=== PATIENT | female | born 1985 | race Caucasian/White ===

== ENCOUNTER → 2017-12-22 09:17 | Outpatient (CLI) | payer OTHER, SELFPAY ==
[2017-12-22 10:10] LABS: Absolute Lymphocyte Count 3.33 X10^3/ul (0.83-4.51); Absolute Neutrophil Count 8.1 X10^3/uL (2.0-7.7); Basophil# 0.04 X10^3/uL; Basophil% 0.3 % (0-1); Eosinophil# 0.37 X10^3/uL; Eosinophils% 2.9 % (0-5); Hematocrit 42.5 % (37-47); Hemoglobin 14.2 g/dl (12.0-15.0); Lymphocyte # 3.33 X10^3/ul (4.0); Lymphocyte % 26.5 % (19-41); Mean Corp Hgb Conc 33.4 g/gl (32-36); Mean Corpuscular Hgb 32.2 pg (27.0-32.0); Mean Corpuscular Volume 96.4 fL (81-99); Mean Platelet Vol. 9.7 fl (6.2-12.0); Monocyte% 5.6 % (0-10); Neutrophil # 8.09 X10^3/uL (2.7-7.7); Neutrophil % 64.5 % (47-70); Platelet Count 380 K/mm3 (150-450); RBC Distribution Width CV 13.1 % (11.6-14.6); RBC Distribution Width SD 45.1 fl (35.1-43.9); Red Blood Count 4.41 M/mm3 (4.2-5.4); White Blood Count 12.6 K/mm3 (4.4-11.0)
[2017-12-22 10:11] LABS: Color, Urine Yellow (Yellow); Glucose, Dipstick Normal (Normal); Ketone-Dipstick 5 mg/dl (Negative); Leukocyte Esterase-Dipstick 25 /ul (Negative); Nitrite-Dipstick Negative (Negative); Occult Blood-Urine Negative /ul (Negative); Protein-Dipstick 30 mg/dl (Negative); Specific Gravity, Urine 1.025 (1.002-1.030); Urine Bilirubin Dipstick Negative (Negative); Urine Clarity Clear (Clear); Urine Urobilinogen Normal (Normal)
[2017-12-22 10:13] LABS: POSITIVE COUNT NO; POSITIVE DIFFERENTIAL NO; POSITIVE MORPHOLOGY NO
[2017-12-22 10:22] LABS: White Blood Cells 5-10 SEEN /hpf (0-5)
[2017-12-22 10:23] LABS: Red Blood Cells-Urine 0-5 SEEN /hpf (0-5); Squamous Epithelial Cells - UA 0-5 SEEN /hpf (5-10)
[2017-12-22 10:24] LABS: Bacteria 1+ /hpf (None Seen); Mucous, Urine 1+ /hpf (<or=2+)
[2017-12-22 11:09] LABS: ALB/GLOB Ratio 0.8 RATIO (0.9-2.4); AST(SGOT) 23 U/L (15-37); Alanine Aminotransfer ALT/SGPT 55 U/L (13-56); Albumin, Serum 3.4 g/dL (3.2-5.0); Alkaline Phosphatase 69 U/L (45-117); Anion Gap 12 (5-15); BUN 10 mg/dL (7-18); BUN/Creat Ratio 16.9 RATIO (10-20); Calcium,Total 8.4 mg/dL (8.5-10.1); Chloride 104 mmol/L (98-107); Cholesterol 207 mg/dL (200); Creatinine, Serum 0.59 mg/dL (0.55-1.02); EST Glomerular Filtration Rate 126 mL/min (>60); Est Glom Filt Rate - Afr Amer 153 mL/min (>60); Globulin 4.3 g/dL (2.2-4.2); Glucose 82 mg/dL (74-106); High Density Lipoprotein 39 mg/dL; Potassium 3.8 mmol/L (3.5-5.1); Protein, Total 7.7 g/dL (6.4-8.2); Sodium Level 140 mmol/L (136-145); Thyroid Stim Hormone (TSH) 1.77 uIU/mL (0.358-3.74); Triglycerides 192 mg/dL; Very Low Density Lipoprotein 38 mg/dL (5-40)
== END ==
PROVIDERS: Family Provider Family Medicine; PCP Family Medicine; Visit Provider Family Medicine
DX: E66.01 Morbid (severe) obesity due to excess calories (principal); Z72.0 Tobacco use
CPT/HCPCS: 36415; 80053; 80061; 81001; 84443; 85025

== ENCOUNTER → 2018-01-25 08:33 | Outpatient (CLI) | payer OTHER, SELFPAY ==
[2018-01-26 08:56] LABS: Vitamin B12 436 pg/mL (211-911); Vitamin D,25 Hydroxy 15.2 ng/mL (29.95-100.01)
== END ==
PROVIDERS: Family Provider Family Medicine; PCP Family Medicine; Visit Provider Family Medicine
DX: R53.83 Other fatigue (principal)
CPT/HCPCS: 36415; 82306; 82607

== ENCOUNTER 2019-01-23 19:36 | Emergency (ER) | payer SELFPAY ==
[2019-01-23 19:37] VITALS: BP 152/90; PULSE 96; RESP 15; TEMP 36.4; O2SAT 98; BMI 47.9
--- NOTE | 2019-01-23 19:39 | RAD_ITS ---
STUDY: X-RAY - LEFT FOOT CLINICAL: Female, 33 years old. Pain TECHNIQUE: 3 view(s) of the foot. COMPARISON: None. FINDINGS: There is no evidence of fracture or dislocation. There are no significant degenerative changes. There are no radiodense foreign bodies. RAD/Foot min 3 Views IMPRESSION: No fracture or dislocation. Electronically Signed: Carson Quan, at 19:55 EDT Tel , Service support ,
--- NOTE | 2019-01-23 20:50 | ED.VISSUMM ---
- ER Visit Summary Date of Service: 01/23/19 Chief Complaint: Left foot pain History of Present Illness: The patient is a 33 F who presents emergency department with 4 days of atraumatic left foot pain. Described as being on the top of the foot and worse with walking especially the toe off. She states initially started as a cramp and follow her mother's advice took some extra potassium using potassium pills and bananas. Doing any better. She wears [employer] is at work. She states that she worked a 10-hour shift today and seems to be getting worse. She states there is some swelling but no erythema. No fevers or rashes. No known breaks in the skin. Physical Examination: Afebrile vital signs stable Gen: Well-nourished well-developed Head: Normocephalic atraumatic Eyes: Perrl EOMI ENT: TMs clear no rhinorrhea moist mucous membranes Neck: Supple no lymphadenopathy no JVD nontender CVS: Regular rate rhythm no murmurs normal S1-S2 Respiratory: No distress clear to auscultation bilaterally chest nontender Abdomen: Soft nontender nondistended normal bowel sounds no masses Back: Nontender Extremity: Mild swelling over the dorsum of the left foot. With plantar flexion and dorsiflexion against resistance she points to a prong-like distribution over the dorsum of the foot traveling up near the syndesmosis of the lower leg. Skin: Normal color no rash Neuro: alert orientated ?3 CN II-XII intact normal strength sensation reflexes gait cerebellar Psych: Normal affect normal mood Test Results: Foot films negative. Emergency Department Course and Treatment: In her description of the pain certainly seems more like a tendinitis-like picture. I recommend Los wrap at the ankle joint anti-inflammatories ice and rest. I will refer her to podiatry. Impression: 1. Left foot tendinitis This note was generated with [employer] dictation software. It may contain incorrect words, spelling, and punctuation that were not noted in review of the chart prior to signing ED Disposition - Plan for ED Patient: Disposition: Home or Assisted Living Instructions: Treating Tendonitis of the Foot Prescriptions: Ibuprofen [Motrin] 600 mg PO Q6H PRN #30 tab PRN Reason: Pain Prescription Printed Referrals: Kris Canchola DPM [STAFF PHYSICIAN] - As soon as possible
[2019-01-23 20:58] VITALS: BP 132/84; PULSE 72; RESP 17; O2SAT 96
== END 2019-01-23 21:03 | disposition home or self-care (01) ==
PROVIDERS: Emergency Provider Emergency Medicine; Family Provider Family Medicine; PCP Family Medicine
DX: M77.52 Other enthesopathy of left foot and ankle (principal); E66.9 Obesity, unspecified; Z72.0 Tobacco use
CPT/HCPCS: 73630; 99282

== ENCOUNTER → 2020-10-17 | Outpatient (CLI) | payer OTHER, SELFPAY ==
[2020-04-02 11:40] VITALS: BMI 38.7
[2020-10-22 16:40] LABS: HPV Reflexed? NOT INDICATED
== END | disposition home or self-care (01) ==
LOC: LABSPEC 17:08
PROVIDERS: PCP Family Medicine; Visit Provider Obstetrics & Gynecology
DX: Z12.4 Encounter for screening for malignant neoplasm of cervix (principal)
CPT/HCPCS: 88175; G0145

== ENCOUNTER → 2020-10-21 15:52 | Outpatient (CLI) | payer OTHER, SELFPAY ==
[2020-04-02 11:40] VITALS: BMI 38.7
[2020-10-21 17:56] LABS: Absolute Lymphocyte Count 3.97 X10^3/uL (0.83-4.51); Absolute Neutrophil Count 8.8 X10^3/uL (2.0-7.7); Basophil# 0.04 X10^3/uL; Basophil% 0.3 % (0-1); Eosinophil# 0.14 X10^3/uL; Hematocrit 41.3 % (37-47); Hemoglobin 13.1 g/dL (12.0-15.0); Lymphocyte # 3.97 X10^3/ul (0.83-4.51); Lymphocyte % 28.8 % (19-41); Mean Corp Hgb Conc 31.7 g/dL (32-36); Mean Corpuscular Hgb 30.8 pg (27.0-32.0); Mean Corpuscular Volume 97.2 fL (81-99); Mean Platelet Vol. 9.4 fl (6.2-12.0); Monocyte# 0.81 X10^3/uL; Monocyte% 5.9 % (0-10); NRBC Flagged by Analyzer 0 % (0-5); Neutrophil # 8.78 X10^3/uL (2.7-7.7); Neutrophil % 63.6 % (47-70); Platelet Count 436 K/mm3 (150-450); RBC Distribution Width CV 13.2 % (11.6-14.6); RBC Distribution Width SD 46.6 fl (35.1-43.9); Red Blood Count 4.25 M/mm3 (4.2-5.4); White Blood Count 13.8 K/mm3 (4.4-11.0)
[2020-10-21 17:57] LABS: ALB/GLOB Ratio 0.9 RATIO (0.9-2.4); AST(SGOT) 14 U/L (15-37); Alanine Aminotransfer ALT/SGPT 23 U/L (13-56); Albumin, Serum 3.9 g/dL (3.2-5.0); Alkaline Phosphatase 75 U/L (45-117); Anion Gap 7 (5-15); BUN 11 mg/dL (7-18); BUN/Creat Ratio 16.3 RATIO (10-20); Calcium,Total 8.7 mg/dL (8.5-10.1); Chloride 102 mmol/L (98-107); Cholesterol 237 mg/dL (200); Creatinine, Serum 0.67 mg/dL (0.55-1.02); EST Glomerular Filtration Rate 106 mL/min (>60); Est Glom Filt Rate - Afr Amer 129 mL/min (>60); Globulin 4.3 g/dL (2.2-4.2); Glucose 81 mg/dL (74-106); High Density Lipoprotein 70 mg/dL; Potassium 3.9 mmol/L (3.5-5.1); Protein, Total 8.2 g/dL (6.4-8.2); Sodium Level 135 mmol/L (136-145); Triglycerides 100 mg/dL; Very Low Density Lipoprotein 20 mg/dL (5-40)
[2020-10-21 18:00] LABS: Vitamin D,25 Hydroxy 21.1 ng/mL
== END ==
PROVIDERS: PCP Family Medicine; Visit Provider Family Medicine
DX: E55.9 Vitamin D deficiency, unspecified (principal); E66.9 Obesity, unspecified
CPT/HCPCS: 36415; 80053; 80061; 82306; 85025

== ENCOUNTER 2021-01-15 10:52 | Observation (INO) | payer OTHER, SELFPAY ==
[2020-11-13 15:34] VITALS: BMI 38.7
[2020-12-09 11:50] VITALS: BMI 38.7
[2021-01-14 10:07] LABS: Absolute Lymphocyte Count 3.02 X10^3/uL (0.83-4.51); Absolute Neutrophil Count 6.4 X10^3/uL (2.0-7.7); Basophil# 0.05 X10^3/uL; Basophil% 0.5 % (0-1); Eosinophil# 0.16 X10^3/uL; Eosinophils% 1.5 % (0-5); Hematocrit 41.3 % (37-47); Hemoglobin 13.1 g/dL (12.0-15.0); Lymphocyte # 3.02 X10^3/ul (0.83-4.51); Lymphocyte % 29.2 % (19-41); Mean Corp Hgb Conc 31.7 g/dL (32-36); Mean Corpuscular Volume 97.6 fL (81-99); Mean Platelet Vol. 9.5 fl (6.2-12.0); Monocyte# 0.61 X10^3/uL; Monocyte% 5.9 % (0-10); NRBC Flagged by Analyzer 0 % (0-5); Neutrophil # 6.44 X10^3/uL (2.7-7.7); Neutrophil % 62.4 % (47-70); Platelet Count 382 K/mm3 (150-450); RBC Distribution Width CV 13.3 % (11.6-14.6); RBC Distribution Width SD 47.6 fl (35.1-43.9); Red Blood Count 4.23 M/mm3 (4.2-5.4); White Blood Count 10.3 K/mm3 (4.4-11.0)
[2021-01-14 10:33] LABS: Vitamin B12 486 pg/mL (211-911); Vitamin D,25 Hydroxy 24.1 ng/mL
[2021-01-14 10:42] LABS: ALB/GLOB Ratio 0.9 RATIO (0.9-2.4); AST(SGOT) 12 U/L (15-37); Alanine Aminotransfer ALT/SGPT 17 U/L (13-56); Albumin, Serum 3.4 g/dL (3.2-5.0); Alkaline Phosphatase 67 U/L (45-117); Anion Gap 6 (5-15); BUN 12 mg/dL (7-18); BUN/Creat Ratio 20.5 RATIO (10-20); Calcium,Total 8.2 mg/dL (8.5-10.1); Chloride 105 mmol/L (98-107); Creatinine, Serum 0.58 mg/dL (0.55-1.02); EST Glomerular Filtration Rate 125 mL/min (>60); Est Glom Filt Rate - Afr Amer 152 mL/min (>60); Globulin 3.9 g/dL (2.2-4.2); Glucose 82 mg/dL (74-106); Potassium 4.1 mmol/L (3.5-5.1); Protein, Total 7.3 g/dL (6.4-8.2); Sodium Level 138 mmol/L (136-145); Thyroid Stim Hormone (TSH) 2.05 uIU/mL (0.358-3.74)
[2021-01-15] VITALS (9 sets, daily range): BP systolic 106–128; BP diastolic 49–86; PULSE 65–88; RESP 16; TEMP 36.4–37.1; O2SAT 94–100; BMI 42.8
[2021-01-15 06:35] LABS: Internal QC Validated? YES +Cl - CLEAR BKGD; Pregnancy, Urine Negative Negative
[2021-01-15] MEDS: Lactated Ringers 1,000 ML 100 ML IV ×2 (06:49→15:56)
--- NOTE | 2021-01-15 07:04 | HP.PCM_ITS ---
History and Physical Date of Admission: 01/15/21 HISTORY OF PRESENT ILLNESS 35 year old woman presents with long standing hidradenitis that started about 20 years ago. She has been on antibiotics intermittently. She also has a history of a 100 lb weight loss which has exacerbated these areas of hidradenitis because of redundant skin and subcutaneous tissue in her lower anterior abdominal wall and inguinal areas extending onto the medial thigh areas. She denies fever. She denies trauma. She has never had any surgical procedures done. When she has flare ups, there is increased pain and redness and swelling with some drainage. She was offered Humira as a treatment, but she was concerned about the side effects. She presents at this time for further evaluation and treatment. PAST MEDICAL HISTORY Hidradenitis suppurativa Necrotizing soft tissue infection Recent weight loss PAST SURGICAL HISTORY section ALLERGIES aspirin MEDICATIONS fexofenadine sertraline doxycycline monohydrate FAMILY HISTORY Breast cancer Cervical cancer Colon cancer Diabetes Hypertension SOCIAL HISTORY Smoking Status: Former smoker quit date: 02/03/20 pack-years: 15 alcohol intake: current REVIEW OF SYSTEMS General - Denies fever, fatigue. Had weight loss in the past of about 100 lbs. Eyes - Denies cataracts and glaucoma. ENT - Denies nasal congestion and sore throat. Endocrine - Denies excessive thirst and urination. Skin - Denies skin cancer. Has multiple areas of hidradenitis involving the abdominal wall skin crease, bilateral inguinal areas extending to the medial thighs, bilateral vulval area involving the genitocrural crease extending to the labia and involving the mons pubis, and bilateral axillary areas. Musculoskeletal - Denies joint pain, joint stiffness, weakness of muscles and joints, back pain, and arthritis. Neuro - Denies headaches. Cardiovascular - Denies chest pain, fatigue, and shortness of breath with exertion. Psych - Denies anxiety. Has depression. Respiratory - Denies chronic cough and shortness of breath. Patient is a former smoker. Gastrointestinal - Denies nausea, vomiting, diarrhea, and constipation. Hematologic - Denies abnormal bruising and bleeding. Genitourinary - Denies hematuria and urinary frequency. PHYSICAL EXAMINATION General - Alert and Oriented. HEENT - PERRL. EOMI. Throat is clear. Neck - Supple and nontender. No cervical adenopathy. Breasts - Patient stated she noticed areas of redness and induration in her inframammary creases. Today it appears resolved. Lungs - Clear to auscultation. Heart - Regular rate and rhythm. Abdomen - Soft and nondistended. Has redundant skin and subcutaneous tissue in the lower anterior abdominal wall with extensive areas of hidradenitis involving the abdominal wall skin crease. Tender to palpation. There is redness and induration and swelling. There is no odor. No drainage noted today. Has bilateral inguinal hidradenitis with extension to the medial thigh areas. There is redness and induration and swelling. There is no odor. Tender to palpation. No drainage noted today. No inguinal adenopathy noted. Genital - Has bilateral vulval hidradenitis involving the genitocrural crease and extending to the labial areas and the mons pubis area. There is redness and induration and swelling. There is no odor. Tender to palpation. No drainage noted today. Extremities - FROM. No axillary adenopathy. Radial pulses are palpable. Has bilateral axillary hidradenitis. There is redness and induration and swelling. There is no odor. Tender to palpation. No drainage noted today. Neuro - CN II-XII grossly intact. Psych - Normal mood and affect. ASSESSMENT 1. Extensive abdominal wall skin crease hidradenitis, possible necrotizing soft tissue infection. 2. Bilateral inguinal hidradenitis with extension to medial thighs. 3. Bilateral vulval hidradenitis with extension from the genitocrural crease to the labia and to the mons pubis. 4. Bilateral axillary hidradenitis. 5. Recent weight loss of about 100 lbs. 6. Former smoker. PLAN Patient has extensive areas of hidradenitis that need surgical excision. Would send the tissue to Pathology for analysis to rule out carcinoma and to Microbiology for culture. A positive culture will necessitate antibiotic therapy. Will leave the wounds open and proceed with wound care with the VAC or with daily Dakin's dressing changes. Surgery would be done under general anesthesia with a surgical observation overnight stay in the hospital. After discharge, she would followup at the Wound Center. If there is a plateau in the healing process, can proceed with delayed closure with skin grafting. The extensive abdominal wall skin crease hidradenitis is the most symptomatic and will start there. Next areas would be the inguinal area involving the medial thigh and the vulval areas. Would do one side at a time. Lastly would address the bilateral axillary areas. Patient was informed of the risks and complications of the procedure including alternatives to surgery. These were discussed with the patient personally. Patient voices understanding and wishes to proceed. Some of the risks and complications were included in a form from the [employer]. Potential risks and complications included but not inclusive of bleeding, infection seroma, hematoma, bruising, swelling, prolonged need for drains, loss of sensation to skin, partial or complete loss of skin flap and/or nipple graft, wound breakdown, need for wound care, poor scarring, poor aesthetic outcome, intra operative cardiac or neurologic events, DVT, PE, and reaction to an esthesia. We discussed the current risks associated with COVID-19. While it is understood that there is a community spread of COVID-19, the risk of huma COVID-19 while at [facility] ([facility]) is very low; however, the risk cannot be completely mitigated because of the community spread of the disease. We discussed in detail the risk of exposure to and/or potential harm posed by the COVID-19 virus with having a surgery/procedure at this time versus the risk of delaying the surgery/procedure. It is not possible to know either the risk of delaying the surgery or procedure or chance of getting an infection with perfect accuracy, but a joint decision was made to proceed at this time with the scheduled surgery/procedure as indicated on the consent form. Patient was notified that we will need to comply with any screening or testing [facility] wishes to perform or that surgery may be delayed for any positive results. Procedure Criteria Procedure Type: Elective COVID Risk Discussion: The surgeon/proceduralist and patient have discussed in detail the risk of exposure to and/or potential harm posed by the COVID-19 virus with having a surgery/procedure at this time versus the risk of delaying the surgery/procedure. It is not possible to know either the risk of delaying the surgery or procedure or chance of getting an infection with perfect accuracy, but a joint decision was made between the patient and the surgeon/proceduralist to proceed at this time with the scheduled surgery/procedure as indicated on the consent form.
--- NOTE | 2021-01-15 08:00 | HID_PTH ---
PATIENT: MORA ABRAHAM LOC: MS3 U#:[id number] AGE/SX: 35/F ROOM: [facility] RE01/15/[address]: Dr. Alfonso De La Torre MD : 1985 BED: 1 DIS: 01/16/2021 SPEC #: [id number] RECD: 01/15/21 09:57 STATUS: MOHIT GASPAREliane #: [id number] YURY: 01/15/21 08:[address]: Alfonso De La Torre DEPT: SURGICAL PATHOLOGY RECD BY: Yara Farris ENTERED: 01/15/21 12:06 SP TYPE: Hidradenit EVE DR: Dr. Steve Hu MD Tissues: Abdominal wall, NOS Procedures: Surgery Specimen Level III HEADER OPERATION: Excisional debridement skin and subcutaneous tissue abdominal wall PRE-OP DIAGNOSIS: Extensive abdominal wall skin crease hidradenitis, possible necrotizing soft tissue infection TISSUE SUBMITTED: Abdominal wall hidradenitis MICROSCOPIC DIAGNOSIS Hidradenitis of abdominal wall, excision: Consistent with hidradenitis. AM:luna 01/17/2021 MICROSCOPIC DESCRIPTION Slides are reviewed. GROSS DESCRIPTION Received in fixative is one container labeled with the patient's name and designated abdominal wall hidradenitis. The specimen consists of two triangular pieces of skin with underlying tissue measuring in aggregate 30 x 21.5 cm and up to 5 cm in thickness. No obvious lesion is identified. Sections do not reveal any mass lesion. Zig Zag Stitcher sections are submitted in four cassettes. / SJ:luna 01/16/21 TC:2 CPT: 86636
[2021-01-15] MEDS: Lidocaine 1%/Epi 1:200 (30ml) 30 ML AMPUL (09:01)
--- NOTE | 2021-01-15 09:39 | PCM.OPRPT ---
Problems Associated Problem List Diagnoses (1) Hidradenitis suppurativa: (2) Necrotizing soft tissue infection: (3) Recent weight loss: (4) Former smoker: (5) Open wound anterior abdominal wall: Report of Operation Date of Procedure: 01/15/21 Pre-Operative Diagnosis: 1. Extensive abdominal wall skin crease hidradenitis, possible necrotizing soft tissue infection. 2. Bilateral inguinal hidradenitis with extension to medial thighs. 3. Bilateral vulval hidradenitis with extension from the genitocrural crease to the labia and to the mons pubis. 4. Bilateral axillary hidradenitis. 5. Recent weight loss of about 100 lbs. 6. Former smoker. Post-Operative Diagnosis: 1. Extensive abdominal wall skin crease necrotizing soft tissue hidradenitis infection. 2. Bilateral inguinal hidradenitis with extension to medial thighs. 3. Bilateral vulval hidradenitis with extension from the genitocrural crease to the labia and to the mons pubis. 4. Bilateral axillary hidradenitis. 5. Recent weight loss of about 100 lbs. 6. Former smoker. Surgery/Procedure Performed:: Excisional debridement skin and subcutaneous tissue for necrotizing soft tissue hidradenitis infection lower anterior abdominal wall. Description of Surgical Findings:: 35 year old woman presents with long standing hidradenitis that started about 20 years ago. She has been on antibiotics intermittently. She also has a history of a 100 lb weight loss which has exacerbated these areas of hidradenitis because of redundant skin and subcutaneous tissue in her lower anterior abdominal wall and inguinal areas extending onto the medial thigh areas. She denies fever. She denies trauma. She has never had any surgical procedures done. When she has flare ups, there is increased pain and redness and swelling with some drainage. She was offered Humira as a treatment, but she was concerned about the side effects. Patient was informed of the risks and complications of the procedure including alternatives to surgery. These were discussed with the patient personally. Patient voices understanding and wishes to proceed. Some of the risks and complications were included in a form from the [employer]. Size of defect lower anterior abdominal wall - 50 x 9 x 4 cm. Surgeon: Alfonso De La Torre twisting frame operator: None Type of Anesthesia: General Specimen's removed: Abdominal wall tissue to Pathology and Microbiology. Drains: None. Estimated Blood Loss (mL): 50. Description of Procedure: Patient was taken to OR in supine position and was placed under general anesthesia. The abdominal wall was prepped and draped in the usual fashion. SCD's were placed for DVT prophylaxis. Perioperative antibiotics were given intravenously. Using xylocaine with epinephrine, the abdominal wall skin crease was infiltrated. After waiting 5 minutes for the anesthetic to take effect, I made a horizontal elliptical incision to include the areas of severe hidradenitis and to include some excess skin superiorly to allow easier wound care due to minimizing skin overhang. When I got into the subcutaneous tissue, there was extensive fat necrosis with some of it starting to liquefy. No gross pus was seen. The dissection extended past Kelvin's fascia down to the abdominal wall fascia. Dense scarring was seen throughout the excision indicating chronic infection. The extensive fat necrosis and indurated scarring along with the skin and subcutaneous tissue was excised and debrided. The abdominal wall tissue was sent to Pathology for analysis to rule out carcinoma and to Microbiology for culture. A positive culture will necessitate antibiotic therapy. Hemostasis was obtained with electrocautery. The wound was irrigated with saline. The size of the defect after excisional debridement of the skin and subcutaneous tissue for necrotizing soft tissue hidradenitis infection was 50 x 9 x 4 cm or 450 cm2. The wound was dressed with Mepitel nonadherent dressing followed by Kerlix gauze and Betadine and followed by dry Kerlix gauze and ABD pads compression dressing. Patient tolerated the procedure well and was sent to PACU in satisfactory condition. Patient will be sent upstairs for continued postop care. The VAC will be applied tomorrow. After discharge, she will followup at the Wound Center. If there is a plateau in the healing process, we can proceed with delayed closure with skin grating or complex secondary wound closure. Grafts/Implants Used: None. Complications None. Admit VTE Documentation VTE Present on Admission: No VTE Mechan Device Prophylaxis: SCD's VTE Pharm Prophylaxis ordered?: No Addendum Addendum: Surgery Charges CPT - 17565 ICD-10 - L73.2, M79.89, S31.109A, R63.4, Z87.891
[2021-01-15] MEDS: oxyCODONE 5 MG Tablet 10 MG PO ×3 (12:10→22:50)
--- NOTE | 2021-01-15 14:30 | CASEMGMT ---
Addendum entered by Raza Domingo 01/15/21 18:12: 1640: Calls placed to [facility] and [facility]. Neither able to accept pt d/t staffing. Call placed to Christopher @ [facility] and referral made. Referral packet faxed. Christopher made aware wound vac to be placed tomorrow, and anticipate discharge home tomorrow, and SOC would need to be either Sat or Sun. Christopher was also notified that plan is for pt to go to the Wound center once a week, so HH to do wound vac dsg changes 2 x's/week. Awaiting acceptance. Original Note: RN CM MANAGEMENT ACCOUNTANT CM to room to meet with patient for initial transition planning/care coordination assessment. RN CM introduced self and role at [facility].? Pt voices understanding and consents to assessment at this time.? Pt resting in bed in no distress at this time.? Pt is A/O at this time and answers all questions appropriately.?? Care providers, pharmacy, and demographics verified/updated at this time. PCP: Dr Steve Hu Specialists: Dr De La Torre--surgeon Preferred [facility]acy: [facility] Insurance: MMO Prescription Benefit:? Yes Living Will/HPOA:? Pt does not currently have LW/HCPOA and declines info at this time.? LNOK: , Luther. Has 5 children. 2 are adults Living Arrangements: Lives w/her and 3 children live w/them. Independent prior to surgery w/ADL's and IADL's. States is supportive and able to help as needed. Pt's mother is also supportive and is taking care of the 2 youngest children for a few days while pt recovers. Transportation: Pt states drives self and states no transportation concerns at this time.? also drives. DME: ? Denies using any DME and denies needs.? HHC/SNF: No history of either. States wishes to return home @ d/c. Discussed [facility] for wound vac dsg changes/care. Pt inquiring if her Aunt Renee could do the dressing changes, stating she is an RN and has done wound vac's in the past. Pt made aware of frequency of wound vac dsg changes. Pt states if her insurance will cover cost of C, then she would be agreeable to [facility], but she did call Ana while NINA ZEE in the room and discussed wound vac with her. Ana states she has worked for [facility] in the past, has done wound vac care/dsg changes, and would be agreeable to do them if needed. ?Pt was provided with list of?[facility] providers including quality and resource use data and consistent with the patient's preferred geographic region, medical needs, and insurance network. ?The pt's stated she did not have a preference of [facility] agencies and tried to hand the HHC list back to pt. NINA ZEE informed pt it was her choice and she stated, Whoever you can get. Pt was agreeable to keeping the list, but again stated she had no preference. Ana was on speaker phone at the time of this discussion of [facility] agencies and she states had no preference of [facility] agencies either, other than she would not want pt to have [facility]. Pt wishes to return home w/HHC for wound vac care and states has no concerns with going home at time of discharge.? CM to follow for any further discharge planning/needs.? Pt voices no further concerns/needs at this time.? Advised pt to ask for CM if any further questions/concerns/needs arise.? Voices understanding. PLAN: ?Home w/HHC: SN for wound vac care/dsg changes. Tracie MCDONALD RN, CM
[2021-01-15] MEDS: 0.9% Saline Lock 10 ML Syringe IV (15:53)
[2021-01-15] MEDS: Docusate Sodium 100 MG Capsule PO (20:30)
[2021-01-16 02:15] VITALS: BP 105/56; PULSE 73; RESP 16; TEMP 36.7; O2SAT 94
[2021-01-16] MEDS: oxyCODONE 5 MG Tablet 10 MG PO ×2 (04:35→14:09)
[2021-01-16] MEDS: Lactated Ringers 1,000 ML 100 ML IV (04:36)
[2021-01-16 05:57] LABS: Hematocrit 35.7 % (37-47); Hemoglobin 11.5 g/dL (12.0-15.0); Mean Corp Hgb Conc 32.2 g/dL (32-36); Mean Corpuscular Hgb 31.4 pg (27.0-32.0); Mean Corpuscular Volume 97.5 fL (81-99); Mean Platelet Vol. 9.3 fl (6.2-12.0); Platelet Count 336 K/mm3 (150-450); RBC Distribution Width CV 13.2 % (11.6-14.6); RBC Distribution Width SD 47.3 fl (35.1-43.9); Red Blood Count 3.66 M/mm3 (4.2-5.4); White Blood Count 12.3 K/mm3 (4.4-11.0)
[2021-01-16 06:52] LABS: Anion Gap 7 (5-15); BUN 12 mg/dL (7-18); BUN/Creat Ratio 21.3 RATIO (10-20); Calcium,Total 8.2 mg/dL (8.5-10.1); Chloride 103 mmol/L (98-107); Creatinine, Serum 0.56 mg/dL (0.55-1.02); EST Glomerular Filtration Rate 131 mL/min (>60); Est Glom Filt Rate - Afr Amer 158 mL/min (>60); Estimated Creatinine Clearance 117.09 ml/min; Glucose 91 mg/dL (74-106); Potassium 3.7 mmol/L (3.5-5.1); Prealbumin 31.4 mg/dL (20.0-40.0); Sodium Level 138 mmol/L (136-145)
[2021-01-16 07:32] VITALS: BP 106/54; PULSE 96; RESP 16; TEMP 36.8; O2SAT 93
[2021-01-16] MEDS: HYDROmorphone 1 MG/ML Syringe IV (07:57)
[2021-01-16] MEDS: 0.9% Saline Lock 10 ML Syringe IV ×2 (08:06→13:05)
[2021-01-16] MEDS: Docusate Sodium 100 MG Capsule PO (09:37)
[2021-01-16] MEDS: Sertraline 100 MG Tablet PO (09:37)
[2021-01-16 09:56] VITALS: PULSE 69
--- NOTE | 2021-01-16 10:24 | CASEMGMT ---
RN CM: HILL received from Christopher @ [facility]. They are able to accept pt and SOC will be either Sat or Sun, depending on when pt is discharged. Christopher requests for a teachable caregiver to be available, if needed. Pt made aware [facility] able to accept. She states her mother is also an RN, and would be agreeable to teaching, and she would prefer to have her mother listed as the teachable caregiver, instead of her Aunt Ana, as Ana lives about 30 min away and may not be as available as her mother. Call placed back to Christopher and he was made aware of same. Tracie MCDONALD RN CM
--- NOTE | 2021-01-16 10:46 | NURSING ---
wound photo: lower abdomen
[2021-01-16] MEDS: Ondansetron 4 MG/2 ML Vial IV (13:05)
[2021-01-16 13:29] VITALS: BP 110/69; PULSE 74; RESP 16; TEMP 36.6; O2SAT 97
--- NOTE | 2021-01-16 13:42 | PCM.PN.SRG ---
Subjective Subjective Postop day #1 Patient states pain is well controlled She would like to be discharged home today. Objective Data Objective Data Vital Signs: Vital Signs Temp Pulse Resp BP Pulse Ox 97.9 F 74 16 110/69 97 01/16/21 13:29 01/16/21 13:29 01/16/21 13:29 01/16/21 13:29 01/16/21 13:29 Oxygen Delivery Method Room Air Weight: 242 lb 1.081 oz Body Mass Index (BMI) 42.8 Intake & Output: Intake and Output for Last 24 Hours 01/14/21 01/15/21 01/16/21 23:59 23:59 23:59 Intake Total 2771.67 / 2771.67 1108.00 / 1108.00 Output Total 2100 / 2100 Balance 671.67 / 671.67 1108.00 / 1108.00 Lab / Micro Data Result Diagrams: 01/16/21 05:29 01/16/21 05:29 Labs: Laboratory Results - last 24 hr 01/16/21 05:29: WBC 12.3 H, RBC 3.66 L, Hgb 11.5 L, Hct 35.7 L, MCV 97.5, MCH 31.4, MCHC 32.2, RDW Std Deviation 47.3 H, RDW Coeff of Balaji 13.2, Plt Count 336, MPV 9.3 01/16/21 05:29: Sodium 138, Potassium 3.7, Chloride 103, Carbon Dioxide 28.0, Anion Gap 7, BUN 12, Creatinine 0.56, Estim Creat Clear Calc 117.09, Est GFR (MDRD) Af Amer 158, Est GFR (MDRD) Non-Af 131, BUN/Creatinine Ratio 21.3 H, Glucose 91, Calcium 8.2 L, Prealbumin 31.4 Micro: Microbiology 01/15/21 09:30 Tissue - Abdominal Gram Stain - Final 01/15/21 09:30 Tissue - Abdominal Wound Culture - Preliminary No growth-Final to follow 01/14/21 09:10 Interface Orders SARS-CoV-2 Antigen (Rapid) - Final Physical Exam Const oriented x3 and no apparent distress Resp normal respiratory effort Cardio regular rate GI GI Narrative: Lower abdomen is tender due to incision. Extremity full ROM Skin Wound Narrative: Lower abdominal wound operative dressing removed. Wound is stable with no active bleeding. Wound VAC was placed earlier today and patient is tolerating it well. Neuro oriented x3 Psych mental status grossly normal Assessment & Plan Assessment/Plan (1) Open wound anterior abdominal wall: (2) Necrotizing soft tissue infection: (3) Hidradenitis suppurativa: (4) Other acute postprocedural pain: (5) Recent weight loss: (6) Former smoker: PLAN: Patient states that pain is well controlled with oral pain meds. She is experiencing some nausea. Operative dressing removed today, wound is stable with no active bleeding. Wound nurse placed wound VAC without difficulty to 150mmHg. Operative cultures pending. She has been receiving Clindamycin IV. Will prescribe Doxycycline on discharge. Prealbumin 31.4. Encourage protein intake to help with wound healing. She states she has been ambulating without difficulty. She will be discharged home later today. She will follow up Wednesday01/20/21 at the wound center. They will call her with an appointment. She will be prescribed Percocet for post op pain. PDMP reviewed. Valium for muscle spasms due to the wound VAC. Colace for constipation. Zofran for nausea.
--- NOTE | 2021-01-16 13:45 | DCINST_ITS ---
Discharge Instructions Diet Discharge Diet: No restrictions Activity Discharge Activity: May Not Drive and May Not Shower May resume sexual activity in: 1-2 weeks Lifting Restrictions: 20 lb weight lifting restriction Additional Activity Instructions:: Please wear abdominal binder for abdominal support Dressing / Incision Call your doctor if your incision/area has: Continuous Slow Oozing, Sudden Increased Bleeding, Increased Pain/ Swelling, Increased Redness, Foul Smelling Discharge and Swelling at the incision site Call your doctor if you observe: Fever of 101 or Higher, Coldness, Increased Pain, Numbness or Tingling, Inability to urinate, Inability to have a bowel movement, Using more than 1 pad per hour, Shortness of breath, Chest pain, Calf discomfort and Uncontrolled pain Change Dressing in: 2 days (home health will change dressing.) Cleanse incision/area with: Soap & Water (At time of wound vac dressing change, wash wound and andrea wound with soap and water) Additional Dressing/Incision Instructions:: Wound VAC dressing change 3 times pe r week. Wash wound with soap and water at the time of wound VAC dressing changes. When patient feels comfortable removing wound VAC dressing, may remove wound VAC dressing and shower right before home health comes to change the dressing. Follow Up Care Please Follow Up With: Tania Beck When: Wednesday January 20, 2021 at the [facility] center [phone] (they should call you to schedule your appointment). Test Results: Test results from this visit will be discussed in further detail at your follow-up appointment, if applicable. Discharge Plan Admission Admit Date/Time: 01/15/21 10:52 Attending Provider: Alfonso De La Torre Primary Care Provider: Steve Hu Discharge Orders/Prescriptions Prescriptions: New oxycodone-acetaminophen [Percocet] 5-325 mg tablet 1 tab PO Q4H PRN (Reason: pain (scale score 7-10)) 7 Days Qty: 30 RF: 0 doxycycline monohydrate 100 mg capsule 100 mg PO BID 14 Days Qty: 28 RF: 0 diazepam [Valium] 5 mg tablet 5 mg PO TID PRN (Reason: muscle spasm) 7 Days Qty: 20 RF: 0 ondansetron 4 mg tablet,disintegrating 4 mg PO Q8H PRN (Reason: nausea and vomiting) Qty: 20 RF: 0 docusate sodium [Colace] 100 mg capsule 100 mg PO DAILY 30 Days Qty: 30 RF: 0 Continued sertraline [Zoloft] 25 mg tablet 100 mg PO DAILY RF: 0 Referrals / Follow Up: Steve Hu MD [Primary Care Provider] - Disposition Disposition (needs filled in before D/C Order can be placed): Home, Self Care
--- NOTE | 2021-01-16 16:06 | NURSING ---
This RN reviewed SN charting
== END 2021-01-16 14:33 | disposition home health service (06) ==
LOC: SDC 15:31 → MS3 15:31
PROVIDERS: Anesthesiology; Admitting Provider Surgery; PCP Family Medicine; Referring Provider Surgery; Visit Provider Surgery
PROC: (CPT 11005; principal; 2021-01-15 07:45)
DX: L73.2 Hidradenitis suppurativa (principal); L98.7 Excessive and redundant skin and subcutaneous tissue; Z87.891 Personal history of nicotine dependence; I96 Gangrene, not elsewhere classified; Z79.899 Other long term (current) drug therapy; F41.9 Anxiety disorder, unspecified; F32.9 Major depressive disorder, single episode, unspecified; M19.90 Unspecified osteoarthritis, unspecified site; G25.81 Restless legs syndrome
CPT/HCPCS: 00800; 11005; 36415; 80048; 80053; 81025; 82306; 82607; 84134; 84443; 85025; 85027; 87070; 87075; 87102; 87176; 87205; 87206; 87426; 88304; 96361; 96365; 96366; 96375; 99218; 99251; 99406; C9803; J7120; A4216; G0378; G0379; G0463; J2405

== ENCOUNTER 2021-01-27 11:30 | Outpatient (RCR) | payer OTHER, SELFPAY ==
[2021-01-15 06:42] VITALS: BMI 42.8
[2021-01-20 10:55] VITALS: BP 130/78; PULSE 76; TEMP 36.4; BMI 42.8
--- NOTE | 2021-01-20 13:02 | PCM.WC.HP ---
History of Present Illness Date of Service: 01/20/21 Chief Complaint: Lower abdomen open surgical wound after excision of hidradenitis History of Wound: 35 year old woman presents with long standing hidradenitis that started about 20 years ago. She has been on antibiotics intermittently. She also has a history of a 100 lb weight loss which has exacerbated these areas of hidradenitis because of redundant skin and subcutaneous tissue in her lower anterior abdominal wall and inguinal areas extending onto the medial thigh areas. She denies fever. She denies trauma. She has never had any surgical procedures done. When she has flare ups, there is increased pain and redness and swelling with some drainage. She was offered Humira as a treatment, but she was concerned about the side effects. Surgery - Excisional debridement skin and subcutaneous tissue for necrotizing soft tissue hidradenitis infection lower anterior abdominal wall. Wound care - Wound VAC at 150 mmHg three times per week. She is having increased pain, but is hesitant to take pain meds. Instructed her that she may need pain meds for the pain and Valium for the muscle spasms. She denies any fevers. She states her appetite is good. Progress of Wound: Lower abdominal wound is stable. PFSH Medical History Alcohol use Anxiety Arthritis Depression Former smoker Hidradenitis suppurativa Marijuana use Necrotizing soft tissue infection Open wound anterior abdominal wall Recent weight loss Restless legs Shortness of breath on exertion Smoker Home Medications sertraline 25 mg tablet 100 mg PO DAILY tab 11/13/20 [History Last Taken 01/15/21] diazepam [Valium] 5 mg PO TID PRN 7 Days #20 tab 01/16/21 [Rx Last Taken Unknown] docusate sodium [Colace] 100 mg PO DAILY 30 Days #30 cap 01/16/21 [Rx Last Taken Unknown] doxycycline monohydrate 100 mg PO BID 14 Days #28 cap 01/16/21 [Rx Last Taken Unknown] ondansetron 4 mg PO Q8H PRN #20 tab 01/16/21 [Rx Last Taken Unknown] oxycodone-acetaminophen [Percocet] 1 tab PO Q4H PRN 7 Days #30 tab 01/16/21 [Rx Last Taken Unknown] Allergy/AdvReac Type Severity Reaction Status Date / Time aspirin Allergy Swelling Verified 01/15/21 06:41 Family History Other Breast cancer Cervical cancer Colon cancer Diabetes Hypertension Surgical History (Updated 01/08/21 @ 10:17 by Rivka Hahn) Hx of section [place] teeth extracted Social History Smoking Status: Current every day smoker tobacco type: e-cigarettes alcohol intake: current additional social history: Does Not Take Aspirin ( Allergy ) Does Not Take Ibuprofen ROS Constitutional Constitutional: Reports systems reviewed and no addt'l complaints, except as documented Eyes Eyes: Reports systems reviewed and no addt'l complaints, except as documented ENT HEENT: Reports none Cardiovascular Cardiovascular: Reports none Respiratory/Chest Respiratory/Chest: Reports none Gastrointestinal Gastrointestinal: Reports constipation Genitourinary Genitourinary: Reports none Musculoskeletal Musculoskeletal: Reports muscle spasms Integumentary Integumentary: Reports wounds Neurologic Neurologic: Reports none Psychiatric Psychiatric: Reports anxiety Allergic/Immunologic Allergic/Immunologic: Reports none Vital Signs Vital Signs Vital Signs: 01/20/21 10:55 Temperature 97.5 F L Temperature Source Temporal Pulse Rate 76 Blood Pressure 130/78 H Blood Pressure Mean 95 Blood Pressure Source Monitor Blood Pressure Position Sitting Blood Pressure Location Right Arm Weight Body Mass Index (BMI) 42.8 Physical Exam Const alert and oriented x3 General Appearance: cooperative HEENT normocephalic Eyes PERRL Neck full ROM Lymph Lymphatic: no lymphedema noted Resp normal respiratory effort Cardio regular rate GI GI Narrative: Abdomen is soft. Tender to palpation due to lower abdominal incision. Extremity full ROM, normal capillary refill and no calf tenderness Skin Wound Narrative: Lower abdominal incision is pink, stable, with no active bleeding. Very tender to light palpation. Neuro oriented x3 and CN's II-XII intact bilaterally Psych mental status grossly normal Debridement Note Debridement Note Post-Debridement Measurements and Additional Note: Post-Debridement Measurements/Treatment - Nurse 1 - General Ulcer Assessment Start: 01/20/21 10:54 Freq: Status: Active Protocol: SYLVIE Activity Type Activity Date Activity User E-Sign Co-Sign Detail Recorded Client Recorded Date Recorded By Document 01/20/21 10:55 LEBRON [id number] 01/20/21 11:23 LEBRON 01/20/21 10:55 - Today's Visit Information Type of service Initial Visit Arrival Mode Ambulatory Patient Identification Verified (Name & Yes ) Height and Weight Body Mass Index (BMI) 42.8 BMI Classification Obese Vital Signs Temperature (97.8 F-99.1 F) 97.5 F L Temperature Source Temporal Pulse Rate (60-100) 76 Pulse Location Monitor Blood Pressure (90/60-120/80) 130/78 H Blood Pressure Mean 95 Source Monitor Position Sitting Blood Pressure Location Right Arm History Since Last Visit- (Skip if this is Patient's initial visit) Have you changed medications since your No last visit? Any new allergies or adverse reactions No Had a fall/change in ADL's that may No increase risk of falls Signs or symptoms of abuse and/or No neglect since last visit Have you been in the hospital since your No last visit? Has dressing in place as prescribed Yes Has compression in place as prescribed N/A Has offloadiing in place as prescribed N/A Experienced any changes in pain level or No management Left Footwear Regular Shoe Right Footwear Regular Shoe Pain Scale: 0-10 Numeric Is Patient Pain Free? Yes WC - Nurse 1 - General Ulcer Measurement Start: 01/20/21 10:54 Freq: Status: Active Protocol: Activity Type Activity Date Activity User E-Sign Co-Sign Detail Recorded Client Recorded Date Recorded By Document 01/20/21 10:55 LEBRON [id number] 01/20/21 11:23 LEBRON 01/20/21 10:55 Wound Center Nurse 1 #1 Lower Abdomen -Current Size (cm) - Length 6 -Current Size (cm) - Width 50.2 -Current Size (cm) - Depth 1.8 -Total Square Cm 301.2 -Exudate Amt Large -Exudate Type Serosanguineous -Wound Margin Distinct, Outline Attached -Granulation Amt Large (67-100%) -Granulation Quality Red -Necrosis Amt Large (67-100%) -Necrotic Tissue Type Adherent Slough -Structure Exposed Muscle -Texture (Ana-wound Skin Appearance) Assessed, Scarring -Moisture (Ana-wound Skin Appearance) No Abnormality, Assessed -Color (Ana-wound Skin Appearance) No Abnormality, Assessed -Temperature (Ana-wound Skin No Abnormality Appearance) (Pt Warm) -Tenderness on Palpation (Ana-wound No Skin Appearance) -Ulcer Cleansing soap and water -Foul Odor after Cleansing No -Anesthetic Used 4% Lidocaine Solution WC - Nurse 3 - General Ulcer D/C NN Start: 01/20/21 10:54 Freq: Status: Active Protocol: Activity Type Activity Date Activity User E-Sign Co-Sign Detail Recorded Client Recorded Date Recorded By Document 01/20/21 12:14 LEBRON [id number] 01/20/21 12:15 LEBRON 01/20/21 12:14 Wound Care Nurse 3 -Ulcer Cleansing Rinsed/ Irrigated with Saline -Setting (mmHg) 150 -Negative Pressure is Continuous -Regranex (If Applicable) Continue Pain Scale: 0-10 Numeric Is Patient Pain Free? Yes WC - Visit Discharge Discharge Condition Stable Ambulatory Status Ambulatory Transportation Private Auto No debridement was completed: No debridement was completed today Charges/Coding Procedures Integumentary 111xxx-113xx: 11503 Global Visit Assessment/Plan Assessment/Plan (1) Open wound anterior abdominal wall: CODE(S): S31.109A - Unspecified open wound of abdominal wall, unspecified quadrant without penetration into peritoneal cavity, initial encounter QUALIFIERS: Encounter type: subsequent encounter Qualified Code(s): S31.109D - Unspecified open wound of abdominal wall, unspecified quadrant without penetration into peritoneal cavity, subsequent encounter (2) Necrotizing soft tissue infection: CODE(S): M79.89 - Other specified soft tissue disorders (3) Hidradenitis suppurativa: CODE(S): L73.2 - Hidradenitis suppurativa (4) Recent weight loss: CODE(S): R63.4 - Abnormal weight loss (5) Former smoker: CODE(S): Z87.891 - Personal history of nicotine dependence PLAN: Wound care - Wound VAC to 150 mmHg to lower abdominal wound. VAC to be changed three times per week. Wash wound and surrounding skin with soap and water before the VAC is reapplied. When the patient feels comfortable with removing the wound VAC, she may shower before the dressing changes. She is to take pain meds before her dressing changes to help control her pain. She may take Valium for muscle spasms as needed. Continue Doxycycline. Discussed how to relieve her constipation. She is currently on Colace. Encouraged increase water intake and increasing activity. Restrict lifting to 20 lbs. Encouraged increase protein intake to help with wound healing. Follow up one week.
[2021-01-27 11:37] VITALS: BP 119/77; PULSE 93; TEMP 36.1; BMI 42.8
--- NOTE | 2021-01-27 14:49 | PN.PCM_ITS ---
History of Present Illness Date of Service: 01/27/21 Chief Complaint: Lower abdomen open surgical wound after excision of hidra denitis History of Wound: 35 year old woman presents with long standing hidradenitis that started about 20 years ago. She has been on antibiotics intermittently. She also has a history of a 100 lb weight loss which has exacerbated these areas of hidradenitis because of redundant skin and subcutaneous tissue in her lower anterior abdominal wall and inguinal areas extending onto the medial thigh areas. She denies fever. She denies trauma. She has never had any surgical procedures done. When she has flare ups, there is increased pain and redness and swelling with some drainage. She was offered Humira as a treatment, but she was concerned about the side effects. Surgery - Excisional debridement skin and subcutaneous tissue for necrotizing soft tissue hidradenitis infection lower anterior abdominal wall. Wound care - Wound VAC at 150 mmHg three times per week. She is having increased pain, but is hesitant to take pain meds. Instructed her that she may need pain meds for the pain and Valium for the muscle spasms. She denies any fevers. She states her appetite is good. Progress of Wound: Lower abdominal wound is stable. Objective Data Objective Data Vital Signs: Vital Signs Temp Pulse BP 97.0 F L 93 119/77 01/27/21 11:37 01/27/21 11:37 01/27/21 11:37 Body Mass Index (BMI) 42.8 Charges/Coding Procedures Integumentary 111xxx-113xx: 74630 Global Visit Physical Exam Const alert and oriented x3 Constitutional Narrative: Patient appears anxious. HEENT normocephalic Head and Scalp: atraumatic Eyes PERRL Lymph Lymphatic: no lymphedema noted Resp normal respiratory effort Cardio regular rate GI Palpation: soft Extremity normal capillary refill and no clubbing, cyanosis or edema Skin Wound Narrative: Large lower abdominal wound is beefy pink, appearance is improved from last week. Very painful to palpation. Periwound is excoriated. Neuro CN's II-XII intact bilaterally Psych Appearance: grossly normal Debridement Note Debridement Note Post-Debridement Measurements and Additional Note: Post-Debridement Measurements/Treatment [id number] - Nurse 1 - General Ulcer Assessment Start: 01/20/21 10:54 Freq: Status: Active Protocol: SYLVIE Activity Type Activity Date Activity User E-Sign Co-Sign Detail Recorded Client Recorded Date Recorded By Document 01/20/21 10:55 KR [id number] 01/20/21 11:23 KR Document 01/27/21 11:37 KR [id number] 01/27/21 11:39 KR 01/20/21 01/27/21 10:55 11:37 - Today's Visit Information Type of service Initial Visit Initial Visit Arrival Mode Ambulatory Ambulatory Patient Identification Verified (Name & Yes Yes ) Height and Weight Body Mass Index (BMI) 42.8 42.8 BMI Classification Obese Obese Vital Signs Temperature (97.8 F-99.1 F) 97.5 F L 97.0 F L Temperature Source Temporal Oral Pulse Rate (60-100) 76 93 Pulse Location Monitor Monitor Blood Pressure (90/60-120/80) 130/78 H 119/77 Blood Pressure Mean (mm Hg) 95 91 Source Monitor Monitor Position Sitting Semi-Fowlers Blood Pressure Location Right Arm Left Arm History Since Last Visit- (Skip if this is Patient's initial visit) Have you changed medications since your No No last visit? Any new allergies or adverse reactions No No Had a fall/change in ADL's that may No No increase risk of falls Signs or symptoms of abuse and/or No No neglect since last visit Have you been in the hospital since your No No last visit? Has dressing in place as prescribed Yes Yes Has compression in place as prescribed N/A N/A Has offloadiing in place as prescribed N/A N/A Experienced any changes in pain level or No No management Left Footwear Regular Shoe Regular Shoe Right Footwear Regular Shoe Regular Shoe Pain Scale: 0-10 Numeric Is Patient Pain Free? Yes Yes - Nurse 1 - General Ulcer Measurement Start: 01/20/21 10:54 Freq: Status: Active Protocol: Activity Type Activity Date Activity User E-Sign Co-Sign Detail Recorded Client Recorded Date Recorded By Document 01/20/21 10:55 LEBRON [id number] 01/20/21 11:23 KR Document 01/27/21 11:37 KR [id number] 01/27/21 11:39 KR 01/20/21 01/27/21 10:55 11:37 Wound Center Nurse 1 #1 Lower Abdomen -Current Size (cm) - Length 6 8.5 -Current Size (cm) - Width 50.2 53 -Current Size (cm) - Depth 1.8 3.2 -Total Square Cm 301.2 450.5 -Exudate Amt Large Large -Exudate Type Serosanguineous Serosanguineous -Wound Margin Distinct, Outline Attached -Granulation Amt Large (67-100%) Large (67-100%) -Granulation Quality Red Red -Necrosis Amt Large (67-100%) None Present (0 %) -Necrotic Tissue Type Adherent Slough -Structure Exposed Muscle Muscle,Fat Layer Exposed -Texture (Ana-wound Skin Appearance) Assessed, Assessed, Scarring Scarring -Moisture (Ana-wound Skin Appearance) No Abnormality, Assessed Assessed -Color (Naa-wound Skin Appearance) No Abnormality, No Abnormality, Assessed Assessed -Temperature (Ana-wound Skin No Abnormality No Abnormality Appearance) (Pt Warm) (Pt Warm) -Tenderness on Palpation (Ana-wound No No Skin Appearance) -Ulcer Cleansing soap and water soap and water -Foul Odor after Cleansing No No -Anesthetic Used 4% Lidocaine 4% Lidocaine Solution Solution WC - Nurse 2 - General Ulcer CM Notes Start: 01/20/21 10:54 Freq: Status: Active Protocol: Activity Type Activity Date Activity User E-Sign Co-Sign Detail Recorded Client Recorded Date Recorded By Document 01/20/21 13:32 NOHEMY [id number] 01/20/21 13:34 PL Document 01/27/21 12:05 [id number] 01/27/21 12:33 01/20/21 01/27/21 13:32 12:05 Wound Center Nurse 2 -Time 12:08 -Correct Patient Yes -Correct Side, Site, Position Yes -Correct Procedure Yes -Procedure Performed No Yes -Type of Procedure Debridement -Clinical Debridement Subcutaneous -Tissue Removed Subcutaneous -Post Debridement (cm) - Length 8.6 -Post Debridement (cm) - Width 53.1 -Post Debridement (cm) - Depth 3.3 -Total Square (Post) (cm) 456.66 -Area of Debridement (cm) - Length 8.6 -Area of Debridement (cm) - Width 53.1 -Total Square (Area) (cm) 456.66 -Tunneling No -Undermining/Tunneling No -Circular Undermining No -Wound/Ulcer Outcome Not Healed -Ulcer Cleansing Rinsed/ Irrigated with Saline -Foul Odor after Cleansing No -Bioengineered Tissue No -Bleeding Controlled with Pressure -Offloading No -Treatment Response Procedure Tolerated Well -Debridement - Subq, 1st 20sq cm Yes -Debridement, SubQ, ea addt'l 20sq cm 11 or part thereof Pain Scale: 0-10 Numeric Is Patient Pain Free? Yes - Nurse 3 - General Ulcer D/C NN Start: 01/20/21 10:54 Freq: Status: Active Protocol: Activity Type Activity Date Activity User E-Sign Co-Sign Detail Recorded Client Recorded Date Recorded By Document 01/20/21 12:14 KR [id number] 01/20/21 12:15 KR Document 01/27/21 12:33 [id number] 01/27/21 12:34 JF 01/20/21 01/27/21 12:14 12:33 Wound Care Nurse 3 #1 Lower Abdomen -Ulcer Cleansing Rinsed/ Rinsed/ Irrigated with Irrigated with Saline Saline -Foul Odor after Cleansing No -Setting (mmHg) 150 -Negative Pressure is Continuous -Regranex (If Applicable) Continue -Other Dressing saline gauze -Primary Dressing Covered/Secured with Dry Gauze & Roll Gauze, Secured with Tape Pain Scale: 0-10 Numeric Is Patient Pain Free? Yes No WC - Visit Discharge Discharge Condition Stable Stable Ambulatory Status Ambulatory Cane Transportation Private Auto Private Auto Accompanied by best friend Medication Reconcilliation completed & Yes provided to patient/care provider Clinical Summary of Care Provided Yes Wound debrided: Lower abdominal wound Type of Debridement: Excisional debridement Anesthesia Used: 5% Lidocaine Gel Depth: Down to and including healthy tissue and in the subcutaneous layer Percentage of wound debrided: 100 Instrument Used: 7mm curette Tissue Removed: Subcutaneous tissue and slough, small pockets of necrotic fat Severity: Fat Layer Exposed Amount of bleeding with debridement: Mild Bleeding Controlled with: Pressure Patient tolerated procedure: Patient did not tolerate procedure well Assessment/Plan Assessment/Plan (1) Open wound anterior abdominal wall: CODE(S): S31.109A - Unspecified open wound of abdominal wall, unspecified quadrant without penetration into peritoneal cavity, initial encounter QUALIFIERS: Encounter type: subsequent encounter Qualified Code(s): S31.109D - Unspecified open wound of abdominal wall, unspecified quadrant without penetration into peritoneal cavity, subsequent encounter (2) Necrotizing soft tissue infection: CODE(S): M79.89 - Other specified soft tissue disorders (3) Hidradenitis suppurativa: CODE(S): L73.2 - Hidradenitis suppurativa (4) Other acute postprocedural pain: CODE(S): G89.18 - Other acute postprocedural pain (5) Former smoker: CODE(S): Z87.891 - Personal history of nicotine dependence (6) Recent weight loss: CODE(S): R63.4 - Abnormal weight loss PLAN: Wound care - Wound VAC holiday due to patient not tolerating the VAC and having increased pain. She also has excoriation of the periwound either from the VAC drape or not having a good seal on the VAC. She will do daily Dakin's 0.25% moistened gauze dressing changes. Instructed her that she may need to change the outer dressing more frequently due to increased drainage. She has home care three times per week to help with dressing changes. She is not having good pain control. Will discuss this with Dr. De La Torre and see if we can increase her pain medication to Dilaudid this week to try to get better pain control. Continue Doxycycline. Restrict lifting to 20 lbs. Encouraged increase protein intake to help with wound healing. She seems to have a lot of anxiety with this wound. She is having difficulty understanding all the instruction, most likely due to her anxiety. I will discuss this with Dr. De La Torre to see when he thinks she may be ready to have a surgical closure of her wound. That may help with both her pain and her anxiety. Follow up one week.
== END 2021-02-01 23:59 ==
LOC: WC 11:30
PROVIDERS: PCP Family Medicine; Visit Provider Nurse Practitioner Family
DX: L73.2 Hidradenitis suppurativa (principal); L98.7 Excessive and redundant skin and subcutaneous tissue; M19.90 Unspecified osteoarthritis, unspecified site; G25.81 Restless legs syndrome; F41.9 Anxiety disorder, unspecified; F32.9 Major depressive disorder, single episode, unspecified; Z79.899 Other long term (current) drug therapy; F17.290 Nicotine dependence, other tobacco product, uncomplicated; B99.8 Other infectious disease; S31.109A Unspecified open wound of abdominal wall, unspecified quadrant without penetration into peritoneal cavity, initial encounter
CPT/HCPCS: 11042; 11045; 99213; G0463

== ENCOUNTER 2021-01-29 14:46 | Emergency (ER) | payer OTHER, SELFPAY ==
[2021-01-29 14:47] VITALS: BP 128/74; PULSE 114; RESP 15; TEMP 36.8; O2SAT 100; BMI 42.0
[2021-01-29 14:51] VITALS: BP 128/74; PULSE 114; RESP 15; TEMP 36.8; O2SAT 100
[2021-01-29 15:39] LABS: Absolute Lymphocyte Count 2.94 X10^3/uL (0.83-4.51); Basophil# 0.06 X10^3/uL; Basophil% 0.7 % (0-1); Eosinophil# 0.43 X10^3/uL; Eosinophils% 4.7 % (0-5); Hematocrit 36.1 % (37-47); Hemoglobin 11.5 g/dL (12.0-15.0); Lymphocyte # 2.94 X10^3/ul (0.83-4.51); Lymphocyte % 31.9 % (19-41); Mean Corp Hgb Conc 31.9 g/dL (32-36); Mean Corpuscular Hgb 30.8 pg (27.0-32.0); Mean Corpuscular Volume 96.8 fL (81-99); Mean Platelet Vol. 8.5 fl (6.2-12.0); Monocyte# 0.76 X10^3/uL; Monocyte% 8.3 % (0-10); NRBC Flagged by Analyzer 0 % (0-5); Neutrophil # 4.96 X10^3/uL (2.7-7.7); Neutrophil % 53.7 % (47-70); Platelet Count 645 K/mm3 (150-450); RBC Distribution Width CV 12.4 % (11.6-14.6); RBC Distribution Width SD 44.1 fl (35.1-43.9); Red Blood Count 3.73 M/mm3 (4.2-5.4); White Blood Count 9.2 K/mm3 (4.4-11.0)
[2021-01-29 15:54] LABS: Anion Gap 5 (5-15); BUN 11 mg/dL (7-18); BUN/Creat Ratio 19.4 RATIO (10-20); Calcium,Total 8.6 mg/dL (8.5-10.1); Chloride 106 mmol/L (98-107); Creatinine, Serum 0.57 mg/dL (0.55-1.02); EST Glomerular Filtration Rate 130 mL/min (>60); Est Glom Filt Rate - Afr Amer 157 mL/min (>60); Estimated Creatinine Clearance 115.04 ml/min; Glucose 100 mg/dL (74-106); Potassium 3.9 mmol/L (3.5-5.1); Sodium Level 139 mmol/L (136-145)
--- NOTE | 2021-01-29 16:03 | CT_ITS ---
STUDY: CT ABDOMEN AND PELVIS WITH CONTRAST REASON FOR EXAM: Female, 35 years old. Postoperative chest pain RADIATION DOSAGE (If Supplied By Facility): CTDIvol = ( 26.00 ) mGy, DLP = ( 1814.12 ) mGycm TECHNIQUE: Transaxial images were obtained from the dome of the diaphragm to the symphysis pubis without oral contrast. IV 100mL Isovue-370 was administered. Sagittal and coronal images were reconstructed. Individualized dose optimization techniques were used for this CT. COMPARISON: None. FINDINGS: The visualized lung bases are unremarkable. The visualized portions of the heart are within normal limits. Liver is unremarkable aside from simple cysts in the liver. Normal gallbladder and extrahepatic biliary system. Normal spleen. Normal pancreas. Normal bilateral adrenal glands. Normal right kidney. Normal left kidney. Normal visualized stomach. Normal small intestine. Retained stool throughout the colon The appendix is visualized and appears normal. Appendix seen on coronal recon images 51-61 Normal abdominal aorta. Normal inferior vena cava. Normal retroperitoneum. Normal urinary bladder. Normal-appearing uterus and ovaries, no suspicious cystic mass or free fluid Normal abdominal wall. Normal osseous structures. CT/Abdomen/Pelvis W IV Cont ONLY IMPRESSION: No suspicious solid organ abnormality, simple hepatic cysts, no specific follow-up needed Retained stool throughout the colon Normal appendix visualized No free intraperitoneal fluid, air, or suspicious adenopathy Electronically Signed: Ian Velasquez MD at 17:14 EDT , Service support ,
--- NOTE | 2021-01-29 16:05 | EX.ED.DYSGE1 ---
HPI History of Present Illness Chief Complaint: Abd Pain Narrative Narrative: 35-year-old female presenting for wound check. She states she had a necrotizing soft tissue infection of the lower abdomen and had a large skin flap removed by Dr. De La Torre on the . She had a wound VAC on this however she states that she was not tolerating the wound VAC very well and this was taken off Wednesday. Since Wednesday she has had some pain in the area which is expected. She states that the nurse that was supposed to change her dressing was supposed to come out in 24 hours and came out 32 hours. The dressing has been changed and the wound VAC removed. She is using wet-to-dry dressings. She has been changing them herself. She does note that she might have some drainage from the right side of her abdomen. Patient denies fever, chills, nausea, vomiting, diarrhea. She states that she is intermittently confused however she is able to give me a pretty exact history of present illness without pause. Patient states that Dr. De La Torre's nurse wanted her to come in for evaluation. PFSH PFSH Medical History Alcohol use Anxiety Arthritis Depression Former smoker Hidradenitis suppurativa Marijuana use Necrotizing soft tissue infection Open wound anterior abdominal wall Recent weight loss Restless legs Shortness of breath on exertion Smoker Home Medications sertraline 25 mg tablet 100 mg PO DAILY tab 11/13/20 [History Last Taken 01/15/21] diazepam [Valium] 5 mg PO TID PRN 7 Days #20 tab 01/16/21 [Rx Last Taken Unknown] docusate sodium [Colace] 100 mg PO DAILY 30 Days #30 cap 01/16/21 [Rx Last Taken Unknown] doxycycline monohydrate 100 mg PO BID 14 Days #28 cap 01/16/21 [Rx Last Taken Unknown] ondansetron 4 mg PO Q8H PRN #20 tab 01/16/21 [Rx Last Taken Unknown] oxycodone-acetaminophen [Percocet] 1 tab PO Q4H PRN 7 Days #30 tab 01/16/21 [Rx Last Taken Unknown] hydromorphone [Dilaudid] 2 mg PO Q6H PRN 7 Days #28 tab 01/27/21 [Rx Last Taken Unknown] Allergy/AdvReac Type Severity Reaction Status Date / Time aspirin Allergy Swelling Verified 01/29/21 14:46 Family History Other Breast cancer Cervical cancer Colon cancer Diabetes Hypertension Surgical History Hx of section [place] teeth extracted Social History Smoking Status: Current every day smoker tobacco type: e-cigarettes alcohol intake: current additional social history: Does Not Take Aspirin ( Allergy ) Does Not Take Ibuprofen ROS ROS ED Constitutional Constitutional ED: Denies chills or fever(s) Eyes Eyes: Denies blurry vision or diplopia ENT ENT ED: Denies rhinorrhea or sore throat Cardiovascular Cardiovascular: Denies chest pain or palpitations Respiratory/Chest Respiratory/Chest: Denies cough or dyspnea Gastrointestinal Gastrointestinal: Reports abdominal pain and other Details: Possible drainage from incision site ; Denies nausea or vomiting Genitourinary Genitourinary ED: Denies dysuria or hematuria Integumentary Denies abscess or rash Neurologic Neurologic: Denies headache(s) or paresthesias EXAM Physical Exam Const Vital Signs: 01/29/21 14:47 01/29/21 14:51 01/29/21 16:39 Temperature 98.3 F 98.3 F 98.3 F Temperature Source Temporal Temporal Temporal Pulse Rate 114 H 114 H 80 Respiratory Rate 15 15 16 Blood Pressure 128/74 H 128/74 H 117/52 L Blood Pressure Mean 92 92 73 Pulse Ox 100 100 100 Oxygen Delivery Method Room Air Room Air Room Air Positive obese General Appearance ED: NAD; Negative for pallor Nutritional Appearance: obese HEENT Reports normocephalic, head/scalp atraumatic and moist mucous membranes Eyes PERRL and EOMs intact bilaterally Neck no lymphadenopathy and supple Chest Wall inspection of chest normal and palpation of chest normal Resp normal respiratory effort and clear to auscultation bilaterally Auscultation: Negative for rales, rhonchi or wheezes Cardio regular rate and regular rhythm GI GI Narrative: Large packed wound on the lower abdomen spanning from left to right which is open. There does not appear to be any cellulitic changes along the margins of this wound. When visualized underneath the dressing which is clean dry and intact there is a minimal a lot of drainage from the right side. Narrative: Deferred Extremity normal to inspection General Extremety ED: Yes edema and tenderness General Extremity: edema Neuro oriented x3 and CN's II-XII intact bilaterally Sensorium / Orientation: alert Psych mental status grossly normal Attitude: No agitated Skin Skin Narrative: As described above General Skin Exam: Negative for jaundice or pallor MDM MDM MDM Narrative Medical decision making narrative: Patient presenting for wound check. Does not appear to be any gross cellulitis around the wound. There is small areas of slight serosanguineous drainage on the right lower abdominal wound. Wound cultures were obtained. Lab work was also obtained. White blood cell count is 9.2, hemoglobin 1.5, hematocrit 36.1, platelets 645. Renal function electrolytes are normal. hCG is negative. Patient had CT abdomen pelvis which showed no acute process. Patient counseled on findings. I did discuss case with Dr. De La Torre who recommended she continue her doxycycline at home. She is given return precautions. She will see her wound care nurse at 7 PM tonight for dressing change. Impression: 1. Wound check Lab Data Labs: Laboratory Results - last 24 hr 01/29/21 01/29/21 01/29/21 15:24 15:24 15:24 WBC 9.2 RBC 3.73 L Hgb 11.5 L Hct 36.1 L MCV 96.8 MCH 30.8 MCHC 31.9 L RDW Std Deviation 44.1 H RDW Coeff of Balaji 12.4 Plt Count 645 H MPV 8.5 Immature Gran % (Auto) 0.700 Neut % (Auto) 53.7 Lymph % (Auto) 31.9 Daniels % (Auto) 8.3 Eos % (Auto) 4.7 Baso % (Auto) 0.7 Absolute Neuts (auto) 5.0 Absolute Lymphs (auto) 2.94 Nucleated RBC % 0 Sodium 139 Potassium 3.9 Chloride 106 Carbon Dioxide 28.0 Anion Gap 5 BUN 11 Creatinine 0.57 Estim Creat Clear Calc 115.04 Est GFR (MDRD) Af Amer 157 Est GFR (MDRD) Non-Af 130 BUN/Creatinine Ratio 19.4 Glucose 100 Calcium 8.6 Serum , Qual NEGATIVE Radiography Diagnostic Testing: Radiology Impression Abdomen/Pelvis CT 01/29/21 16:03 IMPRESSION: No suspicious solid organ abnormality, simple hepatic cysts, no specific follow-up needed Retained stool throughout the colon Normal appendix visualized No free intraperitoneal fluid, air, or suspicious adenopathy Electronically Signed: Ian Velasquez MD at 17:14 EDT , Service support , Discharge Plan Triage Chief Complaint: Abd Pain ED Provider: Alexandru Mayes Dx/Rx/DC Orders Instructions: ED Post Op Wound Check, General Prescriptions: No Action sertraline [Zoloft] 25 mg tablet 100 mg PO DAILY RF: 0 oxycodone-acetaminophen [Percocet] 5-325 mg tablet 1 tab PO Q4H PRN (Reason: pain (scale score 7-10)) 7 Days Qty: 30 RF: 0 doxycycline monohydrate 100 mg capsule 100 mg PO BID 14 Days Qty: 28 RF: 0 diazepam [Valium] 5 mg tablet 5 mg PO TID PRN (Reason: muscle spasm) 7 Days Qty: 20 RF: 0 ondansetron 4 mg tablet,disintegrating 4 mg PO Q8H PRN (Reason: nausea and vomiting) Qty: 20 RF: 0 docusate sodium [Colace] 100 mg capsule 100 mg PO DAILY 30 Days Qty: 30 RF: 0 hydromorphone [Dilaudid] 2 mg tablet 2 mg PO Q6H PRN (Reason: pain (scale score 7-10)) 7 Days Qty: 28 RF: 0 Primary Care Provider: Steve Hu Referrals: Steve Hu MD [Primary Care Provider] - Alfonso De La Torre MD [STAFF PHYSICIAN] - As Needed Disposition Disposition: Home, Self Care
[2021-01-29 16:10] LABS: Internal QC Validated? YES +Cl - CLEAR BKGD; Pregnancy, Serum, hCG Quali. NEGATIVE Negative
[2021-01-29 16:39] VITALS: BP 117/52; PULSE 80; RESP 16; TEMP 36.8; O2SAT 100
== END 2021-01-29 18:00 | disposition home or self-care (01) ==
PROVIDERS: Emergency Provider Student in an Organized Health Care Education/Training Program; PCP Family Medicine
DX: Z48.01 Encounter for change or removal of surgical wound dressing (principal); F17.210 Nicotine dependence, cigarettes, uncomplicated
CPT/HCPCS: 74177; 80048; 84703; 85025; 87070; 87075; 87077; 87205; 99283; Q9967; A4216

== ENCOUNTER 2021-02-19 16:37 | Observation (INO) | payer OTHER, SELFPAY ==
[2021-02-10 11:28] VITALS: BMI 42.0
--- NOTE | 2021-02-18 16:01 | PCM.HP.BLA ---
History and Physical Date of Admission: 02/19/21 HISTORY OF PRESENT ILLNESS 35 year old woman presents with long standing hidradenitis that started about 20 years ago. She has been on antibiotics intermittently. She also has a history of a 100 lb weight loss which has exacerbated these areas of hidradenitis because of redundant skin and subcutaneous tissue in her lower anterior abdominal wall and inguinal areas extending onto the medial thigh areas. She denies fever. She denies trauma. When she has flare ups, there is increased pain and redness and swelling with some drainage. She was offered Humira as a treatment, but she was concerned about the side effects. On 01/15/21, the patient went to the operating room and she underwent excisional debridement skin and subcutaneous tissue for necrotizing soft tissue hidradenitis infection lower anterior abdominal wall. Postoperatively she was having trouble with the wound care with increased pain and anxiety. The wound did improve with granulation tissue, but still has a ways to go to heal on its own just with wound care. It was decided for the patient to proceed with excisional debridement of the nonhealing abdominal ulcer with complex secondary wound closure. PAST MEDICAL HISTORY Hidradenitis suppurativa Necrotizing soft tissue infection Recent weight loss PAST SURGICAL HISTORY section Excisional debridement skin and subcutaneous tissue for necrotizing soft tissue hidradenitis infection lower anterior abdominal wall - 01/15/21 ALLERGIES aspirin MEDICATIONS fexofenadine sertraline doxycycline monohydrate FAMILY HISTORY Breast cancer Cervical cancer Colon cancer Diabetes Hypertension SOCIAL HISTORY Smoking Status: Former smoker quit date: 02/03/20 pack-years: 15 alcohol intake: current REVIEW OF SYSTEMS General - Denies fever, fatigue. Had weight loss in the past of about 100 lbs. Eyes - Denies cataracts and glaucoma. ENT - Denies nasal congestion and sore throat. Endocrine - Denies excessive thirst and urination. Skin - Denies skin cancer. Has multiple areas of hidradenitis involving the abdominal wall skin crease, bilateral inguinal areas extending to the medial thighs, bilateral vulval area involving the genitocrural crease extending to the labia and involving the mons pubis, and bilateral axillary areas. Musculoskeletal - Denies joint pain, joint stiffness, weakness of muscles and joints, back pain, and arthritis. Neuro - Denies headaches. Cardiovascular - Denies chest pain, fatigue, and shortness of breath with exertion. Psych - Denies anxiety. Has depression. Respiratory - Denies chronic cough and shortness of breath. Patient is a former smoker. Gastrointestinal - Denies nausea, vomiting, diarrhea, and constipation. Hematologic - Denies abnormal bruising and bleeding. Genitourinary - Denies hematuria and urinary frequency. PHYSICAL EXAMINATION General - Alert and Oriented. HEENT - PERRL. EOMI. Throat is clear. Neck - Supple and nontender. No cervical adenopathy. Breasts - Patient stated she noticed areas of redness and induration in her inframammary creases. Today it appears resolved. Lungs - Clear to auscultation. Heart - Regular rate and rhythm. Abdomen - Soft and nondistended. On the lower anterior abdominal wall is a nonhealing hidradenitis ulcer. Granulation tissue present. Tender to palpation. Mild swelling noted. Measures 50 x 4 x 2.7 cm. Has bilateral inguinal hidradenitis with extension to the medial thigh areas. There is redness and induration and swelling. There is no odor. Tender to palpation. No drainage noted today. No inguinal adenopathy noted. Genital - Has bilateral vulval hidradenitis involving the genitocrural crease and extending to the labial areas and the mons pubis area. There is redness and induration and swelling. There is no odor. Tender to palpation. No drainage noted today. Extremities - FROM. No axillary adenopathy. Radial pulses are palpable. Has bilateral axillary hidradenitis. There is redness and induration and swelling. There is no odor. Tender to palpation. No drainage noted today. Neuro - CN II-XII grossly intact. Psych - Normal mood and affect. ASSESSMENT 1. Nonhealing abdominal wall ulcer after excision necrotizing soft tissue hidradenitis infection in 01/22. 2. Bilateral inguinal hidradenitis with extension to medial thighs. 3. Bilateral vulval hidradenitis with extension from the genitocrural crease to the labia and to the mons pubis. 4. Bilateral axillary hidradenitis. 5. Recent weight loss of about 100 lbs. 6. Former smoker. PLAN Patient has a nonhealing ulcer anterior abdominal wall after excision necrotizing soft tissue hidradenitis infection in 01/22. She was having trouble with the wound care postoperatively with persistent pain and anxiety. It was recommended to the patient to proceed with further operative debridement and complex secondary wound closure. Drains will be placed. Also will use Boogie absorbable hemostat to minimize seroma formation. She will wear an abdominal binder for several weeks and be on a lifting restriction. Surgery will be done under general anesthesia with a surgical observation overnight stay in the hospital. At the time of surgery, tissue will be sent to Pathology for analysis to rule out carcinoma and to Microbiology for culture. A positive culture will necessitate antibiotic therapy. Patient was informed of the risks and complications of the procedure including alternatives to surgery. These were discussed with the patient personally. Patient voices understanding and wishes to proceed. Some of the risks and complications were included in a form from the [employer] [place] [employer]. Potential risks and complications included but not inclusive of bleeding, infection seroma, hematoma, bruising, swelling, prolonged need for drains, loss of sensation to skin, partial or complete loss of skin flap and/or nipple graft, wound breakdown, need for wound care, poor scarring, poor aesthetic outcome, intra operative cardiac or neurologic events, DVT, PE, and reaction to anesthesia. We discussed the current risks associated with COVID-19. While it is understood that there is a community spread of COVID-19, the risk of huma COVID-19 while at [facility] ([facility]) is very low; however, the risk cannot be completely mitigated because of the community spread of the disease. We discussed in detail the risk of exposure to and/or potential harm posed by the COVID-19 virus with having a surgery/procedure at this time versus the risk of delaying the surgery/procedure. It is not possible to know either the risk of delaying the surgery or procedure or chance of getting an infection with perfect accuracy, but a joint decision was made to proceed at this time with the scheduled surgery/procedure as indicated on the consent form. Patient was notified that we will need to comply with any screening or testing [facility] wishes to perform or that surgery may be delayed for any positive results.
[2021-02-19] VITALS (16 sets, daily range): BP systolic 99–136; BP diastolic 61–87; PULSE 83–106; RESP 16–20; TEMP 36.3–36.9; O2SAT 92–98; BMI 43.4
--- NOTE | 2021-02-19 | HID_PTH ---
PATIENT: MORA ABRAHAM LOC: MS3 U#:[id number] AGE/SX: 35/F [place] [facility]: Dr. Alfonso De La Torre MD : 1985 BED: 1 DIS: 02/21/2021 SPEC #: [id number] RECD: 02/19/21 14:37 STATUS: MOHIT SCHMIDT #: [id number] YURY: 02/19/21 00:[address]: Alfonso De La Torre DEPT: SURGICAL PATHOLOGY RECD BY: Lonnie Perez ENTERED: 02/20/21 08:20 SP TYPE: Hidradenit EVE DR: Dr. Steve Hu MD Tissues: Abdominal wall, NOS Procedures: Surgery Specimen Level III HEADER OPERATION: Surgical preparation lower anterior abdominal wall PRE-OP DIAGNOSIS: Nonhealing abdominal wall ulcer after excision necrotizing soft tissue hidradenitis infection TISSUE SUBMITTED: Nonhealing abdominal wall ulcer with necrotizing soft tissue hidradenitis infection MICROSCOPIC DIAGNOSIS Skin and soft tissue of abdomen, excision: Ulceration with associated acute and chronic inflammation, granulation and fat necrosis. AM:luna 02/21/2021 MICROSCOPIC DESCRIPTION Slides are reviewed. GROSS DESCRIPTION Received in fixative is one container labeled with the patient's name and designated nonhealing abdominal wall ulcer after excision of necrotic soft tissue hidradenitis infection. The specimen consists of a piece of skin with underlying tissue measuring 33 x 6 cm and up to 3 cm in thickness. An extensive area of ulceration is noted on the surface. A central defect is also noted measuring 15 x 3 cm. Also present in the container are multiple pieces of soft tissue measuring in aggregate 14 x 9 x 4 cm. Also present in the container is a piece of skin with underlying tissue measuring 6 x 2 cm and up to 1.5 cm in thickness. Electrical Maintenance Worker sections are submitted in three cassettes. / SJ:luna 02/20/21 TC:2 CPT: 50291
[2021-02-19 11:25] LABS: Internal QC Validated? YES +Cl - CLEAR BKGD; Pregnancy, Urine Negative Negative
[2021-02-19] MEDS: Lactated Ringers 1,000 ML 100 ML IV (11:41)
[2021-02-19] MEDS: Cefazolin 2 GM in 0.9% Normal Saline 100 ML IV (12:44)
[2021-02-19] MEDS: Lidocaine 1% /Epi 1:100 (20ml) 20 ML Vial (13:09)
--- NOTE | 2021-02-19 14:56 | OP.PCM_ITS ---
Problems Associated Problem List Diagnoses (1) Non-pressure chronic ulcer of skin of other sites with fat layer exposed: (2) Hidradenitis suppurativa: (3) Necrotizing soft tissue infection: (4) Recent weight loss: (5) Former smoker: Report of Operation Date of Procedure: 02/19/21 Pre-Operative Diagnosis: 1. Nonhealing abdominal wall ulcer after excision necrotizing soft tissue hidradenitis infection in 01/22. 2. Bilateral inguinal hidradenitis with extension to medial thighs. 3. Bilateral vulval hidradenitis with extension from the genitocrural crease to the labia and to the mons pubis. 4. Bilateral axillary hidradenitis. 5. Recent weight loss of about 100 lbs. 6. Former smoker. Post-Operative Diagnosis: Same. Surgery/Procedure Performed:: Surgical preparation lower anterior abdominal wall with excisional debridement necrotizing soft tissue hidradenitis infection ulcer with 65 cm complex secondary wound closure (195 cm2). Description of Surgical Findings:: 35 year old woman presents with long standing hidradenitis that started about 20 years ago. She has been on antibiotics intermittently. She also has a history of a 100 lb weight loss which has exac erbated these areas of hidradenitis because of redundant skin and subcutaneous tissue in her lower anterior abdominal wall and inguinal areas extending onto the medial thigh areas. She denies fever. She denies trauma. When she has flare ups, there is increased pain and redness and swelling with some drainage. She was offered Humira as a treatment, but she was concerned about the side effects. On 01/15/21, the patient went to the operating room and she underwent excisional debridement skin and subcutaneous tissue for necrotizing soft tissue hidradenitis infection lower anterior abdominal wall. Postoperatively she was having trouble with the wound care with increased pain and anxiety. The wound did improve with granulation tissue, but still has a ways to go to heal on its own just with wound care. It was decided for the patient to proceed with excisional debridement of the nonhealing abdominal ulcer with complex secondary wound closure. Patient was informed of the risks and complications of the procedure including alternatives to surgery. These were discussed with the patient personally. Patient voices understanding and wishes to proceed. Some of the risks and complications were included in a form from the [place] [employer]. .Potential risks and complications included but not inclusive of bleeding, infection, seroma, hematoma, bruising, swelling, prolonged need for drains, loss of sensation to skin, partial or complete loss of skin flap and/or nipple graft, wound breakdown, need for wound care, poor scarring, poor aesthetic outcome, i ntra operative cardiac or neurologic events, DVT, PE, and reaction to anesthesia. I used Boogie absorbable hemostat, (I used 3 vials). Reference Number - [id number]. Lot Number - [id number]. Expiration - June 01, 2025. Reference Number - [id number]. Lot Number - [id number]. Expiration - November 29, 2025. Reference Number - [id number]. Lot Number - [id number]. Expiration - September 01, 2025. Surgeon: Alfonso De La Torre dry charge process attendant: Duane Stockton Type of Anesthesia: General Specimen's removed: Necrotizing soft tissue hidradenitis infection ulcer to Pathology and Microbiology. Drains: Naren x2. Estimated Blood Loss (mL): 150. Description of Procedure: Patient was taken to OR in supine position and was placed under general anesthesia. The abdominal wall was prepped and draped in the usual fashion. SCD's were placed for DVT prophylaxis. Perioperative antibiotics were given intravenously. The nonhealing necrotizing soft tissue hidradenitis infection ulcer was marked in the operating room. I extended the markings to include some hidradenitis flare ups on the mons pubis area. Using xylocaine with epinephrine, this marking was infiltrated. After waiting 5 minutes for the anesthetic to take effect, I made a horizontal elliptical incision through the marking in the abdominal wall and mons pubis area down through Kelvin's fascia until the abdominal wall fascia was seen. I then marked the upper portion of the ulcer to be excised. Incision was made and dissection was carried down through Kelvin's fascia down to the abdominal wall fascia. There was granulation tissue present at the base of the hidradenitis ulcer over the abdominal wall fascia that was sharply excised down to the fascia. A couple of small rents in the fascia were approximated with 2-0 Vicryl figure of eight interrupted sutures. Hemostasis was obtained using electrocautery. The wound was irrigated with saline. The horizontal elliptical excisional debridement of the nonhealing hidradenitis ulcer was excised and sent to Pathology for analysis to rule out carcinoma and to Microbiology for culture. A positive culture will necessitate antibiotic therapy. The size of the defect to be closed was 65 x 3 cm or 195 cm2. I placed two size 15 Naren drains through separate stab incisions in the pubic area and secured to the skin with 3-0 Nylon suture. I sprayed Boogie absorbable hemostat into the abdominal wall wound to minimize seroma formation. I used 3 vials. I then closed the abdominal wall hidradenitis wound in a complex multiple layered fashion with 2-0 Vicryl figure of eight interrupted sutures for the underlying Kelvin's fascia. The deep dermis and subcutaneous tissue was approximated with 2-0 Vicryl interrupted sutures and 3-0 Monocryl interrupted sutures. The skin was approximated with 3-0 V lock unidirectional barbed running subcuticular suture. This was followed by Histoacryl skin tissue adhesive. Kerlix gauze was applied to the incision followed by an abdominal binder. The length of the complex closure repair was 65 cm. Patient tolerated the procedure well and was sent to PACU in satisfactory condition. Patient will be sent upstairs for continued postop care. She will be discharged once she is tolerating po analgesia and is steady on her feet with ambulation. Drains will be removed in the office after discharge. She will wear her abdominal binder for several weeks postoperatively. Grafts/Implants Used: Boogie. Complications None. Admit VTE Documentation VTE Present on Admission: No VTE Mechan Device Prophylaxis: SCD's VTE Pharm Prophylaxis ordered?: Yes Addendum Addendum: Surgery Charges CPT - 57594-33 ICD-10 - L98.492, L73.2, M79.89, R63.4, Z87.891 31821 L98.492, L73.2, M79.89, R63.4, Z87.891 70060 L98.492, L73.2, M79.89, R63.4, Z87.891
[2021-02-19] MEDS: oxyCODONE 5 MG Tablet 10 MG PO ×2 (17:36→23:41)
[2021-02-19] MEDS: diazePAM 5 MG Tablet PO (19:44)
--- NOTE | 2021-02-19 19:57 | NURSING ---
This nurse left message with Dr. De La Torre on his answering machine as the pt does not want dilaudid for pain medication as it makes her feel high and does not take the pain away.
[2021-02-19] MEDS: Docusate Sodium 100 MG Capsule PO (20:55)
[2021-02-19] MEDS: morphine 10 MG/ML Syringe 5 MG IV (21:30)
[2021-02-19] MEDS: 0.9% Saline Lock 10 ML Syringe IV (21:31)
--- NOTE | 2021-02-19 23:06 | EKG12_ITS ---
Test Reason : SYNCOPE/FALL Blood Pressure : / mmHG Vent. Rate : 110 BPM Atrial Rate : 110 BPM P-R Int : 118 ms QRS Dur : 082 ms QT Int : 342 ms P-R-T Axes : 035 068 062 degrees QTc Int : 462 ms Sinus tachycardia Otherwise normal ECG No previous ECGs available Confirmed by LUCINDA GONZALEZ, MARGARITA ([id number]), manager editorial CRISTAL AUGUSTIN ([id number]) on 02/24/2021 1:13:58 PM Referred By: Alfonso De La Torre Confirmed By:MARGARITA JANE MD
--- NOTE | 2021-02-19 23:19 | PCM.PN.BLA ---
Documented by User: MAIRA Kaur 02/20/21 00:54 Progress Note [employer] called overhead for patient. Upon arrival to room multiple nurses in bathroom with patient. Sudhir ANIMATION PRODUCER reports he was assisting patient in the bathroom when she stated that she could not hear him and subsequently was syncopal. Sudhir reports that he lowered patient to the floor onto her knees and called for help. Patient is alert upon my arrival, tearful stating she does not remember what happened. Patient is also noted to be covered in emesis which per report happened immediately prior to patient's syncopal episode. Physical Exam Const alert and oriented x3 General Appearance: anxious Orientation / Consciousness: confused HEENT normocephalic and head/scalp atraumatic Eyes conjunctivae normal and no scleral icterus Neck full ROM and supple General: trachea midline Chest inspection of chest normal and palpation of chest normal Resp normal respiratory effort, normal air movement, no use of accessory muscles and clear to auscultation bilaterally Effort and Inspection: able to speak in complete sentences Cardio regular rate, regular rhythm, S1 normal heart sound, S2 normal heart sound and peripheral pulses 2+ throughout Rate: tachycardic GI normal to inspection, nondistended, normoactive bowel sounds, soft to palpation and non-tender Back/Spine normal ROM and normal to inspection Extremity normal to inspection, full ROM and normal capillary refill Peripheral Pulses: Yes pulses 2+ throughout Skin no rashes or lesions noted and skin turgor normal Neuro oriented x3, moves all extremities, no focal motor deficits and no sensory deficits noted Psych mental status grossly normal, thought process normal, cooperative, affect normal and speech normal Assessment & Plan Assessment/Plan (1) Syncope and collapse: PLAN: 1. Syncope and collapse -Vital signs obtained, noted to be slightly hypotensive following syncopal episode. Will administer 500 mL normal saline bolus -Obtain orthostatic vital signs 30 minutes following syncopal episode -EKG obtained, sinus tachycardia heart rate 110 -Blood sugar obtained 155 -Patient is noted to be diaphoretic following syncopal episode -No abrasions or injuries noted, per staff report patient did not hit head, was lowered to her knees and propped up by wall and staff. -Patient had emesis x1 prior to syncopal episode, denies nausea at this time -Patient underwent surgery earlier on 02/19/2021 for lower anterior abdominal wall with excisional debridement of necrotizing soft tissue hydradenitis infection ulcer with Dr. De La Torre. It should be noted the Dr. Barboza was in attendance of [employer], the plan of care was discussed and he was agreeable to the plan as noted above. This patient was seen by Antonette Siegel, HELENA-C under the supervision of Dr. Barboza. Documented by User: Dr. Morro Barboza MD 02/20/21 00:57 Addendum Addendum: I was present for the rapid response and agree with assessment and plan by nurse practitioner, Antonette Siegel.
[2021-02-19 23:40] LABS: Bedside Glucose 155 mg/dL (70-110)
[2021-02-19] MEDS: Magnesium Hydroxide 30 ML UDC PO (23:41)
[2021-02-19] MEDS: Ondansetron ODT 4 MG Tablet PO (23:41)
[2021-02-20 00:16] VITALS: BP 122/78; BP 93/50; BP 99/75; PULSE 113; PULSE 82; PULSE 99
[2021-02-20] MEDS: Lactated Ringers 1,000 ML 60 ML IV ×2 (00:30→17:49)
--- NOTE | 2021-02-20 02:02 | NURSING ---
Addendum entered by Linda Alvarez 02/20/21 02:11: 02/19 around 2300 not 02/20 0000 Original Note: 02/20 around 0000 Pt passed out on toilet. Sudhir hit the assist button. Pt came to and said she couldn't hear. Attempted to get Pt to chair and back to bed. Pt passed back out when part way on chair. Pt was lowered to knees. Pt threw up and urinated on self. Pt then came to and was put into wheelchair, AOx3. BP was low HR was tachy. EKG was done and showed ST. Pt was put into bed. 500cc bolus was given. Meds for pain, nausea, and gastric burning were given.
[2021-02-20 02:33] VITALS: BP 105/61; PULSE 85; RESP 18; TEMP 36.8; O2SAT 100
[2021-02-20] MEDS: diazePAM 5 MG Tablet PO ×2 (02:47→18:09)
--- NOTE | 2021-02-20 02:48 | NURSING ---
Removed Scopolomine patch from behind L ear in case it was making Pt dizzy.
[2021-02-20] MEDS: oxyCODONE 5 MG Tablet 10 MG PO ×4 (03:41→21:31)
[2021-02-20 05:59] LABS: Hematocrit 26.7 % (37-47); Hemoglobin 8.7 g/dL (12.0-15.0); Mean Corp Hgb Conc 32.6 g/dL (32-36); Mean Corpuscular Hgb 31.1 pg (27.0-32.0); Mean Corpuscular Volume 95.4 fL (81-99); Mean Platelet Vol. 8.9 fl (6.2-12.0); Platelet Count 379 K/mm3 (150-450); RBC Distribution Width CV 13.2 % (11.6-14.6); RBC Distribution Width SD 45.7 fl (35.1-43.9); White Blood Count 14.2 K/mm3 (4.4-11.0)
[2021-02-20 06:39] LABS: Anion Gap 7 (5-15); BUN 9 mg/dL (7-18); BUN/Creat Ratio 17.8 RATIO (10-20); Calcium,Total 7.9 mg/dL (8.5-10.1); Chloride 104 mmol/L (98-107); Creatinine, Serum 0.51 mg/dL (0.55-1.02); EST Glomerular Filtration Rate 147 mL/min (>60); Est Glom Filt Rate - Afr Amer 178 mL/min (>60); Estimated Creatinine Clearance 128.57 ml/min; Glucose 121 mg/dL (74-106); Potassium 4.2 mmol/L (3.5-5.1); Prealbumin 24.7 mg/dL (20.0-40.0); Sodium Level 135 mmol/L (136-145)
[2021-02-20 06:58] VITALS: BP 111/59; PULSE 81; RESP 18; TEMP 36.4; O2SAT 96
--- NOTE | 2021-02-20 07:48 | MDS.RN ---
superintendent job called, aware no ETA of midline nurse. awaiting return call with ETA.
[2021-02-20 09:17] VITALS: BP 109/64; PULSE 92; RESP 18; TEMP 36.8; O2SAT 95
[2021-02-20] MEDS: Enoxaparin 40 MG/0.4 ML Syringe SC (09:22)
[2021-02-20] MEDS: Docusate Sodium 100 MG Capsule PO ×2 (09:23→21:31)
[2021-02-20] MEDS: Sertraline 100 MG Tablet PO (09:23)
--- NOTE | 2021-02-20 12:41 | CASEMGMT ---
Addendum entered by Allison Holt 02/20/21 14:07: Received tc back from [facility] who confirms pt is active with their services and will resume post dc. Original Note: NINA CM in to pt room. Pt states she is active with [facility] and has been for the last 5 years. Pt states she will see what her aftercare is following surgery and they will decide if they need to resume. TC to Gurdeep at [facility], left voicemail for call back to confirm patient is active.
--- NOTE | 2021-02-20 13:40 | PCM.PN.SRG ---
Subjective Subjective Postop #1 Patient resting in bed, stating she is having issues with pain. She states she fainted on the toilet last night and woke up on the floor and vomited everywhere. She states she is nervous about getting out of bed and moving due to her pain. Objective Data Objective Data Vital Signs: Vital Signs Temp Pulse Resp BP Pulse Ox 98.2 F 92 18 109/64 95 02/20/21 09:17 02/20/21 09:17 02/20/21 09:17 02/20/21 09:17 02/20/21 09:17 Oxygen Delivery Method Room Air Weight: 245 lb 9.519 oz Body Mass Index (BMI) 43.4 Intake & Output: Intake and Output for Last 24 Hours 02/18/21 02/19/21 02/20/21 23:59 23:59 23:59 Intake Total 963.67 / 1363.67 2641.33 / 2641.33 Output Total 615 / 1540 3077 / 3077 Balance 348.67 / -176.33 -435.67 / -435.67 Naren drain #1 248 ml Naren drain #2 125 ml Lab / Micro Data Result Diagrams: 02/20/21 05:50 02/20/21 05:50 Labs: Laboratory Results - last 24 hr 02/19/21 23:13: POC Glucose 155 H 02/20/21 05:50: WBC 14.2 H, RBC 2.80 L, Hgb 8.7 L, Hct 26.7 L, MCV 95.4, MCH 31.1, MCHC 32.6, RDW Std Deviation 45.7 H, RDW Coeff of Balaji 13.2, Plt Count 379, MPV 8.9 02/20/21 05:50: Sodium 135 L, Potassium 4.2, Chloride 104, Carbon Dioxide 24.0, Anion Gap 7, BUN 9, Creatinine 0.51 L, Estim Creat Clear Calc 128.57, Est GFR (MDRD) Af Amer 178, Est GFR (MDRD) Non-Af 147, BUN/Creatinine Ratio 17.8, Glucose 121 H, Calcium 7.9 L, Prealbumin 24.7 Micro: Microbiology 02/19/21 14:15 Tissue - Abdominal Gram Stain - Final Physical Exam Const oriented x3 Constitutional Narrative: In pain, guarding lower abdominal incision. HEENT normocephalic Resp normal respiratory effort Cardio regular rate GI soft to palpation GI Narrative: Tender due to lower abdominal incision. Extremity full ROM Skin Skin Narrative: Lower abdominal incision is dry and intact. Naren drains intact and draining dark sanguineous drainage. Psych cooperative Psych Narrative: Patient is anxious, especially about her pain control and the the incident that happened last night. (when she had a syncopal episode getting up to the toilet). Assessment & Plan Assessment/Plan (1) Open wound anterior abdominal wall: QUALIFIERS: Encounter type: subsequent encounter Qualified Code(s): S31.109D - Unspecified open wound of abdominal wall, unspecified quadrant without penetration into peritoneal cavity, subsequent encounter (2) Other acute postprocedural pain: (3) Acute postoperative anemia due to expected blood loss: (4) Hidradenitis suppurativa: (5) Necrotizing soft tissue infection: (6) Recent weight loss: (7) Former smoker: (8) Syncope and collapse: PLAN: Patient states that she is having issues with pain control when she is moving. She states she is afraid to go home because of her syncopal episode she had last night. She is convinced it is from her IV pain meds. She will only take oral pain meds for her discomfort. Operative dressing changed. Incision is dry and intact. Naren drains intact. When emptying Naren drain #1, the tubing was stripped and the drain proceeded to drain 210 ml of dark sanguinous drainage. Patient stated her pain started to decrease after the drainage was removed. Hgb 8.7 this morning. Will check a Hgb tonight at 1800. Will start her on iron supplementation. She has acute post operative anemia from expected blood loss. Operative wound culture pending. She is currently on Unasyn IV. Encouraged increased protein intake to help with wound healing. Will keep her tonight and plan on sending her home tomorrow. Charges/Coding Procedures Integumentary [id number]: [id number] Global Visit
[2021-02-20 16:14] VITALS: BP 107/57; PULSE 103; RESP 18; TEMP 36.9; O2SAT 96
[2021-02-20 21:28] VITALS: BP 117/68; PULSE 98; RESP 16; TEMP 36.9; O2SAT 97
[2021-02-21] VITALS (10 sets, daily range): BP systolic 96–147; BP diastolic 42–80; PULSE 79–116; RESP 16–20; TEMP 36.4–37; O2SAT 96–99
[2021-02-21] MEDS: diazePAM 5 MG Tablet PO (02:24)
[2021-02-21] MEDS: oxyCODONE 5 MG Tablet 10 MG PO ×2 (05:32→16:52)
[2021-02-21 06:57] LABS: Hemoglobin 7.4 g/dL (12.0-15.0); Mean Corp Hgb Conc 32.2 g/dL (32-36); Mean Corpuscular Hgb 31.2 pg (27.0-32.0); Mean Platelet Vol. 8.9 fl (6.2-12.0); Platelet Count 339 K/mm3 (150-450); RBC Distribution Width CV 13.8 % (11.6-14.6); RBC Distribution Width SD 48.3 fl (35.1-43.9); Red Blood Count 2.37 M/mm3 (4.2-5.4); White Blood Count 10.9 K/mm3 (4.4-11.0)
[2021-02-21 07:20] LABS: Anion Gap 4 (5-15); BUN 10 mg/dL (7-18); BUN/Creat Ratio 29.1 RATIO (10-20); Calcium,Total 7.5 mg/dL (8.5-10.1); Chloride 106 mmol/L (98-107); Creatinine, Serum 0.34 mg/dL (0.55-1.02); EST Glomerular Filtration Rate 231 mL/min (>60); Est Glom Filt Rate - Afr Amer 279 mL/min (>60); Estimated Creatinine Clearance 192.86 ml/min; Glucose 89 mg/dL (74-106); Potassium 3.5 mmol/L (3.5-5.1); Sodium Level 140 mmol/L (136-145)
[2021-02-21] MEDS: Docusate Sodium 100 MG Capsule PO (08:16)
[2021-02-21] MEDS: Sertraline 100 MG Tablet PO (08:16)
[2021-02-21] MEDS: Iron Polysaccharide Complex 150 MG CAPSULE PO (08:19)
--- NOTE | 2021-02-21 10:34 | CASEMGMT ---
TC lashawn Mackenzie at [facility], made aware pt is receiving blood products today, given update. Faxed preliminary info at this time.
--- NOTE | 2021-02-21 12:31 | PCM.PN.SRG ---
Subjective Subjective Postop #2 Patient is sitting up in bed. She states her pain is more manageable than yesterday. She is anxious about receiving blood today. Objective Data Objective Data Vital Signs: Vital Signs Temp Pulse Resp BP Pulse Ox 98.5 F 84 16 107/57 L 99 02/21/21 13:41 02/21/21 13:41 02/21/21 13:41 02/21/21 13:41 02/21/21 13:41 Oxygen Delivery Method Room Air Weight: 245 lb 9.519 oz Body Mass Index (BMI) 43.4 Intake & Output: Intake and Output for Last 24 Hours 02/19/21 02/20/21 02/21/21 23:59 23:59 23:59 Intake Total 963.67 / 1363.67 4668.33 / 4668.33 1708 / 1708 Output Total 615 / 1540 4668 / 4668 3056 / 3056 Balance 348.67 / -176.33 0.33 / 0.33 -1348 / -1348 Naren drain #1 591ml Naren drain #2 25 ml Lab / Micro Data Result Diagrams: 02/21/21 06:25 02/21/21 06:25 Labs: Laboratory Results - last 24 hr 02/21/21 06:25: WBC 10.9, RBC 2.37 L, Hgb 7.4 L, Hct 23.0 L, MCV 97.0, MCH 31.2, MCHC 32.2, RDW Std Deviation 48.3 H, RDW Coeff of Balaji 13.8, Plt Count 339, MPV 8.9 02/21/21 06:25: Sodium 140, Potassium 3.5, Chloride 106, Carbon Dioxide 30.0, Anion Gap 4 L, BUN 10, Creatinine 0.34 L, Estim Creat Clear Calc 192.86, Est GFR (MDRD) Af Amer 279, Est GFR (MDRD) Non-Af 231, BUN/Creatinine Ratio 29.1 H, Glucose 89, Calcium 7.5 L 02/21/21 08:47: Blood Type Cancelled, Antibody Screen Cancelled, Crossmatch See Detail 02/21/21 09:09: Blood Type O NEGATIVE, Antibody Screen NEGATIVE, Crossmatch See Detail Micro: Microbiology 02/19/21 14:15 Tissue - Abdominal Gram Stain - Final 02/19/21 14:15 Tissue - Abdominal Wound Culture - Preliminary Gram positive drake 02/19/21 14:15 Tissue - Abdominal Anaerobic Culture - Preliminary Checking for anaerobes, further studies to follow. Physical Exam Const oriented x3 Resp normal respiratory effort Cardio regular rate GI soft to palpation Extremity full ROM Skin Skin Narrative: Lower abdominal incision is dry and intact. Soft but tender to palpation. No active signs of bleeding. No signs of hematoma. No bruising noted. Naren drains draining serosanguineous drainage that is much learning support assistant than it was yesterday. She is wearing her abdominal binder. Neuro oriented x3 Psych Psych Narrative: Very anxious today. Assessment & Plan Assessment/Plan (1) Non-pressure chronic ulcer of skin of other sites with fat layer exposed: (2) Acute postoperative anemia due to expected blood loss: (3) Other acute postprocedural pain: (4) Recent weight loss: (5) Hidradenitis suppurativa: (6) Former smoker: (7) Anxiety: PLAN: She state her pain is under better control today, now that she had all that drainage from her one Naren drain. Incision is dry and intact, soft but tender to palpation. No signs of bleeding or hematoma. Naren drains draining serosanguineous drainage, much learning support assistant than it had been yesterday. Hgb. 7.4 this morning. She will be transfused with 2 units of PRC. She is also receiving iron supplementation. She has acute post operative anemia from expected blood loss. Prealbumin is 24.7. Encouraged increased protein intake to help with wound healing. Preliminary operative cultures show Gram positive drake. She is on Unasyn. When she is discharged she will sent home on Augmentin. She is having an increase in her anxiety. She is currently on Zoloft. Spoke with her PCP Dr. Hu's nurse about increasing or augmenting her medication to get better control of her anxiety. She will notify the physician who is in the office today about this and contact Shy about the medication change. The plan is she will be discharged this evening after she receives the blood. She will follow up at the wound healing center on Wednesday03/03/21. Charges/Coding Procedures Integumentary [id number]: [id number] Global Visit
--- NOTE | 2021-02-21 15:56 | PCM.DC ---
Discharge Instructions Diet Discharge Diet: No restrictions (high protein to help with wound healing.) Activity Discharge Activity: May Not Shower (No showering until drains are removed.) May resume sexual activity in: 10-14 days Lifting Restrictions: 20 lb weight lifting restriction. Dressing / Incision Call your doctor if your incision/area has: Continuous Slow Oozing, Sudden Increased Bleeding, Increased Pain/ Swelling, Increased Redness, Foul Smelling Discharge and Swelling at the incision site Call your doctor if you observe: Fever of 101 or Higher, Shortness of breath, Chest pain, Calf discomfort and Uncontrolled pain Change Dressing in: 2 days Remove Dressing in: 2 days Drain: Suction (Record daily amounts of drains and bring to next appointment.) Additional Dressing/Incision Instructions:: Do not get drains wet. Unable to shower until drains removed. May change dressing as needed. Wear abdominal compression at all times. Follow Up Care Please Follow Up With: Tania Beck When: Wednesday03/03/[facility] Test Results: Test results from this visit will be discussed in further detail at your follow-up appointment, if applicable. Discharge Plan Admission Admit Date/Time: 02/19/21 16:37 Attending Provider: Alfonso De La Torre Primary Care Provider: Steve Hu Discharge Orders/Prescriptions Prescriptions: New polysaccharide iron complex [Ferrex 150] 150 mg iron Capsule 150 mg PO DAILYCM 60 Days Qty: 60 RF: 1 promethazine 25 mg tablet 25 mg PO Q6H PRN PRN (Reason: NAUSEA/VOMITING) 10 Days Qty: 30 RF: 0 oxycodone-acetaminophen [Percocet] 5-325 mg tablet 1 tab PO Q4H PRN (Reason: pain (scale score 7-10)) 7 Days Qty: 40 RF: 0 amoxicillin-pot clavulanate [Augmentin] 875-125 mg tablet 1 tab PO BID 14 Days Qty: 28 RF: 0 Continued diazepam [Valium] 5 mg tablet 5 mg PO TID PRN (Reason: muscle spasm) 7 Days Qty: 20 RF: 0 sertraline 100 mg tablet 100 mg PO DAILY RF: 0 No Action doxycycline monohydrate 100 mg capsule 100 mg PO BID 14 Days Qty: 28 RF: 0 oxycodone-acetaminophen [Percocet] 5-325 mg tablet 1 tab PO TID PRN (Reason: pain (scale score 7-10)) 7 Days Qty: 21 RF: 0 Referrals / Follow Up: Steve Hu MD [Primary Care Provider] - Disposition Disposition (needs filled in before D/C Order can be placed): Home Health Service
--- NOTE | 2021-02-21 16:58 | NURSING ---
Patient complains of aching in left arm at IV site up to shoulder. Vitals obtained. Rate of blood decreased to 60cc/hr. Patient medicated for pain. hemodialysis charge nurse notified.
[2021-02-21] MEDS: Amox/Clavulanate 875 MG Tablet PO (17:24)
[2021-02-21 19:41] LABS: Hematocrit 30.7 % (37-47); Hemoglobin 9.6 g/dL (12.0-15.0)
--- NOTE | 2021-02-24 11:14 | DS.PCM_ITS ---
Providers Date of Admission: 02/19/21 Date of Discharge: 02/21/21 Primary Care Physician: Dr. Steve Hu MD Attending Physician: Dr. Alfonso De La Torre MD Reason For Visit: LOWER ANTERIOR ABD WALL EXCISION HIDRADENITIS... Diagnosis Discharge Diagnosis (1) Non-pressure chronic ulcer of skin of other sites with fat layer exposed: Status: Chronic Code(s): L98.492 - Non-pressure chronic ulcer of skin of other sites with fat layer exposed (2) Hidradenitis suppurativa: Status: Chronic Code(s): L73.2 - Hidradenitis suppurativa (3) Necrotizing soft tissue infection: Status: Chronic Code(s): M79.89 - Other specified soft tissue disorders (4) Recent weight loss: Status: Chronic Code(s): R63.4 - Abnormal weight loss (5) Former smoker: Status: Chronic Code(s): Z87.891 - Personal history of nicotine dependence (6) Acute postoperative anemia due to expected blood loss: Status: Acute Code(s): D62 - Acute posthemorrhagic anemia Medications at Discharge Home Medications diazepam [Valium] 5 mg PO TID PRN 7 Days #20 tab 01/16/21 doxycycline monohydrate 100 mg PO BID 14 Days #28 cap 01/16/21 oxycodone-acetaminophen [Percocet] 1 tab PO TID PRN 7 Days #21 tab 02/03/21 sertraline 100 mg PO DAILY 02/20/21 amoxicillin-pot clavulanate [Augmentin] 1 tab PO BID 14 Days #28 tab 02/21/21 oxycodone-acetaminophen [Percocet] 1 tab PO Q4H PRN 7 Days #40 tab 02/21/21 polysaccharide iron complex [Ferrex 150] 150 mg PO DAILYCM 60 Days #60 cap 02/21/21 promethazine 25 mg PO Q6H PRN PRN 10 Days #30 tab 02/21/21 Hospital Course Operations - (02/19/21 - Surgical preparation lower anterior abdominal wall with excisional debridement necrotizing soft tissue hidradenitis infection ulcer with 65 cm complex secondary wound closure (195 cm2).) Procedures Blood transfusion Summary of Care Provided Minutes Spent on Discharge: 35 Hospital Course: 35 year old woman presents with long standing hidradenitis that started about 20 years ago. She has been on antibiotics intermittently. She also has a history of a 100 lb weight loss which has exacerbated these areas of hidradenitis because of redundant skin and subcutaneous tissue in her lower anterior abdominal wall and inguinal areas extending onto the medial thigh areas. She denies fever. She denies trauma. When she has flare ups, there is increased pain and redness and swelling with some drainage. She was offered Humira as a treatment, but she was concerned about the side effects. On 01/15/21, the patient went to the operating room and she underwent excisional debridement skin and subcutaneous tissue for necrotizing soft tissue hidradenitis infection lower anterior abdominal wall. Postoperatively she was having trouble with the wound care with increased pain and anxiety. The wound did improve with granulation tissue, but still has a ways to go to heal on its own just with wound care. It was decided for the patient to proceed with excisional debridement of the nonhealing abdominal ulcer with complex secondary wound closure. On 02/15/21 the patient went to surgery where she underwent surgical preparation lower anterior abdominal wall with excisional debridement necrotizing soft tissue hidradenitis infection ulcer with 65 cm complex secondary wound closure (195 cm2). She tolerated the procedure well. Postoperatively she had some bloody drainage from the drains. She had 718 ml the first day and 291 ml the second day. Her vital signs remained stable. Her Hgb decreased to 8.7 the first postop day. She also had some nausea and vomiting that responded to medication. Her abdomen was soft with no clinical evidence of ongoing hematoma. The incision was dry and intact. The operative blood loss was 150 ml. She had persistent pain in her incision area that necessitated continued IV analgesia. On the second postoperative day, the Hgb decreased to 7.4. She was given 2 units of PRBC. Post transfusion Hgb was 9.6. She was discharged home after her transfusion on the second postoperative day. She had acute postoperative anemia from expected blood loss. She was also started in iron supplementation. She was treated with Unasyn perioperatively. Operative cultures showed Gram positive drake thus far. Will send her home on Augmentin. If the final culture shows something different than antibiotic modification may be necessary. She is having an increase in her anxiety. She is currently on Zoloft. Spoke with her PCP Dr. Hu's nurse about increasing or augmenting her medication to get better control of her anxiety. They will contact Shy about the medi cation change after discharge. Wrote script for Augmentin for 14 days. Wrote script for Percocet for pain (40 tabs). Wrote script for Phenergan for nausea (30 tabs). Wrote script for Iron supplementation (60 tabs) and a refill. Will recheck a Hgb in a week when she is seen in the office. The drains will be removed in the office. Continue abdominal binder. Continue lifting restriction (20 lbs). No showering until the drains are removed. Weight / BMI Weight Weight: 245 lb 9.519 oz Body Mass Index (BMI) 43.4 ABG / Lab / Microbiology Data Attestation: I reviewed the patient's lab results. Result Diagrams: 02/21/21 19:29 02/21/21 06:25 Microbiology: Microbiology 02/19/21 14:15 Tissue - Abdominal Gram Stain - Final 02/19/21 14:15 Tissue - Abdominal Wound Culture - Final Corynebacterium striatum 02/19/21 14:15 Tissue - Abdominal Anaerobic Culture - Final No anaerobic bacteria isolated. D/C Instructions Discharge Diet: No restrictions (high protein to help with wound healing.) May resume sexual activity in: 10-14 days Call your doctor if your incision/area has: Continuous Slow Oozing, Sudden Increased Bleeding, Increased Pain/ Swelling, Increased Redness, Foul Smelling Discharge and Swelling at the incision site Call your doctor if you observe: Fever of 101 or Higher, Shortness of breath, Chest pain, Calf discomfort and Uncontrolled pain Drain: Suction (Record daily amounts of drains and bring to next appointment.) Additional Dressing/Incision Instructions: Do not get drains wet. Unable to shower until drains removed. May change dressing as needed. Wear abdominal compression at all times. Please Follow Up With: Tania Beck When: Wednesday03/03/[facility] Meaningful Use Info Meaningful Use Diagnoses (Choose all that apply): None applicable Discharge Plan Admission Admit Date/Time: 02/19/21 16:37 Primary Reason for Your Visit: nonhealing hidradenitis ulcer lower anterior abdominal wall Attending Provider: Alfonso De La Torre Primary Care Provider: Steve Hu Discharge Orders/Prescriptions Prescriptions: New polysaccharide iron complex [Ferrex 150] 150 mg iron Capsule 150 mg PO DAILYCM 60 Days Qty: 60 RF: 1 promethazine 25 mg tablet 25 mg PO Q6H PRN PRN (Reason: NAUSEA/VOMITING) 10 Days Qty: 30 RF: 0 oxycodone-acetaminophen [Percocet] 5-325 mg tablet 1 tab PO Q4H PRN (Reason: pain (scale score 7-10)) 7 Days Qty: 40 RF: 0 amoxicillin-pot clavulanate [Augmentin] 875-125 mg tablet 1 tab PO BID 14 Days Qty: 28 RF: 0 Continued diazepam [Valium] 5 mg tablet 5 mg PO TID PRN (Reason: muscle spasm) 7 Days Qty: 20 RF: 0 sertraline 100 mg tablet 100 mg PO DAILY RF: 0 No Action doxycycline monohydrate 100 mg capsule 100 mg PO BID 14 Days Qty: 28 RF: 0 oxycodone-acetaminophen [Percocet] 5-325 mg tablet 1 tab PO TID PRN (Reason: pain (scale score 7-10)) 7 Days Qty: 21 RF: 0 Referrals / Follow Up: Steve Hu MD [Primary Care Provider] - Disposition Disposition (needs filled in before D/C Order can be placed): Home Health Service
== END 2021-02-21 19:50 | disposition home health service (06) ==
LOC: SDC 16:40 → MS3 16:40
PROVIDERS: Anesthesiology; Admitting Provider Surgery; PCP Family Medicine; Referring Provider Surgery; Visit Provider Surgery
PROC: (CPT 13160; principal; 2021-02-19 13:15)
DX: L73.2 Hidradenitis suppurativa (principal); I96 Gangrene, not elsewhere classified; L98.492 Non-pressure chronic ulcer of skin of other sites with fat layer exposed; Z68.41 Body mass index [BMI] 40.0-44.9, adult; L98.7 Excessive and redundant skin and subcutaneous tissue; R55 Syncope and collapse; F41.9 Anxiety disorder, unspecified; M19.90 Unspecified osteoarthritis, unspecified site; G25.81 Restless legs syndrome; R63.4 Abnormal weight loss; D62 Acute posthemorrhagic anemia; Z87.891 Personal history of nicotine dependence; Z79.899 Other long term (current) drug therapy
CPT/HCPCS: 13160; 15002; 15003; 36415; 36430; 80048; 81025; 82962; 84134; 85014; 85018; 85027; 86850; 86900; 86901; 86920; 86922; 87070; 87075; 87077; 87102; 87176; 87205; 87206; 87635; 88304; 93005; 96361; 96365; 96366; 96372; 96375; 99218; 99251; C9803; J7040; J7120; P9016; U0005; A4216; G0378; G0463; J0295; J2405; U0003

== ENCOUNTER 2021-03-03 08:45 | Outpatient (RCR) | payer OTHER, SELFPAY ==
[2021-02-02 00:39] VITALS: BP 119/77; PULSE 93; TEMP 36.1
[2021-02-03 10:15] VITALS: BP 112/79; PULSE 89; TEMP 36.1; BMI 42.0
--- NOTE | 2021-02-03 13:18 | PCM.WC.PN ---
History of Present Illness Date of Service: 02/03/21 Chief Complaint: Lower abdomen open surgical wound after excision of hidradenitis History of Wound: 35 year old woman presents with long standing hidradenitis that started about 20 years ago. She has been on antibiotics intermittently. She also has a history of a 100 lb weight loss which has exacerbated these areas of hidradenitis because of redundant skin and subcutaneous tissue in her lower anterior abdominal wall and inguinal areas extending onto the medial thigh areas. She denies fever. She denies trauma. She has never had any surgical procedures done. When she has flare ups, there is increased pain and redness and swelling with some drainage. She was offered Humira as a treatment, but she was concerned about the side effects. Surgery - Excisional debridement skin and subcutaneous tissue for necrotizing soft tissue hidradenitis infection lower anterior abdominal wall. Wound care - Stopped the wound VAC and started daily Dakin's moistened gauze covered by ABDs dressing changes due to issues with pain control and good seal on VAC. She is having increased pain, but is hesitant to take pain meds. Instructed her that she may need pain meds for the pain and Valium for the muscle spasms. She denies any fevers. She states her appetite is good. Progress of Wound: Improved. Objective Data Objective Data Vital Signs: Vital Signs Temp Pulse BP 96.9 F L 89 112/79 02/03/21 10:15 02/03/21 10:15 02/03/21 10:15 Body Mass Index (BMI) 42.0 Charges/Coding Procedures Integumentary 111xxx-113xx: 75005 Global Visit Physical Exam Const alert and oriented x3 HEENT normocephalic Head and Scalp: atraumatic Eyes PERRL Lymph Lymphatic: no lymphedema noted Resp normal respiratory effort Cardio regular rate GI non-tender Palpation: soft Extremity normal to inspection Skin Wound Narrative: Lower abdominal ulcer is beefy pink, shows good granulation tissue. It is decreased in depth. Periwound is much improved this week after taking a break from the wound VAC. Neuro CN's II-XII intact bilaterally Psych Appearance: well kempt Debridement Note Debridement Note Post-Debridement Measurements and Additional Note: Post-Debridement Measurements/Treatment WC - Nurse 1 - General Ulcer Assessment Start: 02/03/21 10:14 Freq: Status: Active Protocol: WC.LOWEXT Activity Type Activity Date Activity User E-Sign Co-Sign Detail Recorded Client Recorded Date Recorded By Document 02/03/21 10:15 REYES [id number] 02/03/21 10:23 REYES 02/03/21 10:15 - Today's Visit Information Type of service Follow-up Visit (Physician/LEGAL INSTRUMENTS EXAMINER ) Arrival Mode Ambulatory Patient Identification Verified (Name & Yes ) Height and Weight Body Mass Index (BMI) 42.0 BMI Classification Obese Vital Signs Temperature (97.8 F-99.1 F) 96.9 F L Temperature Source Temporal Pulse Rate (60-100) 89 Pulse Location Monitor Blood Pressure (90/60-120/80) 112/79 Blood Pressure Mean (mm Hg) 90 Source Monitor Position Sitting Blood Pressure Location Left Arm History Since Last Visit- (Skip if this is Patient's initial visit) Have you changed medications since your No last visit? Any new allergies or adverse reactions No Had a fall/change in ADL's that may No increase risk of falls Signs or symptoms of abuse and/or No neglect since last visit Have you been in the hospital since your No last visit? Has dressing in place as prescribed Yes Has compression in place as prescribed N/A Has offloadiing in place as prescribed N/A Left Footwear Regular Shoe Right Footwear Regular Shoe Pain Scale: 0-10 Numeric Is Patient Pain Free? No - Nurse 1 - General Ulcer Measurement Start: 02/03/21 10:14 Freq: Status: Active Protocol: Activity Type Activity Date Activity User E-Sign Co-Sign Detail Recorded Client Recorded Date Recorded By Document 02/03/21 10:15 REYES [id number] 02/03/21 10:23 REYES 02/03/21 10:15 Wound Center Nurse 1 #1 Lower Abdomen -Current Size (cm) - Length 2.5 -Current Size (cm) - Width 48 -Current Size (cm) - Depth 2.1 -Total Square Cm 120.0 -Exudate Amt Large -Exudate Type Serosanguineous -Wound Margin Distinct, Outline Attached -Granulation Amt Large (67-100%) -Granulation Quality Red -Slough/Fibrin No -Necrosis Amt None Present (0 %) -Texture (Ana-wound Skin Appearance) No Abnormality, Assessed -Color (Ana-wound Skin Appearance) No Abnormality, Assessed -Temperature (Ana-wound Skin No Abnormality Appearance) (Pt Warm) -Tenderness on Palpation (Ana-wound No Skin Appearance) -Ulcer Cleansing Rinsed/ Irrigated with Saline -Foul Odor after Cleansing No -Anesthetic Used 4% Lidocaine Solution WC - Nurse 2 - General Ulcer CM Notes Start: 02/03/21 10:14 Freq: Status: Active Protocol: Activity Type Activity Date Activity User E-Sign Co-Sign Detail Recorded Client Recorded Date Recorded By Document 02/03/21 11:00 ETHAN [id number] 02/03/21 11:07 ETHAN 02/03/21 11:00 Wound Center Nurse 2 -Time 11:01 -Correct Patient Yes -Correct Side, Site, Position Yes -Correct Procedure Yes -Procedure Performed Yes -Type of Procedure Debridement -Clinical Debridement Subcutaneous -Tissue Removed Subcutaneous -Post Debridement (cm) - Length 4.5 -Post Debridement (cm) - Width 53.5 -Post Debridement (cm) - Depth 2.6 -Total Square (Post) (cm) 240.75 -Area of Debridement (cm) - Length 4.5 -Area of Debridement (cm) - Width 53.5 -Total Square (Area) (cm) 240.75 -Tunneling No -Undermining/Tunneling No -Circular Undermining No -Wound/Ulcer Outcome Not Healed -Ulcer Cleansing Rinsed/ Irrigated with Saline -Foul Odor after Cleansing No -Bioengineered Tissue No -Bleeding Controlled with Pressure -Offloading No -Treatment Response Procedure Tolerated Well -Debridement - Subq, 1st 20sq cm Yes -Debridement, SubQ, ea addt'l 20sq cm 11 or part thereof Pain Scale: 0-10 Numeric Is Patient Pain Free? Yes Wound debrided: Lower abdominal wound Laterality: Not Applicable Type of Debridement: Excisional debridement Anesthesia Used: 5% Lidocaine Gel Depth: Down to and including healthy tissue and in the subcutaneous layer Instrument Used: 7mm curette Tissue Removed: Subcutaneous tissue and slough Severity: Fat Layer Exposed Amount of bleeding with debridement: Mild Bleeding Controlled with: Compression and gauze Patient tolerated procedure: Patient tolerated procedure well Assessment/Plan Assessment/Plan (1) Open wound anterior abdominal wall: CODE(S): S31.109A - Unspecified open wound of abdominal wall, unspecified quadrant without penetration into peritoneal cavity, initial encounter QUALIFIERS: Encounter type: subsequent encounter Qualified Code(s): S31.109D - Unspecified open wound of abdominal wall, unspecified quadrant without penetration into peritoneal cavity, subsequent encounter (2) Hidradenitis suppurativa: CODE(S): L73.2 - Hidradenitis suppurativa (3) Necrotizing soft tissue infection: CODE(S): M79.89 - Other specified soft tissue disorders (4) Former smoker: CODE(S): Z87.891 - Personal history of nicotine dependence (5) Recent weight loss: CODE(S): R63.4 - Abnormal weight loss (6) Other acute postprocedural pain: CODE(S): G89.18 - Other acute postprocedural pain PLAN: Wound care -discontinue wound VAC due to patient not tolerating the VAC and having increased pain. Continue daily Dakin's 0.25% moistened gauze dressing changes. Periwound is improved this week not using the wound VAC. Instructed her that she may need to change the outer dressing more frequently due to increased drainage. She has home care three times per week to help with dressing changes. Instructed home health to teach her how to do the dressing changes. She started to have better pain control over this past week. She did not like the Dilaudid. Renewed Percocet (21). PDMP reviewed. Continue Doxycycline. Restrict lifting to 20 lbs. Encouraged increase protein intake to help with wound healing. She is scheduled to have her wound closed on 02/19/21. Follow up one week.
[2021-02-10 11:28] VITALS: BP 117/55; PULSE 81; TEMP 36.6; BMI 42.0
--- NOTE | 2021-02-10 12:30 | PN.PCM_ITS ---
History of Present Illness Date of Service: 02/10/21 Chief Complaint: Lower abdomen open surgical wound after excision of hidra denitis History of Wound: 35 year old woman presents with long standing hidradenitis that started about 20 years ago. She has been on antibiotics intermittently. She also has a history of a 100 lb weight loss which has exacerbated these areas of hidradenitis because of redundant skin and subcutaneous tissue in her lower anterior abdominal wall and inguinal areas extending onto the medial thigh areas. She denies fever. She denies trauma. She has never had any surgical procedures done. When she has flare ups, there is increased pain and redness and swelling with some drainage. She was offered Humira as a treatment, but she was concerned about the side effects. Surgery - Excisional debridement skin and subcutaneous tissue for necrotizing soft tissue hidradenitis infection lower anterior abdominal wall. Wound care - Daily Dakin's moistened gauze covered by ABDs dressings. She denies any fevers. She states her appetite is good. Progress of Wound: Much improved Subjective Subjective Denies any complaints. States she is feeling much better. Incision pain has improved. Having an easier time with dressing changes. Objective Data Objective Data Vital Signs: Vital Signs Temp Pulse BP 97.8 F 81 117/55 L 02/10/21 11:28 02/10/21 11:28 02/10/21 11:28 Body Mass Index (BMI) 42.0 Charges/Coding Procedures Integumentary 111xxx-113xx: [id number] Global Visit Physical Exam Const alert and oriented x3 General Appearance: cooperative HEENT normocephalic Head and Scalp: atraumatic Eyes PERRL Lymph Lymphatic: no lymphedema noted Resp normal respiratory effort Cardio regular rate GI non-tender Palpation: soft Extremity normal capillary refill and no calf tenderness Skin Wound Narrative: Lower abdominal wound with decreased depth. Wound bed is a nice beefy pink with granulation tissue. Neuro CN's II-XII intact bilaterally Psych Appearance: grossly normal Debridement Note Debridement Note Post-Debridement Measurements and Additional Note: Post-Debridement Measurements/Treatment ELLIOT - Nurse 1 - General Ulcer Assessment Start: 02/03/21 10:14 Freq: Status: Active Protocol: ELLIOT.LOWEXT Activity Type Activity Date Activity User E-Sign Co-Sign Detail Recorded Client Recorded Date Recorded By Document 02/03/21 10:15 [place] [id number] 02/03/21 10:23 AK Document 02/10/21 11:28 KR [id number] 02/10/21 11:30 KR 02/03/21 02/10/21 10:15 11:28 - Today's Visit Information Type of service Follow-up Visit Follow-up Visit (Physician/CHIEF OPERATOR HYDROFORMER (Physician/CHIEF OPERATOR HYDROFORMER ) ) Arrival Mode Ambulatory Ambulatory Patient Identification Verified (Name & Yes Yes ) Height and Weight Body Mass Index (BMI) 42.0 42.0 BMI Classification Obese Obese Vital Signs Temperature (97.8 F-99.1 F) 96.9 F L 97.8 F Temperature Source Temporal Temporal Pulse Rate (60-100) 89 81 Pulse Location Monitor Monitor Blood Pressure (90/60-120/80) 112/79 117/55 L Blood Pressure Mean (mm Hg) 90 75 Source Monitor Monitor Position Sitting Semi-Fowlers Blood Pressure Location Left Arm Left Arm History Since Last Visit- (Skip if this is Patient's initial visit) Have you changed medications since your No No last visit? Any new allergies or adverse reactions No No Had a fall/change in ADL's that may No No increase risk of falls Signs or symptoms of abuse and/or No No neglect since last visit Have you been in the hospital since your No No last visit? Has dressing in place as prescribed Yes Yes Has compression in place as prescribed N/A N/A Has offloadiing in place as prescribed N/A N/A Experienced any changes in pain level or No management Left Footwear Regular Shoe Regular Shoe Right Footwear Regular Shoe Regular Shoe Pain Scale: 0-10 Numeric Is Patient Pain Free? No Yes - Nurse 1 - General Ulcer Measurement Start: 02/03/21 10:14 Freq: Status: Active Protocol: Activity Type Activity Date Activity User E-Sign Co-Sign Detail Recorded Client Recorded Date Recorded By Document 02/03/21 10:15 AK [id number] 02/03/21 10:23 AK Document 02/10/21 11:28 KR [id number] 02/10/21 11:30 KR 02/03/21 02/10/21 10:15 11:28 Wound Center Nurse 1 #1 Lower Abdomen -Current Size (cm) - Length 2.5 49.9 -Current Size (cm) - Width 48 4 -Current Size (cm) - Depth 2.1 2.7 -Total Square Cm 120.0 199.6 -Exudate Amt Large Large -Exudate Type Serosanguineous Serosanguineous -Wound Margin Distinct, Distinct, Outline Outline Attached Attached -Granulation Amt Large (67-100%) Large (67-100%) -Granulation Quality Red Red -Slough/Fibrin No -Necrosis Amt None Present (0 %) -Texture (Ana-wound Skin Appearance) No Abnormality, Assessed, Assessed Scarring -Moisture (Ana-wound Skin Appearance) No Abnormality, Assessed -Color (Ana-wound Skin Appearance) No Abnormality, No Abnormality, Assessed Assessed -Temperature (Ana-wound Skin No Abnormality No Abnormality Appearance) (Pt Warm) (Pt Warm) -Tenderness on Palpation (Ana-wound No No Skin Appearance) -Ulcer Cleansing Rinsed/ Rinsed/ Irrigated with Irrigated with Saline Saline -Foul Odor after Cleansing No No -Anesthetic Used 4% Lidocaine 4% Lidocaine Solution Solution WC - Nurse 2 - General Ulcer CM Notes Start: 02/03/21 10:14 Freq: Status: Active Protocol: Activity Type Activity Date Activity User E-Sign Co-Sign Detail Recorded Client Recorded Date Recorded By Document 02/03/21 11:00 JF [id number] 02/03/21 11:07 JF Document 02/10/21 11:53 JF [id number] 02/10/21 11:56 02/03/21 02/10/21 11:00 11:53 Wound Center Nurse 2 #1 Lower Abdomen -Time 11:01 11:54 -Correct Patient Yes Yes -Correct Side, Site, Position Yes Yes -Correct Procedure Yes Yes -Procedure Performed Yes Yes -Type of Procedure Debridement Debridement -Clinical Debridement Subcutaneous Subcutaneous -Tissue Removed Subcutaneous Subcutaneous -Post Debridement (cm) - Length 4.5 4 -Post Debridement (cm) - Width 53.5 47 -Post Debridement (cm) - Depth 2.6 1.3 -Total Square (Post) (cm) 240.75 188 -Area of Debridement (cm) - Length 4.5 4 -Area of Debridement (cm) - Width 53.5 47 -Total Square (Area) (cm) 240.75 188 -Tunneling No No -Undermining/Tunneling No No -Circular Undermining No No -Wound/Ulcer Outcome Not Healed Not Healed -Ulcer Cleansing Rinsed/ Rinsed/ Irrigated with Irrigated with Saline Saline -Foul Odor after Cleansing No No -Bioengineered Tissue No No -Bleeding Controlled with Pressure Pressure -Offloading No No -Treatment Response Procedure Procedure Tolerated Well Tolerated Well -Debridement - Subq, 1st 20sq cm Yes Yes -Debridement, SubQ, ea addt'l 20sq cm 11 9 or part thereof Pain Scale: 0-10 Numeric Is Patient Pain Free? Yes Yes Wound debrided: Lower abdominal wound Type of Debridement: Excisional debridement Anesthesia Used: 5% Lidocaine Gel Depth: Down to and including healthy tissue and in the subcutaneous layer Percentage of wound debrided: 100 Instrument Used: 7mm curette Tissue Removed: Subcutaneous tissue and slough Severity: Fat Layer Exposed Amount of bleeding with debridement: Mild Bleeding Controlled with: Pressure Patient tolerated procedure: Patient tolerated procedure well Assessment/Plan Assessment/Plan (1) Open wound anterior abdominal wall: CODE(S): S31.109A - Unspecified open wound of abdominal wall, unspecified quadrant without penetration into peritoneal cavity, initial encounter QUALIFIERS: Encounter type: subsequent encounter Qualified Code(s): S31.109D - Unspecified open wound of abdominal wall, unspecified quadrant without penetration into peritoneal cavity, subsequent encounter (2) Hidradenitis suppurativa: CODE(S): L73.2 - Hidradenitis suppurativa (3) Necrotizing soft tissue infection: CODE(S): M79.89 - Other specified soft tissue disorders (4) Recent weight loss: CODE(S): R63.4 - Abnormal weight loss (5) Former smoker: CODE(S): Z87.891 - Personal history of nicotine dependence (6) Other acute postprocedural pain: CODE(S): G89.18 - Other acute postprocedural pain PLAN: Wound care -Continue daily Dakin's 0.25% moistened gauze dressing changes. Periwound is improved. Much better pain control. Completed doxycycline. Restrict lifting to 20 lbs. Encouraged increase protein intake to help with wound healing. She is scheduled to have her wound closed on 02/19/21. Follow up two weeks, after her wound closure..
[2021-03-03 08:59] VITALS: BP 134/77; PULSE 88; TEMP 36.6; BMI 42.0
--- NOTE | 2021-03-03 09:44 | PCM.WC.PN ---
History of Present Illness Date of Service: 03/03/21 Chief Complaint: Lower abdomen open surgical wound after excision of hidradenitis and after secondary wound top closer 02/19/21. History of Wound: 35 year old woman presents with long standing hidradenitis that started about 20 years ago. She has been on antibiotics intermittently. She also has a history of a 100 lb weight loss which has exacerbated these areas of hidradenitis because of redundant skin and subcutaneous tissue in her lower anterior abdominal wall and inguinal areas extending onto the medial thigh areas. She denies fever. She denies trauma. She has never had any surgical procedures done. When she has flare ups, there is increased pain and redness and swelling with some drainage. She was offered Humira as a treatment, but she was concerned about the side effects. Surgery 01/15/21 - Excisional debridement skin and subcutaneous tissue for necrotizing soft tissue hidradenitis infection lower anterior abdominal wall. Surgery 02/19/21 - Surgical preparation lower anterior abdominal wall with excisional debridement necrotizing soft tissue hidradenitis infection ulcer with 65 cm complex secondary wound closure (195 cm2). She had some bloody drainage from her Naren drains postoperatively. She required transfusion of 2 units of PRBCs. She is on iron supplementation. Hgb 7.4 on 02/21/21. After being transfused repeat Hgb 9.6. Operative cultures from 02/19/21 positive for Corynebacterium striatum. She was discharged home on Augmentin. She denies any fevers. She states her appetite is good. Progress of Wound: Incision dry and intact. Objective Data Objective Data Vital Signs: Vital Signs Temp Pulse BP 97.9 F 88 134/77 H 03/03/21 08:59 03/03/21 08:59 03/03/21 08:59 Body Mass Index (BMI) 42.0 Charges/Coding Procedures Integumentary 111xxx-113xx: 41153 Global Visit Physical Exam Const alert and oriented x3 General Appearance: cooperative HEENT normocephalic Head and Scalp: atraumatic Lymph Lymphatic: no lymphedema noted Resp normal respiratory effort Cardio regular rate GI non-tender Palpation: soft Extremity no calf tenderness Skin Wound Narrative: Lower abdominal incision is dry and intact. Naren drains intact and draining serosanguineous drainage. Neuro CN's II-XII intact bilaterally Psych Appearance: grossly normal Debridement Note Debridement Note Post-Debridement Measurements and Additional Note: Post-Debridement Measurements/Treatment - Nurse 1 - General Ulcer Assessment Start: 02/03/21 10:14 Freq: Status: Active Protocol: SYLVIE Activity Type Activity Date Activity User E-Sign Co-Sign Detail Recorded Client Recorded Date Recorded By Document 02/03/21 10:15 AK [id number] 02/03/21 10:23 AK Document 02/10/21 11:28 KR [id number] 02/10/21 11:30 KR Document 03/03/21 08:59 DL [id number] 03/03/21 09:01 DL 02/03/21 02/10/21 03/03/21 10:15 11:28 08:59 - Today's Visit Information Type of service Follow-up Visit Follow-up Visit Follow-up Visit (Physician/EXTRUDING PRESS OPERATOR (Physician/EXTRUDING PRESS OPERATOR (Physician/EXTRUDING PRESS OPERATOR ) ) ) Arrival Mode Ambulatory Ambulatory Ambulatory Patient Identification Verified (Name & Yes Yes Yes ) Height and Weight Body Mass Index (BMI) 42.0 42.0 42.0 BMI Classification Obese Obese Obese Vital Signs Temperature (97.8 F-99.1 F) 96.9 F L 97.8 F 97.9 F Temperature Source Temporal Temporal Temporal Pulse Rate (60-100) 89 81 88 Pulse Location Monitor Monitor Monitor Blood Pressure (90/60-120/80) 112/79 117/55 L 134/77 H Blood Pressure Mean (mm Hg) 90 75 96 Source Monitor Monitor Monitor Position Sitting Semi-Fowlers Blood Pressure Location Left Arm Left Arm History Since Last Visit- (Skip if this is Patient's initial visit) Have you changed medications since your No No No last visit? Any new allergies or adverse reactions No No No Had a fall/change in ADL's that may No No No increase risk of falls Signs or symptoms of abuse and/or No No No neglect since last visit Have you been in the hospital since your No No No last visit? Has dressing in place as prescribed Yes Yes Yes Has compression in place as prescribed N/A N/A Yes Has offloadiing in place as prescribed N/A N/A Experienced any changes in pain level or No management Left Footwear Regular Shoe Regular Shoe Regular Shoe Right Footwear Regular Shoe Regular Shoe Regular Shoe Pain Scale: 0-10 Numeric Is Patient Pain Free? No Yes - Nurse 1 - General Ulcer Measurement Start: 02/03/21 10:14 Freq: Status: Active Protocol: Activity Type Activity Date Activity User E-Sign Co-Sign Detail Recorded Client Recorded Date Recorded By Document 02/03/21 10:15 AK [id number] 02/03/21 10:23 AK Document 02/10/21 11:28 KR [id number] 02/10/21 11:30 KR Document 03/03/21 08:59 DL [id number] 03/03/21 09:01 DL 02/03/21 02/10/21 03/03/21 10:15 11:28 08:59 Wound Center Nurse 1 #1 Lower Abdomen -Current Size (cm) - Length 2.5 49.9 0.1 -Current Size (cm) - Width 48 4 0.1 -Current Size (cm) - Depth 2.1 2.7 0.1 -Total Square Cm 120.0 199.6 0.01 -Date of Last Picture (Recall this 03/03/21 field) -Photo Taken Yes -Exudate Amt Large Large Large -Exudate Type Serosanguineous Serosanguineous Serosanguineous -Wound Margin Distinct, Distinct, Outline Outline Attached Attached -Granulation Amt Large (67-100%) Large (67-100%) -Granulation Quality Red Red -Slough/Fibrin No -Necrosis Amt None Present (0 %) -Structure Exposed N/A -Texture (Ana-wound Skin Appearance) No Abnormality, Assessed, No Abnormality, Assessed Scarring Assessed -Moisture (Ana-wound Skin Appearance) No Abnormality, No Abnormality, Assessed Assessed -Color (Ana-wound Skin Appearance) No Abnormality, No Abnormality, No Abnormality, Assessed Assessed Assessed -Temperature (Ana-wound Skin No Abnormality No Abnormality No Abnormality Appearance) (Pt Warm) (Pt Warm) (Pt Warm) -Tenderness on Palpation (Ana-wound No No Skin Appearance) -Ulcer Cleansing Rinsed/ Rinsed/ soap and water Irrigated with Irrigated with Saline Saline -Foul Odor after Cleansing No No -Anesthetic Used 4% Lidocaine 4% Lidocaine 4% Lidocaine Solution Solution Solution ELLIOT - Nurse 2 - General Ulcer CM Notes Start: 02/03/21 10:14 Freq: Status: Active Protocol: Activity Type Activity Date Activity User E-Sign Co-Sign Detail Recorded Client Recorded Date Recorded By Document 02/03/21 11:00 [id number] 02/03/21 11:07 Document 02/10/21 11:53 [id number] 02/10/21 11:56 JF Document 03/03/21 09:13 [id number] 03/03/21 09:14 02/03/21 02/10/21 03/03/21 11:00 11:53 09:13 Wound Center Nurse 2 #1 Lower Abdomen -Time 11:01 11:54 -Correct Patient Yes Yes No -Correct Side, Site, Position Yes Yes No -Correct Procedure Yes Yes No -Procedure Performed Yes Yes No -Type of Procedure Debridement Debridement -Clinical Debridement Subcutaneous Subcutaneous -Tissue Removed Subcutaneous Subcutaneous -Post Debridement (cm) - Length 4.5 4 -Post Debridement (cm) - Width 53.5 47 -Post Debridement (cm) - Depth 2.6 1.3 -Total Square (Post) (cm) 240.75 188 -Area of Debridement (cm) - Length 4.5 4 -Area of Debridement (cm) - Width 53.5 47 -Total Square (Area) (cm) 240.75 188 -Tunneling No No -Undermining/Tunneling No No -Circular Undermining No No -Wound/Ulcer Outcome Not Healed Not Healed Not Healed -Ulcer Cleansing Rinsed/ Rinsed/ Irrigated with Irrigated with Saline Saline -Foul Odor after Cleansing No No -Bioengineered Tissue No No -Bleeding Controlled with Pressure Pressure -Offloading No No -Treatment Response Procedure Procedure Tolerated Well Tolerated Well -Debridement - Subq, 1st 20sq cm Yes Yes -Debridement, SubQ, ea addt'l 20sq cm 11 9 or part thereof Pain Scale: 0-10 Numeric Is Patient Pain Free? Yes Yes Yes - Nurse 3 - General Ulcer D/C NN Start: 02/03/21 10:14 Freq: Status: Active Protocol: Activity Type Activity Date Activity User E-Sign Co-Sign Detail Recorded Client Recorded Date Recorded By Document 03/03/21 09:34 NOE [id number] 03/03/21 09:35 DL 03/03/21 09:34 Wound Care Nurse 3 #1 Lower Abdomen -Ulcer Cleansing Rinsed/ Irrigated with Saline -Foul Odor after Cleansing No -Negative Pressure Wound Therapy N/A -Other Dressing ABD -Primary Dressing Covered/Secured with Dry Gauze, Secured with Tape WC - Visit Discharge Discharge Condition Stable Ambulatory Status Ambulatory Transportation Private Auto Clinical Summary of Care Provided Yes No debridement was completed: No debridement was completed today Assessment/Plan Assessment/Plan (1) Non-pressure chronic ulcer of skin of other sites with fat layer exposed: CODE(S): L98.492 - Non-pressure chronic ulcer of 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 Naren drain #1 draining 50-60 ml/day. Naren #2 drain draining 15-30 ml/day. Removed DEMAR #2 (on the left) without difficulty. Continue Augmentin. Instructed to continue to wear abdominal binder at all times. Continue 20 lb weight lifting restriction. She had anemia of expected blood loss after surgery, she received 2 units of PRBC for a Hgb 7.4, it increased to 9.6. We will recheck a CBC this week. Continue her iron supplementation. Will extend her time off work until 04/07/21 due to her lifting restrictions and her pain control. Encouraged increased protein intake to help with wound healing. Follow up one week for a nurse visit due to the holiday. Will remove her remaining drain at that time. Stressed to her the importance of wearing compression once the drains are removed to prevent seroma formation.
== END 2021-03-04 23:59 ==
LOC: WC 08:45
PROVIDERS: PCP Family Medicine; Visit Provider Nurse Practitioner Family
DX: L73.2 Hidradenitis suppurativa (principal); S31.109A Unspecified open wound of abdominal wall, unspecified quadrant without penetration into peritoneal cavity, initial encounter; M79.89 Other specified soft tissue disorders; R63.4 Abnormal weight loss; Z87.891 Personal history of nicotine dependence; I96 Gangrene, not elsewhere classified; G89.18 Other acute postprocedural pain; L98.492 Non-pressure chronic ulcer of skin of other sites with fat layer exposed
CPT/HCPCS: 11042; 11045; 99213; G0463

== ENCOUNTER → 2021-03-05 13:25 | Outpatient (CLI) | payer OTHER, SELFPAY ==
[2021-03-05 13:42] LABS: Absolute Lymphocyte Count 2.77 X10^3/uL (0.83-4.51); Absolute Neutrophil Count 6.6 X10^3/uL (2.0-7.7); Basophil# 0.05 X10^3/uL; Basophil% 0.5 % (0-1); Eosinophil# 0.17 X10^3/uL; Eosinophils% 1.7 % (0-5); Hemoglobin 10.6 g/dL (12.0-15.0); Lymphocyte # 2.77 X10^3/ul (0.83-4.51); Mean Corp Hgb Conc 31.2 g/dL (32-36); Mean Corpuscular Hgb 29.9 pg (27.0-32.0); Mean Corpuscular Volume 95.8 fL (81-99); Monocyte# 0.65 X10^3/uL; Monocyte% 6.3 % (0-10); NRBC Flagged by Analyzer 0 % (0-5); Neutrophil # 6.59 X10^3/uL (2.7-7.7); Neutrophil % 64.1 % (47-70); Platelet Count 562 K/mm3 (150-450); RBC Distribution Width CV 13.5 % (11.6-14.6); RBC Distribution Width SD 47.5 fl (35.1-43.9); Red Blood Count 3.55 M/mm3 (4.2-5.4); White Blood Count 10.3 K/mm3 (4.4-11.0)
== END ==
PROVIDERS: Visit Provider Surgery
DX: D62 Acute posthemorrhagic anemia (principal); L73.2 Hidradenitis suppurativa
CPT/HCPCS: 85025

== ENCOUNTER 2021-03-24 10:15 | Outpatient (RCR) | payer OTHER, SELFPAY ==
[2021-03-05 00:40] VITALS: BP 134/77; PULSE 88; TEMP 36.6; BMI 42.0
[2021-03-14 11:45] VITALS: BP 156/95; PULSE 94; RESP 16; TEMP 36.6; BMI 42.0
[2021-03-17 08:38] VITALS: BP 150/79; PULSE 89; RESP 20; TEMP 36.8; BMI 42.0
--- NOTE | 2021-03-17 09:46 | PCM.WC.PN ---
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 History of Wound: 35 year old woman presents with long standing hidradenitis that started about 20 years ago. She has been on antibiotics intermittently. She also has a history of a 100 lb weight loss which has exacerbated these areas of hidradenitis because of redundant skin and subcutaneous tissue in her lower anterior abdominal wall and inguinal areas extending onto the medial thigh areas. She denies fever. She denies trauma. She has never had any surgical procedures done. When she has flare ups, there is increased pain and redness and swelling with some drainage. She was offered Humira as a treatment, but she was concerned about the side effects. Surgery 01/15/21 - Excisional debridement skin and subcutaneous tissue for necrotizing soft tissue hidradenitis infection lower anterior abdominal wall. Surgery 02/19/21 - Surgical preparation lower anterior abdominal wall with excisional debridement necrotizing soft tissue hidradenitis infection ulcer with 65 cm complex secondary wound closure (195 cm2). She had some bloody drainage from her Naren drains postoperatively. She required transfusion of 2 units of PRBCs. She is on iron supplementation. Hgb 7.4 on 02/21/21. After being transfused repeat Hgb 9.6. Naren drains have been removed. Wound care is dry gauze on lower abdominal incision to keep the area dry and to wear abdominal compression at all times. Operative cultures from 02/19/21 positive for Corynebacterium striatum. She was discharged home on Augmentin. She denies any fevers. She states her appetite is good. Progress of Wound: Incision is dry and intact. No evidence of hematoma or seroma. Objective Data Objective Data Vital Signs: Vital Signs Temp Pulse Resp BP 98.2 F 89 20 H 150/79 H 03/17/21 08:38 03/17/21 08:38 03/17/21 08:38 03/17/21 08:38 Body Mass Index (BMI) 42.0 Charges/Coding Procedures Integumentary 111xxx-113xx: 83365 Global Visit Physical Exam Const alert and oriented x3 General Appearance: cooperative HEENT normocephalic Eyes PERRL Lymph Lymphatic: no lymphedema noted Resp normal respiratory effort Cardio regular rate GI Palpation: soft Extremity normal capillary refill Skin Skin Narrative: Lower abdominal incision is dry and intact. No bruising present. No evidence of hematoma or seroma. Patient has been wearing her abdominal binder. Neuro CN's II-XII intact bilaterally Psych Mood & Affect: anxious Debridement Note Debridement Note No debridement was completed: No debridement was completed today Post-Debridement Measurements and Additional Note: Post-Debridement Measurements/Treatment - Nurse 1 - General Ulcer Assessment Start: 03/11/21 16:36 Freq: Status: Active Protocol: SYLVIE Activity Type Activity Date Activity User E-Sign Co-Sign Detail Recorded Client Recorded Date Recorded By Document 03/14/21 11:45 JF [id number] 03/14/21 11:48 JF Document 03/17/21 08:38 DL [id number] 03/17/21 08:43 DL 03/14/21 03/17/21 11:45 08:38 - Today's Visit Information Type of service Nurse-only Follow-up Visit Visit (Physician/PARTS ROOM ASSOCIATE ) Arrival Mode Ambulatory Ambulatory Transfer Assistance None Patient Identification Verified (Name & No Yes ) Patient Requires Transmission-Based No Precautions Height and Weight Body Mass Index (BMI) 42.0 42.0 BMI Classification Obese Obese Vital Signs Temperature (97.8 F-99.1 F) 98 F 98.2 F Temperature Source Temporal Temporal Pulse Rate (60-100) 94 89 Pulse Location Monitor Monitor Respiratory Rate (12-18) 16 20 H Respiratory rate source Observation Observation Blood Pressure (90/60-120/80) 156/95 H 150/79 H Blood Pressure Mean (mm Hg) 115 102 Source Monitor Monitor Position Sitting Blood Pressure Location Right Forearm History Since Last Visit- (Skip if this is Patient's initial visit) Have you changed medications since your No No last visit? Any new allergies or adverse reactions No No Had a fall/change in ADL's that may No No increase risk of falls Signs or symptoms of abuse and/or No No neglect since last visit Have you been in the hospital since your No No last visit? Has dressing in place as prescribed Yes Yes Has compression in place as prescribed N/A N/A Has offloadiing in place as prescribed N/A N/A Experienced any changes in pain level or No No management Left Footwear Regular Shoe Right Footwear Regular Shoe Pain Scale: 0-10 Numeric Is Patient Pain Free? Yes Yes - Nurse 1 - General Ulcer Measurement Start: 03/11/21 16:36 Freq: Status: Active Protocol: Activity Type Activity Date Activity User E-Sign Co-Sign Detail Recorded Client Recorded Date Recorded By Document 03/14/21 11:45 ETHAN [id number] 03/14/21 11:48 Document 03/17/21 08:38 DL [id number] 03/17/21 08:43 DL 03/14/21 03/17/21 11:45 08:38 Wound Center Nurse 1 #1 Lower Abdomen -Combined with other wound No -Current Size (cm) - Length 0.1 0.1 -Current Size (cm) - Width 0.1 0.1 -Current Size (cm) - Depth 0.1 0.1 -Total Square Cm 0.01 0.01 -Photo Taken No -Epithelialization Large 67-100% -Exudate Amt None Present -Wound Margin Flat & Intact -Granulation Amt Large (67-100%) -Granulation Quality [place] -Necrosis Amt Small (1-33%) -Necrotic Tissue Type Adherent Slough -Structure Exposed N/A -Texture (Ana-wound Skin Appearance) Scarring -Moisture (Ana-wound Skin Appearance) No Abnormality -Color (Ana-wound Skin Appearance) No Abnormality -Temperature (Ana-wound Skin No Abnormality Appearance) (Pt Warm) -Tenderness on Palpation (Ana-wound No Skin Appearance) -Ulcer Cleansing Wound Cleanser -Foul Odor after Cleansing No -Anesthetic Used 4% Lidocaine Solution Lower Limb Edema Present NA WC - Nurse 2 - General Ulcer CM Notes Start: 03/11/21 16:36 Freq: Status: Active Protocol: Activity Type Activity Date Activity User E-Sign Co-Sign Detail Recorded Client Recorded Date Recorded By Document 03/17/21 08:57 ETHAN [id number] 03/17/21 08:57 03/17/21 08:57 Wound Center Nurse 2 -Correct Patient No -Correct Side, Site, Position No -Correct Procedure No -Procedure Performed No Pain Scale: 0-10 Numeric Is Patient Pain Free? Yes - Nurse 3 - General Ulcer D/C NN Start: 03/11/21 16:36 Freq: Status: Active Protocol: Activity Type Activity Date Activity User E-Sign Co-Sign Detail Recorded Client Recorded Date Recorded By Document 03/14/21 11:45 [id number] 03/14/21 11:48 Document 03/17/21 09:19 [id number] 03/17/21 09:19 03/14/21 03/17/21 11:45 09:19 Vital Signs Temperature (97.8 F-99.1 F) 98 F Temperature Source Temporal Pulse Rate (60-100) 94 Pulse Location Monitor Respiratory Rate (12-18) 16 Respiratory rate source Observation Blood Pressure (90/60-120/80) 156/95 H Blood Pressure Mean (mm Hg) 115 Source Monitor Position Sitting Blood Pressure Location Right Forearm Pain Scale: 0-10 Numeric Is Patient Pain Free? Yes Yes Wound Care Nurse 3 #1 Lower Abdomen -Ulcer Cleansing Rinsed/ Rinsed/ Irrigated with Irrigated with Saline Saline -Foul Odor after Cleansing No No -Primary Dressing Covered/Secured with Secured with Tape -Other Covering Abd pad. DEMAR drain removed from left side of abdomen. No active discharge WC - Visit Discharge Discharge Condition Stable Stable Ambulatory Status Ambulatory Transportation Private Auto Private Auto Medication Reconcilliation completed & Yes provided to patient/care provider Notes: Notified Dr De La Torre and patient showering. He is okay with her showering, patient follow up with Tania on 03/17/21. Assessment/Plan Assessment/Plan (1) Non-pressure chronic ulcer of skin of other sites with fat layer exposed: CODE(S): L98.492 - Non-pressure chronic ulcer of skin of other sites with fat layer exposed (2) Hidradenitis suppurativa: CODE(S): L73.2 - Hidradenitis suppurativa (3) Necrotizing soft tissue infection: CODE(S): M79.89 - Other specified soft tissue disorders (4) Acute postoperative anemia due to expected blood loss: CODE(S): D62 - Acute posthemorrhagic anemia (5) Anxiety: CODE(S): F41.9 - Anxiety disorder, unspecified (6) Former smoker: CODE(S): Z87.891 - Personal history of nicotine dependence PLAN: Lower abdominal incision is dry and intact. Keep dry gauze on the incision to absorb moisture to prevent maceration from perspiration. Wear abdominal binder at all times. The second Naren drain was removed last Wednesday. No evidence of hematoma or seroma present. Continue Augmentin. Instructed to continue to wear abdominal binder at all times. Continue 20 lb weight lifting restriction. She had anemia of expected blood loss after surgery, she received 2 units of PRBC for a Hgb 7.4, it increased to 9.6. Hgb 10.6 on 03/05/21. Continue her iron supplementation. Will extend her time off work until 04/07/21 due to her lifting restrictions. Her pain is becoming better controlled. Encouraged increased protein intake to help with wound healing. Follow up one week.
[2021-03-24 10:04] VITALS: BP 126/79; PULSE 72; TEMP 36.3; BMI 42.0
--- NOTE | 2021-03-24 13:02 | PCM.WC.PN ---
History of Present Illness Date of Service: 03/24/21 Chief Complaint: Lower abdomen open surgical wound after excision of hidradenitis and after secondary wound admission nurse 02/19/21. History of Wound: 35 year old woman presents with long standing hidradenitis that started about 20 years ago. She has been on antibiotics intermittently. She also has a history of a 100 lb weight loss which has exacerbated these areas of hidradenitis because of redundant skin and subcutaneous tissue in her lower anterior abdominal wall and inguinal areas extending onto the medial thigh areas. She denies fever. She denies trauma. She has never had any surgical procedures done. When she has flare ups, there is increased pain and redness and swelling with some drainage. She was offered Humira as a treatment, but she was concerned about the side effects. Surgery 01/15/21 - Excisional debridement skin and subcutaneous tissue for necrotizing soft tissue hidradenitis infection lower anterior abdominal wall. Surgery 02/19/21 - Surgical preparation lower anterior abdominal wall with excisional debridement necrotizing soft tissue hidradenitis infection ulcer with 65 cm complex secondary wound closure (195 cm2). She had some bloody drainage from her Naren drains postoperatively. She required transfusion of 2 units of PRBCs. She is on iron supplementation. Hgb 7.4 on 02/21/21. After being transfused repeat Hgb 9.6. Naren drains have been removed. Wound care is dry gauze on lower abdominal incision to keep the area dry and to wear abdominal compression at all times. Operative cultures from 02/19/21 positive for Corynebacterium striatum. She was discharged home on Augmentin. She denies any fevers. She states her appetite is good. Progress of Wound: Incision is dry and intact. No evidence of hematoma or seroma. Objective Data Objective Data Vital Signs: Vital Signs Temp Pulse Resp BP 97.4 F L 72 20 H 126/79 H 03/24/21 10:04 03/24/21 10:04 03/17/21 08:38 03/24/21 10:04 Body Mass Index (BMI) 42.0 Charges/Coding Procedures Integumentary 111xxx-113xx: 29480 Global Visit Physical Exam Const alert and oriented x3 General Appearance: cooperative HEENT normocephalic Resp normal respiratory effort Cardio regular rate GI non-tender Palpation: soft Extremity no calf tenderness Skin Wound Narrative: Lower abdominal incision is dry and intact. Neuro CN's II-XII intact bilaterally Cranial Nerves: CN normal except as noted Debridement Note Debridement Note No debridement was completed: No debridement was completed today Post-Debridement Measurements and Additional Note: Post-Debridement Measurements/Treatment - Nurse 1 - General Ulcer Assessment Start: 03/11/21 16:36 Freq: Status: Active Protocol: [email or web address].LOWEXT Activity Type Activity Date Activity User E-Sign Co-Sign Detail Recorded Client Recorded Date Recorded By Document 03/14/21 11:45 JF [id number] 03/14/21 11:48 JF Document 03/17/21 08:38 DL [id number] 03/17/21 08:43 DL Document 03/24/21 10:04 KR [id number] 03/24/21 10:06 KR 03/14/21 03/17/21 03/24/21 11:45 08:38 10:04 - Today's Visit Information Type of service Nurse-only Follow-up Visit Follow-up Visit Visit (Physician/DEVELOPMENTAL TRAINING COUNSELOR (Physician/DEVELOPMENTAL TRAINING COUNSELOR ) ) Arrival Mode Ambulatory Ambulatory Ambulatory Transfer Assistance None Patient Identification Verified (Name & No Yes Yes ) Patient Requires Transmission-Based No Precautions Height and Weight Body Mass Index (BMI) 42.0 42.0 42.0 BMI Classification Obese Obese Obese Vital Signs Temperature (97.8 F-99.1 F) 98 F 98.2 F 97.4 F L Temperature Source Temporal Temporal Oral Pulse Rate (60-100) 94 89 72 Pulse Location Monitor Monitor Monitor Respiratory Rate (12-18) 16 20 H Respiratory rate source Observation Observation Blood Pressure (90/60-120/80) 156/95 H 150/79 H 126/79 H Blood Pressure Mean (mm Hg) 115 102 94 Source Monitor Monitor Monitor Position Sitting Semi-Fowlers Blood Pressure Location Right Forearm Left Arm History Since Last Visit- (Skip if this is Patient's initial visit) Have you changed medications since your No No No last visit? Any new allergies or adverse reactions No No No Had a fall/change in ADL's that may No No No increase risk of falls Signs or symptoms of abuse and/or No No No neglect since last visit Have you been in the hospital since your No No No last visit? Has dressing in place as prescribed Yes Yes Yes Has compression in place as prescribed N/A N/A N/A Has offloadiing in place as prescribed N/A N/A N/A Experienced any changes in pain level or No No No management Left Footwear Regular Shoe Regular Shoe Right Footwear Regular Shoe Regular Shoe Pain Scale: 0-10 Numeric Is Patient Pain Free? Yes Yes Yes - Nurse 1 - General Ulcer Measurement Start: 03/11/21 16:36 Freq: Status: Active Protocol: Activity Type Activity Date Activity User E-Sign Co-Sign Detail Recorded Client Recorded Date Recorded By Document 03/14/21 11:45 JF [id number] 03/14/21 11:48 JF Document 03/17/21 08:38 DL [id number] 03/17/21 08:43 DL Document 03/24/21 10:04 KR [id number] 03/24/21 10:06 KR 03/14/21 03/17/21 03/24/21 11:45 08:38 10:04 Wound Center Nurse 1 #1 Lower Abdomen -Combined with other wound No -Current Size (cm) - Length 0.1 0.1 0.2 -Current Size (cm) - Width 0.1 0.1 0.2 -Current Size (cm) - Depth 0.1 0.1 0.1 -Total Square Cm 0.01 0.01 0.04 -Photo Taken No -Epithelialization Large 67-100% -Exudate Amt None Present Small -Exudate Type Serosanguineous -Wound Margin Flat & Intact Distinct, Outline Attached -Granulation Amt Large (67-100%) Small (1-33%) -Granulation Quality [place] -Necrosis Amt Small (1-33%) None Present (0 %) -Necrotic Tissue Type Adherent Slough -Structure Exposed N/A -Texture (Ana-wound Skin Appearance) Scarring Assessed, Scarring -Moisture (Ana-wound Skin Appearance) No Abnormality No Abnormality, Assessed -Color (Ana-wound Skin Appearance) No Abnormality No Abnormality, Assessed -Temperature (Ana-wound Skin No Abnormality No Abnormality Appearance) (Pt Warm) (Pt Warm) -Tenderness on Palpation (Ana-wound No No Skin Appearance) -Ulcer Cleansing Wound Cleanser Rinsed/ Irrigated with Saline -Foul Odor after Cleansing No No -Anesthetic Used 4% Lidocaine 4% Lidocaine Solution Solution Lower Limb Edema Present NA - Nurse 2 - General Ulcer CM Notes Start: 03/11/21 16:36 Freq: Status: Active Protocol: Activity Type Activity Date Activity User E-Sign Co-Sign Detail Recorded Client Recorded Date Recorded By Document 03/17/21 08:57 [id number] 03/17/21 08:57 Document 03/24/21 10:55 [id number] 03/24/21 10:58 03/17/21 03/24/21 08:57 10:55 Wound Center Nurse 2 #1 Lower Abdomen -Correct Patient No No -Correct Side, Site, Position No No -Correct Procedure No No -Procedure Performed No No -Post Debridement (cm) - Length 0 -Post Debridement (cm) - Width 0 -Post Debridement (cm) - Depth 0 -Total Square (Post) (cm) 0 -Area of Debridement (cm) - Length 0 -Area of Debridement (cm) - Width 0 -Total Square (Area) (cm) 0 -Wound/Ulcer Outcome Healed- Epithelialized Pain Scale: 0-10 Numeric Is Patient Pain Free? Yes Yes WC - Nurse 3 - General Ulcer D/C NN Start: 03/11/21 16:36 Freq: Status: Active Protocol: Activity Type Activity Date Activity User E-Sign Co-Sign Detail Recorded Client Recorded Date Recorded By Document 03/14/21 11:45 [id number] 03/14/21 11:48 Document 03/17/21 09:19 [id number] 03/17/21 09:19 Document 03/24/21 10:58 [id number] 03/24/21 10:59 03/14/21 03/17/21 03/24/21 11:45 09:19 10:58 Vital Signs Temperature (97.8 F-99.1 F) 98 F Temperature Source Temporal Pulse Rate (60-100) 94 Pulse Location Monitor Respiratory Rate (12-18) 16 Respiratory rate source Observation Blood Pressure (90/60-120/80) 156/95 H Blood Pressure Mean (mm Hg) 115 Source Monitor Position Sitting Blood Pressure Location Right Forearm Pain Scale: 0-10 Numeric Is Patient Pain Free? Yes Yes Yes Wound Care Nurse 3 #1 Lower Abdomen -Ulcer Cleansing Rinsed/ Rinsed/ Irrigated with Irrigated with Saline Saline -Foul Odor after Cleansing No No -Primary Dressing Covered/Secured with Secured with Tape -Other Covering Abd pad. DEMAR drain removed from left side of abdomen. No active discharge WC - Visit Discharge Discharge Condition Stable Stable Stable Ambulatory Status Ambulatory Ambulatory Transportation Private Auto Private Auto Private Auto Medication Reconcilliation completed & Yes Yes provided to patient/care provider Clinical Summary of Care Provided Yes Notes: Notified Dr De La Torre and patient showering. He is okay with her showering, patient follow up with Tania on 03/17/21. Assessment/Plan Assessment/Plan (1) Open wound anterior abdominal wall: CODE(S): S31.109A - Unspecified open wound of abdominal wall, unspecified quadrant without penetration into peritoneal cavity, initial encounter QUALIFIERS: Encounter type: subsequent encounter Qualified Code(s): S31.109D - Unspecified open wound of abdominal wall, unspecified quadrant without penetration into peritoneal cavity, subsequent encounter (2) Hidradenitis suppurativa: CODE(S): L73.2 - Hidradenitis suppurativa (3) Acute postoperative anemia due to expected blood loss: CODE(S): D62 - Acute posthemorrhagic anemia PLAN: Lower abdominal incision is dry and intact. Keep dry gauze on the incision to absorb moisture to prevent maceration from perspiration. Wear abdominal binder at all times. The second Naren drain was removed last Wednesday. No evidence of hematoma or seroma present. Continue Augmentin. Instructed to continue to wear abdominal binder at all times. Continue 20 lb weight lifting restriction. She had anemia of expected blood loss after surgery, she received 2 units of PRBC for a Hgb 7.4, it increased to 9.6. Hgb 10.6 on 03/05/21. Continue her iron supplementation. Her pain is much better controlled. She would like to return to work 03/27/21. Encouraged increased protein intake to help with wound healing. Follow up 4 weeks.
[2021-04-21 15:04] VITALS: BP 128/76; PULSE 86; TEMP 36.6; BMI 42.0
== END 2021-04-03 23:59 ==
LOC: WC 10:15
PROVIDERS: Visit Provider Nurse Practitioner Family
DX: L73.2 Hidradenitis suppurativa (principal); L98.7 Excessive and redundant skin and subcutaneous tissue; E66.9 Obesity, unspecified; Z68.41 Body mass index [BMI] 40.0-44.9, adult; M79.89 Other specified soft tissue disorders; D62 Acute posthemorrhagic anemia; F41.9 Anxiety disorder, unspecified; Z87.891 Personal history of nicotine dependence; Z79.899 Other long term (current) drug therapy
CPT/HCPCS: 99213; G0463

== ENCOUNTER 2021-04-22 09:56 | Outpatient (RCR) | payer OTHER, SELFPAY ==
[2021-04-04 00:31] VITALS: BP 126/79; PULSE 72; RESP 20; TEMP 36.3; BMI 42.0
[2021-04-21 15:25] VITALS: BP 138/69; PULSE 63; TEMP 36.4; BMI 42.0
--- NOTE | 2021-04-21 16:28 | PN.PCM_ITS ---
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 History of Wound: 35 year old woman presents with long standing hidradenitis that started about 20 years ago. She has been on antibiotics intermittently. She also has a history of a 100 lb weight loss which has exacerbated these areas of hidradenitis because of redundant skin and subcutaneous tissue in her lower anterior abdominal wall and inguinal areas extending onto the medial thigh areas. She denies fever. She denies trauma. She has never had any surgical procedures done. When she has flare ups, there is increased pain and redness and swelling with some drainage. She was offered Humira as a treatment, but she was concerned about the side effects. Surgery 01/15/21 - Excisional debridement skin and subcutaneous tissue for necrotizing soft tissue hidradenitis infection lower anterior abdominal wall. Surgery 02/19/21 - Surgical preparation lower anterior abdominal wall with excisional debridement necrotizing soft tissue hidradenitis infection ulcer with 65 cm complex secondary wound closure (195 cm2). She had some bloody drainage from her Naren drains postoperatively. She required transfusion of 2 units of PRBCs. She is on iron supplementation. Hgb 7.4 on 02/21/21. After being transfused repeat Hgb 9.6. She has a couple small areas on the lower abdominal incision that have , most likes from suture abscess. Wound care - Start collagen hydrogel covered by dry gauze. May use Intradry in incision fold to help keep dry. Wear abdominal compression with activity. Operative cultures from 02/19/21 positive for Corynebacterium striatum. She was discharged home on Augmentin. She denies any fevers. She states her appetite is good. Progress of Wound: A couple of areas of wound separation, most likely from suture abscess. Objective Data Objective Data Vital Signs: Vital Signs Temp Pulse Resp BP 97.6 F L 63 20 H 138/69 H 04/21/21 15:25 04/21/21 15:25 04/04/21 00:31 04/21/21 15:25 Body Mass Index (BMI) 42.0 Charges/Coding Procedures Integumentary 111xxx-113xx: 82672 Global Visit Debridement Note Debridement Note Post-Debridement Measurements and Additional Note: Post-Debridement Measurements/Treatment WC - Nurse 1 - General Ulcer Assessment Start: 04/21/21 15:09 Freq: Status: Active Protocol: SYLVIE Activity Type Activity Date Activity User E-Sign Co-Sign Detail Recorded Client Recorded Date Recorded By Document 04/21/21 15:25 REYES [id number] 04/21/21 15:27 OH 04/21/21 15:25 WC - Today's Visit Information Type of service Follow-up Visit (Physician/PICKLE SOLUTION MAKER ) Arrival Mode Ambulatory Patient Identification Verified (Name & Yes ) Patient Requires Transmission-Based No Precautions Safety Precautions NA Height and Weight Body Mass Index (BMI) 42.0 BMI Classification Obese Vital Signs Temperature (97.8 F-99.1 F) 97.6 F L Temperature Source Oral Pulse Rate (60-100) 63 Pulse Location Monitor Blood Pressure (90/60-120/80) 138/69 H Blood Pressure Mean (mm Hg) 92 Source Monitor History Since Last Visit- (Skip if this is Patient's initial visit) Have you changed medications since your No last visit? Any new allergies or adverse reactions No Had a fall/change in ADL's that may No increase risk of falls Signs or symptoms of abuse and/or No neglect since last visit Have you been in the hospital since your No last visit? Has dressing in place as prescribed No Has compression in place as prescribed N/A Has offloadiing in place as prescribed N/A Experienced any changes in pain level or No management Left Footwear Regular Shoe Right Footwear Regular Shoe - Nurse 1 - General Ulcer Measurement Start: 04/21/21 15:09 Freq: Status: Active Protocol: Activity Type Activity Date Activity User E-Sign Co-Sign Detail Recorded Client Recorded Date Recorded By Document 04/21/21 15:25 REYES [id number] 04/21/21 15:27 [place] 04/21/21 15:25 Wound Center Nurse 1 #1 Lower Abdomen -Combined with other wound No -Current Size (cm) - Length 0.2 -Current Size (cm) - Width 1 -Current Size (cm) - Depth 0.1 -Total Square Cm 0.2 -Photo Taken No -Epithelialization None Present -Tunneling No -Undermining/Tunneling No -Circular Undermining No -Change in Wound Grade/Stage No -Exudate Amt None Present -Granulation Amt None Present (0 %) -Granulation Quality N/A -Slough/Fibrin No -Necrosis Amt None Present (0 %) -Structure Exposed N/A -Texture (Ana-wound Skin Appearance) No Abnormality, Assessed, Scarring -Moisture (Ana-wound Skin Appearance) No Abnormality, Assessed -Color (Ana-wound Skin Appearance) No Abnormality, Assessed -Temperature (Ana-wound Skin No Abnormality Appearance) (Pt Warm) -Ulcer Cleansing Rinsed/ Irrigated with Saline -Foul Odor after Cleansing No -Anesthetic Used 5% Lidocaine Gel WC - Nurse 2 - General Ulcer CM Notes Start: 04/21/21 15:09 Freq: Status: Active Protocol: Activity Type Activity Date Activity User E-Sign Co-Sign Detail Recorded Client Recorded Date Recorded By Document 04/21/21 15:10 ETHAN [id number] 04/21/21 15:12 ETHAN 04/21/21 15:10 Wound Center Nurse 2 -Correct Patient No -Correct Side, Site, Position No -Correct Procedure No -Procedure Performed No -Post Debridement (cm) - Length 0.5 -Post Debridement (cm) - Width 8 -Post Debridement (cm) - Depth 0.1 -Total Square (Post) (cm) 4.0 -Area of Debridement (cm) - Length 0.5 -Area of Debridement (cm) - Width 8 -Total Square (Area) (cm) 4.0 -Tunneling No -Undermining/Tunneling No -Circular Undermining No -Wound/Ulcer Outcome Not Healed -Ulcer Cleansing Rinsed/ Irrigated with Saline -Foul Odor after Cleansing No -Bioengineered Tissue No -Bleeding Controlled with Pressure -Offloading No -Treatment Response Procedure Tolerated Well -Debridement - Subq, 1st 20sq cm No Pain Scale: 0-10 Numeric Is Patient Pain Free? Yes WC - Nurse 3 - General Ulcer D/C NN Start: 04/21/21 15:09 Freq: Status: Active Protocol: Activity Type Activity Date Activity User E-Sign Co-Sign Detail Recorded Client Recorded Date Recorded By Document 04/21/21 15:22 ML [id number] 04/21/21 15:22 ML 04/21/21 15:22 Wound Care Nurse 3 #1 Lower Abdomen -Primary Dressing Applied C Hydrogel ($) -Primary Dressing Covered/Secured with Dry Gauze, Secured with Tape Assessment/Plan Assessment/Plan (1) Non-pressure chronic ulcer of skin of other sites with fat layer exposed: CODE(S): L98.492 - Non-pressure chronic ulcer of skin of other sites with fat layer exposed (2) Open wound anterior abdominal wall: CODE(S): S31.109A - Unspecified open wound of abdominal wall, unspecified quadrant without penetration into peritoneal cavity, initial encounter QUALIFIERS: Encounter type: subsequent encounter Qualified Code(s): S31.109D - Unspecified open wound of abdominal wall, unspecified quadrant without penetration into peritoneal cavity, subsequent encounter (3) Hidradenitis suppurativa: CODE(S): L73.2 - Hidradenitis suppurativa (4) Former smoker: CODE(S): Z87.891 - Personal history of nicotine dependence PLAN: She has a couple small areas on the lower abdominal incision that have , most likes from suture abscess. Wound care - Start collagen hydrogel covered by dry gauze. May use Intradry in incision fold to help keep dry. Wear abdominal compression with activity. Wear abdominal binder with activity or compression underwear when not active. Completed Augmentin. Instructed to continue to wear abdominal binder at all times. Continue 20 lb weight lifting restriction. She had anemia of expected blood loss after surgery, she received 2 units of PRBC for a Hgb 7.4, it increased to 9.6. Hgb 10.6 on 03/05/21. Continue her iron supplementation. Her pain is much better controlled. She returned to work 03/27/21 with 20 lb lifting restriction. She has done really well. Will stop the lifting restriction as long as she wears compression. Encouraged increased protein intake to help with wound healing. Follow up 2 weeks.
== END 2021-05-04 23:59 ==
LOC: WC 09:56
PROVIDERS: Visit Provider Nurse Practitioner Family
DX: L73.2 Hidradenitis suppurativa (principal); L98.7 Excessive and redundant skin and subcutaneous tissue; Z87.891 Personal history of nicotine dependence; L98.492 Non-pressure chronic ulcer of skin of other sites with fat layer exposed
CPT/HCPCS: 99213; G0463

== ENCOUNTER → 2022-05-05 | Outpatient (CLI) | payer OTHER, SELFPAY ==
[2022-05-05 15:54] LABS: Absolute Lymphocyte Count 3.48 X10^3/uL (0.83-4.51); Absolute Neutrophil Count 5.2 X10^3/uL (2.0-7.7); Basophil# 0.05 X10^3/uL; Basophil% 0.5 % (0-1); Eosinophil# 0.24 X10^3/uL; Eosinophils% 2.5 % (0-5); Hematocrit 36.8 % (37-47); Hemoglobin 12.2 g/dL (12.0-15.0); Lymphocyte # 3.48 X10^3/ul (0.83-4.51); Lymphocyte % 36.1 % (19-41); Mean Corp Hgb Conc 33.2 g/dL (32-36); Mean Corpuscular Hgb 30.3 pg (27.0-32.0); Mean Corpuscular Volume 91.5 fL (81-99); Mean Platelet Vol. 9.3 fl (6.2-12.0); Monocyte# 0.61 X10^3/uL; Monocyte% 6.3 % (0-10); NRBC Flagged by Analyzer 0 % (0-5); Neutrophil # 5.22 X10^3/uL (2.7-7.7); Neutrophil % 54.3 % (47-70); Platelet Count 469 K/mm3 (150-450); RBC Distribution Width CV 13.9 % (11.6-14.6); RBC Distribution Width SD 46.8 fl (35.1-43.9); Red Blood Count 4.02 M/mm3 (4.2-5.4); White Blood Count 9.6 K/mm3 (4.4-11.0)
[2022-05-05 16:43] LABS: hCG Titer Quant., Serum < 1 mIU/mL (1-3)
[2022-05-05 16:52] LABS: Hemoglobin A1c 5.4 % (3.8-5.6)
[2022-05-05 19:38] LABS: Estradiol 41.6 pg/mL; Follicle Stimulating Hormone 5.3 mIU/mL; Luteinizing Hormone 5.4 mIU/mL; T4 Free Direct 0.91 ng/dL (0.76-1.46); Thyroid Stim Hormone (TSH) 2.27 uIU/mL (0.358-3.74)
[2022-05-11 11:07] LABS: Testosterone, Free 0.47 ng/dL (0.10-0.85); Testosterone, Total 15 ng/dL (8-60)
[2022-05-15 14:25] LABS: Testosterone, % Free 3.16 % (0.50-2.80)
== END | disposition home or self-care (01) ==
LOC: WOBLAB 15:14
PROVIDERS: Visit Provider Obstetrics & Gynecology
DX: N93.9 Abnormal uterine and vaginal bleeding, unspecified (principal)
CPT/HCPCS: 36415; 82670; 83001; 83002; 83036; 84402; 84403; 84439; 84443; 84702; 85025

== ENCOUNTER → 2022-05-22 | Outpatient (CLI) | payer OTHER, SELFPAY ==
[2022-05-22 17:45] LABS: Absolute Lymphocyte Count 3.65 X10^3/uL (0.83-4.51); Absolute Neutrophil Count 8.4 X10^3/uL (2.0-7.7); Basophil# 0.05 X10^3/uL; Basophil% 0.4 % (0-1); Eosinophil# 0.18 X10^3/uL; Eosinophils% 1.3 % (0-5); Hemoglobin 12.3 g/dL (12.0-15.0); Lymphocyte # 3.65 X10^3/ul (0.83-4.51); Lymphocyte % 27.4 % (19-41); Mean Corp Hgb Conc 32.4 g/dL (32-36); Mean Corpuscular Hgb 30.1 pg (27.0-32.0); Mean Corpuscular Volume 93.1 fL (81-99); Mean Platelet Vol. 9.6 fl (6.2-12.0); Monocyte# 0.98 X10^3/uL; Monocyte% 7.3 % (0-10); NRBC Flagged by Analyzer 0 % (0-5); Neutrophil # 8.44 X10^3/uL (2.7-7.7); Neutrophil % 63.3 % (47-70); Platelet Count 466 K/mm3 (150-450); RBC Distribution Width CV 14.3 % (11.6-14.6); RBC Distribution Width SD 48.8 fl (35.1-43.9); Red Blood Count 4.08 M/mm3 (4.2-5.4); White Blood Count 13.3 K/mm3 (4.4-11.0)
[2022-05-22 18:14] LABS: Vitamin B12 461 pg/mL (211-911); Vitamin D,25 Hydroxy 14.5 ng/mL
[2022-05-22 18:20] LABS: ALB/GLOB Ratio 0.8 RATIO (0.9-2.4); AST(SGOT) 19 U/L (15-37); Alanine Aminotransfer ALT/SGPT 39 U/L (13-56); Albumin, Serum 3.6 g/dL (3.2-5.0); Alkaline Phosphatase 73 U/L (45-117); Anion Gap 8 (5-15); BUN 11 mg/dL (7-18); BUN/Creat Ratio 16.8 RATIO (10-20); Calcium,Total 9.3 mg/dL (8.5-10.1); Chloride 108 mmol/L (98-107); Creatinine, Serum 0.66 mg/dL (0.55-1.02); EST Glomerular Filtration Rate 109 mL/min (>60); Est Glom Filt Rate - Afr Amer 132 mL/min (>60); Globulin 4.4 g/dL (2.2-4.2); Glucose 79 mg/dL (74-106); Potassium 3.6 mmol/L (3.5-5.1); Sodium Level 139 mmol/L (136-145); T4 Free Direct 0.95 ng/dL (0.76-1.46); Thyroid Stim Hormone (TSH) 2.18 uIU/mL (0.358-3.74)
== END | disposition home or self-care (01) ==
LOC: MFPLAB 15:12
PROVIDERS: PCP Family Medicine; Referring Provider Family Medicine; Visit Provider Family Medicine
DX: R53.83 Other fatigue (principal)
CPT/HCPCS: 36415; 80053; 82306; 82607; 84439; 84443; 85025

== ENCOUNTER → 2023-01-26 | Outpatient (CLI) | payer BC, SELFPAY ==
[2023-01-26 12:58] LABS: Vitamin B12 1461 pg/mL (211-911); Vitamin D,25 Hydroxy 80.5 ng/mL
[2023-01-26 12:59] LABS: Hemoglobin A1c 5.2 % (3.8-5.6)
[2023-01-26 14:04] LABS: Ferritin 47 ng/mL (8-252); Magnesium 1.9 mg/dL (1.6-2.6); Thyroid Stim Hormone (TSH) 1.47 uIU/mL (0.358-3.74)
[2023-01-29 09:09] LABS: Vitamin B1, Thiamine 90.7 nmol/L (66.5-200.0); Zinc, Plasma or Serum 125 ug/dL (44-115)
== END | disposition home or self-care (01) ==
PROVIDERS: PCP Family Medicine; Referring Provider Registered Nurse Nephrology; Visit Provider Registered Nurse Nephrology
DX: M54.9 Dorsalgia, unspecified (principal); E66.01 Morbid (severe) obesity due to excess calories; Z68.42 Body mass index [BMI] 45.0-49.9, adult
CPT/HCPCS: 36415; 82306; 82607; 82728; 82746; 83036; 83735; 84425; 84443; 84630

== ENCOUNTER → 2023-03-11 | Outpatient (CLI) | payer BC, SELFPAY ==
[2023-03-11 17:39] LABS: Absolute Lymphocyte Count 2.85 X10^3/uL (0.83-4.51); Absolute Neutrophil Count 5.7 X10^3/uL (2.0-7.7); Basophil# 0.02 X10^3/uL; Basophil% 0.2 % (0-1); Eosinophil# 0.17 X10^3/uL; Eosinophils% 1.8 % (0-5); Hemoglobin 13.6 g/dL (12.0-15.0); Lymphocyte # 2.85 X10^3/ul (0.83-4.51); Lymphocyte % 30.9 % (19-41); Mean Corp Hgb Conc 33.2 g/dL (32-36); Mean Corpuscular Hgb 32.4 pg (27.0-32.0); Mean Corpuscular Volume 97.6 fL (81-99); Mean Platelet Vol. 10.6 fl (6.2-12.0); Monocyte# 0.51 X10^3/uL; Monocyte% 5.5 % (0-10); NRBC Flagged by Analyzer 0 % (0-5); Neutrophil # 5.65 X10^3/uL (2.7-7.7); Neutrophil % 61.4 % (47-70); Platelet Count 360 K/mm3 (150-450); RBC Distribution Width CV 13.8 % (11.6-14.6); RBC Distribution Width SD 49.4 fl (35.1-43.9); White Blood Count 9.2 K/mm3 (4.4-11.0)
[2023-03-11 18:02] LABS: Ferritin 30 ng/mL (8-252); Iron 24 ug/dL (50-170); Iron Binding Capacity,Total 275 ug/dL (250-450); PERCENT IRON SATURATION 8.7 % (15.0-55.0)
== END | disposition home or self-care (01) ==
PROVIDERS: PCP Family Medicine; Visit Provider Family Medicine
DX: N93.9 Abnormal uterine and vaginal bleeding, unspecified (principal)
CPT/HCPCS: 36415; 82728; 83540; 83550; 85025

== ENCOUNTER 2023-03-25 14:12 | Outpatient (CLI) | payer BC, SELFPAY ==
[2023-03-25] MEDS: 0.9% NaCl IVPB Med Flush (250 mL) 15 ML IV (14:24)
[2023-03-25] MEDS: 0.9% NaCl Peripheral Flush Adult/Peds IV (14:24)
[2023-03-25 14:25] VITALS: BP 113/72; PULSE 74; RESP 16; TEMP 36.6; O2SAT 97; BMI 38.2
[2023-03-25] MEDS: Iron Sucrose Complex 100 MG in 0.9% Normal Saline (100mL Bag) 100 ML 420 MG IV (14:42)
[2023-03-25 15:35] VITALS: BP 110/66; PULSE 71; RESP 16
== END 2023-03-25 14:13 | disposition home or self-care (01) ==
LOC: MEDOUTP 14:12
PROVIDERS: PCP Family Medicine; Referring Provider Family Medicine; Visit Provider Family Medicine
DX: E61.1 Iron deficiency (principal)
CPT/HCPCS: 96365; J1756; J7050; A4216

== ENCOUNTER 2023-04-01 14:16 | Outpatient (CLI) | payer BC, SELFPAY ==
[2023-04-01 14:45] VITALS: BP 118/73; PULSE 78; RESP 16; TEMP 36.8; O2SAT 100; BMI 38.0
[2023-04-01] MEDS: 0.9% NaCl Peripheral Flush Adult/Peds IV (14:56)
[2023-04-01] MEDS: 0.9% NaCl IVPB Med Flush (250 mL) 15 ML IV (14:59)
[2023-04-01] MEDS: Iron Sucrose Complex 100 MG in 0.9% Normal Saline (100mL Bag) 100 ML 420 MG IV (14:59)
[2023-04-01 15:26] VITALS: BP 113/72; PULSE 71; RESP 16; TEMP 36.8; O2SAT 100
== END 2023-04-01 14:17 | disposition home or self-care (01) ==
LOC: MEDOUTP 14:17
PROVIDERS: PCP Family Medicine; Referring Provider Family Medicine; Visit Provider Family Medicine
DX: E61.1 Iron deficiency (principal)
CPT/HCPCS: 96365; J1756; J7050; A4216

== ENCOUNTER → 2023-04-02 | Outpatient (CLI) | payer BC, SELFPAY ==
[2023-04-02 17:35] LABS: Absolute Lymphocyte Count 3.32 X10^3/uL (0.83-4.51); Basophil# 0.04 X10^3/uL; Basophil% 0.4 % (0-1); Eosinophil# 0.15 X10^3/uL; Eosinophils% 1.7 % (0-5); Hematocrit 41.2 % (37-47); Hemoglobin 13.3 g/dL (12.0-15.0); Lymphocyte # 3.32 X10^3/ul (0.83-4.51); Mean Corp Hgb Conc 32.3 g/dL (32-36); Mean Corpuscular Hgb 31.7 pg (27.0-32.0); Mean Corpuscular Volume 98.3 fL (81-99); Mean Platelet Vol. 10.6 fl (6.2-12.0); Monocyte# 0.46 X10^3/uL; Monocyte% 5.1 % (0-10); NRBC Flagged by Analyzer 0 % (0-5); Neutrophil % 55.7 % (47-70); Platelet Count 359 K/mm3 (150-450); RBC Distribution Width CV 13.3 % (11.6-14.6); RBC Distribution Width SD 48.6 fl (35.1-43.9); Red Blood Count 4.19 M/mm3 (4.2-5.4)
[2023-04-02 17:54] LABS: Ferritin 160 ng/mL (8-252); Iron 36 ug/dL (50-170); Iron Binding Capacity,Total 325 ug/dL (250-450)
== END | disposition home or self-care (01) ==
LOC: MFPLAB 15:56
PROVIDERS: PCP Family Medicine; Visit Provider Family Medicine
DX: D50.9 Iron deficiency anemia, unspecified (principal)
CPT/HCPCS: 36415; 82728; 83540; 83550; 85025

== ENCOUNTER → 2023-07-22 | Outpatient (CLI) | payer BC, SELFPAY ==
--- OUTSIDE RECORDS SUMMARY | 2023-07-22 16:41 | XMS RPT_ITS | CCD ---
Author Name Unknown Address [address] [place] [address] Organization [facility] Care Team Providers Care Help Desk Administrator Name Role Phone Stiven Beaver MD Primary Care Provider Facundo Aviles MD Unavailable Max[employer] WOOD, Aimee Foster Unavailable Unavailab Luz Maria GONZALEZ, Nii Unavailable [phone] Stiven Beaver MD Primary Care Provider STIVEN BEAVER Primary Care Unavailable STIVEN BEAVER Primary Care Unavailable STIVEN BEAVER Primary Care Unavailable Stiven Beaver MD Primary Care Provider Facundo Aviles MD Unavailable [employer] WO[employer], Aimee Foster Unavailable Unavailab Luz Maria GONZALEZ, Nii Unavailable TABITHA WILEY Attending Unavailable PAT CAMPBELL Attending Unavailable STIVEN BEAVER Primary Care Unavailable NII NAJERA Attending Unavailable BRIDLE, KRISTEN R Referring Unavailable BRIDLE, KRISTEN R Referring Unavailable BRIDLE, KRISTEN R Attending [facility] Unavailable BRIDLE, KRISTEN R Attending Unavailable BRIDLE, KRISTEN R Referring [facility]available [facility] Unavailable BRIDLE, KRISTEN R Attending [facility] Primary Care Unavailable AUGUSTO BARNARD Attending Unavailable FACUNDO AVILES Attending Unavailable STIVEN BEAVER Primary Care Unavailable [facility] Primary Care Unavailable XANDER SIMMONS Attending Unavailable TABITHA WILEY Attending Unavailable [facility] Primary Care Unavailable BRIDLE, KRISTEN R Referring Unavailable [facility] Primary Care Unavailable NII NAJERA Attending Unavailable NII NAJERA Referring Unavailable [facility] Unavailable BRIDLE, KRISTEN R Attending Unavailable BRIDLE, KRISTEN R Referring Unavailable [facility] Unavailable BRIDLE, KRISTEN R Attending Unavailable FACUNDO AVILES Attending Unavailable FACUNDO AVILES Admitting Unavailable [facility] Unavailable [facility] Unavailable XANDER SIMMONS Attending Unavailable [facility] Unavailable TABITHA WILEY Attending Unavailable JERARDO KOTHARI Attending Unavailable BRIDLE, KRISTEN R Referring Unavailable FACUNDO AVILES Attending Unavailable [facility] Unavailable [facility] Unavailable BRIDLE, KRISTEN R Attending Unavailable FACUNDO AVILES Attending Unavailable FACUNDO AVILES Admitting Unavailable [facility] Unavailable FACUNDO AVILES Admitting Unavailable [facility] Unavailable FACUNDO AVILES Attending Unavailable [facility] Unavailable XANDER SIMMONS Attending Unavailable Allergies Allergy Classification Reported Allergen(s) Allergy Type Date of Onset Reaction(s) Facility (20 sources) Aluminum aspirin; Translations: [ASPIRIN] Drug Allergy 7 Anaphylaxis, Itching, Swelling [facility] (1 source) Aspirin Drug Allergy 1 Anaphylaxis [facility] (1 source) drospirenone Drug Allergy 3 Rash [facility] Work Phone: Medications Current Medications Medication Drug Class(es) Dates Sig (Normalized) Sig (Original) Biotin (19 sources) BIOTIN PO Take b y mouth. 0 Active cephalexin 500 mg oral capsule (1 source) Cephalosporin Antibacterial Start: 05-10-2023 End: 05-15-2023 take 1 capsule by mouth four times daily cephALEXin (KEFLEX) 500 mg capsule Take 1 capsule by mouth four times daily for 5 days. 20 capsule 0 05/10/2023 05/15/2023 Active Completed/Discontinued Medications Medication Drug Class(es) Dates Sig (Normalized) Sig (Original) acetaminophen 500 mg oral tablet (4 sources) Start: 12-25-2022 End: 12-25-2022 acetaminophen (Tylenol) tablet 1,000 mg Problems Active Problems Problem Classification Problem Date Documented Date Episodic/Chronic Anxiety disorders (20 sources) Anxiety; Translations: [Anxiety disorder, unspecified] Onset: 09-03-2012 07-17-2022 Chronic Nutritional deficiencies (20 sources) Vitamin D deficiency; Translations: [Vitamin D deficiency, unspecified] Onset: 05-25-2022 07-17-2022 Chronic Other diseases of kidney and ureters (3 sources) Cyst of kidney; Translations: [Cyst of kidney, acquired] Episodic Other endocrine disorders (20 sources) Polycystic ovary syndrome; Translations: [Polycystic ovarian syndrome] Onset: 10-26-1999 07-17-2022 Chronic Other endocrine disorders (2 sources) Polycystic ovarian syndrome; Translations: [Polycystic ovarian syndrome] Onset: 07-17-2022 Chronic Other liver diseases (4 sources) Liver cyst; Translations: [Other specified diseases of liver] Chronic Other liver diseases (2 sources) Other specified diseases of liver; Translations: [Other specified diseases of liver] Onset: 08-07-2022 Chronic Other nervous system disorders (1 source) Postoperative pain ; Translations: [Other acute postprocedural pain] 12-25-2022 Episodic Other nutritional; endocrine; and metabolic disorders (20 sources) Morbid obesity; Translations: [Morbid (severe) obesity due to excess calories] Onset: 06-08-2022 06-08-2022 Chronic Other nutritional; endocrine; and metabolic disorders (19 sources) Body mass index 40+ - severely obese; Translations: [Morbid (severe) obesity due to excess calories] Onset: 12-25-2022 Chronic Other nutritional; endocrine; and metabolic disorders (2 sources) Body mass index (BMI) 40.0-44.9, adult; Translations: [Body mass index (BMI) 40.0-44.9, adult ([facility])] Onset: 01-27-2023 Chronic Other nutritional; endocrine; and metabolic disorders (2 sources) Morbid (severe) obesity due to excess calories; Translations: [Morbid (severe) obesity due to excess calories (HCC)] Onset: 12-25-2022 Chronic Other nutritional; endocrine; and metabolic disorders (2 sources) Body mass index (BMI) 45.0-49.9, adult; Translations: [Body mass index (BMI) 45.0-49.9, adult ([facility])] Onset: 12-25-2022 Chronic Other nutritional; endocrine; and metabolic disorders (2 sources) Body mass index (BMI) 50.0-59.9, adult; Translations: [Body mass index (BMI) 50.0-59.9, adult ([facility])] Onset: 12-02-2022 Chronic Skin and subcutaneous tissue infections (1 source) Cellulitis of skin; Translations: [Cellulitis, unspecified] 05-10-2023 Episodic Unclassified (2 sources) New Patient; Translations: [New Patient] Onset: 07-30-2022 Past or Other Problems Problem Classification Problem Date Documented Date Episodic/Chronic Abdominal hernia (3 sources) Diaphragmatic hernia; Translations: [Diaphragmatic hernia without obstruction or gangrene] Onset: 12-25-2022 12-25-2022 Episodic Abdominal pain (2 sources) Epigastric pain; Translations: [Epigastric pain] Onset: 08-31-2022 Episodic Diabetes mellitus without complication (4 sources) Prediabetes; Translations: [Prediabetes] Onset: 12-02-2022 Episodic Genitourinary symptoms and ill-defined conditions (4 sources) Increased frequency of urination; Translations: [Frequency of micturition] Onset: 11-11-2022 Episodic Intestinal infection (1 source) Other specified bacterial intestinal infections; Translations: [Intestinal infection due to Aerobacter aerogenes] Onset: 10-08-2022 Episodic Nutritional deficiencies (5 sources) Deficiency of multiple nutrient elements; Translations: [Deficiency of multiple nutrient elements] Onset: 12-29-2022 12-29-2022 Episodic Other diseases of kidney and ureters (2 sources) Cyst of kidney, acquired; Translations: [Cyst of kidney, acquired] Onset: 11-11-2022 Episodic Other nervous system disorders (2 sources) Other acute postprocedural pain; Translations: [Other acute postprocedural pain] Onset: 12-25-2022 Episodic Other nutritional; endocrine; and metabolic disorders (2 sources) Weight loss; Translations: [Weight Loss] Onset: 07-17-2022 Episodic Other skin disorders (20 sources) Hidradenitis suppurativa; Translations: [Hidradenitis suppurativa] Onset: 10-26-1999 07-17-2022 Episodic Other skin disorders (1 source) Hidradenitis suppurativa; Translations: [Hidradenitis suppurativa] Onset: 07-17-2022 Episodic Spondylosis; intervertebral disc disorders; other back problems (20 sources) Backache; Translations: [Dorsalgia, unspecified] Onset: 06-10-2022 06-10-2022 Episodic Results Test Name Value Interpretation Reference Range Facil ity Vital Signs Date Time Vital Sign Value Performing Clinician Melanie campos 05-10-2023 19:28-0500 Body temperature 98.71 [degF] Kris Kauffman DIE CAST DIE MAKER.ORGANISATION AND METHODS ANALYST Work Phone: [facility] 05-10-2023 19:28-0500 Body weight 88.91 kg Kris Kauffman DIE CAST DIE MAKER.ORGANISATION AND METHODS ANALYST Work Phone: [facility] 05-10-2023 19:28-0500 Diastolic blood pressure 72 mm[Hg] Kris Kauffman DIE CAST DIE MAKER.ORGANISATION AND METHODS ANALYST Work Phone: [facility] 05-10-2023 19:28-0500 Heart rate 102 /min Kris Kauffman DIE CAST DIE MAKER.ORGANISATION AND METHODS ANALYST Work Phone: [facility] 05-10-2023 19:28-0500 Respiratory rate 18 /min Kris Kauffman DIE CAST DIE MAKER.ORGANISATION AND METHODS ANALYST Work Phone: [facility] 05-10-2023 19:28-0500 SaO2% (BldA) [Mass fraction] 98 % Kris Kauffman DIE CAST DIE MAKER.ORGANISATION AND METHODS ANALYST Work Phone: [facility] 05-10-2023 19:28-0500 Systolic blood pressure 120 mm[Hg] Kris Kauffman DIE CAST DIE MAKER.ORGANISATION AND METHODS ANALYST Work Phone: [facility] 01-27-2023 08:09-0400 Body height 157.5 cm Faucndo Aviles MD Work Phone: [facility] Encounters Encounter Date Encounter Type Care Provider Facility Start: 05-26-2023 Telephone encounter Martha art DIE CAST DIE MAKER - ORGANISATION AND METHODS ANALYST Work Phone: [facility] Procedures Date Procedure Procedure Detail Performing Clinician Start: 05-10-2023 Cul bact xcpt urine blood/stool aerobic isol Kris Kauffman DIE CAST DIE MAKER.ORGANISATION AND METHODS ANALYST Work Phone: Start: 12-26-2022 Radiologic exam upr gi trc single contrast study Katalina Cosby MD Work Phone: Start: 12-26-2022 Basic metabolic pane l calcium total Katalina Cosby MD Work Phone: Start: 12-25-2022 Basic metabolic pane l calcium total Katalina Cosby MD Work Phone: Start: 12-25-2022 Urine test visual color cmprsn meths Bernabe Rooney MD Work Phone: Start: 08-12-2022 Adult depression screening assessment Nii Najera MD Work Phone: Plan of Treatment Date Care Activity Detail Author Start: 2046 RSV Immunization aged 60 or older (1 - 1-dose 60+ series) RSV Immunization aged 60 or older (1 - 1-dose 60+ series) [facility] Start: 2036 Zoster Vaccines (1 of 2) Zoster Vaccines (1 of 2) [facility] Start: 12-03-2023 Diabetes mellitus screening Diabetes Screening [facility] Start: 08-12-2023 Depression Screening Depression Screening [facility] Start: 08-04-2023 End: 08-04-2023 Patient encounter procedure 08/04/2023 4:00 PM EST Office Visit [facility] [address] [place] [address] Nii Najera MD [address] [place] [address] [facility] Start: 07-27-2023 End: 07-27-2023 Patient encounter procedure 07/27/2023 3:15 PM EST Office Visit [facility] [address] [place] [address] Kristen Yoder, DIE CAST DIE MAKER - ORGANISATION AND METHODS ANALYST [address] [place] [id number] [facility] Start: 05-14-2023 End: 11-12-2023 US Retroperitoneum limited US retroperitoneum limited Imaging Routine Renal cyst, right Expected: 05/14/2023, Expires: 11/12/2023 [facility] Work Phone: Immunizations Immunization Date Immunization Notes Care Provider Fa ina 05-10-2020 influenza virus vacc ine, unspecified formulation Nii Najera MD Work Phone: [facility] Payers Date Payer Category Payer Unknown [id number] 2022 Unknown [id number] 2020 Unknown [id number] Social History Date Type Detail Facility Start: 08-31-2022 Tobacco smoking status [facility] Occasional tobacco smoker [facility] End: 10-29-2019 History of tobacco use Cigarette Smoker [facility] Start: 08-31-2022 End: 12-18-2022 Tobacco use and exposure Former smokeless tobacco user [facility] End: 06-10-2022 History of tobacco use User of smokeless tobacco [facility] Start: 10-22-2022 End: 01-27-2023 Alcohol intake Ex-drinker (finding) [facility] Start: 08-31-2022 History SDOH IPV Fear 2 [facility] Start: 08-31-2022 Tobacco Comment E- Cigarette contains nicotine Smoked a couple cigarettes on vacation [facility] Start: 1985 Sex Assigned At Female [facility] Start: 11-01-2022 End: 01-27-2023 Exposure to SARS-CoV-2 (event) Not sure [facility] Start: 12-18-2022 End: 05-10-2023 Tobacco smoking status [facility] Ex-smoker [facility] End: 10-29-2019 History of tobacco use Current smoker [facility] Start: 08-12-2022 End: 12-18-2022 Cigarettes smoked current (pack per day) - Reported 0.5 [facility] Start: 08-12-2022 End: 08-31-2022 Humiliation, Afraid, Rape, and Kick questionnaire [HARK] [facility] Within the last year , have you been afraid of your partner or ex-partner? No [facility] Start: 06-03-2022 Gender identity Identifies as female gender (finding) [facility] Start: 06-03-2022 Sexual orientation Heterosexual (finding) [facility] Start: 05-10-2023 Tobacco use and exposure Smokeless tobacco non-user [facility] Work Phone: National Score (1-10 0), lower number is lower risk Not on file [facility] Start: 1985 Sex Assigned At Not on file [facility] Clinical Notes 06-18-2022 to 06-10-2023 Telephone Encounter - Mora Garg - 06/10/2023 3:30 PM ESTTelephone Encounter - Mora Grag - 06/10/2023 3:30 PM ESTTelephone Encounter - Mora Garg - 05/26/2023 2:48 PM EST Note Date & Type Note Facility 06-10-2023 Telephone encounter Note Spoke to patient. Sched [place] per her request for 08/04/23. Offered sooner appt in [facility] (07/08/23) patient declined. Pt aware of D/T/L of appt. [facility] 06-10-2023 Miscellaneous Notes Spoke to patient. Sched patient [place] per her request for 08/04/23. Offered sooner appt in [facility] (07/08/23) patient declined. Pt aware of D/T/L of appt. Pt called and LM at 1159am to r/s her appt she missed for an US f/up with Dr Najera. LM for patient to call back Phone call to patient regarding missed appointment. Would like to reschedule her. Pt states she is working, would like a call after 3 pm. ----- Message from ILA Bush CNP sent at 05/25/2023 1:40 PM EST ----- Pt no showed to her appt 05/12. Can we get her rescheduled to go over her renal US? Previously scheduled with Dr. Najera. documented in this encounter [facility] 05-26-2023 Telephone encounter Note Pt called and LM at 1159am to r/s her appt she missed for an US f/up with Dr Najera. LM for patient to call back [facility] 05-26-2023 Miscellaneous Notes Pt called and LM at 1159am to r/s her appt she missed for an US f/up with Dr Najera. LM for patient to call back Phone call to patient regarding missed appointment. Would like to reschedule her. Pt states she is working, would like a call after 3 pm. ----- Message from ILA Bush CNP sent at 05/25/2023 1:40 PM EST ----- Pt no showed to her appt 05/12. Can we get her rescheduled to go over her renal US? Previously scheduled with Dr. Najera. documented in this encounter [facility] 05-26-2023 Telephone encounter Note Phone call to patient regarding missed appointment. Would like to reschedule her. Pt states she is working, would like a call after 3 pm. [employer] 05-26-2023 Telephone encounter Note ----- Message from Martha Mcgrath APRN - KRISTOFER sent at 05/25/2023 1:40 PM [facility] ----- Pt no showed to her appt 05/12. Can we get her rescheduled to go over her renal US? Previously scheduled with Dr. Najera. [employer] 05-10-2023 Note HNO ID: [id number] Author: Kris Kauffman APRN.KRISTOFER Service: ? Author Type: Nurse Practitioner Type: Progress Notes Filed: 05/10/2023 7:43 PM Note Text: Subjective HPI Nontoxic-appearing female presents urgent care chief complaint left toe infection. Duration of symptoms last few days. Associated symptoms pain and swelling redness. Patient states had ingrown toenail removed April 14. Placed on doxycycline. Has noticed increased redness and swelling last few days. Finished doxycycline about 2 weeks ago. Presents today for evaluation. Has not use any OTC medications. No numbness no tingling. No decrease sensation. Pain is exacerbated by walking and pushing over the area. Improved by rest. Denies any fever body aches chills productive cough chest pain shortness of breath pleuritic pain hemoptysis nausea vomiting abdominal pain change in bowel or bladder habits. Past medical history prescription medication use and allergies reviewed. Denies chance of . Is not breast-feeding. .Patient presents with: Toe Pain (Big): left great toe pain and swollen, redness, partial toenail removal on 04/14/2023 PAST MEDICAL HISTORY Diagnosis Date Depression PAST SURGICAL HISTORY Procedure Laterality Date SECTION HX EXTRACTION ERUPTED TOOTH/EXR ALLERGIES Asa [Aspirin] and Drospirenone (Contraceptive) MEDICATIONS sertraline (ZOLOFT) 100 mg tablet Take 100 mg by mouth once daily. History reviewed. No pertinent family history. Social History Tobacco Use Smoking status: Former Types: Cigarettes Quit date: 10/29/2019 Years since quittin.5 Smokeless tobacco: Never BP 120/72 Pulse 102 Temp 37.1 ?C (98.7 ?F) Resp 18 Wt 88.9 kg (196 lb) SpO2 98% Hr 90 Review of Systems Constitutional: Negative for chills, fever and malaise/fatigue. HENT: Negative for congestion, ear discharge, ear pain, sinus pain and sore throat. Eyes: Negative for blurred vision, pain, discharge and redness. Respiratory: Negative for cough, hemoptysis, sputum production, shortness of breath, wheezing and stridor. Cardiovascular: Negative for chest pain. Gastrointestinal: Negative for abdominal pain, diarrhea, nausea and vomiting. Musculoskeletal: Negative for myalgias. Skin: Negative for itching and rash. Neurological: Negative for dizziness and headaches. Objective Physical Exam Constitutional: General: She is not in acute distress. Appearance: She is not toxic-appearing. HENT: Head: Normocephalic. Nose: Nose normal. Eyes: Pupils: Pupils are equal, round, and reactive to light. Cardiovascular: Rate and Rhythm: Normal rate. Pulmonary: Effort: Pulmonary effort is normal. No respiratory distress. Musculoskeletal: Cervical back: Normal range of motion. Feet: Feet: Comments: Erythema edema noted to highlighted area. No remote redness. Small amount of purulent drainage noted. Skin: General: Skin is warm and dry. Neurological: General: No focal deficit present. Mental Status: She is alert. ASSESSMENT/PLAN: 1. Cellulitis of skin - ICD9: 682.9, ICD10: L03.90 - ABSCESS AND WOUND CULTURE WITH GRAM STAIN Diagnosis cellulitis. Wound culture obtained. Treat according to culture results. Treat with Keflex today. Patient will contact PCPs office to remove ingrown toenail tomorrow for further evaluation and care. Patient was educated on supportive therapies. Patient was instructed to immediately proceed to emergency room for any new, worsening, or symptoms lasting longer than anticipated. The patient's clinical presentation is otherwise unremarkable at this time. Based on exam and clinical finding, the patient is stable for discharge. Plan of care was discussed with patient. Patient verbalizes understanding and agrees to plan of care. This note was generated using [employer] software. It may contain errors in wording, punctuation, or spelling. Kris Kauffman APRN.[facility] 05-10-2023 History of Present illness Narrative Images from the original note were not included. Subjective HPI Nontoxic-appearing female presents urgent care chief complaint left toe infection. Duration of symptoms last few days. Associated symptoms pain and swelling redness. Patient states had ingrown toenail removed April 14. Placed on doxycycline. Has noticed increased redness and swelling last few days. Finished doxycycline about 2 weeks ago. Presents today for evaluation. Has not use any OTC medications. No numbness no tingling. No decrease sensation. Pain is exacerbated by walking and pushing over the area. Improved by rest. Denies any fever body aches chills productive cough chest pain shortness of breath pleuritic pain hemoptysis nausea vomiting abdominal pain change in bowel or bladder habits. Past medical history prescription medication use and allergies reviewed. Denies chance of . Is not breast-feeding. .Patient presents with: Toe Pain (Big): left great toe pain and swollen, redness, partial toenail removal on 04/14/2023 PAST MEDICAL HISTORY Diagnosis Date Depression PAST SURGICAL HISTORY Procedure Laterality Date SECTION HX EXTRACTION ERUPTED TOOTH/EXR ALLERGIES Asa [Aspirin] and Drospirenone (Contraceptive) MEDICATIONS sertraline (ZOLOFT) 100 mg tablet Take 100 mg by mouth once daily. History reviewed. No pertinent family history. Social History Tobacco Use Smoking status: Former Types: Cigarettes Quit date: 10/29/2019 Years since quittin.5 Smokeless tobacco: Never BP 120/72 Pulse 102 Temp 37.1 C (98.7 F) Resp 18 Wt 88.9 kg (196 lb) SpO2 98% Hr 90 Review of Systems Constitutional: Negative for chills, fever and malaise/fatigue. HENT: Negative for congestion, ear discharge, ear pain, sinus pain and sore throat. Eyes: Negative for blurred vision, pain, discharge and redness. Respiratory: Negative for cough, hemoptysis, sputum production, shortness of breath, wheezing and stridor. Cardiovascular: Negative for chest pain. Gastrointestinal: Negative for abdominal pain, diarrhea, nausea and vomiting. Musculoskeletal: Negative for myalgias. Skin: Negative for itching and rash. Neurological: Negative for dizziness and headaches. Objective Physical Exam Constitutional: General: She is not in acute distress. Appearance: She is not toxic-appearing. HENT: Head: Normocephalic. Nose: Nose normal. Eyes: Pupils: Pupils are equal, round, and reactive to light. Cardiovascular: Rate and Rhythm: Normal rate. Pulmonary: Effort: Pulmonary effort is normal. No respiratory distress. Musculoskeletal: Cervical back: Normal range of motion. Feet: Feet: Comments: Erythema edema noted to highlighted area. No remote redness. Small amount of purulent drainage noted. Skin: General: Skin is warm and dry. Neurological: General: No focal deficit present. Mental Status: She is alert. ASSESSMENT/PLAN: 1. Cellulitis of skin - ICD9: 682.9, ICD10: L03.90 - ABSCESS AND WOUND CULTURE WITH GRAM STAIN Diagnosis cellulitis. Wound culture obtained. Treat according to culture results. Treat with Keflex today. Patient will contact PCPs office to remove ingrown toenail tomorrow for further evaluation and care. Patient was educated on supportive therapies. Patient was instructed to immediately proceed to emergency room for any new, worsening, or symptoms lasting longer than anticipated. The patient's clinical presentation is otherwise unremarkable at this time. Based on exam and clinical finding, the patient is stable for discharge. Plan of care was discussed with patient. Patient verbalizes understanding and agrees to plan of care. This note was generated using [employer] software. It may contain errors in wording, punctuation, or spelling. Kris Kauffman APRN.ORGANISATION AND METHODS ANALYST documented in this encounter [facility] 02-04-2023 Telephone encounter Note Spoke with pt via [employer] regarding zinc lab value. Plan to recheck in 3 months. Pt has active lab orders to be completed, including zinc, for 3 month POP appt scheduled for 04/06/23. [employer] 02-04-2023 Miscellaneous Notes Spoke with pt via [employer] regarding zinc lab value. Plan to recheck in 3 months. Pt has active lab orders to be completed, including zinc, for 3 month POP appt scheduled for 04/06/23. DOS 12/25/22 [facility] Labs: (01/26/23) Zinc 125 (H) Sent [employer] message to pt regarding high zinc lab results. documented in this encounter [facility] 02-02-2023 Telephone encounter Note DOS 12/25/22 [facility] Labs: (01/26/23) Zinc 125 (H) Sent [employer]IS[employer] message to pt regarding high zinc lab results. [facility] 01-27-2023 Note BARIATRIC CARE ANGELA Hor[facility] PROGRESS NOTE POST WEIGHT LOSS SURGERY FOLLOW UP Patient: Mora Lopez Service Date: 01/27/2023 Patient is 1 month(s) s/p Sleeve Gastrectomy Today's Metrics: Post-Surgical Weight Loss Date: 01/27/23 Height: 5' 2 (157.5 cm) Weight: 235 lb 12.8 oz (107 kg) BMI: 43.12 Weight Change: -19.8 lbs Total Weight Change: -44.8 lbs % EBWL: 26% Comments: 1m Pre-op Weight Metrics: Post-op Weight Metrics: %EBWL: % EBWL: 26% Weight Change Since Last Visit: Weight Change: -19.8 lbs Weight Change from Highest Pre-op Weight: Total Weight Change: -44.8 lbs Patient has the following questions: Pain in left hip, bruising in abdominal/hip area. Rash. Pain: Patient rates pain on scale 0-10 as: 4 with movement, 0 at rest Exercise Compliance: Exercising: yes If yes: Type: increasing daily activity , workout video Times per week: 3 Min per session: 30 Falls Risk Assessment Patient does not take medications which affect BP or mental status Patient does not have newly prescribed or changed dosage of medications within past 30 days which affect BP or mental status Patient has not fallen in the past 2 months Patient does not demonstrate unsteady gait Patient uses the following ambulatory assistive devices: none Patient states the presence of the following traits which increases risk of fall: no Patient is not on home O2 Labs Completed: yes - If NO, patient instructed to get labs drawn today or NAKIA If YES: Labs completed at [facility]? no If yes see Labs Tab [facility] yes If yes see Encounters Tab - Orders only - Historical Provider - Date: 01/26/2023, [facility] Completed by: Bj Wang [facility] 01-27-2023 History of Present illness Narrative Images from the original note were not included. FACUNDO AVILES MD , FACS, [facility] MINIMALLY INVASIVE & METABOLIC / BARIATRIC SURGERY [facility] - 1 MONTH FOLLOW UP 01/27/2023 PATIENT: Mora Lopez DATE OF : 1985 HISTORY OF PRESENT ILLNESS Chief Complaint: 1 month follow-up status post laparoscopic SLEEVE GASTRECTOMY - aka SG Mora Lopez is a 37 y.o. female who presents to the bariatric care center today for their 1 month evaluation following bariatric surgery with Dr. Aviles. The total weight lost is 45 pounds for a 26 % EWL. Overall, the patient is satisfied with the weight loss and health benefits related to the bariatric intervention. Dietary compliance concerns: No Two protein drinks daily. Tolerating chicken. Cant tolerate tuna or hamburger. Exercise and activity concerns: No Compliance and phychologic concerns: No Not taking PPI due to rash that developed post op one week. Seen by PCP- restarted supplements, and no rash. Dysphagia and eating concerns: No Excessive skin concerns: No The patient is feeling well and denies any major complaints or GI symptoms. The dietary regimen and exercise activities are going fairly well. The patient is compliant with protein intake and vitamin/trace element supplementation. Labs were Completed Laboratory results were partial set- Vit D 80 and B 12 is 1400. CBC and CMP missing Review of Symptoms Reports firmness and a bit of redness at rt anterior thigh, from prior Lovenox. Also pain above left hip area w walking. Notes bruising left anterior thigh Constitutional: negative for chills, fevers, night sweats Respiratory: negative for cough, dyspnea on exertion, hemoptysis, and sputum Cardiovascular: negative for chest pain, chest pressure/discomfort, dyspnea, irregular heart beat, palpitations, and syncope Gastrointestinal: negative for abdominal pain, constipation, diarrhea, dysphagia, melena, reflux symptoms, and vomiting Neurological: negative for dizziness, paresthesia, seizures, and weakness PAST HISTORIES Past Medical History: Diagnosis Date ADHD Back pain COVID-19 vaccine series completed 05/12/2021 Difficulty sleeping Hx: UTI (urinary tract infection) Joint pain, hip Joint pain, knee Memory difficulties Morbid obesity due to excess calories (HCC) 06/08/2022 Shortness of breath at rest Snoring SOBOE (shortness of breath on exertion) Past Surgical History: Procedure Laterality Date SECTION, CLASSIC 2013 ESOPHAGOGASTRODUODENOSCOPY 08/31/2022 Dr. Aviles EXCISION HIDRADENITIS OF INGUINAL / UMBILICAL AREA [facility] 2020 x2 SLEEVE GASTRECTOMY, LAPAROSCOPIC (HISTORICAL) 12/25/2022 [facility] - Dr Aviles Family History Problem Relation Name Age of Onset Cancer Mother Diabetes Mother Hypertension Mother Obesity Mother Hypertension Father Obesity Father Obesity Sister Diabetes Sister Obesity Brother Cancer Paternal Grandfather Obesity Paternal Grandmother Diabetes Paternal Grandmother Cancer Paternal Grandmother Cancer Maternal Grandfather Obesity Maternal Grandmother Diabetes Maternal Grandmother Cancer Maternal Grandmother Allergies Allergen Reactions Aspirin Anaphylaxis, Itching and Swelling PHYSICAL EXAM BP 102/68 Pulse 90 Temp 36.3 C (97.4 F) Resp 16 Ht 5' 2 (1.575 m) Comment: bcc Wt 235 lb 12.8 oz (107 kg) BMI 43.13 kg/m General: This patient is awake, alert, and oriented, with normal affect and is in no apparent distress. Cardiac: Regular rate and rhythm without evidence of murmur. Respiratory: Clear to auscultation bilaterally with normal effort. Abdomen: Obese, soft, non-tender, non-distended without masses/ No evidence of abdominal hernia / Incisions consistent with previous surgeries. Surgical sites: Clean dry and intact Head and Neck: Obese, normocephalic and atraumatic/soft and supple, no lymphadenopathy or obvious bruits. No thyroidmegaly. Extremities: No cyanosis, clubbing or edema/ No calf tenderness/No restrictions of movement, is ambulatory without assistance. Neurological: Intact x 4 extremities, normal sensation, no focal deficits notes. Skin: Skin cool, warm and dry. No rashes or lesions noted. Rectal: Deferred LABORATORY STUDIES AND IMAGING Laboratory Studies: No results for input(s): NA, K, CL, CO2, BUN, CREATININE, GLUCOSE, CALCIUM in the last 72 hours. No results for input(s): WBC, RBC, HGB, HCT, MCV, MCH, MCHC, RDW, PLT, MPV in the last 72 hours. No results for input(s): ALKPHOS, ALT, AST, PROT, BILITOT, BILIDIR, LIPASE in the last 72 hours. No lab exists for component: LABALBU ASSESSMENT 1 month status post SLEEVE GASTRECTOMY - aka SG Visit Diagnoses: 1. Deficiency of multiple nutrient elements 2. Back pain, unspecified back location, unspecified back pain laterality, unspecified chronicity 3. Liver cyst 4. Morbid obesity with BMI of 40.0-44.9, adult (HCC) PLAN 1). Compliance with exercise and dietary regimen (see dietitian recommendations) 2). Patient to follow up w/ PCP for follow for management of DM and HTN medications 3). Follow up for 1 month post-operative evaluation 4). Advance diet and begin supplements per RD note Stop Vit D 50, 000 international units, weekly Begin vit D 4000 daily. OK to take the B 12 2500 mcg weekly Please resume PPI She has opted not to take Actigall. Reviewed risk of cholelithiasis. Additional orders: 3 month lab-work Orders Placed This Encounter Procedures Zinc Folate Iron Ferritin Magnesium Vitamin B12 Comprehensive metabolic panel CBC ATTESTATION I personally interviewed and examined the patient. I have reviewed their past medical, surgical, medication, allergy, social and family histories. I have performed an independent physical examination and have reviewed all pertinent laboratory and imaging results. I have reviewed with the patient my assessment of their condition as well as the treatment recommendations and the associated risks, benefits and options. I have spent a total of 30 minutes for this office visit in [id number] discussion, counseling of this patient, reviewing medical records and documenting the encounter. NDO AVILES MD, FACS, [facility] [address] Scientist - Weight Management Gap / Bariatric Care Center Buffing Wheel Inspector - Advanced GI MIS, Foregut and Bariatric Surgery Fellowship ---[facility]--- Patient Care Team: Stiven Beaver MD as PCP - General (Family Medicine) Facundo Aviles MD as Surgeon (General Surgery) Aimee Lilly RN as Registered Nurse Nii Najera MD as Surgeon (Urology) BARIATRIC CARE CENTER PROGRESS NOTE POST WEIGHT LOSS SURGERY FOLLOW UP Patient: Mora Lopez Service Date: 01/27/2023 Patient is 1 month(s) s/p Sleeve Gastrectomy Today's Metrics: Post-Surgical Weight Loss Date: 01/27/23 Height: 5' 2 (157.5 cm) Weight: 235 lb 12.8 oz (107 kg) BMI: 43.12 Weight Change: -19.8 lbs Total Weight Change: -44.8 lbs % EBWL: 26% Comments: 1m Pre-op Weight Metrics: Post-op Weight Metrics: %EBWL: % EBWL: 26% Weight Change Since Last Visit: Weight Change: -19.8 lbs Weight Change from Highest Pre-op Weight: Total Weight Change: -44.8 lbs Patient has the following questions: Pain in left hip, bruising in abdominal/hip area. Rash. Pain: Patient rates pain on scale 0-10 as: 4 with movement, 0 at rest Exercise Compliance: Exercising: yes If yes: Type: increasing daily activity , workout video Times per week: 3 Min per session: 30 Falls Risk Assessment Patient does not take medications which affect BP or mental status Patient does not have newly prescribed or changed dosage of medications within past 30 days which affect BP or mental status Patient has not fallen in the past 2 months Patient does not demonstrate unsteady gait Patient uses the following ambulatory assistive devices: none Patient states the presence of the following traits which increases risk of fall: no Patient is not on home O2 Labs Completed: yes - If NO, patient instructed to get labs drawn today or NAKIA If YES: Labs completed at [facility]? no If yes see Labs Tab Labs completed at Non-[facility] facility? yes If yes see Encounters Tab - Orders only - Historical Provider - Date: 01/26/2023, [facility] Completed by: Bj Wang documented in this encounter [facility] 12-29-2022 History of Present illness Narrative Images from the original note were not included. FACUNDO AVILES MD , FACS, [facility] MINIMALLY INVASIVE & METABOLIC / BARIATRIC SURGERY [facility] [place] FOLLOW UP 12/29/2022 PATIENT: Mora Lopez DATE OF : 1985 HISTORY OF PRESENT ILLNESS Chief Complaint: 1 week follow-up status post laparoscopic SLEEVE GASTRECTOMY - aka SG Mora Lopez is a 37 y.o. female who presents to the bariatric care center today for their 1 week evaluation following bariatric surgery with Dr. Aviles. The total weight lost is 25 pounds for a 15 % EWL. Overall, the patient is experiencing a good recovery and return to normal activity. The patient is ambulating regularly and has been instructed to gradually increase physical activity. The patient is reporting any emesis or dysphagia with diet. The patient is starting PPI therapy. Nausea better w zofran. The patient is feeling well and denies any other major complaints or GI symptoms. The dietary regimen and exercise activities are going fairly well. The patient is compliant with protein intake and vitamin/trace element supplementation. Dysphagia and eating concerns: No Dietary compliance concerns: No Exercise and activity concerns: No Compliance and phychologic concerns: No Oral thrush concerns: Yes Using tylenol for pain. She is having valerie pains, more than anything. Has tried gas ex. Taking small sips. Not using a straw. Tried different containers. Fluid intake about 30 oz. Incisional problems or concerns: No VTE prophylaxis compliance concerns: No Labs were ordered for 1 month visit Review of Symptoms Constitutional: negative for chills, fevers, night sweats Respiratory: negative for cough, dyspnea on exertion, hemoptysis, and sputum Cardiovascular: negative for chest pain, chest pressure/discomfort, dyspnea, irregular heart beat, palpitations, and syncope Gastrointestinal: negative for abdominal pain, constipation, diarrhea, dysphagia, melena, reflux symptoms, and vomiting Neurological: negative for dizziness, paresthesia, seizures, and weakness PAST HISTORIES Past Medical History: Diagnosis Date ADHD Back pain COVID-19 vaccine series completed 05/12/2021 Difficulty sleeping Hx: UTI (urinary tract infection) Joint pain, hip Joint pain, knee Memory difficulties Morbid obesity due to excess calories (HCC) 06/08/2022 Shortness of breath at rest Snoring SOBOE (shortness of breath on exertion) Past Surgical History: Procedure Laterality Date SECTION, CLASSIC 2013 ESOPHAGOGASTRODUODENOSCOPY 08/31/2022 Dr. Aviles EXCISION HIDRADENITIS OF INGUINAL / UMBILICAL AREA [facility] 2020 x2 SLEEVE GASTRECTOMY, LAPAROSCOPIC (HISTORICAL) 12/25/2022 [facility] - Dr Aviles Family History Problem Relation Name Age of Onset Cancer Mother Diabetes Mother Hypertension Mother Obesity Mother Hypertension Father Obesity Father Obesity Sister Diabetes Sister Obesity Brother Cancer Paternal Grandfather Obesity Paternal Grandmother Diabetes Paternal Grandmother Cancer Paternal Grandmother Cancer Maternal Grandfather Obesity Maternal Grandmother Diabetes Maternal Grandmother Cancer Maternal Grandmother Allergies Allergen Reactions Aspirin Anaphylaxis, Itching and Swelling PHYSICAL EXAM BP 105/71 Pulse 82 Temp 36.4 C (97.5 F) Resp 16 Ht 5' 2 (1.575 m) Comment: BCC Wt 255 lb 9.6 oz (116 kg) LMP 12/16/2022 BMI 46.75 kg/m General: This patient is awake, alert, and oriented, with normal affect and is in no apparent distress. Cardiac: Regular rate and rhythm without evidence of murmur. Respiratory: Clear to auscultation bilaterally with normal effort. Abdomen: Obese, soft, non-tender, non-distended without masses/ No evidence of abdominal hernia / Incisions consistent with previous surgeries. Head and Neck: Obese, normocephalic and atraumatic/soft and supple, no lymphadenopathy or obvious bruits. No thyroidmegaly. Extremities: No cyanosis, clubbing or edema/ No calf tenderness/No restrictions of movement, is ambulatory without assistance. Neurological: Intact x 4 extremities, normal sensation, no focal deficits notes. Skin: Skin cool, warm and dry. No rashes or lesions noted. Rectal: Deferred Surgical sites: are:clean, dry, intact, and nontender Drainage from surgical site: none Patient does not have a superficial incisional SSI PATHOLOGY RESULTS: PENDING. Laboratory Studies: ASSESSMENT 1 week status post SLEEVE GASTRECTOMY - aka SG Visit Diagnoses: 1. Back pain, unspecified back location, unspecified back pain laterality, unspecified chronicity 2. Deficiency of multiple nutrient elements 3. Morbid obesity with BMI of 45.0-49.9, adult (HCC) PLAN 1). Compliance with exercise and dietary regimen (see dietitian recommendations) 2). Patient to follow up w/ PCP for follow for management of DM and HTN medications 3). Follow up for 1 month post-operative evaluation 4). Advance diet and begin supplements per RD note 5). If patient is a woman of childrearing age- 18-50. We discussed the importance of contraception during the first 12-18 months post op, and we discussed that fertility will increase following the procedure. Advised patient to discuss with her OBGYN regarding contraception. Patient counseled with good understanding verbalized. She will call PCP. Continue to ambulate, to dissipate gas. Gas-ex prn. Additional orders: 1 month lab-work Orders Placed This Encounter Procedures Zinc Folate Iron Ferritin Magnesium Vitamin B12 Comprehensive metabolic panel CBC ATTESTATION I personally interviewed and examined the patient. I have reviewed their past medical, surgical, medication, allergy, social and family histories. I have performed an independent physical examination and have reviewed all pertinent laboratory and imaging results. I have reviewed with the patient my assessment of their condition as well as the treatment recommendations and the associated risks, benefits and options. I have spent a total of 30 minutes for this office visit in [id number] discussion, counseling of this patient, reviewing medical records and documenting the encounter. NDO AVILES MD, FACS, [facility] [address] Scientist - Weight Management Gap / Bariatric Care Center Buffing Wheel Inspector - Advanced GI MIS, Foregut and Bariatric Surgery Fellowship ---[facility]--- Patient Care Team: Stiven Beaver MD as PCP - General (Family Medicine) Facundo Aviles MD as Surgeon (General Surgery) Aimee Lilly RN as Registered Nurse Nii Najera MD as Surgeon (Urology) [facility] BARIATRIC CARE CENTER POST WEIGHT LOSS SURGERY FOLLOW UP - 1 WEEK Rooming Note Patient: Mora Lopez Service Date: 12/29/2022 Patient is 1 week s/p Lap Sleeve Gastrectomy Pre-Surgical Weight Loss Initial Height: 5' 2 (157.5 cm) Initial Weight: 275 lb 6.4 oz (125 kg) Initial BMI: 50.37 [place] Body Weight: 110 lb (49.9 kg) Surgery Date: 12/25/22 Pre-Surgical Height: 5' 2 (157.5 cm) Pre-Surgical Weight: 280 lb 9.6 oz (127 kg) Pre Surgery BMI: 51.32 Weight to Lose: 170 lb Post-Surgical Weight Loss Date: 12/29/22 Height: 5' 2 (157.5 cm) Weight: 255 lb 9.6 oz (116 kg) BMI: 46.74 Weight Change: -25 lbs Total Weight Change: -25 lbs % EBWL: 15% Comments: 1W Pain: Patient rates pain on scale 0-10 as: 6 Patient has the following questions: C/O excessive gas and very painful Patient is not diabetic If patient IS Diabetic: Patient spoken with the physician who prescribes their diabetic medications Patient resumed their diabetic medications as directed by their physician Patient advised as follows by physician prescribing diabetic medications: Exercise Compliance: Compliance with recommended current exercise plan of walking/frequent ambulation: yes Falls Risk Assessment Patient does not take medications which affect BP or mental status Patient does not have newly prescribed or changed dosage of medications within past 30 days which affect BP or mental status Patient has not fallen in the past 2 months Patient does not demonstrate unsteady gait Patient uses the following ambulatory assistive devices: none Patient states the presence of the following traits which increases risk of fall: none Patient is low risk for falls. If high or moderate risk, patient instructed not to ambulate independently in the Center, and cord for call light placed within reach of patient. Post-op Weight Metrics: %EBWL: % EBWL: 15% Weight Change Since Last Visit: Weight Change: -25 lbs Weight Change from Highest Pre-op Weight: Total Weight Change: -25 lbs Completed by: Erin Rice LPN [facility] 1 WEEK VISIT POST-OPERATIVE DIETITIAN Date: 12/29/22 Pt is here for 1 week office visit. Pt is currently on a full liquid diet. Pt will advance to a pureed diet today and follow a pureed diet for 10 days. Then, the pt will advance to a soft diet until their 1 month post op office visit. Both of these diets have been reviewed with the pt today. Protein requirements discussed. Patient to consume 65-75 grams daily. Fluid requirements discussed. Patient to consume 64 oz+ daily. Patient is aware that she must consume fluids 30 mintues before and after meals. Exercise activities discussed with the patient. She doeshave a plan for exercise when cleared. Patient advised that regular exercise is vital to a successful outcome following weight loss surgery. Behavioral/Emotional changes reviewed Patient does feel comfortable with changes in eating behaviors and associated emotional changes. She was reminded that psychological counseling is available through the [facility] post-operatively. The importance of vitamin supplementation has been discussed with patient. She will start the following vitamin supplements today: -Multivitamin with minerals and iron -Calcium -Vitamin B12 -Vitamin D3 -Other: Recent Nutrient Concerns and Vitamin Supplementation Changes: to start bariatric vitamin protocol Notes/Comments: c/o gas pain. Eat slowly, chew well, do not gulp, etc. Pt agreeable. Visit completed by: Pat Campbell RD documented in this encounter [facility] 12-28-2022 Telephone encounter Note [facility] POST-OPERATIVE PHONE CALL Patient Name: Mora Lopez Phone #: [phone] Date: 12/28/22 Time: 9:35 AM Surgeon: [] NEELAM [x] AD [] MP [] TB [] LM Date of Surgery: 12/25/22 Procedure: LSG laparoscopic Information below obtained from patient DEMAR Drain: No Incisions: Incisions are clean, dry, and intact Patient denies any fever. Pain controlled with: Percocet Pain: pain control: Pain in controlled with prescribed medication/tylenol Intake: Patient reports the following concern: patient states she is only getting 30 ounces in a day. Was sipping defaf coffee with protein powder, reviewed full liquid diet protocol. Feels like she gets air in every time she sips on fluid Patient is tolerating liquids with no dysphagia Patient is not experiencing nausea with use of prn zofran Output: Patient is voiding qs Patient has had a bowel movement If yes, bowel movement is liquid brown Patient is ambulating: Medications: Patient was not discharged home on VTE prophylaxis If on VTE prophylaxis: Drug: N/A Dose:N/A Frequency: twice daily N/A Patient is not diabetic: If diabetic: blood sugar range: or Patient does not self monitor blood sugars Patient takes the following medications for diabetes: N/A If patient takes medications for diabetes, patient reminded to contact PCP regarding dosage instructions for diabetic medications Patient does not have hypertension: If patient has hypertension: [] Meds held at time of discharge - patient informed/reminded to follow up with prescriber [] Meds resumed in hospital Pt reminded to continue to wear CPAP when sleeping or napping Patient reminded of follow-up appointment Patient instructed to call the Bariatric Care Center for the following Temp > 100.0 F Redness, pain, swelling, or drainage from any of the incisions Inability to pass urine or have bowel movements Any shortness of breath, chest pain, leg swelling or leg pain Tachycardia, tachypnea, left shoulder pain, nausea Frequent vomiting with inability to tolerate liquids Feeling dizzy or lightheaded Completed by: Aimee Lilly RN [facility] 12-28-2022 Miscellaneous Notes [facility] BARIATRIC [facility] POST-OPERATIVE PHONE CALL Patient Name: Mora Lopez Phone #: [phone] Date: 12/28/22 Time: 9:35 AM Surgeon: [] NEELAM [x] AD [] MP [] TB [] LM Date of Surgery: 12/25/22 Procedure: LSG laparoscopic Information below obtained from patient DEMAR Drain: No Incisions: Incisions are clean, dry, and intact Patient denies any fever. Pain controlled with: Percocet Pain: pain control: Pain in controlled with prescribed medication/tylenol Intake: Patient reports the following concern: patient states she is only getting 30 ounces in a day. Was sipping defaf coffee with protein powder, reviewed full liquid diet protocol. Feels like she gets air in every time she sips on fluid Patient is tolerating liquids with no dysphagia Patient is not experiencing nausea with use of prn zofran Output: Patient is voiding qs Patient has had a bowel movement If yes, bowel movement is liquid brown Patient is ambulating: Medications: Patient was not discharged home on VTE prophylaxis If on VTE prophylaxis: Drug: N/A Dose:N/A Frequency: twice daily N/A Patient is not diabetic: If diabetic: blood sugar range: or Patient does not self monitor blood sugars Patient takes the following medications for diabetes: N/A If patient takes medications for diabetes, patient reminded to contact PCP regarding dosage instructions for diabetic medications Patient does not have hypertension: If patient has hypertension: [] Meds held at time of discharge - patient informed/reminded to follow up with prescriber [] Meds resumed in hospital Pt reminded to continue to wear CPAP when sleeping or napping Patient reminded of follow-up appointment Patient instructed to call [facility] for the following Temp > 100.0 F Redness, pain, swelling, or drainage from any of the incisions Inability to pass urine or have bowel movements Any shortness of breath, chest pain, leg swelling or leg pain Tachycardia, tachypnea, left shoulder pain, nausea Frequent vomiting with inability to tolerate liquids Feeling dizzy or lightheaded Completed by: Aimee Lilly RN S: Patient spoke with CAC nurse regarding post op concerns B:onset symptoms/concern: yesterday Had laparoscopy sleeve gastrectomy with liver wedge biopsy done on 12/[address] Aviles A: Patient complaints of post op concerns including: nausea, vomiting and unable to keep fluids down. Patient states vomited on way home from hospital- emesis was slightly yellow in color due to upper GI fluid she had for procedure. Has since felt nauseated and vomited two more times. Emesis today was clear/mucusy. Patient is not able keeping fluids down. Last took nausea med around midnight, but states order says can only take once per day. This nurse clarifies on what med is being taken for nausea and patient states IC omeprazole. Patient did not mixing picker tender zofran so has not taken thought omeprazole was for nausea. Patient with 4/10 post op pain- states pain tolerable. Using tylenol for relief. Denies fever, rash, abd swelling, chest pain, difficulty breathing, dizziness R: Patient encouraged to mixing picker tender zofran and take as directed to help with nausea and vomiting. Patient will try med and plans to call back if symptoms dont improve or with any worsening. FYI sent to Dr. Fountain (network liaison) due to vomiting/unable to keep fluids down- no further recommendations at this time. Reason for Disposition [1] Vomiting AND [2] persists > 4 hours Protocols used: Post-Op Symptoms and [id number] documented in this encounter [facility] 12-27-2022 Telephone encounter Note S: Patient spoke with CAC nurse regarding post op concerns B:onset symptoms/concern: yesterday Had laparoscopy sleeve gastrectomy with liver wedge biopsy done on 12/[address] Aviles A: Patient complaints of post op concerns including: nausea, vomiting and unable to keep fluids down. Patient states vomited on way home from hospital- emesis was slightly yellow in color due to upper GI fluid she had for procedure. Has since felt nauseated and vomited two more times. Emesis today was clear/mucusy. Patient is not able keeping fluids down. Last took nausea med around midnight, but states order says can only take once per day. This nurse clarifies on what med is being taken for nausea and patient states IC omeprazole. Patient did not mixing picker tender zofran so has not taken thought omeprazole was for nausea. Patient with 4/10 post op pain- states pain tolerable. Using tylenol for relief. Denies fever, rash, abd swelling, chest pain, difficulty breathing, dizziness R: Patient encouraged to mixing picker tender zofran and take as directed to help with nausea and vomiting. Patient will try med and plans to call back if symptoms dont improve or with any worsening. FYI sent to Dr. Fountain (network liaison) due to vomiting/unable to keep fluids down- no further recommendations at this time. Reason for Disposition [1] Vomiting AND [2] persists > 4 hours Protocols used: Post-Op Symptoms and [id number] [facility] 12-26-2022 Plan of care note Problem: Pain Goal: My pain/discomfort is manageable Outcome: Adequate for Discharge Problem: Safety Goal: Patient will be injury free during hospitalization Outcome: Adequate for Discharge Goal: I will remain free of falls Outcome: Adequate for Discharge Problem: Daily Care Goal: Daily care needs are met Outcome: Adequate for Discharge Problem: Psychosocial Needs Goal: Demonstrates ability to cope with hospitalization/illness Outcome: Adequate for Discharge Goal: Collaborate with me, my family, and caregiver to identify my specific goals Outcome: Adequate for Discharge Problem: Discharge Barriers Goal: My discharge needs are met Outcome: Adequate for Discharge [facility] 12-26-2022 Miscellaneous Notes Problem: Pain Goal: My pain/discomfort is manageable Outcome: Adequate for Discharge Problem: Safety Goal: Patient will be injury free during hospitalization Outcome: Adequate for Discharge Goal: I will remain free of falls Outcome: Adequate for Discharge Problem: Daily Care Goal: Daily care needs are met Outcome: Adequate for Discharge Problem: Psychosocial Needs Goal: Demonstrates ability to cope with hospitalization/illness Outcome: Adequate for Discharge Goal: Collaborate with me, my family, and caregiver to identify my specific goals Outcome: Adequate for Discharge Problem: Discharge Barriers Goal: My discharge needs are met Outcome: Adequate for Discharge Patient family/visitor updated by RN at this time. Images from the original note were not included. FACUNDO AVILES MD , FACS, [facility] MINIMALLY INVASIVE & METABOLIC / BARIATRIC SURGERY [facility] OPERATIVE REPORT 12/25/2022 PATIENT: Mora Lpoez DATE OF : 1985 PROCEDURE: 1. LAPAROSCOPIC SLEEVE GASTRECTOMY (70189) 2. LAPAROSCOPIC LIVER WEDGE BIOPSY (65188) (59) 3. UPPER GASTRO-INTESTINAL ENDOSCOPY (56471) SURGEON: Facundo Aviles MD TIRE TESTER: Katalina Cosby MD. - Dr. Katalina Cosby was requested to assist on this complex minimally invasive procedure as not qualified assistants were available. PRE-OPERATIVE DIAGNOSES: BMI 49 Kg / m2 Osteoarthritis Hepatic steatosis. Morbid Obesity POST-OPERATIVE DIAGNOSES: Same ANESTHESIA: General endotracheal Transversus Abdominis plane block FLUIDS: Crystalloid ESTIMATED BLOOD LOSS: Minimal URINE OUTPUT: Not recorded PREOPERATIVE MEDICATIONS: Cefazolin 3 gm IV; Heparin 5000 units SQ INDICATIONS FOR PROCEDURE: The patient is a 37 y.o. female with morbid obesity and a BMI of There is no height or weight on file to calculate BMI.. She has completed medical risk stratification and is scheduled for Laparoscopic Sleeve Gastrectomy. CONSENT: The patient was seen and evaluated in the office setting where the details of the procedure were explained and all questions were answered to the patient's satisfaction. An informed consent discussion was held between Dr. Aviles and the patient. Viable alternatives to the proposed procedure, including but not limited to, medical observation under the care of a physician, exercise programs and other weight reductive operative procedures were discussed. Risks to the proposed procedure, including but not limited to hemorrhage requiring transfusion, infection, nerve injury, conversion to open, anastomotic disruption, anastomotic stricture, pneumonia, pulmonary embolus, airway complications, and were explained to the patient. The patient understands the above alternatives and risks, has electively chosen Laparoscopic Sleeve Gastrectomy and wishes to proceed with surgical intervention. TECHNIQUE: The patient was transported to the operating room and identified by name and number. An operating room team time out was performed confirming the identity of the patient and the planned procedure. The patient was placed on the operating room table in the supine position. General endotracheal anesthesia was administered and a transverse abdominis plane block was performed by members of the anesthesia team. An alyssia-gastric tube was placed to decompress the stomach. Following placement of sequential compression devices, the patient was positioned in the modified lithotomy position and extremities were carefully padded and protected. The abdomen was prepped and draped in standard surgical fashion. The abdominal cavity was accessed in the left upper quadrant at Velazquez's point using a 12-mm optical trocar. Pneumoperitoneum was established and a brief exploration of the abdominal cavity was performed. Three other 12-mm trocar were placed under direct visualization. One was placed at the umbilicus, one in the epigastric region, one in the right mid-abdomen. One 5-mm trocar was placed in the extreme left mid-abdomen. One 5-mm incision was made in the sub-xyphoid region for placement of the Tita liver retractor. The Tita liver retractor was use to retract the left lobe of the liver. We proceeded with careful removal of the alyssia-gastric tube after decompression of the stomach was confirmed. A small peritoneal opening was created near the angle of His using hook electrocautery. We proceeded with evaluation of the greater curvature of the stomach and the lesser sac was carefully incised by dividing the short gastric vessels using the bipolar cautery device. The short gastric vessels and attachments to the greater curvature were carefully taken down in the same fashion all the way to the angle of his superior and inferiorly along the greater curvature of the stomach to approximately 3-4 cm from the pylorus. The posterior attachments the stomach were carefully divided using sharp scissors. At this time we proceeded with our first staple line, using a thick tissue Endo SCOTT load. This was carried out towards the incisura, ensuring that ample caliber of the sleeve is preserved in order to avoid a stricture. Following this a 40 Kuwaiti bougie was carefully advanced by the anesthesia personnel and carefully guided into the antrum. This was used to calibrate the size of the residual sleeve is Endo SCOTT staplers were fired towards the proximal aspect of the stomach. The last staple load was carefully flared out laterally to avoid stapling over the distal esophagus. Once completely detached, the specimen was carefully removed through the left subcostal incision at Velazquez's point which was slightly increased in size. An upper gastrointestinal endoscopy was performed along with an underwater leak test to ensure the patency of the residual sleeve all the way to the duodenum, and to ensure the integrity of the staple line. The staple line was oversewn and cauterized as needed to ensure hemostasis. As part of the pre-operative work-up , the patient underwent abdominal ultrasound on 07/16/22 which showed increased echogenicity and was concerning for diffuse hepatocellular disease. On intra-operative evaluation, the liver appeared abnormal and enlarged. At this time, a laparoscopic liver wedge biopsy was performed in order to further evaluate the parenchyma of the liver. This was performed using a laparoscopic liver biopsy instrument. The specimen was passed off the table for pathology studies. Electrocautery was utilized to achieve hemostasis of the biopsy site. At the end of the operation the Tita liver retractor and the trocars were carefully removed under direct visualization and the pneumoperitoneum was evacuated. Fascial defect were closed using 0-Vycril suture for 10-mm or greater trocar sites and the left sub-costal specimen extraction site. The skin incisions were closed using 4-0 Vycril suture in subcuticular fashion. This was followed by steri strips and sterile dressings. The needle, sponge and instrument counts were correct. The patient tolerated the procedure and the anesthesia well without any major complications. The patients was transported to the post-anesthesia care unit in stable condition. I was present for the entire duration of the procedure. [facility] - Data form Start Time: 9:14 Stop Time: 9:57 Bougie (or sizing device): 40 Kuwaiti Distance from pylorus: 4 cm Staple Line reinforcement: [] Yes [x] No Oversew: [] Yes [x] No Table Worker Packager: [] Resident [x] Fellow ASA Class: [] 1 [] 2 [x] 3 []4 [] 5 Surgical Approach: [x] Conventional laparoscopic Was the procedure converted to another approach? [] Yes [x] No Was the case aborted? [] Yes [x] No Was a drain placed at the time of the initial operation? [] Yes [x] No Was a swallow study performed the day of or the day after the procedure? [x] Yes [] No Was the anastomotic/staple line checked with a provocative test to assess for leak? [x] Yes [] No Was this a stapling procedure: [x] Yes [] No Other Procedures: [x] EGD [x] Liver Biopsy Other: None documented in this encounter [facility] 12-26-2022 History of Present illness Narrative Pt tolerating oral liquids. Pt acknowledges 1 oz of clear liquids every 30 minutes today, 1 oz every 15 minutes tomorrow. Pt notified of home prescriptions sent to pharmacy on file, verbalized understanding. Pt is very anxious to be discharged. Pt upset that the xray was so late. Clear liquids tray ordered from dietary. documented in this encounter [facility] 12-26-2022 Note Discharge Summary Mora Lopez : 1985 ADMIT DATE: 12/25/2022 DISCHARGE DATE: 12/26/2022 ATTENDING PHYSICIAN: Facundo Aviles MD VISIT STATUS: Admission CODE STATUS: Full Code DISCHARGE DIAGNOSES: Principal Problem: Morbid obesity with BMI of 45.0-49.9, adult (HCC) Active Problems: Morbid obesity due to excess calories (HCC) Back pain PCOS (polycystic ovarian syndrome) Anxiety BMI Classification: Estimated body mass index is 49.46 kg/m? as calculated from the following: Height as of 12/18/22: 1.575 m (5' 2 ). Weight as of 12/18/22: 123 kg (270 lb 6.4 oz). Morbidly Obese (>40.0) HOSPITAL COURSE: Mora Lopez is a 37 y.o. female who presented to [facility] on 12/25/2022 for elective bariatric surgical procedure. This patient underwent a Laparoscopic Sleeve Gastrectomy on the day of admission. An UGI was obtained POD #1 and bariatric clear liquid diet was subsequently started. The patient met with bariatric nursing team and was informed thoroughly regarding goals and objectives going forward regarding bariatric protocol and expectations. They were prepared for discharge POD #1 At the time of discharge patient's vital signs were within normal limits. Patient was voiding spontaneously, tolerating a diet, ambulating independently and having bowel function. Patient's pain was controlled with PO pain meds. Pt was discharged with instructions as follows. CONSULTANTS: none SIGNIFICANT DIAGNOSTIC STUDIES: Upper GI contrast study showing no extravasation or obstruction DISCHARGE MEDICATIONS: Medication List START taking these medications ondansetron 4 MG tablet Commonly known as: Zofran Take 1 tablet (4 mg) by mouth 3 times daily as needed for nausea or vomiting for up to 7 days. oxyCODONE-acetaminophen 5-325 MG tablet Commonly known as: Percocet Take 1 tablet by mouth every 6 hours as needed for severe pain (7-10) for up to 7 days. CONTINUE taking these medications BIOTIN PO cholecalciferol 10 MCG (400 UNIT) capsule Commonly known as: Vitamin D-3 COLLAGEN PO cyanocobalamin 2500 MCG tablet Commonly known as: Vitamin B-12 ergocalciferol 1.25 MG (99702 UT) capsule Commonly known as: Vitamin D2 FLUoxetine 10 MG tablet Commonly known as: PROzac MULTIVITAMIN/IRON PO omeprazole [address] capsule Commonly known as: PriLOSEC Take 1 capsule (20 mg) by mouth daily. Do not crush or chew. ursodiol 300 MG capsule Commonly known as: Actigall Take 1 capsule (300 mg) by mouth 2 times daily. Where to Get Your Medications These medications were sent to [facility]/pharmacy #[id number] - [place], [place] - [phone] [facility] [id number] ondansetron 4 MG tablet oxyCODONE-acetaminophen 5-325 MG tablet DIET: Bariatric Diet Protocol with Clears, instruction for continued diet included in discharge instructions. ACTIVITY: No driving while on narcotic pain medication. No heavy lifting. No strenuous activity. Instructions to proceed will be provided during outpatient follow up. WOUND CARE: keep wound clean and dry DISPOSITION: Home FACILITY/HOME CARE AGENCY NAME: N/A Follow up with: Facundo Aviles MD in 1-2 weeks PCP: Stiven Beaver MD in 1-2 weeks SIGNED: MYRON LEHMAN MD This note may have been dictated using [employer] Edition 2.6 and/or [employer] Voice Recognition Feature. The document was proofread; however, unrecognized voice recognition application chemist errors may be present. [facility] 12-25-2022 Note Patient: Mora carlin Procedure Summary Date: 12/25/22 Room / Location: [facility] Operating Room Anesthesia Start: 843 Anesthesia Stop: 103 Procedures: LAPAROSCOPY SLEEVE GASTRECTOMY WITH LIVER WEDGE BIOPSY , EGD (Abdomen) UNLISTED LAPAROSCOPIC PROCEDURE LIVER (Abdomen) Diagnosis: Morbid (severe) obesity due to excess calories (HCC) Diaphragmatic hernia without obstruction or gangrene (Morbid (severe) obesity due to excess calories (HCC) [E66.01]) (Diaphragmatic hernia without obstruction or gangrene [K44.9]) Surgeons: Facundo Aviles MD Responsible Provider: Linda Owen APRN - [place] Anesthesia Type: general, regional ASA Status: 3 Anesthesia Type: general, regional Vitals Value Taken Time BP 126/74 12/25/22 1115 Temp 36.1 ?C (97 ?F) 12/25/22 1025 Pulse 82 12/25/22 1125 Resp 20 12/25/22 1100 SpO2 100 % 12/25/22 1125 Vitals shown include unvalidated device data. Anesthesia Post Evaluation Patient location during evaluation: PACU Patient participation: complete - patient participated Level of consciousness: awake and alert Pain management: satisfactory to patient Airway patency: patent Dental Injury: no Cardiovascular status: acceptable, blood pressure returned to baseline and hemodynamically stable Respiratory status: acceptable and spontaneous ventilation Hydration status: euvolemic Nausea/Vomiting: controlled No notable events documented. Patient can be discharged once all PACU criteria has been met. [facility] 12-25-2022 Note Patient: Mora carlin Procedure Summary Date: 12/25/22 Room / Location: [facility] Operating Room Anesthesia Start: 843 Anesthesia Stop: 1031 Procedures: LAPAROSCOPY SLEEVE GASTRECTOMY WITH LIVER WEDGE BIOPSY , EGD (Abdomen) UNLISTED LAPAROSCOPIC PROCEDURE LIVER (Abdomen) Diagnosis: Morbid (severe) obesity due to excess calories (HCC) Diaphragmatic hernia without obstruction or gangrene (Morbid (severe) obesity due to excess calories (HCC) [E66.01]) (Diaphragmatic hernia without obstruction or gangrene [K44.9]) Surgeons: Facundo Aviles MD Responsible Provider: ILA Minor CRNA Anesthesia Type: general, regional ASA Status: 3 Anesthesia Type: general, regional Vitals Value Taken Time BP 126/74 12/25/22 1115 Temp 36.1 ?C (97 ?F) 12/25/22 1025 Pulse 82 12/25/22 1125 Resp 20 12/25/22 1100 SpO2 100 % 12/25/22 1125 Vitals shown include unvalidated device data. Anesthesia Post Evaluation Patient location during evaluation: PACU Patient participation: complete - patient participated Level of consciousness: awake and alert Pain management: satisfactory to patient Multimodal analgesia pain management approach Airway patency: patent Two or more strategies used to mitigate risk of obstructive sleep apnea Cardiovascular status: acceptable and hemodynamically stable Respiratory status: acceptable Hydration status: acceptable No notable events documented. MIPS #430 PONV Patient received an inhalational anesthetic (4554F) Patient exhibits three or more risk factors for PONV (4556F) Patient received at leaset 2 prophylactic Rx PONV anti-emtic agents of different classes preop and/or intraop (G9775) MIPS # 424 Perioperative Temperature Management Anesthesia time was 60 minutes or longer (4255F) Anesthesai administered was General (inhalational or TIVA) or Neuraxial block (X0424) At least one body temperature greater than 95.8F/35.5C achieved within the 30 mins immediately prior to or the 15 minutes immediately following anesthesia end time (G9771) MIPS #477 Multimodal Pain Management Not emergent case Patient was administered multimodal pain management (two or more drugs and/or interventions excluding systemic opioids) in the periopeartive period occurring at some time between 6 hours prior to anesthesia start time until discharged from PACU (G2148) [facility] #404 Anesthesiology Smoking Abstinence The patient is not a current smoker (e.g. cigarette, cigar, pipe, e-cigarette/vaping/marijuana) If no stop here (XX404) I completed my handoff to the receiving clinician during which we: 1. Identified the patient 2. Identified the responsible provider 3. Reviewed the pertinent medical history 4. Discussed the surgical course 5. Reviewed intra-op anesthesia management and issues during anesthesia 6. Set expectations for post-procedure period 7. Allowed opportunity for questions and acknowledgement of understanding. [facility] 12-25-2022 Hospital Discharge instructions Aimee Lilly RN - 12/25/2022 12:10 PM EDT Laparoscopic Sleeve Gastrectomy Procedure If your surgical incisions are covered with steri-strips (white paper tape), leave them in place. It is ok if they fall off on their own. If your incisions have jean-pierre, they will be removed at your next office visit with your surgeon. If you feel the jean-pierre are catching or rubbing on your abdominal binder or clothing, you may place a BAND-AID over them. Wear your elastic abdominal binder as you desire for comfort. Take your temperature twice a day for the first postoperative week. Call if temperature is greater than 101 F. You may shower at any point. Wash your incisions with the Hibiclens you bought before surgery or Dial. Use only soap and water on the sites and blot the incisions dry. Do not use ointments, lotions or powders. If incisions begin to look infected (redness, swelling, drainage, pain), notify your turf manager. Resume your home medications as directed by your surgeon and your nurse special education case manager. Make an appointment with your prescribing physician if you are taking medication for your blood pressure or diabetes. You will need close follow-up regarding your medical conditions, as you will soon be off many of these medications. No aspirin or aspirin containing medications should be taken at all, unless directed otherwise by your surgeon. Follow our food guidelines closely. Remember, clear liquids for the first two days after surgery. No sugar, caffeine or carbonation. Your fluid requirement is 64 oz. per day. You may advance to full liquids on post- op day three. This is in addition to the clear liquid diet. Do not take your calcium, vitamin B12, multivitamin or Actigall (if ordered) until after your one week appointment. All proton pump inhibitor medication (Prilosec, Protonix etc.), should be taken starting the day after you are discharged home. Take daily. No alcoholic beverages at all during the first 18 months post-op. No lifting. pushing, or pulling over 15 lbs. for one month You may go up and down stairs. No driving for one week after surgery. Do not drive if you are taking prescription pain medication. Walking as part of your daily activities is required immediately. It is recommended that you should walk for 5 minutes every hour you are awake to help decrease the risk of blood clots after surgery. You will be able to begin exercising in four to six weeks but must be cleared by your surgeon at your one month appointment. Use your incentive spirometer from the hospital for the first postoperative week as instructed. Use it ten times every other hour while awake. Prior to returning to work, you will be seen, evaluated and cleared by your surgeon. Remember, you will have pain. Take your pain medicine so that you are comfortable enough to cough, take deep breaths and walk. Fatigue is quite common in the first postoperative week. Rest appropriately in response to this fatigue. Remember that mobility after surgery is very important. You must not remain in a sitting or recumbent position for long periods of time. If you have obstructive sleep apnea and have been prescribed a CPAP machine, you must continue to use this device after surgery. Please call the [facility] at [phone] if you have any questions or concerns during business hours: Wednesday through Wednesday, 8 a.m. to 4:30 p.m. The answering service may be called during non- business hours at [phone]. 19.Call your surgeon for problems, or if you have any of the following: Temperature greater than 101 F. Take your temperature twice a day in the morning and evening until your first office visit Redness, pain, swelling or drainage from any of the incisions Inability to pass urine or have bowel movements ANY shortness of breath, chest pain, leg swelling or leg pain (in one or both of your legs) Rapid heart rate Nausea or vomiting with the inability to keep liquids down Bleeding from your rectum Frequently feeling dizzy or light-headed, inability to walk Abnormal drain color appearance if you had a drain placed. If you have a medical emergency, call 911 or go to the closest hospital emergency room. Your one week and one month follow-up office visits with your surgeon at the [facility] are located in the discharge folder. These are required visits and important for your safety and recovery. documented in this encounter [facility] 12-25-2022 Note Airway Date/Time: 12/25/2022 9:59 AM Urgency: scheduled Airway not difficult General Information and Staff Patient location during procedure: Procedural Resident/AGRICULTURAL PRODUCE COMMISSION AGENT: ILA Minor CRNA Performed: AGRIC[employer]URAL PRODUCE COMMISSION AGENT Performed by: ILA Minor CRNA Authorized by: ILA Minor CRNA Indications and Patient Condition Indications for airway management: anesthesia Sedation level: Asleep Patient position: sniffing Mask difficulty assessment: 1 - vent by mask Final Airway Details Final airway type: endotracheal airway Successful airway: ETT Cuffed: yes Successful intubation technique: direct laryngoscopy Facilitating devices/methods: intubating stylet Endotracheal tube insertion site: oral Blade: Giuliano Blade size: #3 ETT size (mm): 7.0 Cormack-Lehane Classification: grade IIa - partial view of glottis Placement verified by: chest auscultation and capnometry Measured from: lips ETT to lips (cm): 21 Number of attempts at approach: 2 Ventilation between attempts: BVM Number of other approaches attempted: 0 Additional Comments DL x 1 grade 2 view cords still opening and closing, additional marsha given, DL x 1 easy intubation [facility] 12-25-2022 Note Formatting of this n ote might be different from the original. Patient family/visitor updated by RN at this time. [facility] 12-25-2022 Note Peripheral Block Time Out: 12/25/2022 8:50 AM Patient location during procedure: Procedural Start time: 12/25/2022 8:51 AM End time: 12/25/2022 8:54 AM Reason for block: at surgeon's request and post-op pain management Staffing Performed: AGRICULTURAL PRODUCE COMMISSION AGENT Resident/AGRICULTURAL PRODUCE COMMISSION AGENT: Efra Yagn APRN - AGRICULTURAL PRODUCE COMMISSION AGENT Preanesthetic Checklist Completed: patient identified, IV checked, site marked, risks and benefits discussed, surgical consent, monitors and equipment checked, pre-op evaluation and timeout performed Region: [place] Primary: TAP (Bupivacaine 0.375%/ Epi 1:200,000/ Dex 0.1mg/mL 40ml divided evenly bilateral) Secondary: Upper rectus (Bupivacaine 0.375%/ Epi 1:200,000/ Dex 0.1mg/mL 20ml divided evenly bilateral) Peripheral Block Patient position: supine Prep: ChloraPrep Patient monitoring: heart rate, cardiac exercise specialist, continuous pulse ox and continuous capnometry O2: ETT/LMA Laterality: bilateral Injection technique: single-shot Guidance: ultrasound guided -image retained in chart, tip of the needle identified by ultraound during injection. Needle Needle: 21G X 110 mm Additional Notes 12/25/2022 8:51 AM Assessment Injection assessment: negative aspiration for heme, no paresthesia on injection and incremental injection Heart rate change: no Slow fractionated injection: yes Required Documentation: Relevant anatomy identified (Nerves, Vessels, Muscles), Negative for blood on aspiration, Local anesthetic injected incrementally with intermittent aspiration every 5 mL, Normal resistance with injection, No EKG changes noted, No symptoms of toxicity, Local anesthetic spread visualized around nerves or plane. and Local anesthetic injected without difficultyMedications jcdKMJMFpjman-zohhxmdvkrp-ebhhkswaijn (TAP) syringe - Injection 60 mL - 12/25/2022 8:51:00 AM [facility] 12-25-2022 Note H&P Interval Update PATIENT SUMMARY Mora Aviles 36 y.o. female with Body mass index is 49.57 kg/m?. SLEEVE GASTRECTOMY with hiatal hernia Procedure DM[] HTN[] RYANNE[] GERD[] HL[] OA[x] TOB[] Date of Surgery: 12/25/22 NOTES AD ADHD and memory problems - quit smoking in 2018 PCP: Stiven Beaver MD The patient's History and Physical, performed within the last 30 days, was reviewed. The patient was seen and examined. There has been no change in the management plan. [facility] 12-25-2022 Attending History and physical note H&P Interval Update PATIENT SUMMARY Mora Lopez Dr. Aviles 36 y.o. female with Body mass index is 49.57 kg/m . SLEEVE GASTRECTOMY with hiatal hernia Procedure DM[] HTN[] RYANNE[] GERD[] HL[] OA[x] TOB[] Date of Surgery: 12/25/22 NOTES AD ADHD and memory problems - quit smoking in 2018 PCP: Stiven Beaver MD The patient's History and Physical, performed within the last 30 days, was reviewed. The patient was seen and examined. There has been no change in the management plan. Source Note - GEOFFREY Velarde - 12/18/2022 11:30 AM EDT Images from the original note were not included. Comprehensive PreSurgical History and Physical Name: Mora Lopez : 1985 (Age-37 y.o.) Date of Service: Pt seen/examined on 12/18/2022 Procedure Information Date/Time: 12/25/22 0830 Procedures: LAPAROSCOPY SLEEVE GASTRECTOMY WITH LIVER WEDGE BIOPSY HIATAL HERNIA REPAIR POSSIBLE OPEN (Abdomen) UNLISTED LAPAROSCOPIC PROCEDURE LIVER (Abdomen) Location: [facility] OR [address] [place] [address] Operating Room Surgeons: Facundo Aviles MD Chief Complaint: Morbid (severe) obesity due to excess calories (HCC) [E66.01] Diaphragmatic hernia without obstruction or gangrene [K44.9] History Of Present Illness: 37 y.o. female who we are asked to see/evaluate by Dr. Aviles for pre-operative evaluation prior to the above procedure. Patient proceeding with the above procedure for weight loss and to reduce associated co-morbidities. ? Patient denies exertional chest pain/shortness of breath. Denies dizziness, syncope, lightheadedness. Denies fever, chills, weakness or fatigue. Patient denies hx of CAD, CHF, SC, TIA/CVA, diabetes, COPD, asthma, RYANNE, DVT/PE. Past Medical History: Past Medical History: No date: ADHD No date: Back pain 05/12/2021: COVID-19 vaccine series completed No date: Difficulty sleeping No date: Hx: UTI (urinary tract infection) No date: Joint pain, hip No date: Joint pain, knee No date: Memory difficulties 06/08/2022: Morbid obesity due to excess calories (HCC) No date: Shortness of breath at rest No date: Snoring No date: SOBOE (shortness of breath on exertion) Past Surgical History: Past Surgical History: 2013: SECTION, CLASSIC 08/31/2022: ESOPHAGOGASTRODUODENOSCOPY Comment: Dr. Aviles No date: EXCISION HIDRADENITIS OF INGUINAL / UMBILICAL AREA Comment: [facility] 2020 x2 Medications Prior to Admission: Current Outpatient Medications on File Prior to Visit Medication Sig Dispense Refill BIOTIN PO Take by mouth. cholecalciferol (Vitamin D-3) 10 MCG (400 UNIT) capsule COLLAGEN PO Take by mouth. cyanocobalamin (Vitamin B-12) 2500 MCG tablet Take 1 tablet by mouth 1 (one) time per week. ergocalciferol (Vitamin D2) 1.25 MG (90416 UT) capsule TAKE 1 CAPSULE BY MOUTH ONE TIME PER WEEK FLUoxetine (PROzac) 10 MG tablet Take 10 mg by mouth daily. Multiple Vitamins-Iron (MULTIVITAMIN/IRON PO) Take 1 tablet by mouth daily. omeprazole (PriLOSEC) [address] capsule Take 1 capsule (20 mg) by mouth daily. Do not crush or chew. 90 capsule 1 ursodiol (Actigall) 300 MG capsule Take 1 capsule (300 mg) by mouth 2 times daily. 180 capsule 0 No current facility-administered medications on file prior to visit. CHRONIC NARCOTIC USE: No Allergies: Aspirin Can the patient take acetaminophen: Yes Social History: TOBACCO: reports that she quit smoking about 5 years ago. Her smoking use included cigarettes. She has a 1.00 pack-year smoking history. She quit smokeless tobacco use about 6 months ago. ETOH: reports that she does not currently use alcohol. Social History Substance and Sexual Activity Drug Use Not Currently Family History: Family History Problem Relation Name Age of Onset Cancer Mother Diabetes Mother Hypertension Mother Obesity Mother Hypertension Father Obesity Father Obesity Sister Diabetes Sister Obesity Brother Cancer Paternal Grandfather Obesity Paternal Grandmother Diabetes Paternal Grandmother Cancer Paternal Grandmother Cancer Maternal Grandfather Obesity Maternal Grandmother Diabetes Maternal Grandmother Cancer Maternal Grandmother REVIEW OF SYSTEMS: Review of Systems Constitutional: Negative for fatigue and fever. HENT: Negative for congestion. Respiratory: Negative for cough, chest tightness and shortness of breath. Cardiovascular: Negative for chest pain and palpitations. Gastrointestinal: Negative for diarrhea and vomiting. Skin: Negative for rash and wound. Neurological: Negative for syncope, weakness and headaches. Psychiatric/Behavioral: Negative for agitation. Physical Exam: Physical Exam Constitutional: Appearance: Normal appearance. She is obese. HENT: Head: Normocephalic and atraumatic. Nose: Nose normal. Eyes: Extraocular Movements: Extraocular movements intact. Cardiovascular: Rate and Rhythm: Normal rate and regular rhythm. Heart sounds: Normal heart sounds. Pulmonary: Effort: Pulmonary effort is normal. Breath sounds: Normal breath sounds. Musculoskeletal: General: Normal range of motion. Cervical back: Neck supple. Skin: General: Skin is warm and dry. Neurological: General: No focal deficit present. Mental Status: She is alert. Psychiatric: Mood and Affect: Mood normal. Behavior: Behavior normal. Vitals: Vitals Value Taken Time BP 126/71 12/18/22 1135 Temp 36.3 C (97.3 F) 12/18/22 1135 Pulse 78 12/18/22 1135 Resp 16 12/18/22 1135 SpO2 96 % 12/18/22 1135 Labs: Lab Results Component Value Date WBC 13.0 (H) 12/02/2022 HGB 13.7 12/02/2022 HCT 40.7 12/02/2022 MCV 96.0 12/02/2022 PLT 403 12/02/2022 Lab Results Component Value Date NA 135 12/02/2022 K 3.5 12/02/2022 CL 101 12/02/2022 CO2 25 12/02/2022 BUN 11 12/02/2022 CREATININE 0.45 (L) 12/02/2022 GLUCOSE 66 (L) 12/02/2022 CALCIUM 9.1 12/02/2022 EGFR >90.0 12/02/2022 Anshul's Simple Cardiac Risk Index: ANSHUL'S SIMPLE CARDIAC RISK SCORE: 0 Interpretation: 0 Points Class I 0.5% 1 Point Class II 1.3% 2 Points Class III 3.6% 3+ Points Class IV 9.1% METS >4 METS (Able to climb a flight of stairs with no chest pain or shortness of breath): Yes PAT Pain Score: Postop Pain Management Plan (Pain consult ordered?): Pain consult not indicated at this time ? EK12/02/22 ECHO and EF:None on file No components found for: LVEF, LVEFMODE 12/02/22 CXR results ASSESSMENT/PLAN: Patient is considered low/intermediate risk for this intermediate risk procedure/surgery. 1) Morbid (severe) obesity due to excess calories (HCC) [E66.01] Diaphragmatic hernia without obstruction or gangrene [K44.9] - Managed per surgery - Body mass index is 49.46 kg/m . - 12/02/22 albumin, A1c, BMP, CBC, CXR, EKG reviewed - CBC reordered today as WBC level was elevated on most recent CBC - Clearances per Dr. Aviles's OV on 12/02/22 Visit Type: Pre-Admission Testing Visit Labs Ordered: NO - COMPLETE PRIOR TO PAT VISIT Sleep Referral Ordered: NO - NEGATIVE SCREEN PER SLEEP REFERRAL PROTOCOL Electronically signed by: GEOFFREY Velarde Date: 12/18/2022 at 11:57 AM PAT Protocol referenced includes: 1. Anesthesia Lab Protocol Orders 2. Perioperative Cardiovascular Risk Assessment 3. Anesthesia Assessment 4. Pain Assessment and Acute Pain Service Consult (if appropriate) 5. Medical Clearance/Consult from Internal Medicine (IMS) 6. Shower/Wash Order (for designated surgeries) 7. RYANNE Screen and Sleep Clinic Referral (if appropriate) [facility] 12-25-2022 Note Formatting of this n ote might be different from the original. Images from the original note were not included. FACUNDO AVILES MD , FACS, [facility] MINIMALLY INVASIVE & METABOLIC / BARIATRIC SURGERY [facility] OPERATIVE REPORT 12/25/2022 PATIENT: Mora Lopez DATE OF : 1985 PROCEDURE: 1. LAPAROSCOPIC SLEEVE GASTRECTOMY (89795) 2. LAPAROSCOPIC LIVER WEDGE BIOPSY (85481) (59) 3. UPPER GASTRO-INTESTINAL ENDOSCOPY (23713) SURGEON: Facundo Aviles MD TIRE TESTER: Katalina Cosby MD. - Dr. Katalina Cosby was requested to assist on this complex minimally invasive procedure as not qualified assistants were available. PRE-OPERATIVE DIAGNOSES: BMI 49 Kg / m2 Osteoarthritis Hepatic steatosis. Morbid Obesity POST-OPERATIVE DIAGNOSES: Same ANESTHESIA: General endotracheal Transversus Abdominis plane block FLUIDS: Crystalloid ESTIMATED BLOOD LOSS: Minimal URINE OUTPUT: Not recorded PREOPERATIVE MEDICATIONS: Cefazolin 3 gm IV; Heparin 5000 units SQ INDICATIONS FOR PROCEDURE: The patient is a 37 y.o. female with morbid obesity and a BMI of There is no height or weight on file to calculate BMI.. She has completed medical risk stratification and is scheduled for Laparoscopic Sleeve Gastrectomy. CONSENT: The patient was seen and evaluated in the office setting where the details of the procedure were explained and all questions were answered to the patient's satisfaction. An informed consent discussion was held between Dr. Aviles and the patient. Viable alternatives to the proposed procedure, including but not limited to, medical observation under the care of a physician, exercise programs and other weight reductive operative procedures were discussed. Risks to the proposed procedure, including but not limited to hemorrhage requiring transfusion, infection, nerve injury, conversion to open, anastomotic disruption, anastomotic stricture, pneumonia, pulmonary embolus, airway complications, and were explained to the patient. The patient understands the above alternatives and risks, has electively chosen Laparoscopic Sleeve Gastrectomy and wishes to proceed with surgical intervention. TECHNIQUE: The patient was transported to the operating room and identified by name and number. An operating room team time out was performed confirming the identity of the patient and the planned procedure. The patient was placed on the operating room table in the supine position. General endotracheal anesthesia was administered and a transverse abdominis plane block was performed by members of the anesthesia team. An alyssia-gastric tube was placed to decompress the stomach. Following placement of sequential compression devices, the patient was positioned in the modified lithotomy position and extremities were carefully padded and protected. The abdomen was prepped and draped in standard surgical fashion. The abdominal cavity was accessed in the left upper quadrant at Velazquez's point using a 12-mm optical trocar. Pneumoperitoneum was established and a brief exploration of the abdominal cavity was performed. Three other 12-mm trocar were placed under direct visualization. One was placed at the umbilicus, one in the epigastric region, one in the right mid-abdomen. One 5-mm trocar was placed in the extreme left mid-abdomen. One 5-mm incision was made in the sub-xyphoid region for placement of the Tita liver retractor. The Tita liver retractor was use to retract the left lobe of the liver. We proceeded with careful removal of the alyssia-gastric tube after decompression of the stomach was confirmed. A small peritoneal opening was created near the angle of His using hook electrocautery. We proceeded with evaluation of the greater curvature of the stomach and the lesser sac was carefully incised by dividing the short gastric vessels using the bipolar cautery device. The short gastric vessels and attachments to the greater curvature were carefully taken down in the same fashion all the way to the angle of his superior and inferiorly along the greater curvature of the stomach to approximately 3-4 cm from the pylorus. The posterior attachments the stomach were carefully divided using sharp scissors. At this time we proceeded with our first staple line, using a thick tissue Endo SCOTT load. This was carried out towards the incisura, ensuring that ample caliber of the sleeve is preserved in order to avoid a stricture. Following this a 40 Kuwaiti bougie was carefully advanced by the anesthesia personnel and carefully guided into the antrum. This was used to calibrate the size of the residual sleeve is Endo SCOTT staplers were fired towards the proximal aspect of the stomach. The last staple load was carefully flared out laterally to avoid stapling over the distal esophagus. Once completely detached, the specimen was carefully removed through the left subcostal incision at Velazquez's point which was slightly increased in size. An upper gastrointestinal endoscopy was performed along with an underwater leak test to ensure the patency of the residual sleeve all the way to the duodenum, and to ensure the integrity of the staple line. The staple line was oversewn and cauterized as needed to ensure hemostasis. As part of the pre-operative work-up , the patient underwent abdominal ultrasound on 07/16/22 which showed increased echogenicity and was concerning for diffuse hepatocellular disease. On intra-operative evaluation, the liver appeared abnormal and enlarged. At this time, a laparoscopic liver wedge biopsy was performed in order to further evaluate the parenchyma of the liver. This was performed using a laparoscopic liver biopsy instrument. The specimen was passed off the table for pathology studies. Electrocautery was utilized to achieve hemostasis of the biopsy site. At the end of the operation the Tita liver retractor and the trocars were carefully removed under direct visualization and the pneumoperitoneum was evacuated. Fascial defect were closed using 0-Vycril suture for 10-mm or greater trocar sites and the left sub-costal specimen extraction site. The skin incisions were closed using 4-0 Vycril suture in subcuticular fashion. This was followed by steri strips and sterile dressings. The needle, sponge and instrument counts were correct. The patient tolerated the procedure and the anesthesia well without any major complications. The patients was transported to the post-anesthesia care unit in stable condition. I was present for the entire duration of the procedure. [facility] - Data form Start Time: 9:14 Stop Time: 9:57 Bougie (or sizing device): 40 Kuwaiti Distance from pylorus: 4 cm Staple Line reinforcement: [] Yes [x] No Oversew: [] Yes [x] No Table Worker Packager: [] Resident [x] Fellow ASA Class: [] 1 [] 2 [x] 3 []4 [] 5 Surgical Approach: [x] Conventional laparoscopic Was the procedure converted to another approach? [] Yes [x] No Was the case aborted? [] Yes [x] No Was a drain placed at the time of the initial operation? [] Yes [x] No Was a swallow study performed the day of or the day after the procedure? [x] Yes [] No Was the anastomotic/staple line checked with a provocative test to assess for leak? [x] Yes [] No Was this a stapling procedure: [x] Yes [] No Other Procedures: [x] EGD [x] Liver Biopsy Other: None [facility] [facility] 12-25-2022 History and physical note H&P Interval Update PATIENT SUMMARY Mora Lopez Dr. Aviles 36 y.o. female with Body mass index is 49.57 kg/m . SLEEVE GASTRECTOMY with hiatal hernia Procedure DM[] HTN[] RYANNE[] GERD[] HL[] OA[x] TOB[] Date of Surgery: 12/25/22 NOTES AD ADHD and memory problems - quit smoking in 2018 PCP: Stiven Beaver MD The patient's History and Physical, performed within the last 30 days, was reviewed. The patient was seen and examined. There has been no change in the management plan. Source Note - GEOFFREY Velarde - 12/18/2022 11:30 AM EDT Images from the original note were not included. Comprehensive PreSurgical History and Physical Name: Mora Lopez : 1985 (Age-37 y.o.) Date of Service: Pt seen/examined on 12/18/2022 Procedure Information Date/Time: 12/25/22 0830 Procedures: LAPAROSCOPY SLEEVE GASTRECTOMY WITH LIVER WEDGE BIOPSY HIATAL HERNIA REPAIR POSSIBLE OPEN (Abdomen) UNLISTED LAPAROSCOPIC PROCEDURE LIVER (Abdomen) Location: [facility] OR Operating Room Surgeons: Facundo Aviles MD Chief Complaint: Morbid (severe) obesity due to excess calories (HCC) [E66.01] Diaphragmatic hernia without obstruction or gangrene [K44.9] History Of Present Illness: 37 y.o. female who we are asked to see/evaluate by Dr. Aviles for pre-operative evaluation prior to the above procedure. Patient proceeding with the above procedure for weight loss and to reduce associated co-morbidities. ? Patient denies exertional chest pain/shortness of breath. Denies dizziness, syncope, lightheadedness. Denies fever, chills, weakness or fatigue. Patient denies hx of CAD, CHF, SC, TIA/CVA, diabetes, COPD, asthma, RYANNE, DVT/PE. Past Medical History: Past Medical History: No date: ADHD No date: Back pain 05/12/2021: COVID-19 vaccine series completed No date: Difficulty sleeping No date: Hx: UTI (urinary tract infection) No date: Joint pain, hip No date: Joint pain, knee No date: Memory difficulties 06/08/2022: Morbid obesity due to excess calories ([facility]) No date: Shortness of breath at rest No date: Snoring No date: SOBOE (shortness of breath on exertion) Past Surgical History: Past Surgical History: 2012: SECTION, CLASSIC 08/31/2022: ESOPHAGOGASTRODUODENOSCOPY Comment: Dr. Aviles No date: EXCISION HIDRADENITIS OF INGUINAL / UMBILICAL AREA Comment: [facility] 2020 x2 Medications Prior to Admission: Current Outpatient Medications on File Prior to Visit Medication Sig Dispense Refill BIOTIN PO Take by mouth. cholecalciferol (Vitamin D-3) 10 MCG (400 UNIT) capsule COLLAGEN PO Take by mouth. cyanocobalamin (Vitamin B-12) 2500 MCG tablet Take 1 tablet by mouth 1 (one) time per week. ergocalciferol (Vitamin D2) 1.25 MG (40739 UT) capsule TAKE 1 CAPSULE BY MOUTH ONE TIME PER WEEK FLUoxetine (PROzac) 10 MG tablet Take 10 mg by mouth daily. Multiple Vitamins-Iron (MULTIVITAMIN/IRON PO) Take 1 tablet by mouth daily. omeprazole (PriLOSEC) [address] capsule Take 1 capsule (20 mg) by mouth daily. Do not crush or chew. 90 capsule 1 ursodiol (Actigall) 300 MG capsule Take 1 capsule (300 mg) by mouth 2 times daily. 180 capsule 0 No current facility-administered medications on file prior to visit. CHRONIC NARCOTIC USE: No Allergies: Aspirin Can the patient take acetaminophen: Yes Social History: TOBACCO: reports that she quit smoking about 5 years ago. Her smoking use included cigarettes. She has a 1.00 pack-year smoking history. She quit smokeless tobacco use about 6 months ago. ETOH: reports that she does not currently use alcohol. Social History Substance and Sexual Activity Drug Use Not Currently Family History: Family History Problem Relation Name Age of Onset Cancer Mother Diabetes Mother Hypertension Mother Obesity Mother Hypertension Father Obesity Father Obesity Sister Diabetes Sister Obesity Brother Cancer Paternal Grandfather Obesity Paternal Grandmother Diabetes Paternal Grandmother Cancer Paternal Grandmother Cancer Maternal Grandfather Obesity Maternal Grandmother Diabetes Maternal Grandmother Cancer Maternal Grandmother REVIEW OF SYSTEMS: Review of Systems Constitutional: Negative for fatigue and fever. HENT: Negative for congestion. Respiratory: Negative for cough, chest tightness and shortness of breath. Cardiovascular: Negative for chest pain and palpitations. Gastrointestinal: Negative for diarrhea and vomiting. Skin: Negative for rash and wound. Neurological: Negative for syncope, weakness and headaches. Psychiatric/Behavioral: Negative for agitation. Physical Exam: Physical Exam Constitutional: Appearance: Normal appearance. She is obese. HENT: Head: Normocephalic and atraumatic. Nose: Nose normal. Eyes: Extraocular Movements: Extraocular movements intact. Cardiovascular: Rate and Rhythm: Normal rate and regular rhythm. Heart sounds: Normal heart sounds. Pulmonary: Effort: Pulmonary effort is normal. Breath sounds: Normal breath sounds. Musculoskeletal: General: Normal range of motion. Cervical back: Neck supple. Skin: General: Skin is warm and dry. Neurological: General: No focal deficit present. Mental Status: She is alert. Psychiatric: Mood and Affect: Mood normal. Behavior: Behavior normal. Vitals: Vitals Value Taken Time BP 126/71 12/18/22 1135 Temp 36.3 C (97.3 F) 12/18/22 1135 Pulse 78 12/18/22 1135 Resp 16 12/18/22 1135 SpO2 96 % 12/18/22 1135 Labs: Lab Results Component Value Date WBC 13.0 (H) 12/02/2022 HGB 13.7 12/02/2022 HCT 40.7 12/02/2022 MCV 96.0 12/02/2022 PLT 403 12/02/2022 Lab Results Component Value Date NA 135 12/02/2022 K 3.5 12/02/2022 CL 101 12/02/2022 CO2 25 12/02/2022 BUN 11 12/02/2022 CREATININE 0.45 (L) 12/02/2022 GLUCOSE 66 (L) 12/02/2022 CALCIUM 9.1 12/02/2022 EGFR >90.0 12/02/2022 Anshul's Simple Cardiac Risk Index: ANSHUL'S SIMPLE CARDIAC RISK SCORE: 0 Interpretation: 0 Points Class I 0.5% 1 Point Class II 1.3% 2 Points Class III 3.6% 3+ Points Class IV 9.1% METS >4 METS (Able to climb a flight of stairs with no chest pain or shortness of breath): Yes PAT Pain Score: Postop Pain Management Plan (Pain consult ordered?): Pain consult not indicated at this time ? EK12/02/22 ECHO and EF:None on file No components found for: LVEF, LVEFMODE 12/02/22 CXR results ASSESSMENT/PLAN: Patient is considered low/intermediate risk for this intermediate risk procedure/surgery. 1) Morbid (severe) obesity due to excess calories (HCC) [E66.01] Diaphragmatic hernia without obstruction or gangrene [K44.9] - Managed per surgery - Body mass index is 49.46 kg/m . - 12/02/22 albumin, A1c, BMP, CBC, CXR, EKG reviewed - CBC reordered today as WBC level was elevated on most recent CBC - Clearances per Dr. Aviles's OV on 12/02/22 Visit Type: Pre-Admission Testing Visit Labs Ordered: NO - COMPLETE PRIOR TO PAT VISIT Sleep Referral Ordered: NO - NEGATIVE SCREEN PER SLEEP REFERRAL PROTOCOL Electronically signed by: GEOFFREY Velarde Date: 12/18/2022 at 11:57 AM PAT Protocol referenced includes: 1. Anesthesia Lab Protocol Orders 2. Perioperative Cardiovascular Risk Assessment 3. Anesthesia Assessment 4. Pain Assessment and Acute Pain Service Consult (if appropriate) 5. Medical Clearance/Consult from Internal Medicine (IMS) 6. Shower/Wash Order (for designated surgeries) 7. RYANNE Screen and Sleep Clinic Referral (if appropriate) documented in this encounter [facility] 12-24-2022 Telephone encounter Note Called pt to review discharge instructions for 12/25/22 surgery. Pt verbalized understanding and will call with further questions. MideoMehart message also sent. [facility] Work Phone: 12-24-2022 Miscellaneous Notes Called pt to review discharge instructions for 12/25/22 surgery. Pt verbalized understanding and will call with further questions. [employer] message also sent. documented in this encounter [facility] 12-18-2022 Note Patient: Mora carlin Procedure Information Date/Time: 12/25/22 0830 Procedures: LAPAROSCOPY SLEEVE GASTRECTOMY WITH LIVER WEDGE BIOPSY HIATAL HERNIA REPAIR POSSIBLE OPEN (Abdomen) UNLISTED LAPAROSCOPIC PROCEDURE LIVER (Abdomen) Location: [facility] Operating Room Surgeons: Facundo Aviles MD Past Medical History: Past Medical History: No date: ADHD No date: Back pain 05/12/2021: COVID-19 vaccine series completed No date: Difficulty sleeping No date: Hx: UTI (urinary tract infection) No date: Joint pain, hip No date: Joint pain, knee No date: Memory difficulties 06/08/2022: Morbid obesity due to excess calories (HCC) No date: Shortness of breath at rest No date: Snoring No date: SOBOE (shortness of breath on exertion) Past Surgical History: Past Surgical History: 2013: SECTION, CLASSIC 08/31/2022: ESOPHAGOGASTRODUODENOSCOPY Comment: Dr. Aviles No date: EXCISION HIDRADENITIS OF INGUINAL / UMBILICAL AREA Comment: [facility] 2020 x2 Social History: TOBACCO: reports that she quit smoking about 5 years ago. Her smoking use included cigarettes. She has a 1.00 pack-year smoking history. She quit smokeless tobacco use about 6 months ago. ETOH: reports that she does not currently use alcohol. Social History Substance and Sexual Activity Drug Use Not Currently Family History: Family History Problem Relation Name Age of Onset ? Cancer Mother ? Diabetes Mother ? Hypertension Mother ? Obesity Mother ? Hypertension Father ? Obesity Father ? Obesity Sister ? Diabetes Sister ? Obesity Brother ? Cancer Paternal Grandfather ? Obesity Paternal Grandmother ? Diabetes Paternal Grandmother ? Cancer Paternal Grandmother ? Cancer Maternal Grandfather ? Obesity Maternal Grandmother ? Diabetes Maternal Grandmother ? Cancer Maternal Grandmother Screening: Having periods Clinical information reviewed: Tobacco Allergies Med Hx Surg Hx OB Status Fam Hx Soc Hx Physical Exam Airway Mallampati: I TM distance: >3 FB Neck ROM: full Mouth Open: normalendotracheal tube not in place Cardiovascular Dental (+) Missing Comments: Nose and lower tongue piercings; missing and broken teeth Pulmonary Abdominal Anesthesia Plan patient is NPO appropriate Any family history or previous problems with anesthesia no ASA 3 general and regional Any family history or previous problems with anesthesia no (TAP) The patient is not a current smoker. Anesthetic plan and risks discussed with patient and spouse. ERAS Type General ERAS RYANNE Screening NEGATIVE SCREEN PER SLEEP REFERRAL PROTOCOL Labs: Lab Results Component Value Date WBC 13.0 (H) 12/02/2022 HGB 13.7 12/02/2022 HCT 40.7 12/02/2022 MCV 96.0 12/02/2022 PLT 403 12/02/2022 Lab Results Component Value Date NA 135 12/02/2022 K 3.5 12/02/2022 CL 101 12/02/2022 CO2 25 12/02/2022 BUN 11 12/02/2022 CREATININE 0.45 (L) 12/02/2022 GLUCOSE 66 (L) 12/02/2022 CALCIUM 9.1 12/02/2022 EGFR >90.0 12/02/2022 CXR 12/02/2022 PA and lateral views of the chest were obtained. The heart is normal in size. The mediastinal silhouette is normal. The lungs are clear. There are no effusions or infiltrates. There is no pleural thickening. The osseous structures are unremarkable. ? IMPRESSION: Negative chest. ? No echocardiogram results found for the past 14 days 12/18/22 ECG 12-LEAD 12/03/2022 8:14 AM (Final) Impression Sinus rhythm Electronically Signed On 12-03-2022 8:14:28 EDT by Tristan Fitzgerald Signed by: Tristan Fitzgerald MD on 12/03/2022 8:14 AM Cardiology [x]?? []? not ordered CAVO CLEARED 07/20/22 Pulmonary []? [x]? not ordered [facility] 12-18-2022 Note Comprehensive PreSur gical History and Physical Name: Mora Lopez : 1985 (Age-37 y.o.) Date of Service: Pt seen/examined on 12/18/2022 Procedure Information Date/Time: 12/25/22 0830 Procedures: LAPAROSCOPY SLEEVE GASTRECTOMY WITH LIVER WEDGE BIOPSY HIATAL HERNIA REPAIR POSSIBLE OPEN (Abdomen) UNLISTED LAPAROSCOPIC PROCEDURE LIVER (Abdomen) Location: [facility] Operating Room Surgeons: Facundo Aviles MD Chief Complaint: Morbid (severe) obesity due to excess calories (HCC) [E66.01] Diaphragmatic hernia without obstruction or gangrene [K44.9] History Of Present Illness: 37 y.o. female who we are asked to see/evaluate by Dr. Aviles for pre-operative evaluation prior to the above procedure. Patient proceeding with the above procedure for weight loss and to reduce associated co-morbidities. ? Patient denies exertional chest pain/shortness of breath. Denies dizziness, syncope, lightheadedness. Denies fever, chills, weakness or fatigue. Patient denies hx of CAD, CHF, SC, TIA/CVA, diabetes, COPD, asthma, RYANNE, DVT/PE. Past Medical History: Past Medical History: No date: ADHD No date: Back pain 05/12/2021: COVID-19 vaccine series completed No date: Difficulty sleeping No date: Hx: UTI (urinary tract infection) No date: Joint pain, hip No date: Joint pain, knee No date: Memory difficulties 06/08/2022: Morbid obesity due to excess calories (HCC) No date: Shortness of breath at rest No date: Snoring No date: SOBOE (shortness of breath on exertion) Past Surgical History: Past Surgical History: 2012: SECTION, CLASSIC 08/31/2022: ESOPHAGOGASTRODUODENOSCOPY Comment: Dr. Aviles No date: EXCISION HIDRADENITIS OF INGUINAL / UMBILICAL AREA Comment: [facility] 2020 x2 Medications Prior to Admission: Current Outpatient Medications on File Prior to Visit Medication Sig Dispense Refill BIOTIN PO Take by mouth. cholecalciferol (Vitamin D-3) 10 MCG (400 UNIT) capsule COLLAGEN PO Take by mouth. cyanocobalamin (Vitamin B-12) 2500 MCG tablet Take 1 tablet by mouth 1 (one) time per week. ergocalciferol (Vitamin D2) 1.25 MG (50159 UT) capsule TAKE 1 CAPSULE BY MOUTH ONE TIME PER WEEK FLUoxetine (PROzac) 10 MG tablet Take 10 mg by mouth daily. Multiple Vitamins-Iron (MULTIVITAMIN/IRON PO) Take 1 tablet by mouth daily. omeprazole (PriLOSEC) [address] capsule Take 1 capsule (20 mg) by mouth daily. Do not crush or chew. 90 capsule 1 ursodiol (Actigall) 300 MG capsule Take 1 capsule (300 mg) by mouth 2 times daily. 180 capsule 0 No current facility-administered medications on file prior to visit. CHRONIC NARCOTIC USE: No Allergies: Aspirin Can the patient take acetaminophen: Yes Social History: TOBACCO: reports that she quit smoking about 5 years ago. Her smoking use included cigarettes. She has a 1.00 pack-year smoking history. She quit smokeless tobacco use about 6 months ago. ETOH: reports that she does not currently use alcohol. Social History Substance and Sexual Activity Drug Use Not Currently Family History: Family History Problem Relation Name Age of Onset Cancer Mother Diabetes Mother Hypertension Mother Obesity Mother Hypertension Father Obesity Father Obesity Sister Diabetes Sister Obesity Brother Cancer Paternal Grandfather Obesity Paternal Grandmother Diabetes Paternal Grandmother Cancer Paternal Grandmother Cancer Maternal Grandfather Obesity Maternal Grandmother Diabetes Maternal Grandmother Cancer Maternal Grandmother REVIEW OF SYSTEMS: Review of Systems Constitutional: Negative for fatigue and fever. HENT: Negative for congestion. Respiratory: Negative for cough, chest tightness and shortness of breath. Cardiovascular: Negative for chest pain and palpitations. Gastrointestinal: Negative for diarrhea and vomiting. Skin: Negative for rash and wound. Neurological: Negative for syncope, weakness and headaches. Psychiatric/Behavioral: Negative for agitation. Physical Exam: Physical Exam Constitutional: Appearance: Normal appearance. She is obese. HENT: Head: Normocephalic and atraumatic. Nose: Nose normal. Eyes: Extraocular Movements: Extraocular movements intact. Cardiovascular: Rate and Rhythm: Normal rate and regular rhythm. Heart sounds: Normal heart sounds. Pulmonary: Effort: Pulmonary effort is normal. Breath sounds: Normal breath sounds. Musculoskeletal: General: Normal range of motion. Cervical back: Neck supple. Skin: General: Skin is warm and dry. Neurological: General: No focal deficit present. Mental Status: She is alert. Psychiatric: Mood and Affect: Mood normal. Behavior: Behavior normal. Vitals: Vitals Value Taken Time BP 126/71 12/18/22 1135 Temp 36.3 ?C (97.3 ?F) 12/18/22 1135 Pulse 78 12/18/22 1135 Resp 16 12/18/22 1135 SpO2 96 % 12/18/22 1135 Labs: Lab Results Component Value Date WBC 13.0 (H) 12/02/2022 (more content not included)... [facility] 12-18-2022 Note Comprehensive PreSur gical History and Physical Name: Mora Lopez : 1985 (Age-37 y.o.) Date of Service: Pt seen/examined on 12/18/2022 Procedure Information Date/Time: 12/25/22 0830 Procedures: LAPAROSCOPY SLEEVE GASTRECTOMY WITH LIVER WEDGE BIOPSY HIATAL HERNIA REPAIR POSSIBLE OPEN (Abdomen) UNLISTED LAPAROSCOPIC PROCEDURE LIVER (Abdomen) Location: [facility] Operating Room Surgeons: Facundo Aviles MD Chief Complaint: Morbid (severe) obesity due to excess calories (HCC) [E66.01] Diaphragmatic hernia without obstruction or gangrene [K44.9] History Of Present Illness: 37 y.o. female who we are asked to see/evaluate by Dr. Aviles for pre-operative evaluation prior to the above procedure. Patient proceeding with the above procedure for weight loss and to reduce associated co-morbidities. ? Patient denies exertional chest pain/shortness of breath. Denies dizziness, syncope, lightheadedness. Denies fever, chills, weakness or fatigue. Patient denies hx of CAD, CHF, SC, TIA/CVA, diabetes, COPD, asthma, RYANNE, DVT/PE. Past Medical History: Past Medical History: No date: ADHD No date: Back pain 05/12/2021: COVID-19 vaccine series completed No date: Difficulty sleeping No date: Hx: UTI (urinary tract infection) No date: Joint pain, hip No date: Joint pain, knee No date: Memory difficulties 06/08/2022: Morbid obesity due to excess calories (HCC) No date: Shortness of breath at rest No date: Snoring No date: SOBOE (shortness of breath on exertion) Past Surgical History: Past Surgical History: 2013: SECTION, CLASSIC 08/31/2022: ESOPHAGOGASTRODUODENOSCOPY Comment: Dr. Aviles No date: EXCISION HIDRADENITIS OF INGUINAL / UMBILICAL AREA Comment: [facility] 2020 x2 Medications Prior to Admission: Current Outpatient Medications on File Prior to Visit Medication Sig Dispense Refill BIOTIN PO Take by mouth. cholecalciferol (Vitamin D-3) 10 MCG (400 UNIT) capsule COLLAGEN PO Take by mouth. cyanocobalamin (Vitamin B-12) 2500 MCG tablet Take 1 tablet by mouth 1 (one) time per week. ergocalciferol (Vitamin D2) 1.25 MG (47000 UT) capsule TAKE 1 CAPSULE BY MOUTH ONE TIME PER WEEK FLUoxetine (PROzac) 10 MG tablet Take 10 mg by mouth daily. Multiple Vitamins-Iron (MULTIVITAMIN/IRON PO) Take 1 tablet by mouth daily. omeprazole (PriLOSEC) [address] capsule Take 1 capsule (20 mg) by mouth daily. Do not crush or chew. 90 capsule 1 ursodiol (Actigall) 300 MG capsule Take 1 capsule (300 mg) by mouth 2 times daily. 180 capsule 0 No current facility-administered medications on file prior to visit. CHRONIC NARCOTIC USE: No Allergies: Aspirin Can the patient take acetaminophen: Yes Social History: TOBACCO: reports that she quit smoking about 5 years ago. Her smoking use included cigarettes. She has a 1.00 pack-year smoking history. She quit smokeless tobacco use about 6 months ago. ETOH: reports that she does not currently use alcohol. Social History Substance and Sexual Activity Drug Use Not Currently Family History: Family History Problem Relation Name Age of Onset Cancer Mother Diabetes Mother Hypertension Mother Obesity Mother Hypertension Father Obesity Father Obesity Sister Diabetes Sister Obesity Brother Cancer Paternal Grandfather Obesity Paternal Grandmother Diabetes Paternal Grandmother Cancer Paternal Grandmother Cancer Maternal Grandfather Obesity Maternal Grandmother Diabetes Maternal Grandmother Cancer Maternal Grandmother REVIEW OF SYSTEMS: Review of Systems Constitutional: Negative for fatigue and fever. HENT: Negative for congestion. Respiratory: Negative for cough, chest tightness and shortness of breath. Cardiovascular: Negative for chest pain and palpitations. Gastrointestinal: Negative for diarrhea and vomiting. Skin: Negative for rash and wound. Neurological: Negative for syncope, weakness and headaches. Psychiatric/Behavioral: Negative for agitation. Physical Exam: Physical Exam Constitutional: Appearance: Normal appearance. She is obese. HENT: Head: Normocephalic and atraumatic. Nose: Nose normal. Eyes: Extraocular Movements: Extraocular movements intact. Cardiovascular: Rate and Rhythm: Normal rate and regular rhythm. Heart sounds: Normal heart sounds. Pulmonary: Effort: Pulmonary effort is normal. Breath sounds: Normal breath sounds. Musculoskeletal: General: Normal range of motion. Cervical back: Neck supple. Skin: General: Skin is warm and dry. Neurological: General: No focal deficit present. Mental Status: She is alert. Psychiatric: Mood and Affect: Mood normal. Behavior: Behavior normal. Vitals: Vitals Value Taken Time BP 126/71 12/18/22 1135 Temp 36.3 ?C (97.3 ?F) 12/18/22 1135 Pulse 78 12/18/22 1135 Resp 16 12/18/22 1135 SpO2 96 % 12/18/22 1135 Labs: Lab Results Component Value Date WBC 13.0 (H) 12/02/2022 (more content not included)... [facility] 12-18-2022 Telephone encounter Note Thanks, no lovenox. [facility] 12-18-2022 Miscellaneous Notes Thanks, no lovenox. DVT PPX Risk Factors [] Male [] Age >= 60 years [] BMI >= 50 kg/m^2 [] CHF [] Dyspnea at Rest [] Paraplegia [x] Non-Gastric Band Surgery [] Anticipate Operative Time > 3 hours [] Anticipate Length of Stay >3 days Automatic 4 Weeks of Therapy [] Congenital or Acquired Hypercoagulable Conditions (Factor V Leiden, Prothrombin) [] Past History of DVT or PE [] Significant Chronic Venous Insufficiency Calculated Risk Score: 0.16% Risk % Weeks </> BMI 50 SQ Dose [x] Moderate <0.4% 0 None [] High Risk 0.4% - 1% 2 [] 40 mg Lovenox BID [] 60 mg Lovenox BID [] Very High Risk >1% 4 [] 40 mg Lovenox BID [] 60 mg Lovenox BID No Lovenox documented in this encounter [facility] 12-18-2022 Telephone encounter Note DVT PPX Risk Factors [] Male [] Age >= 60 years [] BMI >= 50 kg/m^2 [] CHF [] Dyspnea at Rest [] Paraplegia [x] Non-Gastric Band Surgery [] Anticipate Operative Time > 3 hours [] Anticipate Length of Stay >3 days Automatic 4 Weeks of Therapy [] Congenital or Acquired Hypercoagulable Conditions (Factor V Leiden, Prothrombin) [] Past History of DVT or PE [] Significant Chronic Venous Insufficiency Calculated Risk Score: 0.16% Risk % Weeks </> BMI 50 SQ Dose [x] Moderate <0.4% 0 None [] High Risk 0.4% - 1% 2 [] 40 mg Lovenox BID [] 60 mg Lovenox BID [] Very High Risk >1% 4 [] 40 mg Lovenox BID [] 60 mg Lovenox BID No Lovenox [facility] 12-03-2022 Telephone encounter Note Noted. [employer] Work Phone: 12-03-2022 Miscellaneous Notes Noted. Sent pt MyChart message regarding low BG and elevated WBC. Pt states she did not eat prior to her blood drawn, felt shaky but ate right after which relieved her symptoms. She does not have an infection that she is aware of, however, has been exercising more and noticed soreness and some bruising. Let pt know we will cont to monitor her WBC throughout the surgical process. Having surgery with Dr. Aviles 12/25/22. ----- Message from Noris Faulkner NP sent at 12/03/2022 8:09 AM EDT ----- Low glucose. Mild WBC elevation. Could you just ask if any symptoms of infection? Thank you! documented in this encounter [employer] [facility] [facility] 12-03-2022 Telephone encounter Note Sent pt MyChart message regarding low BG and elevated WBC. Pt states she did not eat prior to her blood drawn, felt shaky but ate right after which relieved her symptoms. She does not have an infection that she is aware of, however, has been exercising more and noticed soreness and some bruising. Let pt know we will cont to monitor her WBC throughout the surgical process. Having surgery with Dr. Aviles 12/25/22. [employer] Work Phone: 12-03-2022 Telephone encounter Note ----- Message from Noris Faulkner NP sent at 12/03/2022 8:09 AM EDT ----- Low glucose. Mild WBC elevation. Could you just ask if any symptoms of infection? Thank you! [facility] 12-02-2022 History of Present illness Narrative [facility] Rooming note: FINAL PRE-OP VISIT Patient: Mora Lopez Date of : 1985 Service Date: 12/02/2022 This patient is unaccompanied for the evaluation today Patient is here today for their final pre-operative visit with surgeon prior to undergoing surgical weight loss intervention. Patient has the following question(s): Sara Weight Metrics: Measurements Weight: 276 lb 12.8 oz (126 kg) Height: 5' 2 (157.5 cm) ([facility]) BMI (Calculated): 50.7 Percent Excess Weight Loss: 0 Percent Weight Change Since Preop (kg): 125.55 kg Initial Excess Weight (kg): -49.9 kg IBW in kg (Bariatric): 49.9 kg IBW in lb (Bariatric): 110 lb Weight Change Since Last Visit: 125.55 kg Percent of IBW: 251.64 Percent EBW (kg): 75.63 kg EBW (lb): 166.8 lb Today's weight has increased from the last visit Falls Risk Assessment Patient does not take medications which affect BP or mental status Patient does not have newly prescribed or changed dosage of medications within past 30 days which affect BP or mental status Patient has not fallen in the past 2 months Patient does not demonstrate unsteady gait Patient uses the following ambulatory assistive devices: none Patient states the presence of the following traits which increases risk of fall: none Patient is low risk for falls. If high or moderate risk, patient instructed not to ambulate independently in the Center, and cord for call light placed within reach of patient. Patient has not had a time when it was difficult for an IV to be placed. Patient is not on home O2 Patient has not has a time when it was difficult to intubate them Patient does not have a CPAP/BiPAP machine. If patient DOES have CPAP/BiPAP: [] CPAP [] BiPAP Settings are n/a cm H2O PAP and settings are not entered into the Medication List Completed by: Aimee Mabry Images from the original note were not included. FACUNDO AVILES MD , FACS, [facility] MINIMALLY INVASIVE & METABOLIC / BARIATRIC SURGERY [facility] - FINAL PRE-OP VISIT 12/02/2022 PATIENT: Mora Lopez DATE OF : 1985 HISTORY OF PRESENT ILLNESS Chief Complaint: Morbid Obesity and here for final preoperative evaluation, informed consent and discussion of work-up results. Mora Lopez is a 37 y.o. female with morbid obesity and associated comorbid conditions who presents to [facility] for final pre-operative evaluation and for discussion of the preoperative testing results. A discussion of the risks, benefits and options of the planned procedure was also held and all questions were answered to the patient's satisfaction. The patient stands Height: 5' 2 (157.5 cm) ([facility]) tall with a weight of Weight: 276 lb 12.8 oz (126 kg) , and has a BMI of Body mass index is 50.63 kg/m .. PATIENT SUMMARY Mora Lopez Dr. Aviles 36 y.o. female with Body mass index is 49.57 kg/m . SLEEVE GASTRECTOMY with hiatal hernia Procedure DM[] HTN[] RYANNE[] GERD[] HL[] OA[x] TOB[] Date of Surgery: 12/25/22 NOTES AD ADHD and memory problems - quit smoking in 2018 PCP: Stiven Beaver MD INITIAL TESTING RESULTS Labwork [x] CMP, TSH, Fasting Lipid Profile, Mg, Zinc, Vit B1 (whole blood), Vit B12, 25-OH Vit D, Fe, Ferritin, Folate 07/03/22 TSH OK Tobacco [x] Serum Nicotine / Cotinine 07/03/22 [x] Negative [] Positive EGD [x] Dx: [] GERD [x] Dyspepsia [] Other Normal EGD (AD 08/31/22) Pathology [x] H. pylori STOOL: 10/08/22 [x] Negative [] Positive UGI [x] [] not ordered 07/14/22 US Abdomen [x] [] not ordered 07/14/22 Liver hemangioma and renal cyst. MRI confirmed hemangioma and cyst is complex. Referred to Urology for ongoing surveillance of renal cyst. Lb. RYANNE eval [x] [] On CPAP / Obtain settings 07/30/22-NO NEED TO TEST-AKIL Hematology [] [] Hypercoagulation panel Toxicology [] [] Urine drug screen [] EtOH screen Addtional [x] [x] Hgb A1c 07/03/22 5.4 INITIAL CONSULTATIONS CLEARANCE / MANAGEMENT Psychology [x] Dr. Simmons Initial 08.12.2022; CLEARED 09.16.2022 Dietitian [x] Pat Campbell, RD Cleared 07/20/22 Cardiology [x] [] not ordered CAVO CLEARED 07/20/22 Pulmonary [] [x] not ordered Others [] []Heme/Onc []Psychiatry []Pain mgmt PSD [] Physician supervised diet: []None [x]3 mos []6 mos Preop diet [] Preop low calory diet: []None [x]1 wk []2 wks []Ext. FINAL PRE-OP TESTING RESULTS Labwork [x] [x]Pre-op CBC [x]BMP []Serum Nicotine / Cotinine EKG [x] CXR [x] POST-OP MEDICATIONS Ulcer Ppx [] Omeprazole 20 mg PO []QD []BID Gallstone Ppx [] Ursodiol 300 mg []BID DVT Ppx [] DVT prophylaxis per final preop visit estimated risk Estimated calculated risk: % COMPLETE FILE TO FINANCIAL: 10/12/22 WLS Prior Auth Request Submitted: 10/15/22 WLS Prior Auth Approval Received: 10/22/22 [id number] DVT PPX Risk Factors [] Male [] Age >= 60 years [] BMI >= 50 kg/m^2 [] CHF [] Dyspnea at Rest [] Paraplegia [x] Non-Gastric Band Surgery [] Anticipate Operative Time > 3 hours [] Anticipate Length of Stay >3 days Automatic 4 Weeks of Therapy [] Congenital or Acquired Hypercoagulable Conditions (Factor V Leiden, Prothrombin) [] Past History of DVT or PE [] Significant Chronic Venous Insufficiency Calculated Risk Score: 0.16% Risk % Weeks </> BMI 50 SQ Dose [] Moderate <0.4% 0 None [] High Risk 0.4% - 1% 2 [] 40 mg Lovenox BID [] 60 mg Lovenox BID [] Very High Risk >1% 4 [] 40 mg Lovenox BID [] 60 mg Lovenox BID Review of Symptoms Constitutional: negative for chills, fevers, night sweats Respiratory: negative for cough, dyspnea on exertion, hemoptysis, and sputum Cardiovascular: negative for chest pain, chest pressure/discomfort, dyspnea, irregular heart beat, palpitations, and syncope Gastrointestinal: negative for abdominal pain, constipation, diarrhea, dysphagia, melena, reflux symptoms, and vomiting Neurological: negative for dizziness, paresthesia, seizures, and weakness PAST HISTORIES Past Medical History: Diagnosis Date ADHD Back pain COVID-19 vaccine series completed 05/12/2021 Difficulty sleeping Hx: UTI (urinary tract infection) Joint pain, hip Joint pain, knee Memory difficulties Morbid obesity due to excess calories (HCC) 06/08/2022 Shortness of breath at rest Snoring SOBOE (shortness of breath on exertion) Past Surgical History: Procedure Laterality Date SECTION, CLASSIC 2013 ESOPHAGOGASTRODUODENOSCOPY 08/31/2022 Dr. Aviles EXCISION HIDRADENITIS OF INGUINAL / UMBILICAL AREA [facility] 2020 x2 Family History Problem Relation Name Age of Onset Cancer Mother Diabetes Mother Hypertension Mother Obesity Mother Hypertension Father Obesity Father Obesity Sister Diabetes Sister Obesity Brother Cancer Paternal Grandfather Obesity Paternal Grandmother Diabetes Paternal Grandmother Cancer Paternal Grandmother Cancer Maternal Grandfather Obesity Maternal Grandmother Diabetes Maternal Grandmother Cancer Maternal Grandmother Allergies Allergen Reactions Aspirin Anaphylaxis, Itching and Swelling PHYSICAL EXAM BP 137/81 Pulse 106 Temp 37 C (98.6 F) Resp 16 Ht 5' 2 (1.575 m) Comment: bcc Wt 276 lb 12.8 oz (126 kg) BMI 50.63 kg/m General: This patient is awake, alert, and oriented, with normal affect and is in no apparent distress. Cardiac: Regular rate and rhythm without evidence of murmur. Respiratory: Clear to auscultation bilaterally with normal effort. Abdomen: Obese, soft, non-tender, non-distended without masses/ No evidence of abdominal hernia / Incisions consistent with previous surgeries. Surgical sites: Clean dry and intact Head and Neck: Obese, normocephalic and atraumatic/soft and supple, no lymphadenopathy or obvious bruits. No thyroidmegaly. Extremities: No cyanosis, clubbing or edema/ No calf tenderness/No restrictions of movement, is ambulatory without assistance. Neurological: Intact x 4 extremities, normal sensation, no focal deficits notes. Skin: Skin cool, warm and dry. No rashes or lesions noted. Rectal: Deferred LABORATORY STUDIES AND IMAGING Laboratory Studies: No results for input(s): NA, K, CL, CO2, BUN, CREATININE, GLUCOSE, CALCIUM in the last 72 hours. No results for input(s): WBC, RBC, HGB, HCT, MCV, MCH, MCHC, RDW, PLT, MPV in the last 72 hours. No results for input(s): ALKPHOS, ALT, AST, PROT, BILITOT, BILIDIR, LIPASE in the last 72 hours. No lab exists for component: LABALBU ASSESSMENT Encounter Diagnoses Name Primary? Back pain, unspecified back location, unspecified back pain laterality, unspecified chronicity Morbid obesity with BMI of 50.0-59.9, adult (HCC) Liver cyst Yes Hidradenitis suppurativa Anxiety In anticipation of weight reductive surgery now or in the future, we spent a great deal of time discussing the risks and benefits of , including but not limited to injury to intra-abdominal organs, breakdown of the gastric staple line, the need for re-operative therapy, prolonged hospitalization, mechanical ventilation, and . We discussed the possibility of bleeding, the need for blood transfusions, blood clots, hospital-acquired and intra-abdominal infection, anastomotic stricture, and worsening GERD. And we discussed the need for post-operative visit compliance, behavior modifications and diet changes, protein and vitamin supplementation, as well as routine scheduled and dedicated exercise. We discussed the potential weight loss benefit of approximately 60-70% of the excess body weight at 12-18 months post-op, as well as the possibility of insufficient weight loss or weight gain. PLAN Based on today's evaluation, the patient is ready to proceed Laparoscopic Sleeve Gastrectomy as detailed above. No orders of the defined types were placed in this encounter. ATTESTATION I personally interviewed and examined the patient. I have reviewed their past medical, surgical, medication, allergy, social and family histories. I have performed an independent physical examination and have reviewed all pertinent laboratory and imaging results. I have reviewed with the patient my assessment of their condition as well as the treatment recommendations and the associated risks, benefits and options. I have spent a total of 30 minutes for this office visit in [id number] discussion, counseling of this patient, reviewing medical records and documenting the encounter. NDO AVILES MD, FACS, [facility] [address] Scientist - Weight Management Gap / [facility] Buffing Wheel Inspector - Advanced GI MIS, Foregut and Bariatric Surgery Fellowship ---[facility]--- Patient Care Team: Stiven Beaver MD as PCP - General (Family Medicine) Facundo Aviles MD as Surgeon (General Surgery) Aimee Lilly, RN as Registered Nurse Nii Najera MD as Surgeon (Urology) documented in this encounter [facility] 11-11-2022 History of Present illness Narrative Images from the original note were not included. Nii Najera MD 11/11/2022 at 4:15 PM UROLOGY INITIAL OFFICE VISIT PATIENT NAME: Mora Lopez DATE OF : 1985 TODAY'S DATE: 11/11/2022 Chief Complaint: Chief Complaint Patient presents with Other Right Renal cyst HISTORY OF PRESENT ILLNESS: Ms. Lopez is a 37 y.o. female who presents with right renal csyt She was incidentally found to have this during work up for weight loss surgery REVIEW OF SYSTEMS: Review of Systems Constitutional: Negative for activity change, chills, fatigue and fever. Gastrointestinal: Negative for abdominal distention and abdominal pain. Genitourinary: Positive for frequency and urgency. Negative for difficulty urinating and hematuria. Past Medical History: Past Medical History: Diagnosis Date ADHD Back pain COVID-19 vaccine series completed 05/12/2021 Difficulty sleeping Hx: UTI (urinary tract infection) Joint pain, hip Joint pain, knee Memory difficulties Morbid obesity due to excess calories (HCC) 06/08/2022 Shortness of breath at rest Snoring SOBOE (shortness of breath on exertion) Past Surgical History: Past Surgical History: Procedure Laterality Date SECTION, CLASSIC 2013 ESOPHAGOGASTRODUODENOSCOPY 08/31/2022 Dr. Aviles EXCISION HIDRADENITIS OF INGUINAL / UMBILICAL AREA [facility] 2020 x2 Current Medications: Prior to Admission medications Medication Sig Start Date End Date Taking? Authorizing Provider cholecalciferol (Vitamin D-3) 10 MCG (400 UNIT) capsule 05/25/22 Yes Historical Provider, cyanocobalamin (Vitamin B-12) 2500 MCG tablet Take 1 tablet by mouth 1 (one) time per week. 07/15/22 Yes Historical Provider, ergocalciferol (Vitamin D2) 1.25 MG (27956 UT) capsule TAKE 1 CAPSULE BY MOUTH ONE TIME PER WEEK 05/25/22 Yes Historical Provider, FLUoxetine (PROzac) 10 MG tablet Take 10 mg by mouth daily. 04/09/22 Yes Historical Provider, Multiple Vitamins-Iron (MULTIVITAMIN/IRON PO) Take 1 tablet by mouth daily. 07/15/22 Yes Historical Provider, lansoprazole (Prevacid) [address] capsule Take 1 capsule (30 mg) by mouth 2 times daily for 14 days. Do not crush or chew. 09/08/22 09/22/22 Kristen Yoder APRN - ORGANISATION AND METHODS ANALYST Allergies: Aspirin Social History: Social History Socioeconomic History Marital status: Spouse name: Not on file Number of children: Not on file Years of education: Not on file Highest education level: Not on file Occupational History Not on file Tobacco Use Smoking status: Some Days Types: Cigarettes Last attempt to quit: 2018 Years since quittin.3 Smokeless tobacco: Former Quit date: 06/10/2022 Tobacco comments: E- Cigarette contains nicotine Smoked a couple cigarettes on vacation Vaping Use Vaping Use: Every day Substances: no nicotine Substance and Sexual Activity Alcohol use: Not Currently Drug use: Not Currently Sexual activity: Yes Partners: Male Other Topics Concern Not on file Social History Narrative Not on file Social Determinants of Health Financial Resource Strain: Not on file Food Insecurity: Not on file Transportation Needs: Not on file Physical Activity: Not on file Stress: Not on file Social Connections: Not on file Intimate Partner Violence: Not At Risk Fear of Current or Ex-Partner: No Emotionally Abused: No Physically Abused: No Sexually Abused: No Housing Stability: Not on file [facility] PHYSICAL EXAM: VITALS: There were no vitals taken for this visit. Physical Exam Constitutional: Appearance: Normal appearance. HENT: Head: Atraumatic. Cardiovascular: Rate and Rhythm: Normal rate. Pulmonary: Breath sounds: Normal breath sounds. Abdominal: Palpations: Abdomen is soft. Musculoskeletal: General: Normal range of motion. Cervical back: Normal range of motion and neck supple. Skin: General: Skin is warm and dry. Neurological: Mental Status: She is alert. DATA: WBC No results found for: WBC BMP No results found for: NA, K, CL, CO2, BUN, CREATININE, GLUCOSE, CALCIUM PSA No results found for: PSA UANo results found for: APPEARANCE, COLORU, LABSPEC, LABPH, URINE, GLUCOSEU, UROBILINOGEN, UROBILINOGEN, BILIRUBINUR, OCBU Review: MRI ABDOMEN WITHOUT AND WITH CONTRAST (WITH ATTENTION TO THE LIVER) EXAM DATE AND TIME: 08/07/2022 3:47 PM EST INDICATION: 36 years Female with liver lesion TECHNIQUE: Multiplanar multisequence MR images of the abdomen were performed with attention to the liver, including diffusion-weighted images and imaging following the intravenous administration of 12.5 mL Gadavist contrast. COMPARISON: 07/14/2022 FINDINGS: Liver: The liver is normal in size and contour. There is drop in signal on the opposed-phase images consistent with fat deposition. There is a mass in segment 4A measuring 2.5 x 1.8 cm. This is moderately hyperintense on the T2-weighted images, with peripheral nodular arterial-phase enhancement with centripetal filling on delayed phase images consistent with a hemangioma. Multiple other hemangiomas are present including in segment eight measuring 1.5 x 1.0 cm, in segment two measuring 1.2 x 1.1 cm and segment seven measuring 1.2 x 0.8 cm Biliary tree: Normal gallbladder. No biliary dilatation. Spleen: Normal Adrenals:Normal Pancreas: Homogeneous enhancement without mass or peripancreatic fluid. No pancreatic duct dilation. Kidneys: Symmetric contrast enhancement hydronephrosis. Cystic lesion in the superior pole the right kidney measuring 1.6 x 1.3 cm, with dependent hypointensity and T2 weighted images and hyperintensity on the T1-weighted images, but without enhancement on the subtracted postcontrast images. There is minimal mural thickening posteriorly. Lymph nodes: No lymphadenopathy. Vasculature: The aorta and major abdominal arterial vessels are unremarkable. Superior mesenteric vein, splenic vein and the main, right and left portal veins are patent. No significant collaterals or esophageal varices. Visualized Osseous structures: Normal IMPRESSION: Multiple liver hemangiomas. The atypical appearance on the prior ultrasound may have been artifactual due to the diffuse background hepatic steatosis, which is also present on this exam. Complex right renal cyst with layering hemorrhagic debris. There is minimal mural thickening consistent with a Bosniak category 2F lesion. Recommend follow-up CT or MRI in six months. Assessment and Plan Diagnoses and all orders for this visit: Renal cyst, right Comments: MARGAUX 2 F. Orders: - [facility] - US retroperitoneum limited; Future Frequency of urination MRI reviewed, Margaux Iif right renal cyst identified on MRI Check Renal US in 6 mo If renal US would show any concern, could repeat MRI For urinary frequency and urgency, discussed anticholinergic, however at this time symptoms dont justify this Follow up in about 6 months (around 05/14/2023). Nii Najera MD 11/11/22 4:15 PM documented in this encounter [facility] 09-16-2022 Note BARIATRIC CARE [facility] SURGICAL WEIGHT LOSS MANAGEMENT PROGRAM PROGRESS NOTE FOLLOW UP Patient: Mora Lopez Date of : 1985 Service Date: 09/16/2022 DE Visit number: 3 of 3 Pre Program Weight Metrics Date of Initial Consultation:@FLOWLAST([id number])@ Initial Weight: @FLOWLAST([id number])@ Initial BMI: @FLOWLAST([id number])@ [place] Body Weight: @FLOWLAST([id number])@ Excess Body Weight: @FLOWLAST([id number])@ Follow Up Weight Metrics Last Three Weights Including Today's Weight: Wt Readings from Last 3 Encounters: 09/16/22 268 lb 4.8 oz (122 kg) 08/31/22 275 lb (125 kg) 08/12/22 274 lb 3.2 oz (124 kg) Today's BMI: BMI: 46.05 %EBWL: % EBWL: 8% Weight Chance Since Last Visit: Weight Change: -5.9 lbs Weight Change from Initial DE/SPR Weight: Total Weight Change: -12.3 lbs Patient has the following question(s): none Falls Risk Assessment Patient does nottake medications which affect BP or mental status Patient does have newly prescribed or changed dosage of medications within past 30 days which affect BP or mental status Patient has not fallen in the past 2 months Patient does notdemonstrate unsteady gait Patient uses the following ambulatory assistive devices: none Patient states the presence of the following traits which increases risk of fall: none Patient is not on home O2 Completed by: Rossi Escalera LPN [facility] 08-31-2022 Note Patient: Mora Lopez Procedure Summary Date: 08/31/22 Room / Location: [facility] 2 / [facility] Gastro[facility]ology Anesthesia Start: 1050 Anesthesia Stop: 1111 Procedure: EGD WITH BIOPSY Diagnosis: Dyspepsia (Dyspepsia [R10.13]) Providers: Facundo Aviles MD Responsible Provider: Alfonso Gardiner MD Anesthesia Type: general ASA Status: 3 Anesthesia Type: general Vitals Value Taken Time BP 141/90 08/31/22 1112 Temp 36.7 ?C (98 ?F) 08/31/22 1112 Pulse 81 08/31/22 1112 Resp 14 08/31/22 1112 SpO2 100 % 08/31/22 1112 Anesthesia Post Evaluation Patient location during evaluation: PACU Patient participation: complete - patient participated Level of consciousness: awake and alert Pain management: satisfactory to patient Airway patency: patent Dental Injury: no Cardiovascular status: acceptable, blood pressure returned to baseline and hemodynamically stable Respiratory status: acceptable and spontaneous ventilation Hydration status: euvolemic Nausea/Vomiting: controlled No notable events documented. Patient can be discharged once all PACU criteria has been met. [facility] 08-31-2022 Note Patient: Mora Lopez Procedure Summary Date: 08/31/22 Room / Location: [facility] END[facility] SEC 2 / [facility] Gastroenterology Anesthesia Start: 1050 Anesthesia Stop: 1111 Procedure: EGD WITH BIOPSY Diagnosis: Dyspepsia (Dyspepsia [R10.13]) Providers: Facundo Aviles MD Responsible Provider: Alfonso Gardiner MD Anesthesia Type: general ASA Status: 3 Anesthesia Type: general Vitals Value Taken Time BP 141/90 08/31/22 1112 Temp 36.7 ?C (98 ?F) 08/31/22 1112 Pulse 81 08/31/22 1112 Resp 14 08/31/22 1112 SpO2 100 % 08/31/22 1112 Anesthesia Post Evaluation Patient location during evaluation: PACU Patient participation: complete - patient participated Level of consciousness: awake and alert Pain management: satisfactory to patient Multimodal analgesia pain management approach Airway patency: patent Two or more strategies used to mitigate risk of obstructive sleep apnea Cardiovascular status: acceptable and hemodynamically stable Respiratory status: acceptable Hydration status: acceptable No notable events documented. MIPS #[id number] PONV Patient did not receive an inhalational anesthetic ([id number] Patient exhibits three or more risk factors for PONV (4556F) MIPS # 424 Perioperative Temperature Management Anesthesia time was less than 60 minutes (4256F) MIPS #477 Multimodal Pain Management Not emergent case Patient was administered multimodal pain management (two or more drugs and/or interventions excluding systemic opioids) in the periopeartive period occurring at some time between 6 hours prior to anesthesia start time until discharged from PACU ([id number]) MIPS #404 Anesthesiology Smoking Abstinence The patient is not a current smoker (e.g. cigarette, cigar, pipe, e-cigarette/vaping/marijuana) I completed my handoff to the receiving clinician during which we: 1. Identified the patient 2. Identified the responsible provider 3. Reviewed the pertinent medical history 4. Discussed the surgical course 5. Reviewed intra-op anesthesia management and issues during anesthesia 6. Set expectations for post-procedure period 7. Allowed opportunity for questions and acknowledgement of understanding. [facility] 08-31-2022 Note Patient: Mora Lopez Procedure Information Date/Time: 08/31/22 1100 Procedure: EGD WITH BIOPSY - 30 mins Location: [facility] SEC 2 / [facility] Gastroenterology Providers: Facundo Aviles MD Relevant Problems Neuro/Psych (+) Anxiety Past Medical History: Past Medical History: No date: ADHD No date: Back pain No date: Difficulty sleeping No date: Hx: UTI (urinary tract infection) No date: Joint pain, hip No date: Joint pain, knee No date: Memory difficulties 06/08/2022: Morbid obesity due to excess calories (HCC) No date: Shortness of breath at rest No date: Snoring No date: SOBOE (shortness of breath on exertion) Past Surgical History: Past Surgical History: 2013: SECTION, CLASSIC No date: EXCISION HIDRADENITIS OF INGUINAL / UMBILICAL AREA Comment: [facility] 2020 x2 Social History: TOBACCO: reports that she has been smoking cigarettes. She quit smokeless tobacco use about 2 months ago. ETOH: reports that she does not currently use alcohol. Social History Substance and Sexual Activity Drug Use Not Currently Family History: Family History Problem Relation Name Age of Onset ? Cancer Mother ? Diabetes Mother ? Hypertension Mother ? Obesity Mother ? Hypertension Father ? Obesity Father ? Obesity Sister ? Diabetes Sister ? Obesity Brother ? Cancer Paternal Grandfather ? Obesity Paternal Grandmother ? Diabetes Paternal Grandmother ? Cancer Paternal Grandmother ? Cancer Maternal Grandfather ? Obesity Maternal Grandmother ? Diabetes Maternal Grandmother ? Cancer Maternal Grandmother Screening: Having periods Clinical information reviewed: Tobacco Allergies Meds Med Hx Surg Hx OB Status Fam Hx Soc Hx Physical Exam Airway Mallampati: I TM distance: >3 FB Neck ROM: full Mouth Open: normalendotracheal tube not in place Cardiovascular Dental Comments: Chipped upper front and lower front Pulmonary Abdominal Anesthesia Plan ASA 3 general The patient is a current smoker. Anesthetic plan and risks discussed with patient. patient is NPO RYANNE Screening Labs: No results found for: WBC, HGB, HCT, MCV, PLT No results found for: NA, K, CL, CO2, BUN, CREATININE, GLUCOSE, CALCIUM, PROT, BILIRUBINFL, ALKPHOS, AST, ALT, EGFR, GLOB No echocardiogram results found for the past 14 days 07/20/22 ECG 12-LEAD 07/29/2022 4:18 PM (Final) Narrative Sinus Rhythm WITHIN NORMAL LIMITS Signed by: Agnes Jenkins MD on 07/29/2022 4:18 PM [facility] 08-31-2022 Note Endoscopy Center- [facility] Patient Name: Mora Lopez Procedure Date: 08/31/2022 10:42 AM Gender: Female Date of : 1985 Age: 36 Admit Type: Outpatient Note Status: Finalized Endoscopist: Facundo Aviles MD Procedure: Upper GI endoscopy Indications: Functional Dyspepsia, Preoperative assessment for bariatric surgery to treat morbid obesity Findings: The esophagus was normal. The stomach was normal. The examined duodenum was normal. Biopsy with a cold forceps in the gastric antrum was performed for Helicobacter pylori testing. Impression: - Normal esophagus. - Normal stomach. - Normal examined duodenum. - Biopsy was performed in the gastric antrum. Recommendation: - Patient has a contact number available for emergencies. The signs and symptoms of potential delayed complications were discussed with the patient. Return to normal activities tomorrow. Written discharge instructions were provided to the patient. - Return to Bariatric clinic (date not yet determined). Referring MD: Stiven Beaver Medicines: Monitored Anesthesia Care Procedure: Pre-Anesthesia Assessment: - Prior to the procedure, a History and Physical was performed, and patient medications and allergies were reviewed. The patient's tolerance of previous anesthesia was also reviewed. The risks and benefits of the procedure and the sedation options and risks were discussed with the patient. All questions were answered, and informed consent was obtained. Prior Anticoagulants: The patient has taken no anticoagulant or antiplatelet agents. ASA Grade Assessment: III - A patient with severe systemic disease. After reviewing the risks and benefits, the patient was deemed in satisfactory condition to undergo the procedure. After obtaining informed consent, the endoscope was passed under direct vision. Throughout the procedure, the patient's blood pressure, pulse, and oxygen saturations were monitored continuously. The Endoscope was introduced through the mouth, and advanced to the second part of duodenum. The upper GI endoscopy was accomplished with ease. The patient tolerated the procedure well. Complications: No immediate complications. Procedure Code(s): --- Professional --- 89130, Esophagogastroduodenoscopy, flexible, transoral; with biopsy, single or multiple --- Technical --- 45866, Esophagogastroduodenoscopy, flexible, transoral; with biopsy, single or multiple Diagnosis Code(s): --- Professional --- K30, Functional dyspepsia Z01.818, Encounter for other preprocedural examination E66.01, Morbid (severe) obesity due to excess calories --- Technical --- K30, Functional dyspepsia Z01.818, Encounter for other preprocedural examination E66.01, Morbid (severe) obesity due to excess calories CPT copyright 2020 [employer]. All rights reserved. The codes documented in this report are preliminary and upon plating operator review may be revised to meet current compliance requirements. Attending Participation: I was present and participated during the entire procedure from insertion to removal of the endoscope. Facundo Aviles MD 08/31/2022 11:09:10 AM This report has been signed electronically. Number of Addenda: 0 Note Initiated On: 08/31/2022 10:42 AM [facility] 08-31-2022 Note FACUNDO AVILES MD , F [facility] MINIMALLY INVASIVE & METABOLIC / BARIATRIC SURGERY [facility] HISTORY AND PHYSICAL 08/31/2022 PATIENT: Mora Lopez DATE OF : 1985 ---- HISTORY OF PRESENT ILLNESS: The patient is a 36 y.o. female who presents for endoscopic evaluation of dyspepsia in preparation for SLEEVE GASTRECTOMY - shiloha GLENIS with Dr. Facundo Aviles. Thoroughly reviewed the patient's medical history, family history, social history and review of systems with the patient today in the office. Please see medical record for pertinent positives. Past Medical History: Past Medical History: Diagnosis Date ADHD Back pain Difficulty sleeping Hx: UTI (urinary tract infection) Joint pain, hip Joint pain, knee Memory difficulties Morbid obesity due to excess calories (HCC) 06/08/2022 Shortness of breath at rest Snoring SOBOE (shortness of breath on exertion) Past Surgical History: Past Surgical History: Procedure Laterality Date SECTION, CLASSIC 2012 EXCISION HIDRADENITIS OF INGUINAL / UMBILICAL AREA [facility] 2020 x2 Current Medications: No current facility-administered medications for this encounter. Prior to Admission medications Medication Sig Start Date End Date Taking? Authorizing Provider cholecalciferol (Vitamin D-3) 10 MCG (400 UNIT) capsule 05/25/22 Historical Provider, cyanocobalamin (Vitamin B-12) 2500 MCG tablet Take 1 tablet by mouth 1 (one) time per week. 07/15/22 Historical Provider, ergocalciferol (Vitamin D2) 1.25 MG (19721 UT) capsule TAKE 1 CAPSULE BY MOUTH ONE TIME PER WEEK 05/25/22 Historical Provider, FLUoxetine (PROzac) 10 MG tablet Take 10 mg by mouth daily. 04/09/22 Historical ProviderMD Multiple Vitamins-Iron (MULTIVITAMIN/IRON PO) Take 1 tablet by mouth daily. 07/15/22 Historical ProviderMD Allergies: Aspirin Social History: Social History Socioeconomic History Marital status: Spouse name: Not on file Number of children: Not on file Years of education: Not on file Highest education level: Not on file Occupational History Not on file Tobacco Use Smoking status: Former Types: Cigarettes Quit date: 2018 Years since quittin.1 Smokeless tobacco: Former Quit date: 06/10/2022 Tobacco comments: E- Cigarette contains nicotine Substance and Sexual Activity Alcohol use: Not Currently Drug use: Not Currently Sexual activity: Yes Partners: Male Other Topics Concern Not on file Social History Narrative Not on file Social Determinants of Health Financial Resource Strain: Not on file Food Insecurity: Not on file Transportation Needs: Not on file Physical Activity: Not on file Stress: Not on file Social Connections: Not on file Intimate Partner Violence: Not on file Housing Stability: Not on file Family History: @FAMHXNH@ REVIEW OF SYSTEMS: CONSTITUTIONAL: Negative for fatigue, and unexpected weight change RESPIRATORY: Negative for cough, SOB, and wheezing CARDIOVASCULAR: Negative for chest pains and palpatations GASTROINTESTINAL: dyspepsia HEMATOLOGIC/LYMPHATIC: Negative for adenopathy. Does not bruise/bleed easily. NEUROLOGICAL: Negative for seizures and syncope * All other ROS reviewed see HPI for pertinent positives and negatives. PHYSICAL EXAM: VITALS: There were no vitals taken for this visit. GENERAL: Oriented to person, place, and time. Appears well nourished. No distress ENT: Normocepalic,atraumatic, without obvious abnormality NECK: supple, symmetrical, trachea midline LUNGS: Resp effort easy and unlabored, breath sounds normal CARDIOVASCULAR: RRR, No murmur ABDOMEN: Soft, non-tender, no open wounds. MUSCULOSKELETAL: Normal range of motion, ambulatory without assistance NEUROLOGIC: No focal neurologic deficits IMPRESSION/RECOMMENDATIONS: EGD with Biopsy Patient counseled on risks, benefits, and alternatives of treatment plan at length. Patient states an understanding and willingness to proceed with plan. [facility] 08-12-2022 Note BARIATRIC CARE [facility] SURGICAL WEIGHT LOSS MANAGEMENT PROGRAM PROGRESS NOTE FOLLOW UP Patient: Mora Lopez Date of : 1985 Service Date: 08/12/2022 DE Visit number: 2 of 3 Pre Program Weight Metrics Date of Initial Consultation:@FLOWLAST([id number])@ Initial Weight: @FLOWLAST([id number])@ Initial BMI: @FLOWLAST([id number])@ [place] Body Weight: @FLOWLAST([id number])@ Excess Body Weight: @FLOWLAST([id number])@ Follow Up Weight Metrics Last Three Weights Including Today's Weight: Wt Readings from Last 3 Encounters: 08/12/22 274 lb 3.2 oz (124 kg) 07/30/22 279 lb 6.4 oz (127 kg) 07/20/22 279 lb 6.4 oz (127 kg) Today's BMI: BMI: 49.35 %EBWL: % EBWL: 4% Weight Chance Since Last Visit: Weight Change: -6.4 lbs Weight Change from Initial DE/SPR Weight: Total Weight Change: -6.4 lbs Patient has the following question(s): none Falls Risk Assessment Patient doestake medications which affect BP or mental status Patient does not have newly prescribed or changed dosage of medications within past 30 days which affect BP or mental status Patient has not fallen in the past 2 months Patient does notdemonstrate unsteady gait Patient uses the following ambulatory assistive devices: none Patient states the presence of the following traits which increases risk of fall: none Patient is not on home O2 Completed by: Arielle Calixto MA [facility] 08-11-2022 Note Pt sent a my chart m essage in other open encounter. Have responded to her in regard to findings and need for urology referral. Have faxed all reports to her PCP. [facility] 06-18-2022 Note I have recommended p roceeding with the evaluation and work-up for the primary procedure as outlined below: PATIENT SUMMARY Mora Aviles 36 y.o. female with Body mass index is 49.57 kg/m?. SLEEVE GASTRECTOMY - aka SG Procedure DM[] HTN[] RYANNE[] GERD[] HL[] OA[x] TOB[] Date of Surgery: TBD NOTES AD ADHD and memory problems - quit smoking in 2018 PCP: Stiven Beaver MD INITIAL TESTING RESULTS Labwork [x] CMP, TSH, Fasting Lipid Profile, Mg, Zinc, Vit B1 (whole blood), Vit B12, 25-OH Vit D, Fe, Ferritin, Folate Tobacco [x] Serum Nicotine / Cotinine [] Negative [] Positive EGD [x] Dx: [] GERD [x] Dyspepsia [] Other Pathology [x] H. pylori [] Negative [] Positive UGI [x] [] not ordered US Abdomen [x] [] not ordered RYANNE eval [x] [] On CPAP / Obtain settings Hematology [] [] Hypercoagulation panel Toxicology [] [] Urine drug screen [] EtOH screen Addtional [] [] Hgb A1c INITIAL CONSULTATIONS CLEARANCE / MANAGEMENT Psychology [x] Dr. Graves [x] Cardiology [x] [] not ordered Pulmonary [] [x] not ordered Others [] []Heme/Onc []Psychiatry []Pain mgmt PSD [] Physician supervised diet: []None [x]3 mos []6 mos Preop diet [] Preop low calory diet: []None [x]1 wk []2 wks []Ext. FINAL PRE-OP TESTING RESULTS Labwork [x] [x]Pre-op CBC [x]BMP []Serum Nicotine / Cotinine EKG [x] CXR [x] POST-OP MEDICATIONS Ulcer Ppx [] Omeprazole 20 mg PO []QD []BID Gallstone Ppx [] Ursodiol 300 mg []BID DVT Ppx [] DVT prophylaxis per final preop visit estimated risk Estimated calculated risk: % Schedule final pre-operative office visit with surgeon, pre-operative education class, and pre-operative exercise class prior to date of surgery ATTESTATION I reviewed with the patient the details of the proposed operation. The risks benefits and options were discussed. Risks included but were not limited to bleeding, infection, damage to other surrounding organs, cardio-pulmonary complications related to anesthesia, conversion from laparoscopic to and open procedure, the need for reoperative or endoscopic therapy, the potential for prolonged mechanical ventilation, and . All questions were fully answered to the patient's satisfaction and they wish to proceed with surgical intervention. A total of over 45 minute visit was spent in face to face encounter, counseling the patient, discussing the surgical/perioperative plan, record review and documentation. The patient was seen and examined independently and relevant data including a full chart rreview was performed by myself. [facility] Diagnosis Morbid obesity with BMI of 45.0-49.9, adult (HCC)- Primary Morbid (severe) obesity due to excess calories (HCC) Diaphragmatic hernia without obstruction or gangrene Diaphragmatic hernia without mention of obstruction or gangrene [facility] Diagnosis Liver cyst- Primary Other specified disorders of liver Back pain, unspecified back location, unspecified back pain laterality, unspecified chronicity Morbid obesity with BMI of 50.0-59.9, adult (HCC) Hidradenitis suppurativa Hidradenitis Anxiety Anxiety state, unspecified Morbid (severe) obesity due to excess calories (HCC) Diaphragmatic hernia without obstruction or gangrene Diaphragmatic hernia without mention of obstruction or gangrene [facility]* Diagnosis Morbid obesity due to excess calories (HCC) Pre-operative laboratory examination Pre-procedural laboratory examination Prediabetes Other abnormal glucose Morbid obesity due to excess calories (HCC) Pre-operative laboratory examination Pre-procedural laboratory examination Prediabetes Other abnormal glucose Morbid (severe) obesity due to excess calories (HCC) Diaphragmatic hernia without obstruction or gangrene Diaphragmatic hernia without mention of obstruction or gangrene [facility]* Diagnosis Liver cyst- Primary Other specified disorders of liver Back pain, unspecified back location, unspecified back pain laterality, unspecified chronicity Morbid obesity with BMI of 50.0-59.9, adult (HCC) Hidradenitis suppurativa Hidradenitis Anxiety Anxiety state, unspecified Morbid obesity due to excess calories (HCC) Pre-operative laboratory examination Pre-procedural laboratory examination Prediabetes Other abnormal glucose Morbid (severe) obesity due to excess calories (HCC) Diaphragmatic hernia without obstruction or gangrene Diaphragmatic hernia without mention of obstruction or gangrene [facility]* Diagnosis Morbid obesity with BMI of 45.0-49.9, adult (HCC)- Primary Morbid obesity with BMI of 45.0-49.9, adult (HCC) Post-operative pain Other acute postoperative pain Morbid (severe) obesity due to excess calories (HCC) Diaphragmatic hernia without obstruction or gangrene Diaphragmatic hernia without mention of obstruction or gangrene PCOS (polycystic ovarian syndrome) Polycystic ovaries Morbid obesity due to excess calories (HCC) Back pain Unspecified backache Anxiety Anxiety state, unspecified [facility]* Diagnosis Back pain, unspecified back location, unspecified back pain laterality, unspecified chronicity- Primary Deficiency of multiple nutrient elements Other nutritional deficiency Morbid obesity with BMI of 45.0-49.9, adult (HCC) [facility] [place] [facility] Diagnosis Deficiency of multiple nutrient elements- Primary Other nutritional deficiency Back pain, unspecified back location, unspecified back pain laterality, unspecified chronicity Liver cyst Other specified disorders of liver Morbid obesity with BMI of 40.0-44.9, adult (HCC) [facility] [place] [facility]* Diagnosis Renal cyst, right Unspecified congenital cystic kidney disease [facility] [place] [facility]* Diagnosis Cellulitis of skin- Primary Cellulitis and abscess of unspecified site documented in this encounter [facility] Advance Directives No Advanced Directives Records FoundLatest Code Status on File Code Status Date Activated Date Inactivated Comments Full Code 08/31/2022 10:17 AM 08/31/2022 1:24 PM Latest Code Status on File Code Status Date Activated Date Inactivated Comments Full Code 12/25/2022 11:45 AM 12/26/2022 2:32 PM Code Status History Code Status Date Activated Date Inactivated Comments Full Code 12/25/2022 6:24 AM 12/25/2022 11:45 AM Full Code 08/31/2022 10:17 AM 08/31/2022 1:24 PM Latest Code Status on File Code Status Date Activated Date Inactivated Comments Full Code 12/25/2022 11:45 AM 12/26/2022 2:32 PM Code Status History Code Status Date Activated Date Inactivated Comments Full Code 12/25/2022 6:24 AM 12/25/2022 11:45 AM Full Code 08/31/2022 10:17 AM 08/31/2022 1:24 PM Summary Purpose Family History No Family History Records FoundNo Family History Records Found Additional Source Comments Reason for Visit (unrecogniz ed section and content) Specialty Diagnoses / Procedures Referred By Contac t Referred To Contact Urology Diagnoses Renal cyst, right Procedures NE OFFICE/OUTPATIENT NEW HIGH MDM 60-74 MINUTES Kristen Yoder R, DIE CAST DIE MAKER - ORGANISATION AND METHODS ANALYST [address] [place] [address] [facility] [address] [place] [address] Referral ID Status Reason Start Date Expiration Date Visits Requested Visits Authorized [id number] Pending Review Specialty Services Required 08/12/2022 08/12/2023 1 1 Reason Comments Weight Management FPOV Reason Onset Date Comments Abnormal Lab 12/03/2022 Reason Onset Date Comments anticoagulation 12/18/2022 Reason Onset Date Comments Nutrition Counseling 12/24/2022 Specialty Diagnoses / Procedures Referred By Carole t Referred To Contact Diagnoses Morbid (severe) obesity due to excess calories (HCC) Diaphragmatic hernia without obstruction or gangrene Morbid (severe) obesity due to excess calories (HCC) [E66.01] Diaphragmatic hernia without obstruction or gangrene [K44.9] Procedures NE LAPS GSTRC RSTRICTIV PX LONGITUDINAL GASTRECTOMY NE UNLISTED LAPAROSCOPIC PROCEDURE LIVER NE LAPS RPR PARAESPHGL HRNA INCL FUNDPLSTY W/O MESH LAPAROSCOPY SLEEVE GASTRECTOMY WITH LIVER WEDGE BIOPSY HIATAL HERNIA REPAIR POSSIBLE OPEN UNLISTED LAPAROSCOPIC PROCEDURE LIVER Facundo Aviles MD [address] [place] [address] [facility] Main Or [address] [place] [address] Referral ID Status Reason Start Date Expiration Date Visits Re quested Visits Authorized [id number] 1 1 Reason Comments Bariatrics Post Op Follow-up 1W Reason Onset Date Comments Post-op 12/27/2022 Hospital Follow-up 12/27/2022 Reason Comments Bariatrics Post Op Follow-up 1m Reason Onset Date Comments Abnormal Lab 02/02/2023 High Zinc Reason Comments Toe Pain (Big) left great toe pain and swollen, redness, partial toenail removal on 04/14/2023 Reason Onset Date Comments Appointment Request 05/26/2023 Care Teams (unrecognized sec tion and content) Help Desk Administrator Relationship Specialty Start Date End Date Stiven Beaver MD [address] [facility] [address] [place] [phone] PCP - General Family Medicine 05/26/22 Facundo Aviles MD [address] [place] [address] Surgeon General Surgery 06/08/22 Aimee Lilly, RN Registered Nurse 10/23/22 Nii Najera MD [address] [place] [address] Surgeon Urology 11/11/22 Help Desk Administrator Relationship Specialty Start Date End Date Stiven Beaver MD [address] [place] [phone] PCP - General Family Medicine 05/26/22 Facundo Aviles MD [address] [place] [address] Surgeon General Surgery 06/08/22 Aimee Lilly, RN Registered Nurse 10/23/22 Nii Najera MD [address] [place] [address] Surgeon Urology 11/11/22 Help Desk Administrator Relationship Specialty Start Date End Date Stiven Beaver MD [address] [place] [phone] PCP - General Family Medicine 05/26/22 Facundo Aviles MD [address] [place] [address] Surgeon General Surgery 06/08/22 Aimee Lilly, RN Registered Nurse 10/23/22 Nii Najera MD [address] [place] [address] Surgeon Urology 11/11/22 Help Desk Administrator Relationship Specialty Start Date End Date Stiven Beaver MD [address] [place] [address] PCP - General Family Medicine 05/26/22 Facundo Aviles MD [address] [place] [address] Surgeon General Surgery 06/08/22 Aimee Lilly, RN Registered Nurse 10/23/22 Nii Najera MD [address] [place] [address] Surgeon Urology 11/11/22 Help Desk Administrator Relationship Specialty Start Date End Date Stiven Beaver MD [address] [place] [phone] PCP - General Family Medicine 05/26/22 Facundo Aviles MD [address] [place] [address] Surgeon General Surgery 06/08/22 Aimee Lilly RN Registered Nurse 10/23/22 Nii Najera MD [address] [place] [address] Surgeon Urology 11/11/22 Help Desk Administrator Relationship Specialty Start Date End Date Stiven Beaver MD [address] [place] [phone] PCP - General Family Medicine 05/26/22 Facundo Aviles MD [address] [place] [address] Surgeon General Surgery 06/08/22 Aimee Lilly, RN Registered Nurse 10/23/22 Nii Najera MD [address] [place] [address] Surgeon Urology 11/11/22 Help Desk Administrator Relationship Specialty Start Date End Date Stiven Beaver MD [address] [place] [phone] PCP - General Family Medicine 05/26/22 Facundo Aviles MD [address] [place] [address] Surgeon General Surgery 06/08/22 Aimee Lilly, RN Registered Nurse 10/23/22 Nii Naj[address] MD [address] [place] [address] Surgeon Urology 11/11/22 Help Desk Administrator Relationship Specialty Start Date End Date Stiven Beaver MD [address] [facility] [address] [place] [phone] PCP - General Family Medicine 05/26/22 Facundo Aviles MD [address] [place] [address] [address] [place] [address] Surgeon General Surgery 06/08/22 Aimee Lilly RN Registered Nurse 10/23/22 Nii Naj[address] MD [address] [place] [address] Surgeon Urology 11/11/22 Help Desk Administrator Relationship Specialty Start Date End Date Stiven Beaver MD [address] [facility] [address] [place] [phone] PCP - General Family Medicine 05/26/22 Facundo Aviles MD [address] [place] [address] Surgeon General Surgery 06/08/22 Aimee Lilly, RN Registered Nurse 10/23/22 Nii Najera MD [address] [place] [address] Surgeon Urology 11/11/22 Help Desk Administrator Relationship Specialty Start Date End Date Stiven Beaver MD [address] [place] [phone] PCP - General Family Medicine 05/26/22 Facundo Aviles MD [address] [place] [address] Surgeon General Surgery 06/08/22 Aimee Lilly, RN Registered Nurse 10/23/22 Nii N[address] [place] [address] Surgeon Urology 11/11/22 Help Desk Administrator Relationship Specialty Start Date End Date Stiven Beaver MD [address] [place] [phone] PCP - General Family Medicine 05/26/22 Facundo Aviles MD [address] [place] [address] Surgeon General Surgery 06/08/22 Aimee Lilly, RN Registered Nurse 10/23/22 Nii Naj[address] MD [address] [place] [address] Surgeon Urology 11/11/22 Help Desk Administrator Relationship Specialty Start Date End Date Stiven Beaver MD [address] [place], [place] [address] PCP - General Family Medicine 10/25/20 Help Desk Administrator Relationship Specialty Start Date End Date Stiven Beaver MD [address] [facility] [address] [place] [phone] PCP - General Family Medicine 05/26/22 Facundo Aviles MD [address] [place] [address] Surgeon General Surgery 06/08/22 Aimee Lilly, RN Registered Nurse 10/23/22 Nii Najera MD [address] [place] [address] Surgeon Urology 11/11/22 Help Desk Administrator Relationship Specialty Start Date End Date Stiven Beaver MD [address] [facility] [address] [place] [phone] PCP - General Family Medicine 05/26/22 Facundo Aviles MD [address] [place] [address] Surgeon General Surgery 06/08/22 Aimee Lilly RN Registered Nurse 10/23/22 Nii Najera MD [address] [place] [address] Surgeon Urology 11/11/22 Scheduled Active and Recently Administ ered Medications (unrecognized section and content) Continuous Medication Order 12/24/2022 12/25/2022 12/26/2022 dextrose 5 % and sodium chloride 0.45 % with KCl 20 mEq/L infusion (CANCELED) 100 mL/hr, IntraVENous, Continuous, Starting on Wed12/25/22 at 1200, Phase II/On Unit 1244 (New Bag - Provider: Juan Pablo Gibbs) 1133 (Stopped - Provider: Sahra Rubio RN) lactated Ringer's (LR) infusion (CANCELED) 50 mL/hr, IntraVENous, Continuous, Starting on Wed12/25/22 at 0630, Preprocedure, Upon admission to sameday - please start iv if patient does not have iv access. Use 500ml NS for patients on dialysis. 0645 (New Bag - Provider: Mini Galeano RN)0844 (Continued by Anesthesia - Provider: Linda Owen APRN - DOMINGO)0849 (Rate/Dose Change - Provider: ILA Minor CRNA)0959 (Anesthesia Volume Adjustment - Provider: ILA Minor CRNA) 1133 (Stopped - Provider: Sahra Rubio RN) sodium chloride 0.45 % with KCl 20 mEq/L infusion 100 mL/hr, IntraVENous, Continuous, Starting on Wed12/25/22 at 1330 1525 (New Bag - Provider: Juan Pablo Gibbs) 0011 (New Bag - Provider: Kirsten Elizondo RN)0735 (Rate/Dose Verify - Provider: Sahra Rubio RN)1129 (Rate/Dose Verify - Provider: Sahra Rubio RN)1133 (Rate/Dose Verify - Provider: Sahra Rubio RN)1200 (Stopped - Provider: Sahra Rubio RN) PRN Medication Order 12/24/2022 12/25/2022 12/26/2022 ALPRAZolam (Xanax) disintegrating tablet 0.25 mg (COMPLETED) 0.25 mg, Oral, PRN, anxiety, Starting on Wed12/25/22 at 0624, For 1 dose, Preprocedure, Using dry hands, place tablet on top of tongue and allow to disintegrate. Administration with water is not necessary. 0640 (Given - Provider: Mini Galeano RN) HYDROmorphone (Dilaudid) injection 0.5 mg (CANCELED) 0.5 mg, IntraVENous, Every 5 min PRN, severe pain (7-10), Starting on Wed12/25/22 at 1029, For 4 doses, Recovery (only), Phase I and Phase II- Initial therapy for severe pain (7-10). Restricted to a 90 minute time frame starting when the patient can verbally state their pain score. If after 2 doses the pain score does not decrease by more than one point, then call the provider. If oral meds are utilized, do not return to initial therapy medications. 1041 (Given - Provider: Juan Nayak RN)1106 (Given - Provider: Juan Nayak RN) HYDROmorphone (Dilaudid) injection 0.5 mg (CANCELED) 0.5 mg, IntraVENous, Every 3 hours PRN, severe pain (7-10), Starting on Wed12/25/22 at 1145, Phase II/On Unit, If oral and IV narcotics ordered, use oral first and only use IV if oral is ineffective or cannot take oral. Do Not give oral and IV within 1 hour of each other unless specifically ordered. 1243 (Given - Provider: Juan Pablo Gibbs)1556 (Given - Provider: Juan Pablo Gibbs) LORazepam (Ativan) injection 0.5 mg (COMPLETED) 0.5 mg, IntraVENous, Once PRN, for anxiety or muscle spasm., Starting on Wed12/25/22 at 1029, For 1 dose, Recovery (only), For IV doses dilute dose with 1ml NS. 1031 (Given - Provider: Juan Nayak RN) methocarbamol (Robaxin) injection 1,000 mg 1,000 mg, IntraVENous, Administer over 5 Minutes, 3 times daily PRN, Muscle spasms, Starting on Wed12/25/22 at 2111, For 72 hours, Maximum dose: 3 g/day for no more than 3 consecutive days 0011 (Given - Provid er: Kirsten Elizondo RN) morphine sulfate (PF) injection 1 mg (CANCELED) 1 mg, IntraVENous, Every 4 hours PRN, moderate pain (4-6), Starting on Wed12/25/22 at 2108, If oral and IV narcotics ordered, use oral first and only use IV if oral is ineffective or cannot take oral. Do Not give oral and IV within 1 hour of each other unless specifically ordered. 2128 (Given - Provider: Kirsten Elizondo RN) ondansetron (Zofran) injection 4 mg (COMPLETED) 4 mg, IntraVENous, Once PRN, nausea, Starting on Wed12/25/22 at 1029, For 1 dose, Recovery (only), Initial antiemetic therapy. 1044 (Given - Provider: Amy Diaz RN) ondansetron (Zofran) injection 4 mg(Linked Group 2) 4 mg, IntraVENous, Every 6 hours PRN, nausea, vomiting, Starting on Wed12/25/22 at 1145, Phase II/On Unit, 1st Line. Give IV if patient is unable to take orally. If inadequate response within 60 minutes, proceed to next-line agent or contact provider if no further options ordered. 175 (Given - Provider: Juan Pablo Gibbs) ondansetron ODT (Zofran-ODT) disintegrating tablet 4 mg(Linked Group 2) 4 mg, Oral, Every 8 hours PRN, nausea, vomiting, Starting on Wed12/25/22 at 1145, Phase II/On Unit, 1st Line. If inadequate response within 60 minutes, proceed to next-line agent or contact provider if no further options ordered. Patient should allow tablet to dissolve on tongue. Do not remove from blister pack until just before administering. 175 (See Alternative - Provider: Juan Pablo Gibbs) oxyCODONE-acetaminophen (Percocet) 5-325 MG per tablet 1 tablet(Linked Group 3) 1 tablet, Oral, Every 4 hours PRN, moderate pain (4-6), Starting on 12/26/22 at 0954, Maximum dose of acetaminophen is 4000 mg from all sources in 24 hours. oxyCODONE-acetaminophen (Percocet) 5-325 MG per tablet 2 tablet(Linked Group 3) 2 tablet, Oral, Every 4 hours PRN, severe pain (7-10), Starting on 12/26/22 at 0954, Maximum dose of acetaminophen is 4000 mg from all sources in 24 hours. promethazine (Phenergan) injection 12.5 mg(Linked Group 4) 12.5 mg, IntraMUSCular, Every 6 hours PRN, nausea, vomiting, Starting on Wed12/25/22 at 1322, Only to be given as IM injection. 1340 (Given - Provider: Erin Fierro RN) promethazine (Phenergan) tablet 12.5 mg(Linked Group 4) 12.5 mg, Oral, Every 6 hours PRN, nausea, vomiting, Starting on Wed12/25/22 at 1322 1340 (See Alternative - Provider: Erin Fierro RN) sodium chloride 0.9 % infusion 5-250 mL/hr, IntraVENous, PRN, if patient receiving piggyback infusions and maintenance fluids are not ordered OR KVO fluids to protect IV site / prevent frequent line interruptions/ long duration, Starting on Wed12/25/22 at 1145, Phase II/On Unit, For piggyback infusion, administer at same rate as piggyback for a total of 25 mL. Enter 25 mL into dose field and piggyback rate into rate field of order. If piggyback is infusing at a rate less than 100 mL/hr, enter 25 mL into dose field and 100 mL/hr into rate field of order. For KVO fluids, enter rate of 20 mL/hr or less into rate field of order. sodium chloride 0.9 % irrigation solution (CANCELED) As needed, Starting on Wed12/25/22 at 0910, Intraprocedure 0910 (Given - Provider: Facundo Aviles MD) sodium chloride 0.9% (NS) flush 10 mL 10 mL, IntraVENous, PRN, line care, Starting on Wed12/25/22 at 1145, Phase II/On Unit, After every IV line use 1246 (Given - Provider: Juan Pablo Gibbs) sterile water irrigation solution (CANCELED) As needed, Starting on Wed12/25/22 at 0910, Intraprocedure 0910 (Given - Provider: Facundo Aviles MD - Comment: [employer]) Linked Groups Order Group 1: famotidine (Pepcid) tablet 20 mgJump to med 20 mg, Oral, 2 times daily, First dose on Wed12/25/22 at 1200, Phase II/On Unit
IV or ORAL
Or famotidine (Pepcid) injection 20 mgJump to med 20 mg, IntraVENous, Administer over 2 Minutes, 2 times daily, First dose on Wed12/25/22 at 1200, Phase II/On Unit
IV or ORAL
Group 2: ondansetron ODT (Zofran-ODT) disintegrating tablet 4 mgJump to med 4 mg, Oral, Every 8 hours PRN, nausea, vomiting, Starting on Wed12/25/22 at 1145, Phase II/On Unit
1st Line. If inadequate response within 60 minutes, proceed to next-line agent or contact provider if no further options ordered. Patient should allow tablet to dissolve on tongue. Do not remove from blister pack until just before administering.
Or ondansetron (Zofran) injection 4 mgJump to med 4 mg, IntraVENous, Every 6 hours PRN, nausea, vomiting, Starting on 12/25/22 at 1145, Phase II/On Unit
1st Line. Give IV if patient is unable to take orally. If inadequate response within 60 minutes, proceed to next-line agent or contact provider if no further options ordered.
Group 3: oxyCODONE-acetaminophen (Percocet) 5-325 MG per tablet 1 tabletJump to med 1 tablet, Oral, Every 4 hours PRN, moderate pain (4-6), Starting on 12/26/22 at 0954
Maximum dose of acetaminophen is 4000 mg from all sources in 24 hours.
Or oxyCODONE-acetaminophen (Percocet) 5-325 MG per tablet 2 tabletJump to med 2 tablet, Oral, Every 4 hours PRN, severe pain (7-10), Starting on 12/26/22 at 0954
Maximum dose of acetaminophen is 4000 mg from all sources in 24 hours.
Group 4: promethazine (Phenergan) tablet 12.5 mgJump to med 12.5 mg, Oral, Every 6 hours PRN, nausea, vomiting, Starting on Wed12/25/22 at 1322 Or promethazine (Phenergan) injection 12.5 mgJump to med 12.5 mg, IntraMUSCular, Every 6 hours PRN, nausea, vomiting, Starting on Wed12/25/22 at 1322
Only to be given as IM injection.
Source Comments (unrecognize d section and content) In the event this informatio n is protected by the Federal Confidentiality of Alcohol and Drug Abuse Patient Records regulations: The Federal rules restrict any use of the information to criminally investigate or prosecute any alcohol or drug abuse patient.[facility] INFORMATION SOURCE (unrecogn ized section and content) DATE CREATED AUTHOR AUTHOR'S DEBI WAGNER 06/13/2023 [facility] FOR RECORDS PERTAINING TO PATIENTS WHO ARE OR HAVE BEEN ENROLLED IN A CHEMICAL DEPENDENCY/SUBSTANCEABUSE PROGRAM, SOME INFORMATION MAY BE OMITTED. This clinical summary was aggregated from multiple sources. Caution should be exercised in using it in the provision of clinical care. This summary normalizes information from multiple sources, and as a consequence, information in this document may materially change the coding, format and clinical context of patient data. In addition, data may be omitted in some cases. CLINICAL DECISIONS SHOULD BE BASED ON THE PRIMARY CLINICAL RECORDS. [facility] [employer] provides no warranty or guarantee of the accuracy or completeness of information in this document.
[2023-07-22 17:51] LABS: Absolute Lymphocyte Count 3.18 X10^3/uL (0.83-4.51); Absolute Neutrophil Count 4.5 X10^3/uL (2.0-7.7); Basophil# 0.04 X10^3/uL; Basophil% 0.5 % (0-1); Eosinophil# 0.11 X10^3/uL; Eosinophils% 1.3 % (0-5); Hematocrit 40.2 % (37-47); Hemoglobin 13.2 g/dL (12.0-15.0); Lymphocyte # 3.18 X10^3/ul (0.83-4.51); Lymphocyte % 38.1 % (19-41); Mean Corp Hgb Conc 32.8 g/dL (32-36); Mean Corpuscular Volume 97.3 fL (81-99); Mean Platelet Vol. 10.3 fl (6.2-12.0); Monocyte# 0.46 X10^3/uL; Monocyte% 5.5 % (0-10); NRBC Flagged by Analyzer 0 % (0-5); Neutrophil # 4.54 X10^3/uL (2.7-7.7); Neutrophil % 54.4 % (47-70); Platelet Count 379 K/mm3 (150-450); RBC Distribution Width CV 13.2 % (11.6-14.6); RBC Distribution Width SD 47.7 fl (35.1-43.9); Red Blood Count 4.13 M/mm3 (4.2-5.4); White Blood Count 8.4 K/mm3 (4.4-11.0)
[2023-07-22 17:59] LABS: Vitamin B12 548 pg/mL (211-911); Vitamin D,25 Hydroxy 52.6 ng/mL
[2023-07-22 18:12] LABS: ALB/GLOB Ratio 0.9 RATIO (0.9-2.4); AST(SGOT) 13 U/L (15-37); Alanine Aminotransfer ALT/SGPT 19 U/L (13-56); Albumin, Serum 3.7 g/dL (3.2-5.0); Alkaline Phosphatase 67 U/L (45-117); Anion Gap 6 (5-15); BUN 15 mg/dL (7-18); BUN/Creat Ratio 27.6 RATIO (10-20); Calcium,Total 8.9 mg/dL (8.5-10.1); Chloride 104 mmol/L (98-107); Creatinine, Serum 0.54 mg/dL (0.55-1.02); EST Glomerular Filtration Rate 134 mL/min (>60); Est Glom Filt Rate - Afr Amer 163 mL/min (>60); Ferritin 86 ng/mL (8-252); Globulin 3.9 g/dL (2.2-4.2); Glucose 79 mg/dL (74-106); Iron 46 ug/dL (50-170); Iron Binding Capacity,Total 258 ug/dL (250-450); Magnesium 2.2 mg/dL (1.6-2.6); Potassium 3.9 mmol/L (3.5-5.1); Protein, Total 7.6 g/dL (6.4-8.2); Sodium Level 138 mmol/L (136-145)
[2023-07-28 06:09] LABS: Zinc, Plasma or Serum 125 ug/dL (44-115)
== END | disposition home or self-care (01) ==
LOC: MFPLAB 16:37
PROVIDERS: PCP Family Medicine; Visit Provider Family Medicine
DX: D50.9 Iron deficiency anemia, unspecified (principal); E55.9 Vitamin D deficiency, unspecified; Z98.84 Bariatric surgery status
CPT/HCPCS: 36415; 80053; 82306; 82607; 82728; 83540; 83550; 83735; 84100; 84630; 85025

== ENCOUNTER 2023-12-07 11:22 | Emergency (ER) | payer BC, SELFPAY ==
[2023-12-07 11:23] VITALS: BP 126/90; PULSE 87; RESP 16; TEMP 36.4; O2SAT 98; BMI 26.5
--- NOTE | 2023-12-07 11:40 | CT_ITS ---
STUDY: CT PELVIS WITH CONTRAST REASON FOR EXAM: Female, 38 years old. Tailbone pain, mass RADIATION DOSAGE (If Supplied By Facility): CTDIvol = ( 27.62 ) mGy, DLP = ( 1031.18 ) mGycm TECHNIQUE: Transaxial imaging of the pelvis was performed without oral contrast. IV 100mL Isovue-300 was administered intravenously. Multiplanar coronal and sagittal images were reformatted. Individualized dose optimization techniques were used for this CT. COMPARISON: None. FINDINGS: Normal urinary bladder. There is a 3.4 cm x 3.6 cm cyst in the left ovary. There is a 1.7 cm follicle in the right ovary. Normal visualized small intestine. Normal visualized colon. There is no pelvic fluid. There is no pelvic lymphadenopathy or mass lesion. Normal visualized pelvic arteries. Normal abdominal wall. Normal osseous structures. CT/Pelvis WITH IV Contrast IMPRESSION: Left ovarian cyst. Electronically Signed: Nii Sanchez MD at 13:09 EDT ,
--- NOTE | 2023-12-07 11:41 | EDS_ITS ---
HPI History of Present Illness Chief Complaint: Abscess Detail of Chief Complaint: Tailbone pain Informant: patient Narrative Narrative: Patient presents to the emergency department complaint of tailbone pain that started 3 to 4 weeks ago. Patient states that she has history of some fluid on her tailbone and had to be incised and drained in the past. She denies fevers or chills or sweats. She comes in today for evaluation. She complains of more pain when sitting on her tailbone. Patient initially thought a was due to the fact that she is lost so much weight after her gastric sleeve. [facility] Medical History (Updated 12/07/23 @ 13:[address] Telma Wheeler, DO) Acute pharyngitis, unspecified COVID-19 Non-pressure chronic ulcer of skin of other sites with fat layer exposed Open wound anterior abdominal wall Depression Anxiety Alcohol use Marijuana use Arthritis Restless legs Smoker Shortness of breath on exertion Recent weight loss Former smoker Necrotizing soft tissue infection Hidradenitis suppurativa Home Medications ?Medication ?Instructions ?Recorded ?Last Taken ?Type sertraline 100 mg tablet 100 mg PO DAILY Depression 02/20/21 12/07/23 History polysaccharide iron complex 150 mg 150 mg PO DAILYCM 60 days #60 caps 02/21/21 12/07/23 Rx iron capsule (Ferrex) promethazine 25 mg tablet 25 mg PO Q6H PRN PRN 02/21/21 Unknown Rx NAUSEA/VOMITING 10 days #30 tabs tramadol 50 mg tablet 50 mg PO TID PRN pain #20 tabs 12/07/23 Unknown Rx Allergy/AdvReac Type Severity Reaction Status Date / Time aspirin Allergy Swelling Verified 12/07/23 11:25 control Allergy Unknown rash Uncoded 05/18/23 10:40 Family History Other Breast cancer Cervical cancer Colon cancer Diabetes Hypertension Surgical History Hx of abdominal surgery [place] teeth extracted Hx of section Social History Smoking Status: Current every day smoker tobacco type: e-cigarettes alcohol intake: current additional social history: Does Not Take Aspirin ( Allergy ) Does Not Take Ibuprofen ROS ROS ED Review of Systems ROS Unobtainable: other Constitutional Constitutional ED: Reports lethargy; Denies chills, fever(s), sweats or weight loss Eyes Eyes: Denies blurry vision, change in vision or diplopia ENT ENT ED: Denies rhinorrhea or sore throat Cardiovascular Cardiovascular: Denies chest pain, orthopnea or racing heartbeat Respiratory/Chest Respiratory/Chest: Denies cough, dyspnea, dyspnea on exertion, orthopnea or sputum Gastrointestinal Gastrointestinal: Denies abdominal pain, diarrhea, nausea or vomiting Genitourinary Genitourinary ED: Denies dysuria, hematuria or urinary frequency Musculoskeletal Musculoskeletal: Reports other Details: Tailbone pain ; Denies arthralgias, back pain, myalgias or neck pain Integumentary Denies abscess, Abrasions or rash Neurologic Neurologic: Denies headache(s) or weakness Psychiatric Psychiatric: Denies anxiety, depression or suicidal thoughts Endocrine Endocrinology: Denies polydipsia, polyphagia or polyuria Hematologic/Lymphatic Hematologic/Lymphatic: Denies easy bleeding, easy bruising or lymphadenopathy Allergic/Immunologic Allergic/Immunologic ED: Denies mouth swelling, tongue swelling or urticaria EXAM Physical Exam Const Vital Signs: 12/07/23 11:23 Temperature 97.5 F L Temperature Source Temporal Pulse Rate 87 Respiratory Rate 16 Blood Pressure 126/90 H Blood Pressure Mean 102 Pulse Ox 98 Oxygen Delivery Method Room Air Positive well nourished and well developed General Appearance ED: well developed and NAD HEENT Reports TM's clear and moist mucous membranes normocephalic and atraumatic; Negative for trauma or tenderness Tympanic Membrane ED: Yes TM's clear Eyes PERRL and EOMs intact bilaterally General Eye ED: Negative for pale conjunctiva or scleral icterus Neck no lymphadenopathy, supple and no JVD General: Negative for tenderness Chest Wall inspection of chest normal and palpation of chest normal Chest: Negative for tenderness Resp normal respiratory effort and clear to auscultation bilaterally Effort and Inspection: Negative for respiratory distress or pain with movement Auscultation: Negative for rhonchi, wheezes or diminished lung sounds Cardio regular rate, regular rhythm, S1 normal heart sound, S2 normal heart sound and no murmurs Peripheral Pulses: pulses 2+ throughout GI normal to inspection, nondistended, normoactive bowel sounds, soft to palpation, non-tender, non-distended and no masses Back/Spine no CVA tenderness and no thoracic nor lumbar tenderness Back/Spine Narrative: Evaluation of the tailbone does reveal tenderness to palpation. There is no erythema or warmth or cellulitic changes. I do not appreciate any fluctuant areas. There is a subcutaneous soft tissue nodule that is tender to palpation. Extremity normal to inspection General Extremety ED: Negative for edema General Extremity: Negative for edema Neuro oriented x3, CN's II-XII intact bilaterally, no sensory deficits noted and gait normal Sensorium / Orientation: awake, alert, oriented to person, oriented to place and oriented to time Motor Exam: strength 5/5 throughout and strength abnormal Psych mental status grossly normal Skin no rashes or lesions noted and no wounds MDM MDM MDM Narrative Medical decision making narrative: Patient presents with concern for possible abscess to her tailbone. She has had to have incision and drainage in the past. She had pain for 3 to 4 weeks. Clinically I do not appreciate any cellulitic changes or signs of an abscess. IV line established. CBC with differential obtained showed a white count of 8.0 with hemoglobin 11.5 and platelet count of 315. Chemistries unremarkable. I did obtain a CT scan with IV contrast that showed no evidence of abscess or fluid collections. I did discuss results with radiologist. Discussed results with patient. Will write a prescription for tramadol for pain as she states she cannot take narcotics otherwise because they make her feel drunk. Will also give her referral to general surgeon on-call. Also patient has a follow-up appointment with her PCP tomorrow. Etiology of her pain unclear. Lab Data Attestation: I reviewed the patient's lab results. Labs: Laboratory Results - last 24 hr 12/07/23 11:45 WBC 8.0 RBC 3.59 L Hgb 11.5 L Hct 35.2 L MCV 98.1 MCH 32.0 MCHC 32.7 RDW Std Deviation 47.0 H RDW Coeff of Balaji 13.0 Plt Count 315 MPV 9.6 Immature Gran % (Auto) 0.400 Neut % (Auto) 62.3 Lymph % (Auto) 29.9 [place] % (Auto) 5.9 Eos % (Auto) 1.1 Baso % (Auto) 0.4 Absolute Neuts (auto) 5.0 Absolute Lymphs (auto) 2.40 Nucleated RBC % 0 Sodium 139 Potassium 3.9 Chloride 107 Carbon Dioxide 27.0 Anion Gap 5 BUN 14 Creatinine 0.56 Estim Creat Clear Calc 127.36 Est GFR (MDRD) Af Amer 158 Est GFR (MDRD) Non-Af 130 BUN/Creatinine Ratio 25.1 H Glucose 87 Calcium 8.7 Radiography Diagnostic Testing: Clinical Impression(s) from Imaging Studies Pelvis CT 12/07/23 11:40 IMPRESSION: Left ovarian cyst. Electronically Signed: Nii Sanchez MD at 13:09 EDT , Discharge Plan Triage Chief Complaint: Abscess ED Provider: Telma Wheeler Dx/Rx/DC Orders Clinical Impression: Coccyxdynia Instructions: Understanding Coccydynia Prescriptions: New tramadol 50 mg tablet 50 mg PO TID PRN (Reason: pain) Qty: 20 0RF No Action sertraline 100 mg tablet 100 mg PO DAILY polysaccharide iron complex [Ferrex 150] 150 mg iron Capsule 150 mg PO DAILYCM 60 Days Qty: 60 1RF promethazine 25 mg tablet 25 mg PO Q6H PRN PRN (Reason: NAUSEA/VOMITING) 10 Days Qty: 30 0RF Primary Care Provider: Steve Hu Referrals: Steve Hu MD [Primary Care Provider] - Jammie Iyer MD [Med Staff - Active Staff] - 3-5 Days Print Language: Chadian Disposition Disposition: Home, Self Care
[2023-12-07 11:53] LABS: Basophil# 0.03 X10^3/uL; Basophil% 0.4 % (0-1); Eosinophil# 0.09 X10^3/uL; Eosinophils% 1.1 % (0-5); Hematocrit 35.2 % (37-47); Hemoglobin 11.5 g/dL (12.0-15.0); Lymphocyte % 29.9 % (19-41); Mean Corp Hgb Conc 32.7 g/dL (32-36); Mean Corpuscular Volume 98.1 fL (81-99); Mean Platelet Vol. 9.6 fl (6.2-12.0); Monocyte# 0.47 X10^3/uL; Monocyte% 5.9 % (0-10); NRBC Flagged by Analyzer 0 % (0-5); Neutrophil % 62.3 % (47-70); Platelet Count 315 K/mm3 (150-450); Red Blood Count 3.59 M/mm3 (4.2-5.4)
[2023-12-07 12:06] LABS: Anion Gap 5 (5-15); BUN 14 mg/dL (7-18); BUN/Creat Ratio 25.1 RATIO (10-20); Calcium,Total 8.7 mg/dL (8.5-10.1); Chloride 107 mmol/L (98-107); Creatinine, Serum 0.56 mg/dL (0.55-1.02); EST Glomerular Filtration Rate 130 mL/min (>60); Est Glom Filt Rate - Afr Amer 158 mL/min (>60); Estimated Creatinine Clearance 127.36 ml/min; Glucose 87 mg/dL (74-106); Potassium 3.9 mmol/L (3.5-5.1); Sodium Level 139 mmol/L (136-145)
== END 2023-12-07 13:53 | disposition home or self-care (01) ==
PROVIDERS: Emergency Provider Emergency Medicine; PCP Family Medicine; Visit Provider Emergency Medicine
DX: M53.3 Sacrococcygeal disorders, not elsewhere classified (principal); F32.A Depression, unspecified; F41.9 Anxiety disorder, unspecified; Z79.899 Other long term (current) drug therapy; F17.290 Nicotine dependence, other tobacco product, uncomplicated
CPT/HCPCS: 72193; 80048; 85025; 99283; Q9967; A4216

== ENCOUNTER 2024-05-11 17:46 | Emergency (ER) | payer BC, SELFPAY ==
[2024-05-11 17:47] VITALS: BP 146/92; PULSE 85; RESP 16; TEMP 36.7; O2SAT 95; BMI 25.4
[2024-05-11 18:32] LABS: Absolute Lymphocyte Count 3.86 X10^3/uL (0.83-4.51); Absolute Neutrophil Count 5.8 X10^3/uL (2.0-7.7); Basophil# 0.05 X10^3/uL; Basophil% 0.5 % (0-1); Eosinophil# 0.09 X10^3/uL; Eosinophils% 0.9 % (0-5); Hematocrit 37.7 % (37-47); Hemoglobin 12.4 g/dL (12.0-15.0); Lymphocyte # 3.86 X10^3/ul (0.83-4.51); Lymphocyte % 37.2 % (19-41); Mean Corp Hgb Conc 32.9 g/dL (32-36); Mean Corpuscular Hgb 31.9 pg (27.0-32.0); Mean Corpuscular Volume 96.9 fL (81-99); Mean Platelet Vol. 9.7 fl (6.2-12.0); Monocyte# 0.55 X10^3/uL; Monocyte% 5.3 % (0-10); NRBC Flagged by Analyzer 0 % (0-5); Neutrophil % 55.8 % (47-70); Platelet Count 418 K/mm3 (150-450); RBC Distribution Width CV 13.7 % (11.6-14.6); RBC Distribution Width SD 48.8 fl (35.1-43.9); Red Blood Count 3.89 M/mm3 (4.2-5.4); White Blood Count 10.4 K/mm3 (4.4-11.0)
[2024-05-11 18:54] LABS: Anion Gap 3 (5-15); BUN 13 mg/dL (7-18); BUN/Creat Ratio 24.2 RATIO (10-20); Calcium,Total 9.2 mg/dL (8.5-10.1); Chloride 106 mmol/L (98-107); Creatinine, Serum 0.54 mg/dL (0.55-1.02); EST Glomerular Filtration Rate 135 mL/min (>60); Est Glom Filt Rate - Afr Amer 164 mL/min (>60); Estimated Creatinine Clearance 124.48 ml/min; Glucose 85 mg/dL (74-106); Potassium 3.9 mmol/L (3.5-5.1); Sodium Level 137 mmol/L (136-145); Thyroid Stim Hormone (TSH) 0.819 uIU/mL (0.358-3.740); Troponin-I HS < 3 pg/mL (3.0-54.0)
[2024-05-11 19:47] VITALS: PULSE 88; RESP 18; O2SAT 98
== END 2024-05-11 19:30 | disposition home or self-care (01) ==
PROVIDERS: Emergency Provider Emergency Medicine; PCP Family Medicine; Visit Provider Emergency Medicine
DX: R55 Syncope and collapse (principal); D64.9 Anemia, unspecified; F17.290 Nicotine dependence, other tobacco product, uncomplicated; Z86.16 Personal history of COVID-19
CPT/HCPCS: 80048; 84443; 84484; 85025; 93005; 99284; A4216

== ENCOUNTER 2024-08-03 10:20 | Emergency (ER) | payer BC, SELFPAY ==
[2024-08-03 10:21] VITALS: BP 124/74; PULSE 92; RESP 15; TEMP 36.4; O2SAT 100; BMI 25.2
--- NOTE | 2024-08-03 11:01 | CT_ITS ---
PROCEDURE: ABDOMEN/PELVIS WITHOUT CONT REASON FOR EXAM: 3 day history of right flank pain. Prior gastric sleeve. TECHNIQUE: Abdomen and pelvis CT without intravenous contrast. COMPARISON: Comparison is made with prior examination dated December 07, 2023. FINDINGS: Noncontrast technique limits evaluation of the abdominal and pelvic viscera. Lung bases: Clear Liver: Unremarkable. Gallbladder: Unremarkable. Spleen: Unremarkable. Pancreas: Unremarkable. Adrenals: Unremarkable. Kidneys: Tiny calculus in the upper pole calyx of the left kidney. Tiny calculus in the lower pole calyx of the left kidney. No obstructive uropathy is seen. Bladder: Unremarkable. Reproductive Organs: Unremarkable. Bowel: There is evidence of a gastric sleeve at the level of the stomach. Appendix: Findings suggestive of prior appendectomy. Lymph nodes: No suspicious lymph node enlargement. Vasculature: Major vascular structures are unremarkable. Peritoneum / Retroperitoneum: No ascites. No free air. Bones: Unremarkable. CT/Abdomen/Pelvis without Cont IMPRESSION: No obstructive uropathy is seen. Tiny nonobstructive bilateral intrarenal calc miracle. Gastric sleeve. Findings suggestive of prior appendectomy. One or more dose reduction techniques were used (e.g., Automated exposure contr ol, adjustment of the mA and/or kV according to patient size, use of iterative reconstruction technique). Reading Location: [place] [id number]
[2024-08-03 11:11] LABS: Absolute Lymphocyte Count 2.44 X10^3/uL (0.83-4.51); Absolute Neutrophil Count 4.7 X10^3/uL (2.0-7.7); Basophil# 0.05 X10^3/uL; Basophil% 0.6 % (0-1); Eosinophil# 0.09 X10^3/uL; Eosinophils% 1.1 % (0-5); Hemoglobin 11.2 g/dL (12.0-15.0); Lymphocyte # 2.44 X10^3/ul (0.83-4.51); Lymphocyte % 31.1 % (19-41); Mean Corpuscular Hgb 30.6 pg (27.0-32.0); Mean Corpuscular Volume 95.6 fL (81-99); Monocyte# 0.51 X10^3/uL; Monocyte% 6.5 % (0-10); NRBC Flagged by Analyzer 0 % (0-5); Neutrophil # 4.72 X10^3/uL (2.7-7.7); Neutrophil % 60.3 % (47-70); Platelet Count 380 K/mm3 (150-450); RBC Distribution Width SD 49.1 fl (35.1-43.9); Red Blood Count 3.66 M/mm3 (4.2-5.4); White Blood Count 7.8 K/mm3 (4.4-11.0)
[2024-08-03 11:20] LABS: Internal QC Validated? YES +Cl - CLEAR BKGD; Pregnancy, Serum, hCG Quali. NEGATIVE Negative
[2024-08-03 11:21] LABS: Record Kit Lot#, Serum Preg. 885059
[2024-08-03 11:24] LABS: Anion Gap 7 (5-15); BUN 16 mg/dL (7-18); BUN/Creat Ratio 32.3 RATIO (10-20); Chloride 106 mmol/L (98-107); EST Glomerular Filtration Rate 148 mL/min (>60); Est Glom Filt Rate - Afr Amer 180 mL/min (>60); Glucose 91 mg/dL (74-106); Sodium Level 140 mmol/L (136-145)
[2024-08-03] MEDS: Ondansetron 4 MG/2 ML Vial IV ×2 (11:25→14:09)
[2024-08-03 11:32] LABS: Color, Urine Yellow (Yellow); Glucose, Dipstick Normal (Normal); Ketone-Dipstick Negative (Negative); Leukocyte Esterase-Dipstick 25 /ul (Negative); Nitrite-Dipstick Negative (Negative); Occult Blood-Urine 10 /ul (Negative); Protein-Dipstick 15 mg/dl (Negative); Urine Bilirubin Dipstick Negative (Negative); Urine Clarity Clear (Clear); Urine Urobilinogen 1 mg/dl (Normal)
--- NOTE | 2024-08-03 11:33 | ED.VIS.GI ---
HPI HPI - GI History of Present Illness Chief Complaint: Flank Pain Informant: patient Narrative Narrative: Patient presents with right flank pain. It started gradually 3 days ago and has been colicky, but much more severe today and during one of the episodes where it suddenly became worse, she vomited while at work, her boss told her to come and get it checked out out of concern for her according to the patient. She states she has had no dysuria or hematuria, but she has been urinating a little more frequently than usual and she states it feels different but she is having difficulty describing how. She states she has had some menstrual spotting in the same amount of time. She states the pain started in her right low back and came around to her flank but now is more in her right lower quadrant. She has had a slight decrease in her appetite recently. This for surgeries in her abdomen in the past, she had a gastric sleeve and states she lost about 150 pounds, panniculectomy [facility] Medical History Acute pharyngitis, unspecified COVID-19 Non-pressure chronic ulcer of skin of other sites with fat layer exposed Open wound anterior abdominal wall Depression Anxiety Alcohol use Marijuana use Arthritis Restless legs Smoker Shortness of breath on exertion Recent weight loss Former smoker Necrotizing soft tissue infection Hidradenitis suppurativa Home Medications ?Medication ?Instructions ?Recorded ?Last Taken ?Type sertraline 100 mg tablet 100 mg PO DAILY Depression 02/20/21 12/07/23 History polysaccharide iron complex 150 mg 150 mg PO DAILYCM 60 days #60 caps 02/21/21 12/07/23 Rx iron capsule (Ferrex) promethazine 25 mg tablet 25 mg PO Q6H PRN PRN 02/21/21 Unknown Rx NAUSEA/VOMITING 10 days #30 tabs tramadol 50 mg tablet 50 mg PO TID PRN pain #20 tabs 12/07/23 Unknown Rx Allergy/AdvReac Type Severity Reaction Status Date / Time aspirin Allergy Swelling Verified 08/03/24 10:24 control Allergy Unknown rash Uncoded 05/18/23 10:40 Family History Other Breast cancer Cervical cancer Colon cancer Diabetes Hypertension Surgical History (Updated 08/03/24 @ 11:[address] Stanley Driscoll MD) H/O gastric sleeve Hx of abdominal surgery [place] teeth extracted Hx of section Social History Smoking Status: Current every day smoker tobacco type: e-cigarettes alcohol intake: current additional social history: Does Not Take Aspirin ( Allergy ) Does Not Take Ibuprofen ROS ROS ED Constitutional Constitutional ED: Denies chills or fever(s) Eyes Eyes: Denies change in vision or diplopia ENT ENT ED: Denies rhinorrhea or sore throat Cardiovascular Cardiovascular: Denies chest pain or palpitations Respiratory/Chest Respiratory/Chest: Denies cough or dyspnea Gastrointestinal Gastrointestinal: Reports abdominal pain, nausea and vomiting; Denies diarrhea, hematemesis or melena Genitourinary Genitourinary ED: Reports urinary frequency; Denies dysuria or hematuria Musculoskeletal Musculoskeletal: Reports back pain; Denies neck pain Integumentary Denies abscess or rash Neurologic Neurologic: Denies headache(s), paresthesias or weakness EXAM Physical Exam Const Vital Signs: 08/03/24 10:21 08/03/24 13:02 Temperature 97.6 F L Temperature Source Temporal Pulse Rate 92 67 Respiratory Rate 15 18 Blood Pressure 124/74 H 118/83 H Blood Pressure Mean 90 94 Pulse Ox 100 98 Oxygen Delivery Method Room Air Room Air Positive well nourished and well developed General Appearance ED: well developed and NAD HEENT Reports moist mucous membranes normocephalic and atraumatic Eyes PERRL and EOMs intact bilaterally Neck full ROM and supple Resp normal respiratory effort and clear to auscultation bilaterally Cardio regular rate, regular rhythm and no murmurs GI non-distended GI Narrative: Tender in her right lower quadrant, focused at McBurney's point. Some voluntary guarding, no involuntary guarding or rebound tenderness. Negative Rovsing, negative obturator, positive psoas. Auscultation: normoactive bowel sounds Palpation: soft Back/Spine no CVA tenderness Back/Spine Narrative: Normal inspection no rashes General Back: other FROM Extremity normal to inspection General Extremety ED: Negative for edema, pulses abnormal or tenderness General Extremity: Negative for edema or pulses abnormal Neuro oriented x3, CN's II-XII intact bilaterally and no sensory deficits noted Sensorium / Orientation: awake and alert Motor Exam: strength 5/5 throughout Psych mental status grossly normal and thought process normal Skin no rashes or lesions noted and no wounds MDM MDM MDM Narrative Medical decision making narrative: Differential here includes appendicitis, urolithiasis and ureteral colic, and since she started having vaginal spotting similar timeframe, this could be an ovarian process although on exam she is tender a little high for that to be the most likely cause. I think starting with a CT is more reasonable, her is negative ruling out ectopic, her labs are noted and unremarkable, highlighting the fact that she has no leukocytosis or leftward shift or bandemia. I reviewed the CT images and report which I agree with, it is essentially normal. Couple of small nephroliths were seen, but there is no obstructing uropathy. Her urine shows trace of blood, no signs of infection on my interpretation, it is possible that she passed a stone, she declined the Toradol that was offered and her pain is much better now, after 3 days of discomfort, no signs of periappendiceal inflammatory changes to the point where radiology thought may be she had a prior appendectomy which the patient denies, I do not think this is all consistent with acute appendicitis. The 1 thing of not able to rule out without an ultrasound is ovarian torsion. I discussed this with the patient at length. She laughed saying that she is supposed to follow-up with a new [employer], since her old practice went under, and she and her were in discussions about sterilizing procedures because she does not want to have children anymore. She does have a history of PCOS, we discussed the possibility of ovarian cysts, hemorrhagic cyst, she does not have significant amount of free fluid in the abdomen on CT so I do not think she is having an intraabdominal bleeding emergency. She desires to decline the ultrasound and to go home, she wants a note to say that she is okay to go back to work today, and I believe she has the capacity to make that decision and I am okay with that. Lab Data Attestation: I reviewed the patient's lab results. Labs: Laboratory Results - last 24 hr 08/03/24 08/03/24 11:04 11:16 WBC 7.8 RBC 3.66 L Hgb 11.2 L Hct 35.0 L MCV 95.6 MCH 30.6 MCHC 32.0 RDW Std Deviation 49.1 H RDW Coeff of Balaji 14.0 Plt Count 380 MPV 9.0 Immature Gran % (Auto) 0.400 Neut % (Auto) 60.3 Lymph % (Auto) 31.1 [place] % (Auto) 6.5 Eos % (Auto) 1.1 Baso % (Auto) 0.6 Absolute Neuts (auto) 4.7 Absolute Lymphs (auto) 2.44 Nucleated RBC % 0 Sodium 140 Potassium 4.0 Chloride 106 Carbon Dioxide 27.0 Anion Gap 7 BUN 16 Creatinine 0.50 L Estim Creat Clear Calc 134.00 Est GFR (MDRD) Af Amer 180 Est GFR (MDRD) Non-Af 148 BUN/Creatinine Ratio 32.3 H Glucose 91 Calcium 9.0 Serum , Qual NEGATIVE Urine Color Yellow Urine Clarity Clear Urine pH 6.0 Ur Specific [place] 1.020 Urine Protein 15 H Urine Glucose (UA) Normal Urine Ketones Negative Urine Occult Blood 10 H Urine Nitrite Negative Urine Bilirubin Negative Urine Urobilinogen 1 H Ur Leukocyte Esterase 25 H Urine RBC 0-5 SEEN Urine WBC 0-5 SEEN Ur Squamous Epith Cells 0-5 SEEN Ur Renal Epithelial Cell 0 SEEN Urine Bacteria 3+ Urine Mucus RARE Radiography Diagnostic Testing: Clinical Impression(s) from Imaging Studies Abdomen/Pelvis CT 08/03/24 11:01 IMPRESSION: No obstructive uropathy is seen. Tiny nonobstructive bilateral intrarenal calculi. Gastric sleeve. Findings suggestive of prior appendectomy. One or more dose reduction techniques were used (e.g., Automated exposure control, adjustment of the mA and/or kV according to patient size, use of iterative reconstruction technique). Reading Location: [facility] Discharge Plan Triage Chief Complaint: Flank Pain ED Provider: Stanley Driscoll Dx/Rx/DC Orders Clinical Impression: Acute right flank pain, Bilateral nephrolithiasis Instructions: ED Flank Pain, Uncertain Cause, ED Kidney Stone, Passed Prescriptions: No Action sertraline 100 mg tablet 100 mg PO DAILY polysaccharide iron complex [Ferrex 150] 150 mg iron Capsule 150 mg PO DAILYCM 60 Days Qty: 60 1RF promethazine 25 mg tablet 25 mg PO Q6H PRN PRN (Reason: NAUSEA/VOMITING) 10 Days Qty: 30 0RF tramadol 50 mg tablet 50 mg PO TID PRN (Reason: pain) Qty: 20 0RF Primary Care Provider: Care Physician,No Primary Referrals: doctor, your [Other] - 3-5 Days if not improving Activity Restrictions/Additional Instructions: A passed kidney stone is possible since you have small stones in each kidney, they are tiny, you could have had another one that is now gone. If that is the case your pain should gradually resolve. Print Language: Arabic Disposition Disposition: Home, Self Care
[2024-08-03 11:41] LABS: Red Blood Cells-Urine 0-5 SEEN /hpf (0-5); White Blood Cells 0-5 SEEN /hpf (0-5)
[2024-08-03 11:43] LABS: Squamous Epithelial Cells - UA 0-5 SEEN /hpf (5-10)
[2024-08-03 11:44] LABS: Bacteria 3+ /hpf (None Seen); Renal Epithelial Cells 0 SEEN /hpf (0-5)
[2024-08-03 11:45] LABS: Mucous, Urine RARE /hpf (<or=2+)
[2024-08-03 13:02] VITALS: BP 118/83; PULSE 67; RESP 18; O2SAT 98
[2024-08-03 14:13] VITALS: BP 125/63; PULSE 65; RESP 18; TEMP 36.9; O2SAT 100
== END 2024-08-03 14:14 | disposition home or self-care (01) ==
PROVIDERS: Emergency Provider Emergency Medicine; Visit Provider Emergency Medicine
DX: N20.0 Calculus of kidney (principal); F17.290 Nicotine dependence, other tobacco product, uncomplicated; Z86.16 Personal history of COVID-19
CPT/HCPCS: 74176; 80048; 81001; 84703; 85025; 96374; 96376; 99282; A4216; J2405

== ENCOUNTER 2024-11-22 11:50 | Emergency (ER) | payer BC, SELFPAY ==
[2024-11-22 11:51] VITALS: BP 118/79; PULSE 71; RESP 16; TEMP 36.2; O2SAT 100; BMI 26.6
--- NOTE | 2024-11-22 12:07 | EX.ED.GENINJ ---
HPI History of Present Illness Chief Complaint: Nausea/Vomiting/Diarrhea [facility]SH [facility] Medical History (Updated 11/22/24 @ 14:[address] Zachery Casanova, DO) Laceration of left little finger Acute pharyngitis, unspecified COVID-19 Non-pressure chronic ulcer of skin of other sites with fat layer exposed Open wound anterior abdominal wall Depression Anxiety Alcohol use Marijuana use Arthritis Restless legs Smoker Shortness of breath on exertion Recent weight loss Former smoker Necrotizing soft tissue infection Hidradenitis suppurativa Home Medications ?Medication ?Instructions ?Recorded ?Last Taken ?Type sertraline 100 mg tablet 100 mg PO DAILY Depression 02/20/21 12/07/23 History polysaccharide iron complex 150 mg 150 mg PO DAILYCM 60 days #60 caps 02/21/21 12/07/23 Rx iron capsule (Ferrex) promethazine 25 mg tablet 25 mg PO Q6H PRN PRN 02/21/21 Unknown Rx NAUSEA/VOMITING 10 days #30 tabs tramadol 50 mg tablet 50 mg PO TID PRN pain #20 tabs 12/07/23 Unknown Rx azithromycin 250 mg tablet See Rx Instructions PO .COMPLEX #6 09/13/24 Unknown Rx tabs metoclopramide HCl 5 mg tablet 5 mg PO Q8H PRN nausea and 11/22/24 Unknown Rx (Reglan) vomiting 7 days #21 tabs Allergy/AdvReac Type Severity Reaction Status Date / Time aspirin Allergy Swelling Verified 09/13/24 10:48 control Allergy Unknown rash Uncoded 09/13/24 10:48 Family History Other Breast cancer Cervical cancer Colon cancer Diabetes Hypertension Surgical History H/O gastric sleeve Hx of abdominal surgery [place] teeth extracted Hx of section Social History Smoking Status: Current every day smoker tobacco type: e-cigarettes alcohol intake: current additional social history: Does Not Take Aspirin ( Allergy ) Does Not Take Ibuprofen EXAM Physical Exam Const Vital Signs: 11/22/24 11:51 11/22/24 13:50 11/22/24 14:52 Temperature 97.2 F L 97.8 F Temperature Source Temporal Pulse Rate 71 65 54 L Respiratory Rate 16 16 18 Blood Pressure 118/79 112/74 114/81 H Blood Pressure Mean 92 86 92 Pulse Ox 100 100 99 Oxygen Delivery Method Room Air Room Air [facility] Narrative Medical decision making narrative: HISTORY OF PRESENT ILLNESS: Chief complaint: Nausea vomiting diarrhea 39-year-old female history of depression, anxiety, alcohol marijuana abuse, presents concern for nausea vomiting diarrhea, dizziness and diffuse weakness. She states this began 2 days ago. She further states she has coworkers who are also sick with nausea vomiting diarrhea. Denies recent travel, new foods or antibiotics. Denies blood in her stool or fever. Denies chest pain or shortness of breath. Denies aviva abdominal pain. Denies urinary complaints REVIEW OF SYSTEMS: Pertinent positives: Nausea vomiting, diarrhea, dizziness and weakness Pertinent negatives: As per [facility] PHYSICAL EXAM: Nursing triage notes reviewed, Vital signs reviewed Constitutional: please see [facility] HENT: MMM Eyes: Pupils equal round and reactive to light, Extraocular muscles intact Neck: No stridor, no JVD, full neck ROM Lungs: Clear to auscultation, No wheezing or rales. No increased work of breathing, no conversational dyspnea, no accessory muscle use, no nasal flaring. No respiratory distress noted Heart: Regular rate and rhythm, No murmurs, No rubs and No gallops, 2+ distal pulses (radial, femoral, posterior tibial) in all extremities Abdomen: Soft, there is no tenderness, rigidity, rebound or guarding, no obvious peritoneal signs, no palpable pulsatile abdominal masses, no auscultated abdominal bruit : No CVAT Extremities: No edema Neuro: No new focal neurological deficits, cranial nerves II through XII intact, 5/5 strength in all present extremities. Intact sensation to light touch in all present extremities, 2+ reflexes bilateral patella tendons. Skin: No rash or lesions noted MEDICAL DECISION MAKING: Chief Complaint: please see [facility] External records reviewed: Review for imaging studies: Reviewed CT scan abdomen pelvis from 2024 which showed no obstructive uropathy Factors affecting care: As per HPI Social determinants of health: history of alcohol and marijuana abuse History obtained from others: none Consults: none [facility] Narrative: The patient was initially hemodynamically stable, afebrile and nontoxic-appearing. Exam with a benign abdominal exam, exam not consistent with acute intra-abdominal surgical emergency such as perforation or obstruction. I considered the following differential diagnosis: Dehydration, electro disturbance, viral gastroenteritis I obtained a broad lab workup to further elucidate the etiology of the patient's complaints. Specifically wanted to rule out dehydration or electrolyte abnormalities. I initially assessed the patient 1 L normal saline and give Zofran for nausea and vomiting control. ALL IMAGES (IF OBTAINED) HAVE BEEN PERSONALLY REVIEWED AND INTERPRETED BY MYSELF. CBC with leukocytosis, noted mild anemia but no obvious thrombocytopenia BMP without evidence of significant electrolyte abnormalities, no anion gap, no acute kidney injury. LFTs show no evidence of hepatobiliary pathology. Lipase is wnl indicating no pancreatic inflammation. Urine test is negative Upon reevaluation after initial dose of Zofran patient continued to be nauseous and failed her p.o. challenge. So she was given additional dose of 5 mg IV Reglan. Prior to final p.o. challenge patient noted she had picked up her kids and needed to leave. She understood risk and benefits of leaving at this time and agreed to return if symptoms change or worsen. She did not prescription for Reglan at discharge in stable condition. I suspect there is irritation related to a viral GI illness given recent sick contact. Labs are reassuring. Repeat abdominal exam remained benign. She is appropriate discharge home to take care of her children. Strict return precautions were discussed. The patient and/or family, caregivers express understanding. The patient and/or family, caregivers agrees with the plan. Shared decision making: I will have a discussion with the patient and or visitors regarding risk/benefits of further testing or admission. They will be made aware of of the risk/benefits inherent in this decision they will be given the opportunity to voice understanding. Total critical care time today provided was at least 0 minutes. This excludes separately billable procedures. Critical care time (if documented) is secondary to the patient having high probability of clinically significant/life threatening deterioration in the patient's condition which required my urgent intervention. Impression: 1. Acute dehydration 2. Nausea vomiting diarrhea Dispo: Discharge home This note was generated with [employer] dictation software. It may contain incorrect words, spelling, and punctuation that were not noted in review of the chart prior to signing. Lab Data Labs: Laboratory Results - last 24 hr 11/22/24 11/22/24 12:03 13:19 WBC 9.0 RBC 3.57 L Hgb 10.8 L Hct 33.5 L MCV 93.8 MCH 30.3 MCHC 32.2 RDW Std Deviation 45.9 H RDW Coeff of Balaji 13.3 Plt Count 416 MPV 9.3 Immature Gran % (Auto) 0.400 Neut % (Auto) 61.4 Lymph % (Auto) 30.0 [place] % (Auto) 6.8 Eos % (Auto) 1.0 Baso % (Auto) 0.4 Absolute Neuts (auto) 5.5 Absolute Lymphs (auto) 2.70 Nucleated RBC % 0 Sodium 136 Potassium 4.4 Chloride 101 Carbon Dioxide 26.0 Anion Gap 9 BUN 12 Creatinine 0.47 L Estim Creat Clear Calc 140.88 Est GFR (MDRD) Non-Af 125 BUN/Creatinine Ratio 26.0 H Glucose 81 Calcium 9.0 Total Bilirubin 0.61 AST 22 ALT 24 Alkaline Phosphatase 57 Total Protein 7.3 Albumin 4.3 Globulin 3.0 Albumin/Globulin Ratio 1.4 Lipase 35 Urine Test Negative Discharge Plan Triage Chief Complaint: Nausea/Vomiting/Diarrhea ED Provider: Zachery Casanova Dx/Rx/DC Orders Clinical Impression: Nausea & vomiting Instructions: ED Diet Vomiting Diarrhea Prescriptions: New metoclopramide HCl [Reglan] 5 mg tablet 5 mg PO Q8H PRN (Reason: nausea and vomiting) 7 Days Qty: 21 0RF No Action azithromycin 250 mg tablet See Rx Instructions PO .COMPLEX Qty: 6 0RF Rx Instructions: For 250 mg dose pack: take 500 mg today (day 1), then 250 mg for 4 days (days 2-5) PO sertraline 100 mg tablet 100 mg PO DAILY polysaccharide iron complex [Ferrex 150] 150 mg iron Capsule 150 mg PO DAILYCM 60 Days Qty: 60 1RF promethazine 25 mg tablet 25 mg PO Q6H PRN PRN (Reason: NAUSEA/VOMITING) 10 Days Qty: 30 0RF tramadol 50 mg tablet 50 mg PO TID PRN (Reason: pain) Qty: 20 0RF Stand Alone Forms: ED Work / School Excuse Primary Care Provider: Care Physician,No Primary Referrals: Gregory Schwartz MD [Med Staff - Needle Grinder] - Activity Restrictions/Additional Instructions: Thank you for trusting us with your care today! Your labs are reassuring. Specifically there is no sign of systemic inflammation, no sign of significant kidney dysfunction or . You are likely suffering from a viral gastroenteritis. We should control your symptoms with oral antinausea medicine in the form of Reglan. Please drink plenty of oral fluids and recommend Body Armor Pedialyte or Gatorade. Please take Tylenol (2 pills, 650 mg), ibuprofen (2 pills, 400 mg) every 6 hours as needed for pain and fever control. Please return to the emergency department if your symptoms change or worsen. Please follow with your primary care physician for further outpatient evaluation and management. Print Language: [place]se Disposition Disposition: Home, Self Care Discharge Date/Time: 11/22/24 14:58
[2024-11-22] MEDS: 0.9% Normal Saline (1000mL) 1,000 ML 999 ML IV ×2 (12:18→14:20)
[2024-11-22] MEDS: Ondansetron 4 MG/2 ML Vial IV (12:18)
[2024-11-22 12:25] LABS: Absolute Neutrophil Count 5.5 X10^3/uL (2.0-7.7); Basophil# 0.04 X10^3/uL; Basophil% 0.4 % (0-1); Eosinophil# 0.09 X10^3/uL; Hematocrit 33.5 % (37-47); Hemoglobin 10.8 g/dL (12.0-15.0); Mean Corp Hgb Conc 32.2 g/dL (32-36); Mean Corpuscular Hgb 30.3 pg (27.0-32.0); Mean Corpuscular Volume 93.8 fL (81-99); Mean Platelet Vol. 9.3 fl (6.2-12.0); Monocyte# 0.61 X10^3/uL; Monocyte% 6.8 % (0-10); NRBC Flagged by Analyzer 0 % (0-5); Neutrophil # 5.51 X10^3/uL (2.7-7.7); Neutrophil % 61.4 % (47-70); Platelet Count 416 K/mm3 (150-450); RBC Distribution Width CV 13.3 % (11.6-14.6); RBC Distribution Width SD 45.9 fl (35.1-43.9); Red Blood Count 3.57 M/mm3 (4.2-5.4)
[2024-11-22 12:42] LABS: ALB/GLOB Ratio 1.4 RATIO (0.9-2.4); AST(SGOT) 22 U/L (<=31); Alanine Aminotransfer ALT/SGPT 24 U/L (<=34); Albumin, Serum 4.3 g/dL (3.5-5.0); Alkaline Phosphatase 57 U/L (35-104); Anion Gap 9 (5-15); BUN 12 mg/dL (4-19); Chloride 101 mmol/L (98-108); Creatinine, Serum 0.47 mg/dL (0.70-1.20); EST Glomerular Filtration Rate 125 (>60); Estimated Creatinine Clearance 140.88 ml/min (50-250); Glucose 81 mg/dL (70-99); Lipase 35 U/L (13-75); Potassium 4.4 mmol/L (3.3-5.1); Protein, Total 7.3 g/dL (5.9-8.4); Sodium Level 136 mmol/L (133-145); Total Bilirubin 0.61 mg/dL (0.00-1.30)
[2024-11-22 13:39] LABS: Internal QC Validated? YES +Cl - CLEAR BKGD
[2024-11-22 13:40] LABS: Pregnancy, Urine Negative Negative
[2024-11-22 13:50] VITALS: BP 112/74; PULSE 65; RESP 16; O2SAT 100
[2024-11-22] MEDS: Metoclopramide 10 MG/2 ML Vial 5 MG IV (14:20)
[2024-11-22 14:52] VITALS: BP 114/81; PULSE 54; RESP 18; TEMP 36.6; O2SAT 99
== END 2024-11-22 14:58 | disposition home or self-care (01) ==
PROVIDERS: Emergency Provider Emergency Medicine; Referring Provider Emergency Medicine; Visit Provider Emergency Medicine
DX: R11.2 Nausea with vomiting, unspecified (principal); R19.7 Diarrhea, unspecified; E86.0 Dehydration; F17.290 Nicotine dependence, other tobacco product, uncomplicated; Z86.16 Personal history of COVID-19
CPT/HCPCS: 80053; 81025; 83690; 85025; 96361; 96374; 96375; 99283; A4216; J2405